=== PATIENT | male | born 1955 | race Caucasian/White ===

== ENCOUNTER 2017-02-28 11:31 | Inpatient (IN) | payer OTHER ==
[2017-02-28 12:09] LABS: Hematocrit 42.1 % (42.0-52.0); Mean Platelet Volume 7.9 fL (7.4-10.4); Red Blood Cell (RBC) Count 5.11 mill/uL (4.70-6.10); White Blood Cell (WBC) Count 14.9 thou/uL (4.8-10.8)
[2017-02-28 12:29] LABS: Band 14 % (5-11); Neutrophil 74 % (42-75)
[2017-02-28 12:31] LABS: Lactic Acid - Sepsis 2.7 mmol/L (0.5-2.2)
[2017-02-28 12:37] LABS: ALT (SGPT) 10 U/L (8-55); AST (SGOT) 11 U/L (5-34); Alkaline Phosphatase 83 U/L (40-150); Anion Gap 13 mmol/L (10-20); BUN (Urea Nitrogen) 16 mg/dL (8.4-25.7); Bilirubin, Total 1.7 mg/dL (0.2-1.2); Calc. Creatinine Clearance 0 mL/min (70-130); Calcium 8.8 mg/dL (7.8-10.44); Carbon Dioxide 21 mmol/L (23-31); Chloride 104 mmol/L (98-107); Estimated GFR-MDRD Greater than 90; Protein, Total 7.4 g/dL (5.8-8.1)
[2017-02-28] MEDS ORDERED: Fentanyl 100 MCG/2 ML VIAL ONE (12:38)
[2017-02-28] MEDS ORDERED: Sodium Chloride 0.9% 100 ML ONE (12:39)
[2017-02-28] MEDS ORDERED: Piperacillin/Tazobactam 3.375 GM VIAL ONE (12:39)
[2017-02-28 13:29] LABS: Bilirubin Negative (Negative); Blood, Urine Large (Negative); Glucose, Urine (Dipstick) Negative (Negative); Ketone, Urine Negative (Negative); Nitrite Negative (Negative); Protein, Urine (Dipstick) 30 mg/dL (Neg-Trace)
[2017-02-28 13:31] LABS: Bacteria/HPF 4+ HPF (None Seen); Hyaline Casts/LPF 0-3 HYALINE CAST LPF (0-3 Hyaline); Squamous Epithelial 0-3 HPF (0-3)
[2017-02-28 14:33] LABS: Anion Gap 12 mmol/L (-14-95); T. Carbon Dioxide 21.4 mmol/L (1.0-85.0); pH (Venous) 7.369 (7.35-7.45); vO2 Saturation-calc 95.9 % (0.0-100.0)
--- NOTE | 2017-02-28 15:23 | RAD ---
PORTABLE CHEST ONE VIEW 02/28/2017 at 2:21 p.m.: HISTORY: Sepsis, osteomyelitis. FINDINGS/IMPRESSION: Comparison is made with the exam of 12/21/2016. The heart size is borderline. Left-sided AICD remains in place. The lungs are expanded with mild p ulmonary vascular congestion. No lobar consolidation, pneumothoraces, or pleural effusions are seen . POS: [facility]
--- NOTE | 2017-02-28 16:48 | HP ---
PRIMARY CARE PHYSICIAN: Zuleyma Garzon M.D. REASON FOR ADMISSION: Sepsis, urinary tract infection. HISTORY OF PRESENT ILLNESS: A 61-year-old male who has cardiomyopathy with AICD in place, who came to the emergency room for evaluation of fever, nausea, and abdominal discomfort. The patient also n oticed increasing frequency of urination, dysuria and lower abdominal pain for the last 3 to 4 days. The patient was having increasing fever and he was not able to tolerate his oral intake and that i s why the patient was sent from retirement to the emergency room for evaluation. The patient also reported that today he was experiencing both sides lower back pain, predominantly o n the right side. Paramedics were called at retirement and the patient was having relatively low blood pressure and that is why the patient was given 1 liter of IV fluid and fentanyl was given for pain. Subsequently, he came to our emergency room for evaluation. When he arrived to our emergency room, he was having fever with 103.1. He was tachycardic and was h aving relatively low blood pressure. Routine blood tests showed leukocytosis with left shift and la ctic acidosis. His chest x-ray was unremarkable and his urinalysis was consistent with urinary trac t infection. In the emergency room, the patient was given vancomycin, Zosyn, IV fluid and fentanyl 50 mcg. Subse quently, the patient is being admitted for further evaluation and treatment. When I saw this patient, at that time, the patient's blood pressure was improved to 110 and he was n o longer tachycardic. His fever was also reduced to 100.0. The patient was on room air and lying f lat comfortably without any distress. REVIEW OF SYSTEMS: The following complete review of systems was negative, unless otherwise mentione d in the HPI or below: Constitutional: Weight loss or gain, ability to conduct usual activities. Skin: Rash, itching. Eyes: Double vision, pain. ENT/Mouth: Nose bleeding, neck stiffness, pain, tenderness. Cardiovascular: Palpitations, dyspnea on exertion, orthopnea. Respiratory: Shortness of breath, wheezing, cough, hemoptysis, fever or night sweats. Gastrointestinal: Poor appetite, abdominal pain, heartburn, nausea, vomiting, constipation, or diar kirt. Genitourinary: Urgency, frequency, dysuria, nocturia. Musculoskeletal: Pain, swelling. Neurologic/Psychiatric: Anxiety, depression. Allergy/Immunologic: Skin rash, bleeding tendency. Please see my HPI for pertinent positive and negative. All other review of systems reviewed and neg ative except as mentioned in the HPI. PAST MEDICAL HISTORY: Chronic systolic heart failure with EF 10%-15% with AICD in place, asthma, hi story of osteomyelitis in the back and nephrolithiasis. PAST SURGICAL HISTORY: AICD placement, cholecystectomy, appendicectomy, cardiac catheterization, an d circumcision. PAST PSYCHIATRIC HISTORY: Anxiety and depression. SOCIAL HISTORY: The patient is . He lives in assisted living facility at retirement. No history of tobacco, alcohol or illicit drug abuse. 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 FAMILY HISTORY: Both parents from lung cancer and they were heavy smoker. Both parents also h ad congestive heart failure. CURRENT HOME MEDICATIONS: The patient does not have any medication with him at this point, but base d on previous discharge summary, the patient is on following medications: Tylenol #3 one tablet t.i .d. p.r.n., Xanax 0.5 mg p.o. daily p.r.n., vitamin C 500 mg p.o. daily, cetirizine 10 mg p.o. daily , vitamin D3 2000 units p.o. daily, Pradaxa 150 mg p.o. b.i.d., digoxin 250 mcg p.o. daily, Lasix 40 mg p.o. daily, lisinopril 2.5 mg p.o. daily, Robaxin 500 mg p.o. b.i.d. p.r.n., metoprolol tartrate 12.5 mg p.o. b.i.d., Zoloft 25 mg p.o. daily, and Aldactone 25 mg p.o. daily. ALLERGIES: MULTAQ, MORPHINE, PROCARDIA, DILAUDID, CELEBREX, FLEXERIL, and LATEX. EMERGENCY ROOM COURSE: The patient is given vancomycin, Zosyn, 2 liters of IV fluid, and fentanyl 5 0 mcg. PHYSICAL EXAMINATION: VITAL SIGNS: On arrival, blood pressure 103/67, pulse 102, respiratory rate 16, temperature 103.1, saturation 94% on room air, weight 104.3 kilograms. GENERAL: The patient is currently alert, awake, no obvious acute distress. HEAD: Normocephalic, atraumatic. EYES: Pupils round, reactive to light. Extraocular muscles intact. ENT: Oropharynx within normal limits. Moist mucous membranes. No oral lesions. No pharyngeal lindsey thema, no exudate. NECK: Supple. Range of motion is normal. No meningeal signs of irritation. LUNGS: Clear to auscultation without any rhonchi or rales. CARDIAC: S1, S2 regular, tachycardia, no murmur, no gallop, no rub. ABDOMEN: Soft, bowel sounds present, obesity present. No suprapubic tenderness. BACK: On examination, CVA tenderness noted. No point tenderness. EXTREMITIES: Upper extremity, passive movements of all joints are normal. Lower extremity, no hien a. Good peripheral pulsation. SKIN: No skin rash. HEMATOLOGICAL SYSTEM: No lymphadenopathy. PSYCHIATRIC: Normal affect. IMAGING AND SIGNIFICANT LABORATORY DATA: 1. EKG showing sinus tachycardia, nonspecific intraventricular conduction delay, left axis deviatio n. 2. CBC: WBC 14.9, hemoglobin 13.5, and platelet of 228. 3. VBG: A pH of 7.36, bicarbonate 28.3, CO2 of 35.3, O2 83.1. 4. BMP: Sodium 139, potassium 4.2, chloride 107, carbon dioxide 21, anion gap 13, BUN 16, creatini ne 0.76, glucose 106, calcium 8.8, lactic acid 2.7. 5. LFTs: AST 11, ALT 10, alkaline phosphatase 83, albumin 3.4. Urinalysis suggestive of urinary t ract infection. 6. Chest x-ray based on my review, mild pulmonary vascular congestion, cardiomegaly, AICD in place. ASSESSMENT AND PLAN/IMPRESSION: 1. Sepsis. This patient meets sepsis criteria. Source of infection is urinary tract infection. T he patient is febrile, tachycardic, and relatively low blood pressure with lactic acidosis. At this point, patient will be admitted to medical floor. We will continue broad-spectrum antibiotic thera py with Rocephin, Levaquin, and vancomycin. We will follow up on culture result. Based on culture result, we will change antibiotic therapy orally. 2. Urinary tract infection. This patient has a remote history of nephrolithiasis. We will do CT s tone protocol to rule out underlying nephrolithiasis. We will continue Rocephin, Levaquin, and vanc omycin, and based on culture result we will change antibiotic therapy accordingly. 3. Nonischemic cardiomyopathy with automatic implantable cardioverter defibrillator in place. At t his point, we will hold on DE inhibitor, beta-prasanth therapy and Lasix therapy because of relative ly low blood pressure. We will resume all of those medications when the patient is more stabilized. 4. Anxiety and depression. We will continue Xanax 0.25 mg p.o. daily p.r.n. and Zoloft 25 mg p.o. daily. 5. Paroxysmal atrial fibrillation. We will continue digoxin 0.25 mg p.o. daily along with anticoag ulation Pradaxa 150 mg p.o. b.i.d. 6. Deep venous thrombosis prophylaxis. The patient is already on Pradaxa therapy and that is why w e will continue while in hospital. 7. Gastrointestinal prophylaxis, Pepcid 20 mg p.o. b.i.d. 8. Code status: The patient is FULL CODE. The patient does not have any surrogate decision maker. Disposition plan based on clinical course. We are expecting the patient's stay in hospital more nishant n two midnights. Plan of care discussed with the patient in detail.
[2017-02-28] MEDS ORDERED: Senokot 8.6 MG TAB PO PRN (17:37)
[2017-02-28] MEDS ORDERED: Loperamide HCl 2 MG CAP PO PRN (17:37)
[2017-02-28] MEDS ORDERED: Eucerin (Mineral Oil/Petrolatum,White) 30 gm Jar TOP PRN (17:37)
[2017-02-28] MEDS ORDERED: Ondansetron ODT 4 MG TAB PO PRN (17:37)
[2017-02-28] MEDS ORDERED: hydrALAZINE 20 MG/ML VIAL SLOW IVP PRN (17:37)
[2017-02-28] MEDS ORDERED: Zolpidem Tartrate 5 MG TAB PO PRN (17:37)
[2017-02-28] MEDS ORDERED: Milk Of Magnesia 30 ML UDCUP PO PRN (17:37)
[2017-02-28] MEDS ORDERED: Ondansetron HCl/PF 4 MG/2 ML Vial IVP PRN (17:37)
[2017-02-28] MEDS ORDERED: Diabetic Tussin 200 MG/10 ML UDCUP PO PRN (17:37)
[2017-02-28] MEDS ORDERED: Mag-Al 1200 mg/1200 mg/30 ML UDCUP PO PRN (17:37)
[2017-02-28] MEDS ORDERED: Sodium Chloride 0.65% Nasal 44 ML BOT EA NARE PRN (17:37)
[2017-02-28] MEDS ORDERED: Sodium Chloride 0.9% 1,000 ML IV SCH (17:37)
[2017-02-28] MEDS ORDERED: Artificial Tears 18 DROP/0.9 ML EA EYE PRN (17:37)
[2017-02-28 17:52] VITALS: BMI 34.1
[2017-02-28] MEDS ORDERED: cefTRIAXone\\ROCEPHIN 1 GM in Sodium Chloride 0.9% 100 ML IVPB SCH ×2 (18:00→21:45)
[2017-02-28] MEDS: Famotidine 20 MG TAB PO SCH (20:36)
[2017-02-28] MEDS: Acetaminophen 325 MG TAB PO PRN (20:36)
[2017-02-28] MEDS ORDERED: Dabigatran 150 mg Capsule PO SCH (21:00)
[2017-02-28] MEDS: Vancomycin HCl 1.25 GM in Sodium Chloride 0.9% 250 ML 250 ML IVPB SCH (22:15)
--- NOTE | 2017-02-28 22:55 | CT ---
NONCONTRAST ENHANCE CT IMAGES ABDOMEN AND PELVIS 02/28/17 HISTORY: Urinary tract infection, sepsis, back pain. Noncontrast enhanced CT images of the abdomen and pelvis is obtained from the dome of the diaphragm to the pubic symphysis. IV and oral contrast was not given. Bilateral pleural effusions seen. Areas of bibasilar atelectasis is also present. The liver and sple en are unremarkable. The gallbladder has been surgically removed. The pancreas is unremarkable. Adre nal glands are unremarkable. The left kidney contains a cortical cyst as well as several nonobstruct ing left renal calculi. The right kidney contains several small parenchymal calculi. There is marked right hydroureteronephrosis. There is dilatation of the proximal right ureter. There is a large right mid ureteral calculus. Three dimensional measurements measuring 5.5 x 11.2 x 21 mm . This large right ureteral stone is resulting in severe proximal hydronephrosis. The distal aspect of the right ureter is decompressed. No evidence of obvious bladder calculi seen. Small bowel loops are unremarkable. The colon is unremarkable except for some descending colonic div erticula. IMPRESSION: Large obstructing right mid ureteral calculus. POS: [facility]
[2017-03-01] MEDS: Vancomycin HCl 1.25 GM in Sodium Chloride 0.9% 250 ML 250 ML IVPB SCH ×3 (05:15→22:40)
[2017-03-01 06:22] LABS: #Basophils 0.1 thou/uL (0.0-0.2); #Eosinphils 0.3 thou/uL (0.0-0.7); #Lymphocytes 1.7 thou/uL (1.20-3.40); #Monocytes 1.5 thou/uL (0.11-0.59); #Neutrophils 7.9 thou/uL (1.40-6.50); %Basophils 0.6 % (0.0-1.0); %Eosinophils 2.9 % (0.0-10.0); %Lymphocytes 14.7 % (21.0-51.0); %Monocytes 13.2 % (0.0-10.0); Hematocrit 40.8 % (42.0-52.0); Mean Platelet Volume 8.5 fL (7.4-10.4); Red Blood Cell (RBC) Count 4.83 mill/uL (4.70-6.10); White Blood Cell (WBC) Count 11.5 thou/uL (4.8-10.8)
[2017-03-01 06:45] LABS: ALT (SGPT) 9 U/L (8-55); AST (SGOT) 14 U/L (5-34); Alkaline Phosphatase 74 U/L (40-150); Anion Gap 13 mmol/L (10-20); BUN (Urea Nitrogen) 19 mg/dL (8.4-25.7); Bilirubin, Total 1.4 mg/dL (0.2-1.2); Calc. Creatinine Clearance 160 mL/min (70-130); Calcium 8.5 mg/dL (7.8-10.44); Carbon Dioxide 20 mmol/L (23-31); Chloride 107 mmol/L (98-107); Estimated GFR-MDRD Greater than 90; Globulin 3.7 g/dL (2.4-3.5); Protein, Total 6.9 g/dL (5.8-8.1)
[2017-03-01] MEDS: Ascorbic Acid 500 mg Chewable Tablet PO SCH (09:44)
[2017-03-01] MEDS: Rivaroxaban 10 MG TAB PO SCH (09:45)
[2017-03-01] MEDS: Famotidine 20 MG TAB PO SCH ×2 (09:45→20:35)
[2017-03-01] MEDS: Saccharomyces boulardii 250 MG CAP PO SCH (09:45)
[2017-03-01] MEDS: Digoxin 0.25 MG TAB PO SCH (09:46)
--- NOTE | 2017-03-01 12:22 | PDOC.PN ---
- Subjective Encounter Start Date: 03/01/17 Encounter Start Time: 12:22 -: old records requested/rev Patient seen and examined. No overnight events, pt has right side flank pain, no fever, no vomiting - Objective Resuscitation Status: Resuscitation Status FULL:Full Resuscitation MAR Reviewed: Yes Vital Signs & Weight: Vital Signs (12 hours) Temp Pulse Resp BP Pulse Ox 03/01/17 09:46 70 03/01/17 08:10 99.5 F 78 18 103/68 93 L 03/01/17 05:00 99.4 F 90 16 104/70 99 03/01/17 02:29 93 L Weight Weight 237 lb 12.8 oz I&O: 02/28/17 03/01/17 03/02/17 06:59 06:59 06:59 Intake Total 360 Balance 360 Result Diagrams: 03/01/17 04:11 03/01/17 04:11 Radiology Reviewed by me: Yes (CT abdomen) Phys Exam - Physical Examination Constitutional: NAD HEENT: PERRLA, moist MMs, sclera anicteric Neck: no JVD, supple Respiratory: no wheezing, no rales, no rhonchi Cardiovascular: RRR, no significant murmur, no rub Gastrointestinal: soft, non-tender, no distention, positive bowel sounds right CVA tenderness Musculoskeletal: no edema, pulses present Neurological: non-focal, normal sensation, moves all 4 limbs Psychiatric: normal affect, A&O x 3 Skin: no rash, normal turgor, cap refill <2 seconds Dx/Plan (1) Right ureteral calculus Code(s): N20.1 - CALCULUS OF URETER Status: Acute (2) UTI (urinary tract infection) Status: Acute Qualifiers: Urinary tract infection type: acute pyelonephritis Qualified Code(s): N10 - Acute pyelonephritis (3) Sepsis Code(s): A41.9 - SEPSIS, UNSPECIFIED ORGANISM Status: Acute (4) Obesity (BMI 30.0-34.9) Code(s): E66.9 - OBESITY, UNSPECIFIED Status: Chronic (5) Anxiety and depression Code(s): F41.8 - OTHER SPECIFIED ANXIETY DISORDERS Status: Chronic (6) Paroxysmal atrial fibrillation Code(s): I48.0 - PAROXYSMAL ATRIAL FIBRILLATION Status: Chronic (7) Cardiomyopathy Code(s): I42.9 - CARDIOMYOPATHY, UNSPECIFIED Status: Chronic (8) HTN (hypertension) Code(s): I10 - ESSENTIAL (PRIMARY) HYPERTENSION Status: Chronic (9) Systolic heart failure Code(s): I50.20 - UNSPECIFIED SYSTOLIC (CONGESTIVE) HEART FAILURE Status: Chronic Qualifiers: Heart failure chronicity: chronic Qualified Code(s): I50.22 - Chronic systolic (congestive) heart failure (10) Lactic acidosis Code(s): E87.2 - ACIDOSIS Status: Acute - Plan cont current plan of care, continue antibiotics * will consult urology and notified * will keep NPO for now, as he may need cysto and stent placement * continue IVF * pt is euvolemic * medication reviewed as below * symptomatic treatment * follow culture * repeat labs tomorrow. Review of Systems - Review of Systems Constitutional: negative: Fever, Chills, Sweats, Weakness, Malaise, Other Eyes: negative: Pain, Vision Change, Conjunctivae Inflammation, Eyelid Inflammation, Redness, Other ENT: negative: Ear Pain, Ear Discharge, Nose Pain, Nose Discharge, Nose Congestion, Mouth Pain, Mouth Swelling, Throat Pain, Throat Swelling, Other Respiratory: negative: Cough, Dry, Shortness of Breath, Hemoptysis, SOB with Excertion, Pleuritic Pain, Sputum, Wheezing Cardiovascular: negative: Chest Pain, Palpitations, Orthopnea, Paroxysmal Noc. Dyspnea, Edema, Light Headedness, Other Gastrointestinal: Abdominal Pain. negative: Nausea, Vomiting, Diarrhea, Constipation, Melena, Hematochezia, Other Genitourinary: negative: Dysuria, Frequency, Incontinence, Hematuria, Retention , Other Musculoskeletal: negative: Neck Pain, Shoulder Pain, Arm Pain, Back Pain, Hand Pain, Leg Pain, Foot Pain, Other - Medications/Allergies Allergies/Adverse Reactions: Allergies Allergy/AdvReac Type Severity Reaction Status Date / Time latex Allergy Severe Short of Verified 12/21/16 21:22 Breath celecoxib [From Celebrex] Allergy Short of Verified 12/21/16 21:22 Breath cyclobenzaprine Allergy Verified 12/21/16 21:22 [From Flexeril] dronedarone [From Multaq] Allergy Verified 12/21/16 21:22 hydromorphone [From Dilaudid] Allergy Verified 12/21/16 21:22 morphine Allergy Verified 12/21/16 21:22 nifedipine [From Procardia] Allergy Verified 12/21/16 21:22 Medications: Current Medications Acetaminophen (Tylenol) 650 mg PO Q4H PRN PRN Reason: Headache/Fever or Pain Last Admin: 02/28/17 20:36 Dose: 650 mg Al Hydroxide/Mg Hydroxide (Maalox) 30 ml PO Q6H PRN PRN Reason: Heartburn or Indigestion Albuterol/Ipratropium (Duoneb) 3 ml NEB Q6H PRN PRN Reason: SOB/WHEEZE Alprazolam (Xanax) 0.5 mg PO DAILY PRN PRN Reason: Anxiety/Agitation Artificial Tears (Tears Naturale) 0 drop EA EYE PRN PRN PRN Reason: Dry Eyes Ascorbic Acid (Vitamin C) 500 mg PO DAILY COUNTS INCLUDE 234 BEDS AT THE [facility] Last Admin: 03/01/17 09:44 Dose: 500 mg Cholecalciferol (Vitamin D3) 2,000 units PO DAILY COUNTS INCLUDE 234 BEDS AT THE [facility] Last Admin: 03/01/17 09:44 Dose: 2,000 units Digoxin (Lanoxin) 0.25 mg PO DAILY COUNTS INCLUDE 234 BEDS AT THE [facility] Last Admin: 03/01/17 09:46 Dose: 0.25 mg Famotidine (Pepcid) 20 mg PO BID COUNTS INCLUDE 234 BEDS AT THE [facility] Last Admin: 03/01/17 09:45 Dose: 20 mg Guaifenesin (Robitussin Sf) 200 mg PO Q4H PRN PRN Reason: Cough Hydralazine HCl (Apresoline) 10 mg SLOW IVP Q4H PRN PRN Reason: Systolic BP > 180 Levofloxacin 500 mg/ Device 100 mls @ 100 mls/hr IVPB 1800 COUNTS INCLUDE 234 BEDS AT THE [facility] Last Admin: 02/28/17 19:37 Dose: 100 mls Vancomycin HCl 1.25 gm/ Sodium (Chloride) 250 mls @ 166.667 mls/hr IVPB Q8HR COUNTS INCLUDE 234 BEDS AT THE [facility] Last Admin: 03/01/17 05:15 Dose: 250 mls Ceftriaxone Sodium 1 gm/Miscellaneous Medication 1 each/ Sodium Chloride 100 mls @ 200 mls/hr IVPB 2100 DUSTY Loperamide HCl (Imodium) 2 mg PO PRN PRN PRN Reason: Diarrhea/Loose Stools Loratadine (Claritin) 10 mg PO DAILYPRN PRN PRN Reason: Sinus Symptoms Magnesium Hydroxide (Milk Of Magnesium) 30 ml PO DAILYPRN PRN PRN Reason: Constipation Mineral Oil/White Petrolatum (Eucerin Cream) 0 gm TOP BIDPRN PRN PRN Reason: Dry Skin Miscellaneous Medication (Pharmacy To Dose) 1 each IVPB ONE PRN PRN Reason: Pharmacy to dose Stop: 03/30/17 17:38 Ondansetron HCl (Zofran Odt) 4 mg PO Q6H PRN PRN Reason: Nausea/Vomiting Ondansetron HCl (Zofran) 4 mg IVP Q6H PRN PRN Reason: Nausea/Vomiting Rivaroxaban (Xarelto) 20 mg PO DAILY COUNTS INCLUDE 234 BEDS AT THE [facility] Last Admin: 03/01/17 09:45 Dose: 20 mg Saccharomyces Boulardii (Florastor) 250 mg PO DAILY COUNTS INCLUDE 234 BEDS AT THE [facility] Last Admin: 03/01/17 09:45 Dose: 250 mg Senna (Senokot) 2 tab PO HSPRN PRN PRN Reason: Constipation Sertraline HCl (Zoloft) 25 mg PO DAILY COUNTS INCLUDE 234 BEDS AT THE [facility] Last Admin: 03/01/17 09:45 Dose: 25 mg Sodium Chloride ([place] Nasal [place] 0.65%) 0 ml EA NARE QIDPRN PRN PRN Reason: Nasal Congestion Zolpidem Tartrate (Ambien) 5 mg PO HSPRN PRN PRN Reason: Insomnia
[2017-03-01] MEDS: Sodium Chloride 0.9% 1,000 ML IV SCH (13:55)
[2017-03-01 14:25] LABS: Vancomycin, Trough 14.7 ug/mL
[2017-03-01] MEDS ORDERED: cefTRIAXone\\ROCEPHIN 1 GM, Admixture Fee 1 EACH in Sodium Chloride 0.9% 100 ML IVPB SCH (21:00)
[2017-03-01] MEDS ORDERED: cefTRIAXone\\ROCEPHIN 1 GM in Sodium Chloride 0.9% 100 ML IVPB SCH (21:00)
[2017-03-02] MEDS: Loratadine 10 MG TAB PO PRN ×2 (01:34→08:34)
[2017-03-02 04:17] LABS: #Eosinphils 0.2 thou/uL (0.0-0.7); #Lymphocytes 1.3 thou/uL (1.20-3.40); #Monocytes 1.2 thou/uL (0.11-0.59); %Basophils 0.2 % (0.0-1.0); %Eosinophils 2.7 % (0.0-10.0); %Lymphocytes 15.1 % (21.0-51.0); %Monocytes 13.1 % (0.0-10.0); Hematocrit 38.9 % (42.0-52.0); Mean Platelet Volume 8.7 fL (7.4-10.4); White Blood Cell (WBC) Count 8.8 thou/uL (4.8-10.8)
[2017-03-02 04:24] LABS: Anion Gap 11 mmol/L (10-20); BUN (Urea Nitrogen) 16 mg/dL (8.4-25.7); Calc. Creatinine Clearance 175 mL/min (70-130); Calcium 8.7 mg/dL (7.8-10.44); Carbon Dioxide 19 mmol/L (23-31); Chloride 107 mmol/L (98-107); Estimated GFR-MDRD Greater than 90
[2017-03-02] MEDS: Vancomycin HCl 1.25 GM in Sodium Chloride 0.9% 250 ML 250 ML IVPB SCH (05:27)
--- NOTE | 2017-03-02 07:01 | CON ---
DATE OF HOSPITALIZATION: 02/28/2017 DATE OF CONSULTATION REQUEST AND RERPORT: 03/01/2017 REASON FOR CONSULTATION: 1. Urinary tract infection. 2. Apparent sepsis. 3. Right-sided partially obstructing greater than 2 cm ureteral calculus. HISTORY OF PRESENT ILLNESS: Mr. 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 The patient does have a history of osteomyelitis. He did undergo CT scanning of the abdomen and pelvis, which demonstrated greater than 2 cm uretera l calculus on the right side. Mr. Cornelius reports that he has had many months of chronic back pain. H e reports his pain is all in the midline. He reports that he has had some pain off on the left side , which he relates to his kidney stone. Patient does not report any nausea or vomiting. He is not having any pinching type sensation or atypical renal colic. Instead, the patient reports that middl e of the back pain, which has slight bilateral characteristics to it. It hurts worse on the left th an the right, reports some of his pain is lower than it was before when he has osteomyelitis attack. Patient does not report any significant obstructive voiding symptoms at home, but notices that he tilley s a little more frequency that he did many years ago. He is not on any prostate specific medication s. Patient does report that he has had previous kidney stones that were comprised of calcium oxalat e. Patient has a history of cardiomyopathy and has a pacemaker defibrillator in place. He came to the emergency department yesterday for fever, nausea, and some abdominal discomfort. REVIEW OF SYSTEMS: CONSTITUTIONAL: The patient is not reporting any weight loss or weight gain. SKIN: He is not reporting any significant lesions. HEENT: No current complaints. CARDIOVASCULAR: Patient does have a pacemaker defibrillator, does not report any recent activations . They were palpable or noticeable to him. RESPIRATORY: Patient does have shortness of breath with exercise, reports some wheezing and cough. GASTROINTESTINAL: Patient reports that he is currently hungry, has been n.p.o. for most of the day. He does desire eating. He specifically denies nausea and vomiting. GENITOURINARY: Patient has had some urgency, frequency, dysuria, and nocturia, which were slightly worse over the last few weeks. MUSCULOSKELETAL: Some pain with exertion. NEUROLOGIC: Negative. ALLERGIES: The patient is not reporting allergies to anything other than prescription medications. The patient reports allergies to MULTAQ, MORPHINE, PROCARDIA, DILAUDID, CELEBREX, FLEXERIL, and LAT EX. PAST MEDICAL HISTORY: 1. Chronic systolic heart failure with reduced ejection fraction of 10 to 15% with AICD in place. 2. Asthma. 3. History of osteomyelitis in the back. 4. History of recurrent bouts of nephrolithiasis. PAST SURGICAL HISTORY: 1. AICD placement. 2. Cholecystectomy. 3. Appendectomy. 4. Cardiac catheterization. 5. Circumcision. 6. Previous kidney stone treatment. PAST PSYCHIATRIC HISTORY: Positive for anxiety and depression. SOCIAL HISTORY: The patient is . He lives in assisted living facility, retirement. He s pecifically denies a history of tobacco smoking except for in his early years, does not use alcohol or any illicit drugs. 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 FAMILY MEDICAL HISTORY: Both patient's parents from lung cancer, they were heavy smokers. Both parents had congestive heart failure. CURRENT HOME MEDICATIONS: Include the followin. Tylenol #3 one tablet p.o. t.i.d. p.r.n. pain. 2. Xanax 0.5 mg p.o. q. day. 3. Cetirizine 10 mg p.o. q. day. 4. Vitamin D3 of 2000 units p.o. q. day. 5. Pradaxa 150 mg p.o. b.i.d. 6. Digoxin 250 mg p.o. q. day. 7. Lasix 40 mg p.o. q. day. 8. Lisinopril 2.5 mg p.o. q. day. 9. Robaxin 500 mg p.o. b.i.d. p.r.n. 10. Metoprolol tartrate 12.5 mg p.o. b.i.d. 11. Zoloft 25 mg daily. 12. Aldactone 25 mg p.o. q. day. PHYSICAL EXAMINATION: VITAL SIGNS: The patient's current temperature is 100.5 F, pulse is 91, respirations 18, O2 saturat ion 96%, blood pressure is 116/77. GENERAL: This is a pleasant, heavyset white male in no apparent distress. HEENT: Extraocular movements are intact. Sclerae are anicteric. Oropharynx is clear. NECK: Supple. LUNGS: Clear to auscultation bilaterally. CHEST: There is a left-sided implanted pacemaker defibrillator. CARDIAC: Regular rate and rhythm. ABDOMEN: Soft, obese, and nontender. Bowel sounds are heard. BACK: Patient reports some greater left-sided and right-sided back discomfort on percussion. He re ports all of his pain is more or less in the midline. There are no lateralizing features to it. ABDOMEN: Soft and nontender, does not report radiation of his pain symptoms to his abdomen. GENITOURINARY: Phallus is without lesion. Palpation of inguinal canals finds no evidence of hernia . There is an overriding mons pubis. RECTAL: Digital rectal examination finds an empty vault with relatively poor rectal tone. The pros little gland itself feels to be about 35 to 40 grams in size. It is not specifically sinister. EXTREMITIES: No clubbing, cyanosis, or undue edema. Patient is on diuretic therapy by his report. LABORATORY STUDIES: Patient's white count today was 11, 500 down from 14,900 yesterday. There is n o real left shift with a current neutrophil percentage of 68.7%. Patient did have a 14% bands yeste rday. Serum chemistry show current creatinine of 0.72 with a blood urea nitrogen of 19 indicating slight p rerenal status. Estimated GFR is greater than 90%. Serum lactic acid is currently at 3.1. RADIOLOGIC STUDIES: A CT scan of the abdomen and pelvis was performed on 02/28/2017. This study de monstrates a calculus in the patient's right upper mid ureter with overall dimensions of 21 mm x 11. 2 x 5.5 mm. There is not a large amount of hydronephrosis or hydroureter behind this. This appears to be more or less a chronic calculus at the present time. I would imagine from the location and t he appearance of the ureter that appears probably urine passing this. This correlated well with the patient's clinical exam findings. The patient's bladder is noted to be over distended relative to his body size with the portions of the bladder, overriding the pubic symphysis. Prostate gland does not appear to be unduly enlarged. ASSESSMENT AND PLAN: Apparent sepsis with positive urine culture for E. coli. Patient should be co lele with appropriate antibiotics. Probably would consider proceeding to the operating room for cy stoscopy and stent placement in this patient when he defervesces. I do not think this is an obstruc ting stone based on the clinical examination of the patient nor review of the radiologic studies and said this is probably a chronic stone, which is not completely obstructing. There may be intermitt ent periods of obstruction. Present time with his history of calcium oxalate stones, I believe cyst oscopy and stenting as appropriate. We will make the patient n.p.o. after breakfast on Sunday for p lanned stent placement on Sunday evening. alf treatment of the patient's stone will be electi vely planned. Patient will need to come back to the hospital for that. Patient is currently on ant icoagulation, which can be continued for stent placement.
[2017-03-02] MEDS: Rivaroxaban 10 MG TAB PO SCH (08:34)
[2017-03-02] MEDS: Sodium Chloride 0.9% 1,000 ML IV SCH (08:34)
[2017-03-02] MEDS: Ascorbic Acid 500 mg Chewable Tablet PO SCH (08:34)
[2017-03-02] MEDS: Famotidine 20 MG TAB PO SCH ×2 (08:34→20:27)
[2017-03-02] MEDS: Saccharomyces boulardii 250 MG CAP PO SCH (08:35)
[2017-03-02] MEDS: Acetaminophen 325 MG TAB PO PRN (08:37)
[2017-03-02] MEDS: Digoxin 0.25 MG TAB PO SCH (08:38)
--- NOTE | 2017-03-02 10:36 | PDOC.PN ---
- Subjective Encounter Start Date: 03/02/17 Encounter Start Time: 07:30 Patient seen and examined. No new complaints. No overnight events - Objective Resuscitation Status: Resuscitation Status FULL:Full Resuscitation MAR Reviewed: Yes Vital Signs & Weight: Vital Signs (12 hours) Temp Pulse Resp BP Pulse Ox 03/02/17 08:38 73 03/02/17 08:25 98.7 F 86 16 115/79 95 03/02/17 05:00 99.3 F 03/02/17 00:00 97.4 F L Weight Weight 237 lb 12.8 oz I&O: 03/01/17 03/02/17 03/03/17 06:59 06:59 06:59 Intake Total 1320 Balance 1320 Result Diagrams: 03/02/17 03:10 03/02/17 03:10 Phys Exam - Physical Examination Constitutional: NAD HEENT: PERRLA, moist MMs, sclera anicteric Neck: no JVD, supple Respiratory: no wheezing, no rales, no rhonchi Cardiovascular: RRR, no significant murmur, no rub Gastrointestinal: soft, non-tender, no distention, positive bowel sounds Musculoskeletal: no edema, pulses present Neurological: non-focal, normal sensation, moves all 4 limbs Psychiatric: normal affect, A&O x 3 Skin: no rash, normal turgor Dx/Plan (1) Right ureteral calculus Code(s): N20.1 - CALCULUS OF URETER Status: Acute (2) UTI (urinary tract infection) Status: Acute Qualifiers: Urinary tract infection type: acute pyelonephritis Qualified Code(s): N10 - Acute pyelonephritis (3) Sepsis Code(s): A41.9 - SEPSIS, UNSPECIFIED ORGANISM Status: Acute Qualifiers: Sepsis type: Escherichia coli Qualified Code(s): A41.51 - Sepsis due to Escherichia coli [E. coli] (4) Obesity (BMI 30.0-34.9) Code(s): E66.9 - OBESITY, UNSPECIFIED Status: Chronic (5) Anxiety and depression Code(s): F41.8 - OTHER SPECIFIED ANXIETY DISORDERS Status: Chronic (6) Paroxysmal atrial fibrillation Code(s): I48.0 - PAROXYSMAL ATRIAL FIBRILLATION Status: Chronic (7) Cardiomyopathy Code(s): I42.9 - CARDIOMYOPATHY, UNSPECIFIED Status: Chronic (8) HTN (hypertension) Code(s): I10 - ESSENTIAL (PRIMARY) HYPERTENSION Status: Chronic (9) Systolic heart failure Code(s): I50.20 - UNSPECIFIED SYSTOLIC (CONGESTIVE) HEART FAILURE Status: Chronic Qualifiers: Heart failure chronicity: chronic Qualified Code(s): I50.22 - Chronic systolic (congestive) heart failure (10) Lactic acidosis Code(s): E87.2 - ACIDOSIS Status: Acute - Plan cont current plan of care, continue antibiotics * based on culture result, will change antibiotics to meropenam 1gm iv q 8 hourly * medication reviewed as below * symptomatic treatment * later today plan for cystoscopy and stent placement * DC IVF. Review of Systems - Review of Systems ENT: negative: Ear Pain, Ear Discharge, Nose Pain, Nose Discharge, Nose Congestion, Mouth Pain, Mouth Swelling, Throat Pain, Throat Swelling, Other Respiratory: negative: Cough, Dry, Shortness of Breath, Hemoptysis, SOB with Excertion, Pleuritic Pain, Sputum, Wheezing Cardiovascular: negative: Chest Pain, Palpitations, Orthopnea, Paroxysmal Noc. Dyspnea, Edema, Light Headedness, Other Gastrointestinal: negative: Nausea, Vomiting, Abdominal Pain, Diarrhea, Constipation, Melena, Hematochezia, Other Genitourinary: negative: Dysuria, Frequency, Incontinence, Hematuria, Retention , Other Musculoskeletal: negative: Neck Pain, Shoulder Pain, Arm Pain, Back Pain, Hand Pain, Leg Pain, Foot Pain, Other - Medications/Allergies Allergies/Adverse Reactions: Allergies Allergy/AdvReac Type Severity Reaction Status Date / Time latex Allergy Severe Short of Verified 12/21/16 21:22 Breath celecoxib [From Celebrex] Allergy Short of Verified 12/21/16 21:22 Breath cyclobenzaprine Allergy Verified 12/21/16 21:22 [From Flexeril] dronedarone [From Multaq] Allergy Verified 12/21/16 21:22 hydromorphone [From Dilaudid] Allergy Verified 12/21/16 21:22 morphine Allergy Verified 12/21/16 21:22 nifedipine [From Procardia] Allergy Verified 12/21/16 21:22 Medications: Current Medications Acetaminophen (Tylenol) 650 mg PO Q4H PRN PRN Reason: Headache/Fever or Pain Last Admin: 03/02/17 08:37 Dose: 650 mg Al Hydroxide/Mg Hydroxide (Maalox) 30 ml PO Q6H PRN PRN Reason: Heartburn or Indigestion Albuterol/Ipratropium (Duoneb) 3 ml NEB Q6H PRN PRN Reason: SOB/WHEEZE Alprazolam (Xanax) 0.5 mg PO DAILY PRN PRN Reason: Anxiety/Agitation Artificial Tears (Tears Naturale) 0 drop EA EYE PRN PRN PRN Reason: Dry Eyes Ascorbic Acid (Vitamin C) 500 mg PO DAILY [facility] Last Admin: 03/02/17 08:34 Dose: 500 mg Cholecalciferol (Vitamin D3) 2,000 units PO DAILY [facility] Last Admin: 03/02/17 08:34 Dose: 2,000 units Digoxin (Lanoxin) 0.25 mg PO DAILY [facility] Last Admin: 03/02/17 08:38 Dose: 0.25 mg Famotidine (Pepcid) 20 mg PO BID [facility] Last Admin: 03/02/17 08:34 Dose: 20 mg Guaifenesin (Robitussin Sf) 200 mg PO Q4H PRN PRN Reason: Cough Hydralazine HCl (Apresoline) 10 mg SLOW IVP Q4H PRN PRN Reason: Systolic BP > 180 Sodium Chloride (Normal Saline 0.9%) 1,000 mls @ 50 mls/hr IV .Q20H [facility] Last Admin: 03/01/17 13:55 Dose: 1,000 mls Meropenem 1 gm/ Miscellaneous Medication 1 each/ Sodium Chloride 100 mls @ 200 mls/hr IVPB 0600,1400,2200 [facility] Loperamide HCl (Imodium) 2 mg PO PRN PRN PRN Reason: Diarrhea/Loose Stools Loratadine (Claritin) 10 mg PO DAILYPRN PRN PRN Reason: Sinus Symptoms Last Admin: 03/02/17 08:34 Dose: 10 mg Magnesium Hydroxide (Milk Of Magnesium) 30 ml PO DAILYPRN PRN PRN Reason: Constipation Mineral Oil/White Petrolatum (Eucerin Cream) 0 gm TOP BIDPRN PRN PRN Reason: Dry Skin Ondansetron HCl (Zofran Odt) 4 mg PO Q6H PRN PRN Reason: Nausea/Vomiting Ondansetron HCl (Zofran) 4 mg IVP Q6H PRN PRN Reason: Nausea/Vomiting Rivaroxaban (Xarelto) 20 mg PO DAILY [facility] Last Admin: 03/01/17 09:45 Dose: 20 mg Saccharomyces Boulardii (Florastor) 250 mg PO DAILY [facility] Last Admin: 03/02/17 08:35 Dose: 250 mg Senna (Senokot) 2 tab PO HSPRN PRN PRN Reason: Constipation Sertraline HCl (Zoloft) 25 mg PO DAILY [facility] Last Admin: 03/02/17 08:34 Dose: 25 mg Sodium Chloride ([place] Nasal [place] 0.65%) 0 ml EA NARE QIDPRN PRN PRN Reason: Nasal Congestion Sodium Chloride (Flush - Normal Saline) 10 ml IVF Q12HR [facility] Sodium Chloride (Flush - Normal Saline) 10 ml IVF PRN PRN PRN Reason: Saline Flush Zolpidem Tartrate (Ambien) 5 mg PO HSPRN PRN PRN Reason: Insomnia
[2017-03-02] MEDS: Meropenem 1 GM, Admixture Fee 1 EACH in Sodium Chloride 0.9% 100 ML IVPB SCH ×2 (14:29→22:56)
[2017-03-02] MEDS ORDERED: Iothalamate Meglumine 60% 50 ML VIAL FS ONE (19:18)
[2017-03-02] MEDS ORDERED: Fentanyl 100 MCG/2 ML VIAL ONE (20:18)
[2017-03-02] MEDS ORDERED: B & O ONE (20:38)
[2017-03-02] MEDS ORDERED: Ondansetron HCl/PF 4 MG/2 ML Vial ONE (20:44)
[2017-03-02] MEDS ORDERED: Succinylcholine Chloride 20 MG/ML 10 ml SYRINGE FS ONE (20:44)
[2017-03-02] MEDS ORDERED: Propofol 200 MG/20 ML VIAL ONE (20:44)
[2017-03-02] MEDS ORDERED: metroNIDAZOLE 500 MG/100 ML BAG ONE (20:59)
[2017-03-02] MEDS ORDERED: Fluconazole In NaCl,Iso-Osm 200 MG in Premix Bag 1 BAG IVPB SCH ×2 (21:15)
[2017-03-02] MEDS ORDERED: Promethazine HCl 25 MG/ML VIAL IM PRN (21:37)
[2017-03-02] MEDS ORDERED: Ondansetron HCl/PF 4 MG/2 ML Vial IVP PRN (21:37)
[2017-03-02] MEDS ORDERED: Promethazine HCl 25 MG/ML VIAL SLOW IVP PRN (21:37)
--- NOTE | 2017-03-02 21:58 | RAD ---
RETROGRADE IVP: 03/02/17 HISTORY: 61-year-old male with right ureteral calculus. Three portable fluoroscopic spot films are presented for interpretation. The initial study demonstra liat a ureteral stent with injection of the right ureter with an area of incomplete filling overlying the right iliac crest region. Followup images demonstrate placement of the ureteral stent which on this last image does not appear to extend all the way into the bladder. There is a suggestion of a f illing defect within the right renal pelvis which is minimally dilated. IMPRESSION: Evidence for a right ureteral calculus. Right ureteral stent which on the third image does not appea r to completely extend into the bladder. POS: [facility]
[2017-03-03] MEDS: Meropenem 1 GM, Admixture Fee 1 EACH in Sodium Chloride 0.9% 100 ML IVPB SCH ×3 (05:32→22:18)
[2017-03-03] MEDS: Sodium Chloride 0.9% 1,000 ML IV SCH (05:36)
--- NOTE | 2017-03-03 07:40 | OP ---
DATE OF HOSPITAL ADMISSION: 02/28/2017 DATE OF HOSPITAL CONSULTATION: 03/01/2017 DATE OF OPERATIVE PROCEDURE: 03/02/2017 PREOPERATIVE DIAGNOSES: 1. Right ureteral calculus 20 mm, N20.1. 2. Right renal calculi, N20.0. 3. Buried penis. 4. Balanitis xerotica obliterans of penis. POSTOPERATIVE DIAGNOSES: 1. Right ureteral calculus 20 mm, N20.1. 2. Right renal calculi, N20.0. 3. Buried penis. 4. Balanitis xerotica obliterans of penis. 5. Multilevel urethral stricture disease involving the anterior urethra and pendulous urethra. OPERATIVE PROCEDURES: 1. Cystourethroscopy with right-sided stent placement, 49269. 2. Right retrograde pyelogram, 20642. SURGEON: Shantanu King M.D. SLUDGE FILTRATION ATTENDANT SURGEON: None. ANESTHESIA: General by endotracheal means. SPECIMENS: Urine for culture from the right renal pelvis. ESTIMATED BLOOD LOSS: 0 mL. DRAINS AND TUBES: A 4.5-Kyrgyz x 28-cm double-J ureteral stent without string in the right ureter. BRIEF HISTORY AND INDICATION FOR PROCEDURE: Mr. 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 The pat ient had some chronic back pain issues associated with this and recently presented to the [facility] on 02/28/2017. He underwent CT scanning which demonstrated the obstructing right ureteral calculus. The patient presented essentially with sepsis-type presentation and had E. coli isolated from his urine. The patient was relatively asymptomatic except for his generalized s epsis-type symptoms and has done well on intravenous antibiotics. He opted to proceed to the operat ing room for stenting of his right ureter due to the large size of the obstructing calculus in the r ight ureter. The patient was brought to the operating room today for that procedure. TECHNICAL PROCEDURE: The patient was appropriately identified in the preoperative holding area and informed written consent was obtained. The patient was transported to the operative suite. SYDNIE hos e and sequential compression devices applied to bilateral lower extremities. The patient was transf erred to the cysto fluorographic table. The patient is already on intravenous antibiotics for treat ment associated with his E. coli infection, is continuing on those. The patient received general en dotracheal intubation. He was repositioned in the supine lithotomy position and then prepped and dr aped in the usual sterile fashion. During the course of the prep, we noticed the patient has a buri ed penis massive overriding mons pubis and balanitis xerotica obliterans involving the foreskin of t he penis and portions of the glans penis itself. The patient underwent cystoscopic evaluation. The patient has multilevel urethral stricture disease evident on cystoscopic examination. None of thes e were large enough to prevent progression of the 17-Kyrgyz cystoscope. We entered the patient's bl adder, left ureteric orifice was effluxing. Right ureteric orifice only effluxing a small amount of urine. There were particulates observed in the patient's bladder as well as wbc-type blebs in mult iple areas suggestive of recent urinary tract infection. The patient's right ureter was accessed us ing a 0.035 angled Glidewire and a 5-Kyrgyz Pollack catheter. We were able to advance this above ob struction in the mid ureter, which was unremarkable largely either radiolucent or unclear secondary to the patient's body morphology. We were able to advance this into the patient's right renal pelvi s and obtained an aspirate of the urine from right renal pelvis. We left the Glidewire in place and then performed a retrograde pyelography of the patient's collecting system which appeared to be rela tively minimally dilated extending down to the level of the obstructing ureteral calculus which was seen in outline form. We placed a 4.5-Kyrgyz x 28-cm double-J ureteral stent in the right ureter. We removed the string for this. The patient's bladder was then drained and he then received a 60 mg belladonna and opium suppository per rectum for initial bladder spasm control. The patient intraop eratively did receive supplemental Diflucan due to some yeast-type cellulitis noted during the cours e of the patient's prep. The conclusion of the procedure, the patient had a right-sided indwelling stent without string. He was awakened, extubated in the operating room, and subsequently transporte d to the postoperative recovery area in good condition. LONG-TERM PLAN: This patient will need to undergo appropriate antibiotic therapy in the Hospitalist Service, will then be discharged to home and will follow up in my office at the [facility] for surgical planning for treatment of his right-sided ureteral and kidney stones. The patient' s presentation is notable for pyelonephritis and we should consider his stones to be infected at thi s point including the mid ureteral 20 mm calculus which is quite large. The patient will need to un dergo ureteroscopic treatment with holmium laser due to the fact that he is on current anticoagulati on with Xarelto.
[2017-03-03] MEDS: Digoxin 0.25 MG TAB PO SCH (09:14)
[2017-03-03] MEDS: Saccharomyces boulardii 250 MG CAP PO SCH (09:14)
[2017-03-03] MEDS: Famotidine 20 MG TAB PO SCH ×2 (09:14→20:50)
[2017-03-03] MEDS: TROSPIUM 20 MG TABLET PO SCH ×2 (09:14→20:49)
[2017-03-03] MEDS: Ascorbic Acid 500 mg Chewable Tablet PO SCH (09:14)
[2017-03-03] MEDS: Rivaroxaban 10 MG TAB PO SCH (09:15)
--- NOTE | 2017-03-03 09:50 | PDOC.PN ---
- Subjective Encounter Start Date: 03/03/17 Encounter Start Time: 07:50 Patient seen and examined. No new complaints. No overnight events - Objective Resuscitation Status: Resuscitation Status FULL:Full Resuscitation MAR Reviewed: Yes Vital Signs & Weight: Vital Signs (12 hours) Temp Pulse Resp BP Pulse Ox 03/03/17 09:14 86 03/03/17 08:03 99.1 F 86 16 98 03/03/17 04:15 86 105/72 96 03/03/17 04:00 99.1 F 150/79 H 03/03/17 03:15 86 107/74 96 03/03/17 02:15 85 110/75 97 03/03/17 01:15 86 111/76 96 03/03/17 00:15 99.8 F H 87 20 110/75 94 L 03/03/17 00:00 99.8 F H 85 20 109/73 95 03/02/17 23:46 86 104/67 95 03/02/17 23:13 98.6 F 88 20 121/79 93 L 03/02/17 23:03 89 87 L 03/02/17 22:45 90 116/76 93 L 03/02/17 22:31 91 89 L 03/02/17 22:15 97 118/77 94 L 03/02/17 22:10 100.1 F H 84 20 116/76 93 L Weight Weight 237 lb 12.8 oz I&O: 03/02/17 03/03/17 03/04/17 06:59 06:59 06:59 Intake Total 1320 1163 Output Total 400 Balance 1320 763 Result Diagrams: 03/02/17 03:10 03/02/17 03:10 Phys Exam - Physical Examination Constitutional: NAD HEENT: PERRLA, moist MMs, sclera anicteric Neck: no JVD, supple Respiratory: no wheezing, no rales, no rhonchi Cardiovascular: RRR, no significant murmur, no rub Gastrointestinal: soft, non-tender, no distention, positive bowel sounds Musculoskeletal: no edema, pulses present Neurological: non-focal, normal sensation Psychiatric: normal affect, A&O x 3 Skin: no rash, normal turgor Dx/Plan (1) Right ureteral calculus Code(s): N20.1 - CALCULUS OF URETER Status: Acute Comment: s/p cysto and right ureteral stent placement (2) UTI (urinary tract infection) Status: Acute Qualifiers: Urinary tract infection type: acute pyelonephritis Qualified Code(s): N10 - Acute pyelonephritis (3) Sepsis Code(s): A41.9 - SEPSIS, UNSPECIFIED ORGANISM Status: Acute Qualifiers: Sepsis type: Escherichia coli Qualified Code(s): A41.51 - Sepsis due to Escherichia coli [E. coli] (4) Obesity (BMI 30.0-34.9) Code(s): E66.9 - OBESITY, UNSPECIFIED Status: Chronic (5) Anxiety and depression Code(s): F41.8 - OTHER SPECIFIED ANXIETY DISORDERS Status: Chronic (6) Paroxysmal atrial fibrillation Code(s): I48.0 - PAROXYSMAL ATRIAL FIBRILLATION Status: Chronic (7) Cardiomyopathy Code(s): I42.9 - CARDIOMYOPATHY, UNSPECIFIED Status: Chronic (8) HTN (hypertension) Code(s): I10 - ESSENTIAL (PRIMARY) HYPERTENSION Status: Chronic (9) Systolic heart failure Code(s): I50.20 - UNSPECIFIED SYSTOLIC (CONGESTIVE) HEART FAILURE Status: Chronic Qualifiers: Heart failure chronicity: chronic Qualified Code(s): I50.22 - Chronic systolic (congestive) heart failure (10) Lactic acidosis Code(s): E87.2 - ACIDOSIS Status: Acute - Plan cont current plan of care, continue antibiotics * DC IVF * today if hemodynemics permits, then will start selected cardiac meds * will consult ID for MDR UTI * medication reviewed as below * symptomatic treatment. Review of Systems - Review of Systems ENT: negative: Ear Pain, Ear Discharge, Nose Pain, Nose Discharge, Nose Congestion, Mouth Pain, Mouth Swelling, Throat Pain, Throat Swelling, Other Respiratory: negative: Cough, Dry, Shortness of Breath, Hemoptysis, SOB with Excertion, Pleuritic Pain, Sputum, Wheezing Cardiovascular: negative: Chest Pain, Palpitations, Orthopnea, Paroxysmal Noc. Dyspnea, Edema, Light Headedness, Other Gastrointestinal: negative: Nausea, Vomiting, Abdominal Pain, Diarrhea, Constipation, Melena, Hematochezia, Other Genitourinary: negative: Dysuria, Frequency, Incontinence, Hematuria, Retention , Other Musculoskeletal: negative: Neck Pain, Shoulder Pain, Arm Pain, Back Pain, Hand Pain, Leg Pain, Foot Pain, Other - Medications/Allergies Allergies/Adverse Reactions: Allergies Allergy/AdvReac Type Severity Reaction Status Date / Time latex Allergy Severe Short of Verified 12/21/16 21:22 Breath celecoxib [From Celebrex] Allergy Short of Verified 12/21/16 21:22 Breath cyclobenzaprine Allergy Verified 12/21/16 21:22 [From Flexeril] dronedarone [From Multaq] Allergy Verified 12/21/16 21:22 hydromorphone [From Dilaudid] Allergy Verified 12/21/16 21:22 morphine Allergy Verified 12/21/16 21:22 nifedipine [From Procardia] Allergy Verified 12/21/16 21:22 Medications: Current Medications Acetaminophen (Tylenol) 650 mg PO Q4H PRN PRN Reason: Headache/Fever or Pain Last Admin: 03/02/17 08:37 Dose: 650 mg Al Hydroxide/Mg Hydroxide (Maalox) 30 ml PO Q6H PRN PRN Reason: Heartburn or Indigestion Albuterol/Ipratropium (Duoneb) 3 ml NEB Q6H PRN PRN Reason: SOB/WHEEZE Alprazolam (Xanax) 0.5 mg PO DAILY PRN PRN Reason: Anxiety/Agitation Aripiprazole (Abilify) 2 mg PO DAILY [facility] Artificial Tears (Tears Naturale) 0 drop EA EYE PRN PRN PRN Reason: Dry Eyes Ascorbic Acid (Vitamin C) 500 mg PO DAILY [facility] Last Admin: 03/03/17 09:14 Dose: 500 mg Carvedilol (Coreg) 1.5625 mg PO BID [facility] Cholecalciferol (Vitamin D3) 2,000 units PO DAILY [facility] Last Admin: 03/03/17 09:14 Dose: 2,000 units Digoxin (Lanoxin) 0.25 mg PO DAILY [facility] Last Admin: 03/03/17 09:14 Dose: 0.25 mg Famotidine (Pepcid) 20 mg PO BID [facility] Last Admin: 03/03/17 09:14 Dose: 20 mg Guaifenesin (Robitussin Sf) 200 mg PO Q4H PRN PRN Reason: Cough Hydralazine HCl (Apresoline) 10 mg SLOW IVP Q4H PRN PRN Reason: Systolic BP > 180 Meropenem 1 gm/ Miscellaneous Medication 1 each/ Sodium Chloride 100 mls @ 200 mls/hr IVPB 0600,1400,2200 [facility] Last Admin: 03/03/17 05:32 Dose: 100 mls Lisinopril (Zestril) 2.5 mg PO DAILY [facility] Loperamide HCl (Imodium) 2 mg PO PRN PRN PRN Reason: Diarrhea/Loose Stools Loratadine (Claritin) 10 mg PO DAILYPRN PRN PRN Reason: Sinus Symptoms Last Admin: 03/02/17 08:34 Dose: 10 mg Magnesium Hydroxide (Milk Of Magnesium) 30 ml PO DAILYPRN PRN PRN Reason: Constipation Mineral Oil/White Petrolatum (Eucerin Cream) 0 gm TOP BIDPRN PRN PRN Reason: Dry Skin Ondansetron HCl (Zofran Odt) 4 mg PO Q6H PRN PRN Reason: Nausea/Vomiting Ondansetron HCl (Zofran) 4 mg IVP Q6H PRN PRN Reason: Nausea/Vomiting Rivaroxaban (Xarelto) 20 mg PO DAILY [facility] Last Admin: 03/03/17 09:15 Dose: 20 mg Saccharomyces Boulardii (Florastor) 250 mg PO DAILY [facility] Last Admin: 03/03/17 09:14 Dose: 250 mg Senna (Senokot) 2 tab PO HSPRN PRN PRN Reason: Constipation Sertraline HCl (Zoloft) 25 mg PO DAILY [facility] Last Admin: 03/03/17 09:14 Dose: 25 mg Sodium Chloride ([place] Nasal [place] 0.65%) 0 ml EA NARE QIDPRN PRN PRN Reason: Nasal Congestion Sodium Chloride (Flush - Normal Saline) 10 ml IVF Q12HR [facility] Last Admin: 03/03/17 09:15 Dose: 10 ml Sodium Chloride (Flush - Normal Saline) 10 ml IVF PRN PRN PRN Reason: Saline Flush Spironolactone (Aldactone) 25 mg PO DAILY [facility] Tamsulosin HCl (Flomax) 0.4 mg PO HS [facility] Trospium (Trospium Chloride) 20 mg PO BID [facility] Last Admin: 03/03/17 09:14 Dose: 20 mg Zolpidem Tartrate (Ambien) 5 mg PO HSPRN PRN PRN Reason: Insomnia
--- NOTE | 2017-03-03 16:34 | CON ---
DATE OF CONSULTATION: 03/03/2017 REASON: Urosepsis, nephrolithiasis, urethral stricture. HISTORY OF PRESENT ILLNESS: A 61-year-old with history of cardiomyopathy, asthma, and prior LS spine osteomyelitis treated in [place] who developed some issues with ambulatory function and then regained most of it. Eventually, he quit working and was transferred to assisted living facility in [place] where his family lives. Patient was admitted at the end of December this year with bacteremia secondary to an ESBL producing E. coli. The patient at that time was evaluated by Dr. Roque and conservative management was recommended, although it was felt that he would eventually require surgical intervention to remove the acute kidney stone. He was treated with IV ertapenem in the outpatient setting through a PICC line. According to the patient, he remained with dysuria, pretty much from the day of discharge in December until this admission. He presented at this time, brought from the assisted living facility with fever, tachycardia, tachypnea, and worsening back pain. The patient was given IV fluids in the emergency room. PHYSICAL EXAMINATION: VITAL SIGNS: Initial findings showed temperature 103, blood pressure 103/67, pulse 102, O2 sat 94%. GENERAL APPEARANCE: The patient appeared awake, alert, and oriented. LUNGS: Appeared normal. HEART: Examination was normal. ABDOMEN: Soft and nontender. LABORATORY DATA: Initial laboratory findings included a white cell count of 14, 000, hemoglobin 13, platelets 228 with 74% neutrophils. Chemistry; creatinine 0.74, sodium 134, bilirubin 1.7, lactic acid 2.7. Urinalysis with greater than 50 WBCs. The patient has had repeat urine culture submitted which showed the same organism that had been isolated in December, but this time only from urine, two sets of blood cultures thus far negative at 48 hours. IMAGING STUDIES: At this time included an abdomen and pelvis CT scan which showed a large obstructing right midureteral calculus with marked right hydroureteronephrosis and dilatation of the proximal right ureter. The patient underwent cystourethroscopy with placement of a right-sided stent. He also had some evidence of balanitis with multilevel urethral stricture disease observed. It is not hindrance to progression of the 17 [place] cystoscope though. Currently, Mr. Cornelius is feeling better. Dysuria has subsided. No headaches, visual symptoms, sore throat, odynophagia, or dysphagia. Back pain has subsided. No cough or sputum production or chest pain, no abdominal pain, no diarrhea. No genitourinary symptoms anymore. No joint symptoms or skin disorder. No neurological symptoms. PAST MEDICAL HISTORY: Cardiomyopathy with CHF, asthma, LS spine osteoarthritis treated, protracted period of time in [place], urethral stricture, nephrolithiasis with urosepsis recently admitted with ESBL pathogen. ALLERGIES: CELECOXIB, LATEX, HYDROMORPHONE, MORPHINE, NIFEDIPINE, and DRONEDARONE. SOCIAL HISTORY: Former smoker during adolescent years. 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 Lives in [place] in an assisted living. FAMILY HISTORY: Noncontributory. CURRENT MEDICATIONS: Include inhalers, Xanax, Abilify, vitamin C, Coreg, digoxin, meropenem, ondansetron, Ambien, and Aldactone. PHYSICAL EXAMINATION: VITAL SIGNS: T-max 100.5. He is currently afebrile. Other vital signs are not remarkable. Blood pressure 97/63, pulse 75, O2 sat 93%. SKIN: On examination, no areas of skin breakdown. GENITOURINARY: The patient does not have Vann catheter at this point in time. Peripheral IV access. No lymphadenopathy. HEENT: Ocular movements are conjugate. Sclerae white. Pupils are equal. Oral cavity unremarkable. NECK: Supple, no jugular venous distention. LUNGS: With symmetric clear breath sounds. S1, S2, no S3 or S4, no murmurs. ABDOMEN: Soft, nontender. BACK: No back tenderness. EXTREMITIES: No joint inflammatory activity. No edema. Pulses are 1+ in dorsalis pedis. Plantar responses are flexor. Moves all extremities equally. NEUROLOGIC: Cognitive function appears to be intact. LABORATORY DATA: Urinalysis and other findings have been reviewed above. The white cell count is down to 8.8, hemoglobin stable at 12, platelets 188, 68% neutrophils. ASSESSMENT AND PLAN: 1. Some form of cardiomyopathy with asthma. 2. Urethral strictures and then nephrolithiasis, obstructive, now with 2 episodes of invasive urinary tract infections. Had bacteremia in December and now he is admitted with an invasive urinary tract infection with obstructive symptoms; hydronephrosis, right side due to the same large kidney stone identified in December, which has descended towards the right ureter. The patient has had stent placement and we will continue with meropenem and eventually transitioned to Invanz for discharge planning. PICC line placement and treated for 4 weeks. The patient will need lithotripsy and will have to have covered by Invanz or meropenem since the organism is unlikely to be eradicated until the stone is removed. Check human immunodeficiency virus infection and hepatitis C serologies for completeness sake. MTDD
[2017-03-03] MEDS: Carvedilol 3.125 MG TAB PO SCH (20:50)
[2017-03-03] MEDS: Tamsulosin HCl 0.4 MG CAP PO SCH (20:50)
[2017-03-04 04:37] LABS: Hematocrit 38.6 % (42.0-52.0)
[2017-03-04 04:54] LABS: Calc. Creatinine Clearance 170 mL/min (70-130); Estimated GFR-MDRD Greater than 90
[2017-03-04] MEDS: Meropenem 1 GM, Admixture Fee 1 EACH in Sodium Chloride 0.9% 100 ML IVPB SCH ×3 (05:48→21:02)
[2017-03-04] MEDS: Digoxin 0.25 MG TAB PO SCH (08:12)
[2017-03-04] MEDS: Rivaroxaban 10 MG TAB PO SCH (08:12)
[2017-03-04] MEDS: Saccharomyces boulardii 250 MG CAP PO SCH (08:12)
[2017-03-04] MEDS: Ascorbic Acid 500 mg Chewable Tablet PO SCH (08:13)
[2017-03-04] MEDS: Aripiprazole 2 MG TAB PO SCH (08:13)
[2017-03-04] MEDS: Carvedilol 3.125 MG TAB PO SCH ×2 (08:13→20:59)
[2017-03-04] MEDS: Famotidine 20 MG TAB PO SCH ×2 (08:13→21:00)
[2017-03-04] MEDS: Spironolactone 25 MG TAB PO SCH (08:13)
[2017-03-04] MEDS: TROSPIUM 20 MG TABLET PO SCH ×2 (08:13→21:00)
[2017-03-04] MEDS: Loratadine 10 MG TAB PO PRN (08:16)
[2017-03-04] MEDS: ALPRAZolam 0.5 MG TAB PO PRN (08:22)
[2017-03-04] MEDS: Lisinopril 2.5 MG TAB PO SCH (08:23)
--- NOTE | 2017-03-04 11:13 | PDOC.PN ---
- Subjective Encounter Start Date: 03/04/17 Encounter Start Time: 09:00 Patient seen and examined. No new complaints. No overnight events - Objective Resuscitation Status: Resuscitation Status FULL:Full Resuscitation MAR Reviewed: Yes Vital Signs & Weight: Vital Signs (12 hours) Temp Pulse Resp BP Pulse Ox 03/04/17 08:23 77 03/04/17 08:12 77 03/04/17 08:00 97.9 F 80 20 111/74 95 03/04/17 05:52 77 92 L 03/04/17 02:19 98.1 F 81 22 H 111/71 94 L Weight Weight 237 lb 12.8 oz I&O: 03/03/17 03/04/17 03/05/17 06:59 06:59 06:59 Intake Total 1163 700 Output Total 400 350 Balance 763 350 Result Diagrams: 03/04/17 04:02 03/04/17 04:02 Phys Exam - Physical Examination Constitutional: NAD HEENT: PERRLA, moist MMs, sclera anicteric Neck: no JVD, supple Respiratory: no wheezing, no rales, no rhonchi Cardiovascular: RRR, no significant murmur, no rub Gastrointestinal: soft, non-tender, no distention, positive bowel sounds Musculoskeletal: no edema, pulses present Neurological: non-focal, normal sensation, moves all 4 limbs Psychiatric: normal affect, A&O x 3 Skin: no rash, normal turgor Dx/Plan (1) Right ureteral calculus Code(s): N20.1 - CALCULUS OF URETER Status: Acute Comment: s/p cysto and right ureteral stent placement (2) UTI (urinary tract infection) Status: Acute Qualifiers: Urinary tract infection type: acute pyelonephritis Qualified Code(s): N10 - Acute pyelonephritis (3) Sepsis Code(s): A41.9 - SEPSIS, UNSPECIFIED ORGANISM Status: Acute Qualifiers: Sepsis type: Escherichia coli Qualified Code(s): A41.51 - Sepsis due to Escherichia coli [E. coli] (4) Obesity (BMI 30.0-34.9) Code(s): E66.9 - OBESITY, UNSPECIFIED Status: Chronic (5) Anxiety and depression Code(s): F41.8 - OTHER SPECIFIED ANXIETY DISORDERS Status: Chronic (6) Paroxysmal atrial fibrillation Code(s): I48.0 - PAROXYSMAL ATRIAL FIBRILLATION Status: Chronic (7) Cardiomyopathy Code(s): I42.9 - CARDIOMYOPATHY, UNSPECIFIED Status: Chronic (8) HTN (hypertension) Code(s): I10 - ESSENTIAL (PRIMARY) HYPERTENSION Status: Chronic (9) Systolic heart failure Code(s): I50.20 - UNSPECIFIED SYSTOLIC (CONGESTIVE) HEART FAILURE Status: Chronic Qualifiers: Heart failure chronicity: chronic Qualified Code(s): I50.22 - Chronic systolic (congestive) heart failure (10) Lactic acidosis Code(s): E87.2 - ACIDOSIS Status: Acute - Plan cont current plan of care, continue antibiotics, 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 Review of Systems - Review of Systems ENT: negative: Ear Pain, Ear Discharge, Nose Pain, Nose Discharge, Nose Congestion, Mouth Pain, Mouth Swelling, Throat Pain, Throat Swelling, Other Respiratory: negative: Cough, Dry, Shortness of Breath, Hemoptysis, SOB with Excertion, Pleuritic Pain, Sputum, Wheezing Cardiovascular: negative: Chest Pain, Palpitations, Orthopnea, Paroxysmal Noc. Dyspnea, Edema, Light Headedness, Other Gastrointestinal: negative: Nausea, Vomiting, Abdominal Pain, Diarrhea, Constipation, Melena, Hematochezia, Other Genitourinary: negative: Dysuria, Frequency, Incontinence, Hematuria, Retention , Other Musculoskeletal: negative: Neck Pain, Shoulder Pain, Arm Pain, Back Pain, Hand Pain, Leg Pain, Foot Pain, Other - Medications/Allergies Allergies/Adverse Reactions: Allergies Allergy/AdvReac Type Severity Reaction Status Date / Time latex Allergy Severe Short of Verified 12/21/16 21:22 Breath celecoxib [From Celebrex] Allergy Short of Verified 12/21/16 21:22 Breath cyclobenzaprine Allergy Verified 12/21/16 21:22 [From Flexeril] dronedarone [From Multaq] Allergy Verified 12/21/16 21:22 hydromorphone [From Dilaudid] Allergy Verified 12/21/16 21:22 morphine Allergy Verified 12/21/16 21:22 nifedipine [From Procardia] Allergy Verified 12/21/16 21:22 Medications: Current Medications Acetaminophen (Tylenol) 650 mg PO Q4H PRN PRN Reason: Headache/Fever or Pain Last Admin: 03/02/17 08:37 Dose: 650 mg Al Hydroxide/Mg Hydroxide (Maalox) 30 ml PO Q6H PRN PRN Reason: Heartburn or Indigestion Albuterol/Ipratropium (Duoneb) 3 ml NEB Q6H PRN PRN Reason: SOB/WHEEZE Alprazolam (Xanax) 0.5 mg PO DAILY PRN PRN Reason: Anxiety/Agitation Last Admin: 03/04/17 08:22 Dose: 0.5 mg Aripiprazole (Abilify) 2 mg PO DAILY [facility] Last Admin: 03/04/17 08:13 Dose: 2 mg Artificial Tears (Tears Naturale) 0 drop EA EYE PRN PRN PRN Reason: Dry Eyes Ascorbic Acid (Vitamin C) 500 mg PO DAILY [facility] Last Admin: 03/04/17 08:13 Dose: 500 mg Carvedilol (Coreg) 1.5625 mg PO BID [facility] Last Admin: 03/04/17 08:13 Dose: 1.5625 mg Cholecalciferol (Vitamin D3) 2,000 units PO DAILY [facility] Last Admin: 03/04/17 08:13 Dose: 2,000 units Digoxin (Lanoxin) 0.25 mg PO DAILY [facility] Last Admin: 03/04/17 08:12 Dose: 0.25 mg Famotidine (Pepcid) 20 mg PO BID [facility] Last Admin: 03/04/17 08:13 Dose: 20 mg Guaifenesin (Robitussin Sf) 200 mg PO Q4H PRN PRN Reason: Cough Hydralazine HCl (Apresoline) 10 mg SLOW IVP Q4H PRN PRN Reason: Systolic BP > 180 Meropenem 1 gm/ Miscellaneous Medication 1 each/ Sodium Chloride 100 mls @ 200 mls/hr IVPB 0600,1400,2200 [facility] Last Admin: 03/04/17 05:48 Dose: 100 mls Lisinopril (Zestril) 2.5 mg PO DAILY [facility] Last Admin: 03/04/17 08:23 Dose: Not Given Loperamide HCl (Imodium) 2 mg PO PRN PRN PRN Reason: Diarrhea/Loose Stools Loratadine (Claritin) 10 mg PO DAILYPRN PRN PRN Reason: Sinus Symptoms Last Admin: 03/04/17 08:16 Dose: 10 mg Magnesium Hydroxide (Milk Of Magnesium) 30 ml PO DAILYPRN PRN PRN Reason: Constipation Mineral Oil/White Petrolatum (Eucerin Cream) 0 gm TOP BIDPRN PRN PRN Reason: Dry Skin Ondansetron HCl (Zofran Odt) 4 mg PO Q6H PRN PRN Reason: Nausea/Vomiting Ondansetron HCl (Zofran) 4 mg IVP Q6H PRN PRN Reason: Nausea/Vomiting Last Admin: 03/03/17 22:18 Dose: 4 mg Rivaroxaban (Xarelto) 20 mg PO DAILY [facility] Last Admin: 03/04/17 08:12 Dose: 20 mg Saccharomyces Boulardii (Florastor) 250 mg PO DAILY [facility] Last Admin: 03/04/17 08:12 Dose: 250 mg Senna (Senokot) 2 tab PO HSPRN PRN PRN Reason: Constipation Sertraline HCl (Zoloft) 25 mg PO DAILY [facility] Last Admin: 03/04/17 08:13 Dose: 25 mg Sodium Chloride ([place] Nasal [place] 0.65%) 0 ml EA NARE QIDPRN PRN PRN Reason: Nasal Congestion Sodium Chloride (Flush - Normal Saline) 10 ml IVF Q12HR [facility] Last Admin: 03/04/17 08:23 Dose: 10 ml Sodium Chloride (Flush - Normal Saline) 10 ml IVF PRN PRN PRN Reason: Saline Flush Spironolactone (Aldactone) 25 mg PO DAILY [facility] Last Admin: 03/04/17 08:13 Dose: 25 mg Tamsulosin HCl (Flomax) 0.4 mg PO HS [facility] Last Admin: 03/03/17 20:50 Dose: 0.4 mg Trospium (Trospium Chloride) 20 mg PO BID [facility] Last Admin: 03/04/17 08:13 Dose: 20 mg Zolpidem Tartrate (Ambien) 5 mg PO HSPRN PRN PRN Reason: Insomnia
[2017-03-04] MEDS: Tamsulosin HCl 0.4 MG CAP PO SCH (21:00)
[2017-03-05] MEDS: ALPRAZolam 0.5 MG TAB PO PRN ×2 (00:01→22:55)
[2017-03-05] MEDS: Meropenem 1 GM, Admixture Fee 1 EACH in Sodium Chloride 0.9% 100 ML IVPB SCH (05:54)
[2017-03-05] MEDS: Ascorbic Acid 500 mg Chewable Tablet PO SCH (08:19)
[2017-03-05] MEDS: Saccharomyces boulardii 250 MG CAP PO SCH (08:19)
[2017-03-05] MEDS: Aripiprazole 2 MG TAB PO SCH (08:19)
[2017-03-05] MEDS: Loratadine 10 MG TAB PO PRN (08:19)
[2017-03-05] MEDS: Rivaroxaban 10 MG TAB PO SCH (08:19)
[2017-03-05] MEDS: TROSPIUM 20 MG TABLET PO SCH ×2 (08:19→21:44)
[2017-03-05] MEDS: Digoxin 0.25 MG TAB PO SCH (08:19)
[2017-03-05] MEDS: Famotidine 20 MG TAB PO SCH ×2 (08:20→21:47)
[2017-03-05] MEDS: Spironolactone 25 MG TAB PO SCH (08:20)
[2017-03-05] MEDS: Carvedilol 3.125 MG TAB PO SCH ×2 (08:20→21:48)
[2017-03-05] MEDS: Lisinopril 2.5 MG TAB PO SCH (08:21)
[2017-03-05] MEDS ORDERED: Morphine 10 MG/ML VIAL SLOW IVP SCH (11:00)
[2017-03-05] MEDS ORDERED: Ketorolac Tromethamine 30 MG/ML VIAL IVP SCH (11:00)
[2017-03-05] MEDS ORDERED: Fentanyl 100 MCG/2 ML VIAL SLOW IVP SCH (11:00)
[2017-03-05] MEDS: Meropenem 1 GM, IV Admixture Fee-Chemo 1 UNITS in Sterile Water 20 ML SLOW IVP SCH ×2 (13:50→21:51)
--- NOTE | 2017-03-05 14:00 | SPC ---
PICC LINE PLACEMENT: Date: 03/05/17 HISTORY: Need for long-term IV access. COMPARISON: None. TECHNIQUE: Patient was brought to the fluoroscopy suite. All questions were answered. Informed consent was alre raghav obtained. Timeout was performed. The right arm was prepped and draped in the normal sterile fashion. The only patent vein of [facility] t arm was the brachial vein. Using a Micropuncture kite, the brachial vein was accessed. The wire wa s placed with tip in the inferior vena cava, which was confirmed with venous access. A single lumen 43 cm PICC was placed. Fluoro Time: 1.2 minutes. IMPRESSION: Technically successful right single lumen PICC is flushed and ready for use. POS: [facility]
--- NOTE | 2017-03-05 14:38 | PDOC.PN ---
- Subjective Encounter Start Date: 03/05/17 Encounter Start Time: 09:00 Patient seen and examined. No new complaints. No overnight events - Objective Resuscitation Status: Resuscitation Status FULL:Full Resuscitation MAR Reviewed: Yes Vital Signs & Weight: Vital Signs (12 hours) Temp Pulse Resp BP Pulse Ox 03/05/17 11:57 97.9 F 63 18 99/62 93 L 03/05/17 08:21 72 03/05/17 08:19 72 03/05/17 08:13 98.6 F 72 18 128/77 95 03/05/17 08:00 98.6 F 72 18 03/05/17 04:00 99.1 F 76 16 112/76 93 L Weight Weight 237 lb 12.8 oz I&O: 03/04/17 03/05/17 03/06/17 06:59 06:59 06:59 Intake Total 700 Output Total 1350 Balance -650 Result Diagrams: 03/04/17 04:02 03/04/17 04:02 Phys Exam - Physical Examination Constitutional: NAD HEENT: PERRLA, moist MMs, sclera anicteric Neck: no JVD, supple Respiratory: no wheezing, no rales, no rhonchi Cardiovascular: RRR, no significant murmur, no rub Gastrointestinal: soft, non-tender, no distention, positive bowel sounds Musculoskeletal: no edema, pulses present Neurological: non-focal, normal sensation Lymphatic: no nodes Psychiatric: normal affect, A&O x 3 Skin: no rash, normal turgor Dx/Plan (1) Right ureteral calculus Code(s): N20.1 - CALCULUS OF URETER Status: Acute Comment: s/p cysto and right ureteral stent placement (2) UTI (urinary tract infection) Status: Acute Qualifiers: Urinary tract infection type: acute pyelonephritis Qualified Code(s): N10 - Acute pyelonephritis (3) Sepsis Code(s): A41.9 - SEPSIS, UNSPECIFIED ORGANISM Status: Acute Qualifiers: Sepsis type: Escherichia coli Qualified Code(s): A41.51 - Sepsis due to Escherichia coli [E. coli] (4) Obesity (BMI 30.0-34.9) Code(s): E66.9 - OBESITY, UNSPECIFIED Status: Chronic (5) Anxiety and depression Code(s): F41.8 - OTHER SPECIFIED ANXIETY DISORDERS Status: Chronic (6) Paroxysmal atrial fibrillation Code(s): I48.0 - PAROXYSMAL ATRIAL FIBRILLATION Status: Chronic (7) Cardiomyopathy Code(s): I42.9 - CARDIOMYOPATHY, UNSPECIFIED Status: Chronic (8) HTN (hypertension) Code(s): I10 - ESSENTIAL (PRIMARY) HYPERTENSION Status: Chronic (9) Systolic heart failure Code(s): I50.20 - UNSPECIFIED SYSTOLIC (CONGESTIVE) HEART FAILURE Status: Chronic Qualifiers: Heart failure chronicity: chronic Qualified Code(s): I50.22 - Chronic systolic (congestive) heart failure (10) Lactic acidosis Code(s): E87.2 - ACIDOSIS Status: Acute - Plan cont current plan of care, 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 Review of Systems - Review of Systems ENT: negative: Ear Pain, Ear Discharge, Nose Pain, Nose Discharge, Nose Congestion, Mouth Pain, Mouth Swelling, Throat Pain, Throat Swelling, Other Respiratory: negative: Cough, Dry, Shortness of Breath, Hemoptysis, SOB with Excertion, Pleuritic Pain, Sputum, Wheezing Cardiovascular: negative: Chest Pain, Palpitations, Orthopnea, Paroxysmal Noc. Dyspnea, Edema, Light Headedness, Other Gastrointestinal: negative: Nausea, Vomiting, Abdominal Pain, Diarrhea, Constipation, Melena, Hematochezia, Other Genitourinary: negative: Dysuria, Frequency, Incontinence, Hematuria, Retention , Other Musculoskeletal: negative: Neck Pain, Shoulder Pain, Arm Pain, Back Pain, Hand Pain, Leg Pain, Foot Pain, Other - Medications/Allergies Allergies/Adverse Reactions: Allergies Allergy/AdvReac Type Severity Reaction Status Date / Time latex Allergy Severe Short of Verified 12/21/16 21:22 Breath celecoxib [From Celebrex] Allergy Short of Verified 12/21/16 21:22 Breath cyclobenzaprine Allergy Verified 12/21/16 21:22 [From Flexeril] dronedarone [From Multaq] Allergy Verified 12/21/16 21:22 hydromorphone [From Dilaudid] Allergy Verified 12/21/16 21:22 morphine Allergy Verified 12/21/16 21:22 nifedipine [From Procardia] Allergy Verified 12/21/16 21:22 Medications: Current Medications Acetaminophen (Tylenol) 650 mg PO Q4H PRN PRN Reason: Headache/Fever or Pain Last Admin: 03/02/17 08:37 Dose: 650 mg Al Hydroxide/Mg Hydroxide (Maalox) 30 ml PO Q6H PRN PRN Reason: Heartburn or Indigestion Albuterol/Ipratropium (Duoneb) 3 ml NEB Q6H PRN PRN Reason: SOB/WHEEZE Alprazolam (Xanax) 0.5 mg PO DAILY PRN PRN Reason: Anxiety/Agitation Last Admin: 03/05/17 00:01 Dose: 0.5 mg Aripiprazole (Abilify) 2 mg PO DAILY [facility] Last Admin: 03/05/17 08:19 Dose: 2 mg Artificial Tears (Tears Naturale) 0 drop EA EYE PRN PRN PRN Reason: Dry Eyes Ascorbic Acid (Vitamin C) 500 mg PO DAILY [facility] Last Admin: 03/05/17 08:19 Dose: 500 mg Carvedilol (Coreg) 1.5625 mg PO BID [facility] Last Admin: 03/05/17 08:20 Dose: 1.5625 mg Cholecalciferol (Vitamin D3) 2,000 units PO DAILY [facility] Last Admin: 03/05/17 08:19 Dose: 2,000 units Digoxin (Lanoxin) 0.25 mg PO DAILY [facility] Last Admin: 03/05/17 08:19 Dose: 0.25 mg Famotidine (Pepcid) 20 mg PO BID [facility] Last Admin: 03/05/17 08:20 Dose: 20 mg Fentanyl (Sublimaze) 50 mcg SLOW IVP [facility] Last Admin: 03/05/17 10:54 Dose: 50 mcg Guaifenesin (Robitussin Sf) 200 mg PO Q4H PRN PRN Reason: Cough Hydralazine HCl (Apresoline) 10 mg SLOW IVP Q4H PRN PRN Reason: Systolic BP > 180 Meropenem 1 gm/ Miscellaneous Medication 1 units/ Sterile Water 20 mls @ 240 mls/hr SLOW IVP 0600,1400,2200 [facility] Last Admin: 03/05/17 13:50 Dose: 20 mls Ketorolac Tromethamine (Toradol) 15 mg IVP [facility] Stop: 03/10/17 11:01 Last Admin: 03/05/17 10:53 Dose: 15 mg Lisinopril (Zestril) 2.5 mg PO DAILY [facility] Last Admin: 03/05/17 08:21 Dose: Not Given Loperamide HCl (Imodium) 2 mg PO PRN PRN PRN Reason: Diarrhea/Loose Stools Loratadine (Claritin) 10 mg PO DAILYPRN PRN PRN Reason: Sinus Symptoms Last Admin: 03/05/17 08:19 Dose: 10 mg Magnesium Hydroxide (Milk Of Magnesium) 30 ml PO DAILYPRN PRN PRN Reason: Constipation Mineral Oil/White Petrolatum (Eucerin Cream) 0 gm TOP BIDPRN PRN PRN Reason: Dry Skin Morphine Sulfate (Morphine) 2 mg SLOW IVP [facility] Ondansetron HCl (Zofran Odt) 4 mg PO Q6H PRN PRN Reason: Nausea/Vomiting Ondansetron HCl (Zofran) 4 mg IVP Q6H PRN PRN Reason: Nausea/Vomiting Last Admin: 03/03/17 22:18 Dose: 4 mg Rivaroxaban (Xarelto) 20 mg PO DAILY [facility] Last Admin: 03/05/17 08:19 Dose: 20 mg Saccharomyces Boulardii (Florastor) 250 mg PO DAILY [facility] Last Admin: 03/05/17 08:19 Dose: 250 mg Senna (Senokot) 2 tab PO HSPRN PRN PRN Reason: Constipation Sertraline HCl (Zoloft) 25 mg PO DAILY [facility] Last Admin: 03/05/17 08:20 Dose: 25 mg Sodium Chloride ([place] Nasal [place] 0.65%) 0 ml EA NARE QIDPRN PRN PRN Reason: Nasal Congestion Sodium Chloride (Flush - Normal Saline) 10 ml IVF Q12HR [facility] Last Admin: 03/05/17 08:21 Dose: 10 ml Sodium Chloride (Flush - Normal Saline) 10 ml IVF PRN PRN PRN Reason: Saline Flush Spironolactone (Aldactone) 25 mg PO DAILY [facility] Last Admin: 03/05/17 08:20 Dose: 25 mg Tamsulosin HCl (Flomax) 0.4 mg PO HS [facility] Last Admin: 03/04/17 21:00 Dose: 0.4 mg Trospium (Trospium Chloride) 20 mg PO BID [facility] Last Admin: 03/05/17 08:19 Dose: 20 mg Zolpidem Tartrate (Ambien) 5 mg PO HSPRN PRN PRN Reason: Insomnia
[2017-03-05] MEDS ORDERED: Heparin 1,000 UNITS/ML VIAL ONE (17:28)
[2017-03-05] MEDS: Acetaminophen 325 MG TAB PO PRN (18:37)
[2017-03-05] MEDS: Tamsulosin HCl 0.4 MG CAP PO SCH (21:47)
[2017-03-06 05:31] LABS: Hematocrit 40.3 % (42.0-52.0)
[2017-03-06 06:00] LABS: Calc. Creatinine Clearance 183 mL/min (70-130); Estimated GFR-MDRD Greater than 90
[2017-03-06] MEDS: Meropenem 1 GM, IV Admixture Fee-Chemo 1 UNITS in Sterile Water 20 ML SLOW IVP SCH ×3 (06:11→22:15)
[2017-03-06] MEDS: Lisinopril 2.5 MG TAB PO SCH (07:57)
[2017-03-06] MEDS: Rivaroxaban 10 MG TAB PO SCH (07:57)
[2017-03-06] MEDS: Digoxin 0.25 MG TAB PO SCH (07:58)
[2017-03-06] MEDS: Ascorbic Acid 500 mg Chewable Tablet PO SCH (07:58)
[2017-03-06] MEDS: TROSPIUM 20 MG TABLET PO SCH ×2 (07:58→21:05)
[2017-03-06] MEDS: Saccharomyces boulardii 250 MG CAP PO SCH (07:58)
[2017-03-06] MEDS: Aripiprazole 2 MG TAB PO SCH (07:59)
[2017-03-06] MEDS: Spironolactone 25 MG TAB PO SCH (07:59)
[2017-03-06] MEDS: Famotidine 20 MG TAB PO SCH ×2 (07:59→21:05)
[2017-03-06] MEDS: Carvedilol 3.125 MG TAB PO SCH ×2 (07:59→21:05)
--- NOTE | 2017-03-06 12:55 | DIS ---
DATE OF ADMISSION: 02/28/2017 DATE OF DISCHARGE: 03/06/2017 PRIMARY CARE PHYSICIAN: Dr. Zuleyma Garzon. DISCHARGE DISPOSITION: Home. PRIMARY DISCHARGE DIAGNOSES: 1. Sepsis. 2. Lactic acidosis. 3. Right ureteral calculus, status post cystoscopy and stent placement, urinary tract infection wit h pyelonephritis. SECONDARY DISCHARGE DIAGNOSES: Chronic systolic heart failure, paroxysmal atrial fibrillation, obes ity with BMI 34, hypertension, cardiomyopathy, anxiety and depression. PRIMARY PROCEDURES/OPERATIONS: Cystoscopy and stent placement by Dr. King. PICC line was placed o n 03/05/2017. RADIOLOGICAL INVESTIGATION: A chest x-ray showed no acute process. Abdomen and pelvis CT scan show ed right-sided ureteral stone, retrograde pyelogram. SIGNIFICANT LABS: WBC 8.8, hemoglobin 12.2, platelet 268. Sodium 133, potassium 3.9, BUN 16, creat inine 0.66, calcium 8.7. Lactic acid 1.2. LFTs normal. Urinalysis suggestive of UTI, hepatitis C, and HIV negative. Blood culture negative. Urine culture grew E. coli. DISCHARGE MEDICATIONS: Invanz 1 gram IV daily until 04/01/2017. Continue following medications, Ab ilify 2 mg p.o. daily, Tylenol #4 one tablet t.i.d. p.r.n., Xanax 0.5 mg p.o. daily, vitamin C 500 m g p.o. daily, Coreg 3.125 mg p.o. b.i.d., cetirizine 10 mg p.o. daily, vitamin D3 2000 units p.o. da shirley, digoxin 250 mcg p.o. daily, Lasix 40 mg p.o. daily, lisinopril 2.5 mg p.o. daily, Robaxin 500 m g p.o. b.i.d. p.r.n., Xarelto 20 mg p.o. daily, selenium 200 mcg p.o. daily, Zoloft 25 mg p.o. daily , Aldactone 25 mg p.o. daily. CONTRAINDICATIONS: None. CODE STATUS: FULL CODE. INPATIENT CONSULTANTS: Dr. Shantanu King was consulted while in hospital, who did cystoscopy and sten t placement. Dr. Katz was consulted for MDR UTI. ALLERGIES: LATEX, CELECOXIB, FLEXERIL, MULTAQ. TEST RESULTS PENDING ON DISCHARGE: None. DISCHARGE PLAN: Post hospital, the patient will follow up with Dr. King, urologist, as instructed, and Dr. Katz. HOSPITAL COURSE: This is a 61-year-old male who was admitted by me on 02/28/2017. Please see my HP I for further details. Patient mainly came to the hospital with complaint of abdominal pain on the right side as well as findings suggestive of UTI. He was having fever and nausea. The patient's sy mptomatology was gradually getting worse for 3-4 days and he was brought to emergency room. In the emergency room, patient was found with urinary tract infection. He was meeting sepsis criter ia. He was admitted to medical floor. We did a CT stone protocol and found with right ureteral alex culus. Patient was admitted to medical floor and we consulted Urology. Urology did a cystoscopy and stent placement. His lactic acidosis improved. While in hospital, he was given gentle IV fluid. On the day of discharge, we resumed all his home medications. We changed metoprolol to Coreg for his systo lic heart failure. This patient's urine culture grew E. coli, which was resistant to most of the p.o. medications and t hat is why he was requiring IV antibiotic therapy. Initially, he was given Rocephin and Levaquin, b ut the next day we changed to meropenem based on culture and sensitivity result while in the [facility]. On discharge, Dr. Katz recommended to continue Invanz until 04/01/2017. The patient will have weekly CBC, CMP, and he will follow up with Urology and Dr. Katz as instructed. With help of case making machine operator, we arranged outpatient IV antibiotic therapy. Patient also had a PICC [facility] placed while in hospital. PHYSICAL EXAMINATION: The patient is seen and examined at bedside today. VITAL SIGNS: Currently, temperature 97.7, pulse 67, respiratory rate 20, saturation 97%, blood pres sure 110/73, weight 237 pounds. GENERAL: The patient is currently alert, awake, in no acute distress. HEAD: Normocephalic, atraumatic. LUNGS: Clear. CARDIAC: S1, S2 regular without any murmur. ABDOMEN: Soft and benign. EXTREMITIES: No edema. NEUROLOGIC: Nonfocal examination. No CVA tenderness. The patient is medically stable for discharge today.
--- NOTE | 2017-03-06 13:21 | PDOC.PN ---
- Subjective Encounter Start Date: 03/06/17 Encounter Start Time: 08:50 Patient seen and examined. No new complaints. No overnight events - Objective Resuscitation Status: Resuscitation Status FULL:Full Resuscitation MAR Reviewed: Yes Vital Signs & Weight: Vital Signs (12 hours) Temp Pulse Resp BP Pulse Ox 03/06/17 12:00 97.7 F 67 20 110/73 97 03/06/17 08:13 98.3 F 71 20 124/81 96 03/06/17 08:00 98.3 F 70 22 H 96 03/06/17 07:58 70 Weight Weight 237 lb 12.8 oz I&O: 03/05/17 03/06/17 03/07/17 06:59 06:59 06:59 Intake Total 700 400 Output Total 1350 1375 600 Balance -650 -975 -600 Result Diagrams: 03/06/17 03:59 03/06/17 03:59 Phys Exam - Physical Examination Constitutional: NAD HEENT: PERRLA, moist MMs, sclera anicteric Neck: no JVD, supple Respiratory: no wheezing, no rales, no rhonchi Cardiovascular: RRR, no significant murmur, no rub Gastrointestinal: soft, non-tender, no distention, positive bowel sounds Musculoskeletal: no edema, pulses present Neurological: non-focal, normal sensation, moves all 4 limbs Psychiatric: normal affect, A&O x 3 Skin: no rash, normal turgor Dx/Plan (1) Right ureteral calculus Code(s): N20.1 - CALCULUS OF URETER Status: Acute Comment: s/p cysto and right ureteral stent placement (2) UTI (urinary tract infection) Status: Acute Qualifiers: Urinary tract infection type: acute pyelonephritis Qualified Code(s): N10 - Acute pyelonephritis (3) Sepsis Code(s): A41.9 - SEPSIS, UNSPECIFIED ORGANISM Status: Acute Qualifiers: Sepsis type: Escherichia coli Qualified Code(s): A41.51 - Sepsis due to Escherichia coli [E. coli] (4) Obesity (BMI 30.0-34.9) Code(s): E66.9 - OBESITY, UNSPECIFIED Status: Chronic (5) Anxiety and depression Code(s): F41.8 - OTHER SPECIFIED ANXIETY DISORDERS Status: Chronic (6) Paroxysmal atrial fibrillation Code(s): I48.0 - PAROXYSMAL ATRIAL FIBRILLATION Status: Chronic (7) Cardiomyopathy Code(s): I42.9 - CARDIOMYOPATHY, UNSPECIFIED Status: Chronic (8) HTN (hypertension) Code(s): I10 - ESSENTIAL (PRIMARY) HYPERTENSION Status: Chronic (9) Systolic heart failure Code(s): I50.20 - UNSPECIFIED SYSTOLIC (CONGESTIVE) HEART FAILURE Status: Chronic Qualifiers: Heart failure chronicity: chronic Qualified Code(s): I50.22 - Chronic systolic (congestive) heart failure (10) Lactic acidosis Code(s): E87.2 - ACIDOSIS Status: Acute - Plan cont current plan of care, continue antibiotics, social work program coordinator * continue meropenam * on discharge IV invanz daily till 04/01/17 * medication reviewed as below * symptomatic treatment * social work for IV antibiotics arrangement. Review of Systems - Review of Systems ENT: negative: Ear Pain, Ear Discharge, Nose Pain, Nose Discharge, Nose Congestion, Mouth Pain, Mouth Swelling, Throat Pain, Throat Swelling, Other Respiratory: negative: Cough, Dry, Shortness of Breath, Hemoptysis, SOB with Excertion, Pleuritic Pain, Sputum, Wheezing Cardiovascular: negative: Chest Pain, Palpitations, Orthopnea, Paroxysmal Noc. Dyspnea, Edema, Light Headedness, Other Gastrointestinal: negative: Nausea, Vomiting, Abdominal Pain, Diarrhea, Constipation, Melena, Hematochezia, Other Genitourinary: negative: Dysuria, Frequency, Incontinence, Hematuria, Retention , Other Musculoskeletal: negative: Neck Pain, Shoulder Pain, Arm Pain, Back Pain, Hand Pain, Leg Pain, Foot Pain, Other - Medications/Allergies Allergies/Adverse Reactions: Allergies Allergy/AdvReac Type Severity Reaction Status Date / Time latex Allergy Severe Short of Verified 12/21/16 21:22 Breath celecoxib [From Celebrex] Allergy Short of Verified 12/21/16 21:22 Breath cyclobenzaprine Allergy Verified 12/21/16 21:22 [From Flexeril] dronedarone [From Multaq] Allergy Verified 12/21/16 21:22 hydromorphone [From Dilaudid] Allergy Verified 12/21/16 21:22 morphine Allergy Verified 12/21/16 21:22 nifedipine [From Procardia] Allergy Verified 12/21/16 21:22 Medications: Current Medications Acetaminophen (Tylenol) 650 mg PO Q4H PRN PRN Reason: Headache/Fever or Pain Last Admin: 03/05/17 18:37 Dose: 650 mg Al Hydroxide/Mg Hydroxide (Maalox) 30 ml PO Q6H PRN PRN Reason: Heartburn or Indigestion Albuterol/Ipratropium (Duoneb) 3 ml NEB Q6H PRN PRN Reason: SOB/WHEEZE Alprazolam (Xanax) 0.5 mg PO DAILY PRN PRN Reason: Anxiety/Agitation Last Admin: 03/05/17 22:55 Dose: 0.5 mg Aripiprazole (Abilify) 2 mg PO DAILY [facility] Last Admin: 03/06/17 07:59 Dose: 2 mg Artificial Tears (Tears Naturale) 0 drop EA EYE PRN PRN PRN Reason: Dry Eyes Ascorbic Acid (Vitamin C) 500 mg PO DAILY [facility] Last Admin: 03/06/17 07:58 Dose: 500 mg Carvedilol (Coreg) 1.5625 mg PO BID [facility] Last Admin: 03/06/17 07:59 Dose: 1.5625 mg Cholecalciferol (Vitamin D3) 2,000 units PO DAILY [facility] Last Admin: 03/06/17 07:58 Dose: 2,000 units Digoxin (Lanoxin) 0.25 mg PO DAILY [facility] Last Admin: 03/06/17 07:58 Dose: 0.25 mg Famotidine (Pepcid) 20 mg PO BID [facility] Last Admin: 03/06/17 07:59 Dose: 20 mg Fentanyl (Sublimaze) 50 mcg SLOW IVP [facility] Last Admin: 03/05/17 10:54 Dose: 50 mcg Guaifenesin (Robitussin Sf) 200 mg PO Q4H PRN PRN Reason: Cough Hydralazine HCl (Apresoline) 10 mg SLOW IVP Q4H PRN PRN Reason: Systolic BP > 180 Meropenem 1 gm/ Miscellaneous Medication 1 units/ Sterile Water 20 mls @ 240 mls/hr SLOW IVP 0600,1400,2200 [facility] Last Admin: 03/06/17 06:11 Dose: 20 mls Ketorolac Tromethamine (Toradol) 15 mg IVP [facility] Stop: 03/10/17 11:01 Last Admin: 03/05/17 10:53 Dose: 15 mg Lisinopril (Zestril) 2.5 mg PO DAILY [facility] Last Admin: 03/06/17 07:57 Dose: 2.5 mg Loperamide HCl (Imodium) 2 mg PO PRN PRN PRN Reason: Diarrhea/Loose Stools Loratadine (Claritin) 10 mg PO DAILYPRN PRN PRN Reason: Sinus Symptoms Last Admin: 03/05/17 08:19 Dose: 10 mg Magnesium Hydroxide (Milk Of Magnesium) 30 ml PO DAILYPRN PRN PRN Reason: Constipation Mineral Oil/White Petrolatum (Eucerin Cream) 0 gm TOP BIDPRN PRN PRN Reason: Dry Skin Morphine Sulfate (Morphine) 2 mg SLOW IVP [facility] Ondansetron HCl (Zofran Odt) 4 mg PO Q6H PRN PRN Reason: Nausea/Vomiting Ondansetron HCl (Zofran) 4 mg IVP Q6H PRN PRN Reason: Nausea/Vomiting Last Admin: 03/03/17 22:18 Dose: 4 mg Rivaroxaban (Xarelto) 20 mg PO DAILY [facility] Last Admin: 03/06/17 07:57 Dose: 20 mg Saccharomyces Boulardii (Florastor) 250 mg PO DAILY [facility] Last Admin: 03/06/17 07:58 Dose: 250 mg Senna (Senokot) 2 tab PO HSPRN PRN PRN Reason: Constipation Sertraline HCl (Zoloft) 25 mg PO DAILY [facility] Last Admin: 03/06/17 07:58 Dose: 25 mg Sodium Chloride ([place] Nasal [place] 0.65%) 0 ml EA NARE QIDPRN PRN PRN Reason: Nasal Congestion Sodium Chloride (Flush - Normal Saline) 10 ml IVF Q12HR [facility] Last Admin: 03/06/17 07:57 Dose: 10 ml Sodium Chloride (Flush - Normal Saline) 10 ml IVF PRN PRN PRN Reason: Saline Flush Spironolactone (Aldactone) 25 mg PO DAILY [facility] Last Admin: 03/06/17 07:59 Dose: 25 mg Tamsulosin HCl (Flomax) 0.4 mg PO HS [facility] Last Admin: 03/05/17 21:47 Dose: 0.4 mg Trospium (Trospium Chloride) 20 mg PO BID [facility] Last Admin: 03/06/17 07:58 Dose: 20 mg Zolpidem Tartrate (Ambien) 5 mg PO HSPRN PRN PRN Reason: Insomnia
[2017-03-06] MEDS: Tamsulosin HCl 0.4 MG CAP PO SCH (21:06)
[2017-03-06] MEDS: ALPRAZolam 0.5 MG TAB PO PRN (21:26)
[2017-03-07] MEDS: Meropenem 1 GM, IV Admixture Fee-Chemo 1 UNITS in Sterile Water 20 ML SLOW IVP SCH ×2 (06:05→14:19)
[2017-03-07] MEDS: TROSPIUM 20 MG TABLET PO SCH (09:09)
[2017-03-07] MEDS: Aripiprazole 2 MG TAB PO SCH (09:09)
[2017-03-07] MEDS: Saccharomyces boulardii 250 MG CAP PO SCH (09:10)
[2017-03-07] MEDS: Lisinopril 2.5 MG TAB PO SCH (09:10)
[2017-03-07] MEDS: Rivaroxaban 10 MG TAB PO SCH (09:10)
[2017-03-07] MEDS: Digoxin 0.25 MG TAB PO SCH (09:11)
[2017-03-07] MEDS: Famotidine 20 MG TAB PO SCH (09:11)
[2017-03-07] MEDS: Spironolactone 25 MG TAB PO SCH (09:12)
[2017-03-07] MEDS: Ascorbic Acid 500 mg Chewable Tablet PO SCH (09:12)
[2017-03-07] MEDS: Carvedilol 3.125 MG TAB PO SCH (09:13)
--- NOTE | 2017-03-07 12:58 | ADD-DIS ---
Please see my discharge summary dictated yesterday on 03/06/2017 for further details. This patient was planned for discharge yesterday, but discharge placement was changed to swing bed and he was shirin kierra for his insurance to approve to go there, but it did not happen that is [facility]. This morning, I saw this patient personally at bedside and he did not have any new complaints. He r emained stable overnight. REVIEW OF SYSTEMS: Negative. LABORATORY DATA: No new labs today. PHYSICAL EXAMINATION: VITAL SIGNS: Currently, temperature 98.8, pulse 77, blood pressure 119/77, saturation 94%, weight 2 37 pounds. GENERAL: The patient is alert, oriented, no acute distress. HEAD: Normocephalic, atraumatic. LUNGS: Clear. CARDIAC: S1, S2 regular without any murmur. ABDOMEN: Soft and benign. EXTREMITIES: No edema. NEUROLOGIC: Nonfocal examination. The patient has approval for us to go to swing bed today for IV antibiotic therapy. There is no michelle nge in my discharge summary compared to yesterday.
--- NOTE | 2017-03-07 13:23 | PDOC.PN ---
- Subjective Encounter Start Date: 03/07/17 Encounter Start Time: 10:45 Patient seen and examined. No new complaints. No overnight events - Objective Resuscitation Status: Resuscitation Status FULL:Full Resuscitation MAR Reviewed: Yes Vital Signs & Weight: Vital Signs (12 hours) Temp Pulse Resp BP BP Pulse Ox 03/07/17 09:11 77 03/07/17 09:10 77 119/77 03/07/17 08:00 98.8 F 77 20 119/77 94 L Weight Weight 237 lb 12.8 oz I&O: 03/06/17 03/07/17 03/08/17 06:59 06:59 06:59 Intake Total 400 450 Output Total 1375 1200 Balance -975 -750 Result Diagrams: 03/06/17 03:59 03/06/17 03:59 Phys Exam - Physical Examination Constitutional: NAD HEENT: PERRLA, moist MMs, sclera anicteric Neck: no JVD, supple Respiratory: no wheezing, no rales, no rhonchi Cardiovascular: RRR, no significant murmur, no rub Gastrointestinal: soft, non-tender, no distention, positive bowel sounds Musculoskeletal: no edema, pulses present Neurological: non-focal, normal sensation Psychiatric: normal affect, A&O x 3 Skin: no rash, normal turgor Dx/Plan (1) Right ureteral calculus Code(s): N20.1 - CALCULUS OF URETER Status: Acute Comment: s/p cysto and right ureteral stent placement (2) UTI (urinary tract infection) Status: Acute Qualifiers: Urinary tract infection type: acute pyelonephritis Qualified Code(s): N10 - Acute pyelonephritis (3) Sepsis Code(s): A41.9 - SEPSIS, UNSPECIFIED ORGANISM Status: Acute Qualifiers: Sepsis type: Escherichia coli Qualified Code(s): A41.51 - Sepsis due to Escherichia coli [E. coli] (4) Obesity (BMI 30.0-34.9) Code(s): E66.9 - OBESITY, UNSPECIFIED Status: Chronic (5) Anxiety and depression Code(s): F41.8 - OTHER SPECIFIED ANXIETY DISORDERS Status: Chronic (6) Paroxysmal atrial fibrillation Code(s): I48.0 - PAROXYSMAL ATRIAL FIBRILLATION Status: Chronic (7) Cardiomyopathy Code(s): I42.9 - CARDIOMYOPATHY, UNSPECIFIED Status: Chronic (8) HTN (hypertension) Code(s): I10 - ESSENTIAL (PRIMARY) HYPERTENSION Status: Chronic (9) Systolic heart failure Code(s): I50.20 - UNSPECIFIED SYSTOLIC (CONGESTIVE) HEART FAILURE Status: Chronic Qualifiers: Heart failure chronicity: chronic Qualified Code(s): I50.22 - Chronic systolic (congestive) heart failure (10) Lactic acidosis Code(s): E87.2 - ACIDOSIS Status: Acute - Plan cont current plan of care, 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 Review of Systems - Review of Systems ENT: negative: Ear Pain, Ear Discharge, Nose Pain, Nose Discharge, Nose Congestion, Mouth Pain, Mouth Swelling, Throat Pain, Throat Swelling, Other Respiratory: negative: Cough, Dry, Shortness of Breath, Hemoptysis, SOB with Excertion, Pleuritic Pain, Sputum, Wheezing Cardiovascular: negative: Chest Pain, Palpitations, Orthopnea, Paroxysmal Noc. Dyspnea, Edema, Light Headedness, Other Gastrointestinal: negative: Nausea, Vomiting, Abdominal Pain, Diarrhea, Constipation, Melena, Hematochezia, Other Genitourinary: negative: Dysuria, Frequency, Incontinence, Hematuria, Retention , Other Musculoskeletal: negative: Neck Pain, Shoulder Pain, Arm Pain, Back Pain, Hand Pain, Leg Pain, Foot Pain, Other - Medications/Allergies Allergies/Adverse Reactions: Allergies Allergy/AdvReac Type Severity Reaction Status Date / Time latex Allergy Severe Short of Verified 12/21/16 21:22 Breath celecoxib [From Celebrex] Allergy Short of Verified 12/21/16 21:22 Breath cyclobenzaprine Allergy Verified 12/21/16 21:22 [From Flexeril] dronedarone [From Multaq] Allergy Verified 12/21/16 21:22 hydromorphone [From Dilaudid] Allergy Verified 12/21/16 21:22 morphine Allergy Verified 12/21/16 21:22 nifedipine [From Procardia] Allergy Verified 12/21/16 21:22 Medications: Current Medications Acetaminophen (Tylenol) 650 mg PO Q4H PRN PRN Reason: Headache/Fever or Pain Last Admin: 03/05/17 18:37 Dose: 650 mg Al Hydroxide/Mg Hydroxide (Maalox) 30 ml PO Q6H PRN PRN Reason: Heartburn or Indigestion Albuterol/Ipratropium (Duoneb) 3 ml NEB Q6H PRN PRN Reason: SOB/WHEEZE Alprazolam (Xanax) 0.5 mg PO DAILY PRN PRN Reason: Anxiety/Agitation Last Admin: 03/06/17 21:26 Dose: 0.5 mg Aripiprazole (Abilify) 2 mg PO DAILY [facility] Last Admin: 03/07/17 09:09 Dose: 2 mg Artificial Tears (Tears Naturale) 0 drop EA EYE PRN PRN PRN Reason: Dry Eyes Ascorbic Acid (Vitamin C) 500 mg PO DAILY [facility] Last Admin: 03/07/17 09:12 Dose: 500 mg Carvedilol (Coreg) 1.5625 mg PO BID [facility] Last Admin: 03/07/17 09:13 Dose: 1.5625 mg Cholecalciferol (Vitamin D3) 2,000 units PO DAILY [facility] Last Admin: 03/07/17 09:11 Dose: 2,000 units Digoxin (Lanoxin) 0.25 mg PO DAILY [facility] Last Admin: 03/07/17 09:11 Dose: 0.25 mg Famotidine (Pepcid) 20 mg PO BID [facility] Last Admin: 03/07/17 09:11 Dose: 20 mg Fentanyl (Sublimaze) 50 mcg SLOW IVP [facility] Last Admin: 03/05/17 10:54 Dose: 50 mcg Guaifenesin (Robitussin Sf) 200 mg PO Q4H PRN PRN Reason: Cough Hydralazine HCl (Apresoline) 10 mg SLOW IVP Q4H PRN PRN Reason: Systolic BP > 180 Meropenem 1 gm/ Miscellaneous Medication 1 units/ Sterile Water 20 mls @ 240 mls/hr SLOW IVP 0600,1400,2200 [facility] Last Admin: 03/07/17 06:05 Dose: 20 mls Ketorolac Tromethamine (Toradol) 15 mg IVP [facility] Stop: 03/10/17 11:01 Last Admin: 03/05/17 10:53 Dose: 15 mg Lisinopril (Zestril) 2.5 mg PO DAILY [facility] Last Admin: 03/07/17 09:10 Dose: 2.5 mg Loperamide HCl (Imodium) 2 mg PO PRN PRN PRN Reason: Diarrhea/Loose Stools Loratadine (Claritin) 10 mg PO DAILYPRN PRN PRN Reason: Sinus Symptoms Last Admin: 03/05/17 08:19 Dose: 10 mg Magnesium Hydroxide (Milk Of Magnesium) 30 ml PO DAILYPRN PRN PRN Reason: Constipation Mineral Oil/White Petrolatum (Eucerin Cream) 0 gm TOP BIDPRN PRN PRN Reason: Dry Skin Morphine Sulfate (Morphine) 2 mg SLOW IVP [facility] Ondansetron HCl (Zofran Odt) 4 mg PO Q6H PRN PRN Reason: Nausea/Vomiting Ondansetron HCl (Zofran) 4 mg IVP Q6H PRN PRN Reason: Nausea/Vomiting Last Admin: 03/03/17 22:18 Dose: 4 mg Rivaroxaban (Xarelto) 20 mg PO DAILY [facility] Last Admin: 03/07/17 09:10 Dose: 20 mg Saccharomyces Boulardii (Florastor) 250 mg PO DAILY [facility] Last Admin: 03/07/17 09:10 Dose: 250 mg Senna (Senokot) 2 tab PO HSPRN PRN PRN Reason: Constipation Sertraline HCl (Zoloft) 25 mg PO DAILY [facility] Last Admin: 03/07/17 09:09 Dose: 25 mg Sodium Chloride ([place] Nasal [place] 0.65%) 0 ml EA NARE QIDPRN PRN PRN Reason: Nasal Congestion Sodium Chloride (Flush - Normal Saline) 10 ml IVF Q12HR [facility] Last Admin: 03/07/17 09:18 Dose: 10 ml Sodium Chloride (Flush - Normal Saline) 10 ml IVF PRN PRN PRN Reason: Saline Flush Spironolactone (Aldactone) 25 mg PO DAILY [facility] Last Admin: 03/07/17 09:12 Dose: 25 mg Tamsulosin HCl (Flomax) 0.4 mg PO HS [facility] Last Admin: 03/06/17 21:06 Dose: 0.4 mg Trospium (Trospium Chloride) 20 mg PO BID [facility] Last Admin: 03/07/17 09:09 Dose: 20 mg Zolpidem Tartrate (Ambien) 5 mg PO HSPRN PRN PRN Reason: Insomnia
[2017-03-07 14:54] VITALS: BP 98/63; TEMP 98
--- NOTE | 2017-03-10 15:15 | EKG ---
Test Reason : Blood Pressure : / mmHG Vent. Rate : 102 BPM Atrial Rate : 102 BPM P-R Int : 160 ms QRS Dur : 140 ms QT Int : 354 ms P-R-T Axes : 058 -70 075 degrees QTc Int : 461 ms Sinus tachycardia Left axis deviation Non-specific intra-ventricular conduction block Nonspecific T wave abnormality No STEMI Abnormal ECG Confirmed by CRISTINA SKINNER M.D. ([id number]), editorial project manager KAUR DANIELSON ([id number]) on 03/10/2017 3:15:06 PM Referred By: Confirmed By:CRISTINA SKINNER M.D.
== END 2017-03-07 16:23 | disposition home health service (06) | DRG 872 ==
LOC: ERS 11:31 → T4-A 14:38
PROVIDERS: ADMIT Hospitalist; ATTEND Hospitalist
PROC: 0T768DZ Dilation of Right Ureter with Intraluminal Device, Via Natural or Artificial Opening Endoscopic (ICD-10-PCS; principal; 2017-02-28)
PROC: BT1D0ZZ Fluoroscopy of Right Kidney, Ureter and Bladder using High Osmolar Contrast (ICD-10-PCS; 2017-02-28)
PROC: 06H033Z Insertion of Infusion Device into Inferior Vena Cava, Percutaneous Approach (ICD-10-PCS; 2017-03-05)
DX: A41.51 Sepsis due to Escherichia coli [E. coli] (principal); E87.2 Acidosis; I42.9 Cardiomyopathy, unspecified; I11.0 Hypertensive heart disease with heart failure; I50.22 Chronic systolic (congestive) heart failure; N20.1 Calculus of ureter; N10 Acute pyelonephritis; N39.0 Urinary tract infection, site not specified; Z95.810 Presence of automatic (implantable) cardiac defibrillator; I48.0 Paroxysmal atrial fibrillation; N20.0 Calculus of kidney; Q55.64 Hidden penis; N48.0 Leukoplakia of penis; E66.9 Obesity, unspecified; Z68.34 Body mass index [BMI] 34.0-34.9, adult; F41.8 Other specified anxiety disorders
CPT/HCPCS: 36415; 36569; 51701; 71010; 74176; 74420; 80048; 80053; 80202; 81003; 81015; 82330; 82533; 82565; 82803; 83605; 85014; 85018; 85025; 85049; 86803; 87040; 87070; 87077; 87086; 87102; 87186; 87205; 87206; 87389; 93005; 94640; 96365; 96367; 96375; A4216; C1751; C1758; C1769; G8978-GP-CI; G8979-GP-CI; G8980-GP-CI; J0696; J1450; J1644; J1885; J1956; J2185; J2405; J2543; J2704; J3010; J3370; J7050; J7620; Q9961

== ENCOUNTER 2017-04-06 05:56 | Day surgery (SDC) | payer OTHER ==
[2017-04-05 11:13] VITALS: BMI 33.7
[2017-04-06] MEDS ORDERED: Fentanyl 250 MCG/5 ML VIAL ONE (06:30)
[2017-04-06] MEDS ORDERED: Iothalamate Meglumine 60% 50 ML VIAL FS ONE (07:12)
[2017-04-06] MEDS ORDERED: cefTRIAXone\\ROCEPHIN 2 GM in Sodium Chloride 0.9% 100 ML IVPB SCH (07:15)
[2017-04-06] MEDS ORDERED: ADMIXTURE FEE IVPB SCH (07:45)
[2017-04-06] MEDS ORDERED: SODIUM CHLORIDE IVPB SCH (07:45)
[2017-04-06] MEDS ORDERED: ERTAPENEM IVPB SCH (07:45)
--- NOTE | 2017-04-06 08:38 | RAD ---
PORTABLE UPRIGHT FRONTAL CHEST: Date: 04/06/17 COMPARISON: 02/28/17. HISTORY: Preoperative patient. FINDINGS: There is a right upper extremity PICC, distal tip overlying cavoatrial junction region. Stable dual l ead transvenous pacing device present. Stable prominence of the cardiac silhouette and interstitial p rominence noted within both lungs. No pneumothorax or pleural fluid. No focal consolidation or alveol ar edema. IMPRESSION: Chronic changes as above. No acute findings. POS: OFF
[2017-04-06] MEDS ORDERED: Furosemide 20 MG/2 ML VIAL ONE (09:10)
[2017-04-06] MEDS ORDERED: B & O ONE (09:27)
--- NOTE | 2017-04-06 11:02 | RAD ---
RIGHT RETROGRADE UROGRAM: DATE: 04/06/17. HISTORY: Hydronephrosis, history of right ureteral calculus. COMPARISON: 03/02/17. FINDINGS: Seven intraoperative fluoroscopic images are submitted for interpretation from right retrograde urogr am. Images demonstrate a catheter within the proximal left ureter with injection of contrast demonst rating mild to moderate right hydronephrosis. There is irregularity and suggested filling defect wit hin the proximal right ureter which may represent patient's known right ureteral calculus, and this w as also the site of renal calculus on CT exam on 02/28/17. Additional smaller filling defects are se en, but these do not persist and are probably related to gas bubbles. Correlation with intraoperativ e findings is recommended. POS: [place]
[2017-04-06] MEDS ORDERED: Sodium Chloride 0.9% 10 ML ONE (11:09)
--- NOTE | 2017-04-06 21:14 | OP ---
DATE OF HOSPITAL ADMISSION: 04/06/2017 DATE OF PROCEDURE: 04/06/2017 PREPROCEDURAL DIAGNOSES: 1. Right renal calculus, N20.0 2. Right obstructing 1 cm ureteral calculus, N20.1. 3. Recent urosepsis. POSTOPERATIVE DIAGNOSES: 1. Right renal calculus, N20.0 2. Right obstructing 1 cm ureteral calculus, N20.1. 3. Recent urosepsis. 4. Multilevel urethral stricture disease. 5. 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 PROCEDURES PERFORMED: 1. Right ureteroscopy with laser lithotripsy, 05640. 2. Right-sided stent placement, 83157. 3. Right-sided retrograde pyelogram, 42878. SPECIMENS REMOVED: Right ureteral and renal calculi which were pooled. ESTIMATED BLOOD LOSS: None. OPERATIVE FINDINGS: The patient had a right-sided obstructing radiopaque ureteral calculus as well a s renal calculi. The core of the patient's ureteral calculus was compatible with calcium oxalate mon ohydrate with a black coloration and density which was difficult to laser lithotripsy. The patient's stone had outside coating which was suggestive of struvite. BRIEF HISTORY AND INDICATION FOR HOSPITALIZATION AND PROCEDURE: Mr. Ashli Gamez is a pleasant 61-yea r-old white male who lives in assisted living secondary to poor medical condition primarily congestiv e heart failure with a reduced ejection fraction of about 15%. The patient also has osteomyelitis of the spine. He recently presented to [facility] with an obstructing ureteral calculus with urosepsis and did undergo cystoscopic placement of a right-sided stent. The patient op sydnie to proceed with ureteroscopic treatment of that and presented for today. TECHNICAL PROCEDURE: The patient was appropriately identified in the preoperative holding area. He received intravenous Rocephin as well as Invanz for antibiotic coverage of infectious organisms. The patient was transported to the operative suite, placed in the supine position. SYDNIE hose and sequent ial compression devices were in place and activated induction of general anesthesia. The patient's p rocedure was performed with standard operating room with C-arm assistance. After induction of genera l anesthesia, the patient was repositioned in the supine lithotomy position and prepped and draped in usual sterile fashion for cystoscopic procedure. We visualized the patient's right-sided stent, as well as ureteral calculus and right renal calculi using fluoroscopy. We performed cystoscopic evalua tion noting the patient's buried penis as well as multilevel urethral stricture disease. The patient had white coloration changes to the glans penis and the mons pubis tissue suggestive of balanitis xe rotica obliterans. Cystoscopic evaluation found multilevel urethral stricture disease which was not obstructive to the scope. The patient's prostate gland appeared relatively small cystoscopically wit h a high median bar. The patient's bladder was notable for a degree of trabeculation, but other than this, there were no significant abnormal findings other than a few white blood cell blebs and the in dwelling stent. We grasped the indwelling stent and removed it. We subsequently placed a 0.035 angl ed Glidewire into the patient's right ureter bypassing the obstructing calculus. We then placed a se cond wire using a [place] 8/10 Barbadian coaxial dilator system. Following placement of the second wire, w luciano performed a semirigid ureteroscopy using a Oscar mini rigid scope. This scope approximately 6-Frenc h diameter was advanced to the patient's calculus and we performed holmium laser lithotripsy initiall y removing an outer crest layer consisting of what appeared to be struvite followed by a core. All t hese were fragmented into small fragments. We did use a 0 tip nitinol basket to remove the larger fr agments for chemical analysis as well as to set up placement of a ureteral access sheath. We then pl aced ureteral access sheath and performed flexible ureteroscopy of the patient's renal pelvis. There we encountered multiple stones which we completely fragmented using holmium laser lithotripsy. All of the stones were fragmented into particles which were too small to recover except for 1 particle wh ich we recovered from the renal pelvis. We pulled this with the specimen from the ureter. The patie nt's collecting system was extensively irrigated. A new 4.5 Barbadian x 28 cm double-J ureteral stent w kameron regalado was placed in the patient's right ureter. Good coil was obtained in the renal pelvis a s well as in the patient's bladder. The patient's bladder was drained. A belladonna and opioid 60 m g suppository was applied per rectum at the close of the case. The patient is currently on anticoagu lation and we noted no significant bleeding during the procedure. The patient was able to successful ly void following the procedure in the recovery room. After completion of the procedure, the patient was extubated in the operative suite, transported to the postoperative recovery room in good conditi on. He was subsequently able to void and was discharged home from there.
== END 2017-04-06 11:35 | disposition home or self-care (01) ==
LOC: SDC 05:56
PROVIDERS: ATTEND Urology
PROC: 0TF68ZZ Fragmentation in Right Ureter, Via Natural or Artificial Opening Endoscopic (ICD-10-PCS; principal; 2017-04-06)
PROC: 0T768DZ Dilation of Right Ureter with Intraluminal Device, Via Natural or Artificial Opening Endoscopic (ICD-10-PCS; principal; 2017-04-06)
DX: N20.2 Calculus of kidney with calculus of ureter (principal); N35.9 Urethral stricture, unspecified; N48.0 Leukoplakia of penis; Q55.64 Hidden penis; A41.9 Sepsis, unspecified organism; M46.20 Osteomyelitis of vertebra, site unspecified; I11.0 Hypertensive heart disease with heart failure; I50.22 Chronic systolic (congestive) heart failure; J45.909 Unspecified asthma, uncomplicated; J44.9 Chronic obstructive pulmonary disease, unspecified; Z79.01 Long term (current) use of anticoagulants; Z79.2 Long term (current) use of antibiotics; Z79.899 Other long term (current) drug therapy; Z88.5 Allergy status to narcotic agent; Z88.8 Allergy status to other drugs, medicaments and biological substances; Z91.040 Latex allergy status; Z95.810 Presence of automatic (implantable) cardiac defibrillator; Z96.0 Presence of urogenital implants; Z90.49 Acquired absence of other specified parts of digestive tract; Z98.890 Other specified postprocedural states; Z87.440 Personal history of urinary (tract) infections; Z87.891 Personal history of nicotine dependence
CPT/HCPCS: 71010; 74420; 82365; 88300; 93005; 93010; A4216; C1758; C1769; J0696; J1335; J1642; J1644; J1940; J3010; J7050; Q9961

== ENCOUNTER 2017-05-03 11:42 | Inpatient (IN) | payer OTHER ==
--- NOTE | 2017-05-03 12:26 | RAD ---
AP CHEST: Indication: History of seizure like activity and sepsis with cough. FINDINGS: Stable cardiomegaly and AICD. Lungs are clear. Left costophrenic angle is excluded. Chronic osseous c hanges are similar. IMPRESSION: 1. Stable cardiomegaly. No definite acute abnormality. 2. Some limitations to the exam as above. POS: [facility]
[2017-05-03 12:36] LABS: ALT (SGPT) 12 U/L (8-55); AST (SGOT) 11 U/L (5-34); Albumin 3.3 g/dL (3.4-4.8); Alkaline Phosphatase 67 U/L (40-150); Anion Gap 14 mmol/L (10-20); BUN (Urea Nitrogen) 27 mg/dL (8.4-25.7); Bilirubin, Total 1.7 mg/dL (0.2-1.2); Calc. Creatinine Clearance 0 mL/min (70-130); Carbon Dioxide 20 mmol/L (23-31); Chloride 103 mmol/L (98-107); Estimated GFR-MDRD Greater than 90; Globulin 4.1 g/dL (2.4-3.5); Glucose 119 mg/dL (80-115); Potassium 4.1 mmol/L (3.5-5.1); Protein, Total 7.4 g/dL (5.8-8.1); Sodium 133 mmol/L (136-145)
[2017-05-03 12:49] LABS: Hemoglobin 13.2 g/dL (14.0-18.0); Mean Corpuscular HGB CONC 33.5 g/dL (32.0-36.0); Mean Corpuscular Hemoglobin 28.8 pg (27.0-31.0); Mean Corpuscular Volume 86.1 fl (80.0-94.0); Mean Platelet Volume 7.7 fL (7.4-10.4); Platelet Count 253 thou/uL (130-400); RBC Distribution Width 17.5 % (11.5-14.5); Red Blood Cell (RBC) Count 4.58 mill/uL (4.70-6.10); White Blood Cell (WBC) Count 17.4 thou/uL (4.8-10.8)
[2017-05-03 12:52] LABS: Band 17 % (5-11); Lymphocytes 3 % (21-51); MDiff Complete? YES; Monocytes 14 % (0-10); Neutrophil 65 % (42-75); RBC Morphology Normal; Reactive Lymphocytes 1 % (0-10)
[2017-05-03] MEDS ORDERED: Piperacillin/Tazobactam 4.5 GM in Sodium Chloride 0.9% 100 ML IVPB ONE (13:00)
[2017-05-03 13:57] LABS: Bilirubin Small (Negative); Blood, Urine Moderate (Negative); Clarity CLOUDY (Clear); Glucose, Urine (Dipstick) Negative (Negative); Leukocyte Large (Negative); Nitrite Positive (Negative); Protein, Urine (Dipstick) 100 mg/dL (Neg-Trace); Specific Gravity, Urine 1.022 (1.002-1.036); pH, Urine 6.5 (5.0-9.0)
[2017-05-03 14:02] LABS: Bacteria/HPF 4+ HPF (None Seen); Hyaline Casts/LPF 4-6 HYALINE CAST LPF (0-3 Hyaline); Pathc Cast-AUWi Flag 1.04 (0-2.49); RBC/HPF 21-50 HPF (0-3)
--- NOTE | 2017-05-03 14:41 | HP ---
PRIMARY CARE PHYSICIAN: Zuleyma Garzon M.D. REASON FOR ADMISSION: Sepsis, hypotension, and urinary tract infection. HISTORY OF PRESENT ILLNESS: A 61-year-old male who lives at [facility] was recently admitted in our hospital on 02/28/2017. At that time, the patient was treated for sep sis secondary to urinary tract infection. During that admission, CT of the abdomen and pelvis was do ne which showed large obstructing right mid ureteral calculus. At that time, urine culture was posit ehsan for multidrug resistant E. coli. Dr. Katz was consulted and he recommended IV antibiotic therap y. The patient had PICC line placed and patient was discharged to [facility] on 2016. After discharge, patient has completed antibiotic course with Invanz. After finishing antibio tic course, patient had surgical procedure on 04/06/[address] King and the patient underwent right ureteroscopy with laser lithotripsy, right-sided stent placement and right-sided retrograde pyelogra m. After that procedure, patient was doing well. The patient is sick again for the last 6 days. He was having on and off low grade fever and chills which was gradually getting worse. He was also having dysuria, increased frequency and low back pain. He started feeling chills and high grade fever yeste rday. He was also having nausea, but no vomiting. He also had several times diarrhea. The patient was becoming hypotensive and that is why patient was sent to the emergency room for evaluation. When patient came to ER, at that time he was tachypneic. Initially, temperature 102.0. His lowest b lood pressure was 74/36. He received IV antibiotic therapy. At this point, we are admitting this pa tient in [facility] for sepsis and hypertension. Patient denies any flu-like illness. He denies any cough, sore throat, chest pain. He denies any he adache and constipation. He denies any melena, hematochezia. He denies any abdominal pain. He azael es any orthopnea, PND or leg swelling. He denies any syncopal episode. REVIEW OF SYSTEMS: The following complete review of systems was negative, unless otherwise mentioned in the HPI or below: Constitutional: Weight loss or gain, ability to conduct usual activities. Skin: Rash, itching. Eyes: Double vision, pain. ENT/Mouth: Nose bleeding, neck stiffness, pain, tenderness. Cardiovascular: Palpitations, dyspnea on exertion, orthopnea. Respiratory: Shortness of breath, wheezing, cough, hemoptysis, fever or night sweats. Gastrointestinal: Poor appetite, abdominal pain, heartburn, nausea, vomiting, constipation, or diarr hea. Genitourinary: Urgency, frequency, dysuria, nocturia. Musculoskeletal: Pain, swelling. Neurologic/Psychiatric: Anxiety, depression. Allergy/Immunologic: Skin rash, bleeding tendency. Please see my HPI for pertinent positive and negative. All other review of system reviewed and negat ehsan except as mentioned in HPI. PAST MEDICAL HISTORY: History of chronic systolic heart failure with EF 10%-15% based on echocardiog shoaib in 12/2016. Mild intermittent asthma. Patient has history of osteomyelitis in the back, nephr olithiasis, history of sepsis with UTI in 02/2017. PAST SURGICAL HISTORY: AICD placement, cholecystectomy, appendicectomy, cardiac catheterization, cir cumcision, PICC line placement, cystoscopy, ureteroscopy and stent placement. PAST PSYCHIATRIC HISTORY: Anxiety and depression. SOCIAL HISTORY: Patient is . He lives at [facility]. No history of tobacco, alcohol or illicit drug abuse. 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 FAMILY HISTORY: Both parents from lung cancer. There have a heavy smoker. Both parents also h ad congestive heart failure. CURRENT HOME MEDICATIONS: Tylenol #3 one tablet q.6 hourly p.r.n., vitamin D3 2000 units p.o. daily, Xarelto 20 mg p.o. daily, digoxin 250 mcg p.o. daily, lisinopril 2.5 mg p.o. daily, Robaxin 500 mg p .o. b.i.d. p.r.n., metoprolol tartrate 12.5 mg p.o. b.i.d., Zoloft 25 mg p.o. daily, Aldactone 25 mg p.o. daily. The patient is not taking Lasix at [facility]. ALLERGIES: The patient is allergic to MULTAQ, MORPHINE, PROCARDIA, DILAUDID, CELEBREX, FLEXERIL, and LATEX. EMERGENCY ROOM COURSE: So far, patient has received IV fluids, Tylenol 1 g, Zosyn 4.5 g, vancomycin 1 gram and 2 liters of another fluid. PHYSICAL EXAMINATION: VITAL SIGNS: In the emergency room, lowest blood pressure is 74/30, temperature 102.0, pulse 98, res piratory rate 35, saturation 93% on room air, weight 97.5 kilograms. GENERAL: Patient is currently alert, awake, follows command, appears sick, but no acute distress, hy potensive, febrile. HEAD: Normocephalic, atraumatic. EYES: Pupils round, reactive to light. Extraocular muscles intact. ENT: Oropharynx within normal limits. Moist mucous membranes. No oral lesions. No pharyngeal eryt margie, no exudate. NECK: Supple, no JVD, no thyromegaly, no carotid bruit, no jugular venous distention. LUNGS: Clear to auscultation without any rhonchi or rales. CARDIAC: S1, S2 regular. No murmur, no gallop, no rub. ABDOMEN: Soft, bowel sounds present, nontender, nondistended. No organomegaly, no mass. Mild supra pubic discomfort noted. BACK: On examination, bilateral CVA tenderness noted. Upper extremity; passive movements of all maya nts are normal. Lower extremities: No edema, no calf tenderness. Good distal pulsation. SKIN: No skin rash. HEMATOLOGICAL SYSTEM: No lymphadenopathy. NEUROLOGIC: Nonfocal examination. The patient moves all 4 limbs. Plantar bilateral flexor. IMAGING DATA AND SIGNIFICANT LABORATORY DATA: 1. EKG based on my review pacemaker rhythm, left axis deviation. 2. Chest x-ray based on my review, cardiomegaly, no acute cardiopulmonary process. 3. Influenza screen is negative. 4. CBC: WBC 17.4, hemoglobin 13.2, platelet 253 with bandemia. 5. BMP: Sodium 133, potassium 4.1, chloride 103, carbon dioxide 20, anion gap 14, BUN 27, creatinin e 0.82, glucose 119, calcium 9.0. Lactic acid 1.8. 6. LFT: AST 11, ALT 12, alkaline phosphatase 67, albumin 3.3. ASSESSMENT AND PLAN/IMPRESSION: 1. Sepsis with hypotension, likely due to underlying urinary tract infection, rule out obstruction. This patient is hypotensive. His blood pressure is labile in the emergency room. At this point, we will check random cortisol. We will continue with gentle IV fluid. We will watch for any fluid ove rload given his history of cardiomyopathy. We will start broad spectrum antibiotic therapy with vanc omycin and Zosyn based on previous culture result. Urology will be consulted. Dr. Katz will be con sulted given his previous history of multidrug resistant urinary tract infection as well as you obstr uctive uropathy, we will closely monitor this patient in IMCU. If blood pressure drops and if he nee ds vasopressor support, then he will need central line and vasopressor support. In that case, we pk l move him to ICU. Normally, his blood pressure also runs low because of cardiomyopathy. At this po int, patient is mentating well and he is making urine and his renal function is normal. 2. Chronic systolic heart failure with ejection fraction 10%-15%. Currently, patient is euvolemic. He is on room air and he does not have any orthopnea, PND or any leg swelling. We will monitor on c ardiac monitored bed. 3. Urinary tract infection, rule out obstructive uropathy. We will do CT stone protocol. If there is obstruction, then we will consult Urology. Otherwise, we will continue vancomycin and Zosyn. Bas ed on previous culture and sensitivity result, we will send urine culture, blood culture and we will check urinalysis. 4. Bandemia, likely due to sepsis and secondary to urinary tract infection. We will repeat CBC la rrow. 5. Nephrolithiasis. This patient has obstructive uropathy secondary to ureterolithiasis. He requir ed stone removal in April. We will repeat CT stone protocol and rule out any complication at this point or any recurrence. 6. Hypotension. As mentioned above, we will hold on antihypertensive medication and we will monitor his hemodynamics very closely in IMCU. If this patient needs any vasopressor, then he may need a ce ntral line and vasopressor. In that case, we will transfer to ICU, but at this point, patient may no t need vasopressor support. 7. Deep venous thrombosis prophylaxis. Patient is already on Xarelto therapy. 8. Gastrointestinal prophylaxis. Pepcid 20 mg p.o. b.i.d. 9. Asthma, mild intermittent. We will continue DuoNeb therapy q.6 hourly p.r.n. 10. Chronic low back pain. We will continue Robaxin 500 mg p.o. b.i.d. p.r.n. and Tylenol #3 p.r.n. basis. 11. Vitamin D deficiency. We will continue vitamin D3 2000 units p.o. daily. 12. Anxiety and depression. We will continue Zoloft 25 mg p.o. daily. CODE STATUS: The patient is FULL CODE. Patient does not have any surrogate decision maker. Disposition plan based on clinical course. We are expecting patient's stay in the hospital more than 2 midnights. Plan of care discussed with the patient in detail. Once patient improves, then we pk l resume patient's home medication.
[2017-05-03] MEDS ORDERED: Sodium Chloride 0.65% Nasal 44 ML BOT EA NARE PRN (15:15)
[2017-05-03] MEDS ORDERED: Acetaminophen 325 MG TAB PO PRN (15:15)
[2017-05-03] MEDS ORDERED: Artificial Tears 18 DROP/0.9 ML EA EYE PRN (15:15)
[2017-05-03] MEDS ORDERED: VANCOMYCIN IVPB PRN (15:15)
[2017-05-03] MEDS ORDERED: Ondansetron ODT 4 MG TAB PO PRN (15:15)
[2017-05-03] MEDS ORDERED: Loratadine 10 MG TAB PO PRN (15:15)
[2017-05-03] MEDS ORDERED: Eucerin (Mineral Oil/Petrolatum,White) 30 gm Jar TOP PRN (15:15)
[2017-05-03] MEDS ORDERED: Mag-Al 1200 mg/1200 mg/30 ML UDCUP PO PRN (15:15)
[2017-05-03] MEDS ORDERED: hydrALAZINE 20 MG/ML VIAL SLOW IVP PRN (15:15)
[2017-05-03] MEDS ORDERED: Diabetic Tussin 200 MG/10 ML UDCUP PO PRN (15:15)
[2017-05-03] MEDS ORDERED: Senokot 8.6 MG TAB PO PRN (15:15)
[2017-05-03] MEDS ORDERED: Milk Of Magnesia 30 ML UDCUP PO PRN (15:15)
[2017-05-03] MEDS ORDERED: Methocarbamol 500 MG TAB PO PRN (15:15)
[2017-05-03] MEDS ORDERED: Chloraseptic Spray 180 ml Bottle PO PRN (15:15)
--- NOTE | 2017-05-03 15:57 | CT ---
CT ABDOMEN AND PELVIS WITHOUT CONTRAST 05/03/17 HISTORY: 61-year-old male with UTI, sepsis, weakness, dysuria, kidney stones. FINDINGS: Comparison is made with the exam of 02/28/17. Absence of oral and IV contrast reduces the sensitivity of the exam particularly for the evaluation o f solid organs and bowel. There are mild dependent changes in the lung bases. No free air or free fluid is seen in the abdomen or pelvis. The patient is post cholecystectomy. Colonic diverticulosis again seen. There has been interval placement of a right ureteral stent with removal of the large right mid urete ral calculus noted on the previous study. Bilateral renal calculi are again seen. No calculi seen in the ureters or the urinary bladder. No hydroureteronephrosis is noted on either side. There are vascular calcifications without evidence of aneurysmal dilatation of the abdominal aorta. C ortical cyst in the left kidney is again noted. There are degenerative changes in the spine. IMPRESSION: 1. Nonobstructing bilateral renal calculi. 2. Interval placement of right ureteral stent and removal of a right mid ureteral calculus since 02/28/17. 3. Colonic diverticulosis. POS: [facility]
[2017-05-03] MEDS: Sodium Chloride 0.9% 1,000 ML IV SCH (16:24)
[2017-05-03] MEDS: Acetaminophen/Codeine 30-300mg Tablet PO PRN (17:08)
[2017-05-03] MEDS: Piperacillin/Tazobactam 4.5 GM in Sodium Chloride 0.9% 100 ML IVPB SCH (20:05)
[2017-05-03] MEDS: Famotidine 20 MG TAB PO SCH (20:06)
[2017-05-04] MEDS: Vancomycin HCl 1.5 GM in Sodium Chloride 0.9% 250 ML 300 ML IVPB SCH ×2 (00:34→13:00)
[2017-05-04] MEDS: Piperacillin/Tazobactam 4.5 GM in Sodium Chloride 0.9% 100 ML IVPB SCH ×4 (01:55→20:08)
[2017-05-04] MEDS: Acetaminophen/Codeine 30-300mg Tablet PO PRN ×3 (02:00→17:45)
[2017-05-04 04:39] LABS: INR-International Normal Ratio 2.8
[2017-05-04 04:50] LABS: ALT (SGPT) 10 U/L (8-55); AST (SGOT) 12 U/L (5-34); Alkaline Phosphatase 60 U/L (40-150); Anion Gap 14 mmol/L (10-20); BUN (Urea Nitrogen) 26 mg/dL (8.4-25.7); Bilirubin, Total 1.8 mg/dL (0.2-1.2); Calc. Creatinine Clearance 140 mL/min (70-130); Calcium 8.4 mg/dL (7.8-10.44); Carbon Dioxide 18 mmol/L (23-31); Chloride 106 mmol/L (98-107); Estimated GFR-MDRD Greater than 90; Globulin 3.8 g/dL (2.4-3.5); Glucose 106 mg/dL (80-115); Potassium 4.1 mmol/L (3.5-5.1); Protein, Total 6.8 g/dL (5.8-8.1); Sodium 134 mmol/L (136-145)
[2017-05-04 05:02] LABS: Band 16 % (5-11); Hemoglobin 11.8 g/dL (14.0-18.0); Lymphocytes 2 % (21-51); MDiff Complete? YES; Mean Corpuscular HGB CONC 30.6 g/dL (32.0-36.0); Mean Corpuscular Hemoglobin 26.8 pg (27.0-31.0); Mean Corpuscular Volume 87.8 fl (80.0-94.0); Mean Platelet Volume 8.2 fL (7.4-10.4); Monocytes 2 % (0-10); Neutrophil 80 % (42-75); PLT Morphology Comment Appears Adequate; Platelet Count 205 thou/uL (130-400); RBC Distribution Width 17.3 % (11.5-14.5); Red Blood Cell (RBC) Count 4.38 mill/uL (4.70-6.10); White Blood Cell (WBC) Count 15.2 thou/uL (4.8-10.8)
[2017-05-04] MEDS: Sodium Chloride 0.9% 1,000 ML IV SCH ×2 (05:48→17:32)
[2017-05-04] MEDS: Rivaroxaban 10 MG TAB PO SCH (05:50)
[2017-05-04] MEDS: Calcium Carbonate 500 MG ChewTAB PO SCH ×2 (10:58→17:31)
[2017-05-04] MEDS: Famotidine 20 MG TAB PO SCH ×2 (10:59→20:08)
[2017-05-04] MEDS: Saccharomyces boulardii 250 MG CAP PO SCH (10:59)
[2017-05-04] MEDS: Digoxin 0.25 MG TAB PO SCH (11:00)
--- NOTE | 2017-05-04 12:13 | PDOC.PN ---
- Subjective Encounter Start Date: 05/04/17 Encounter Start Time: 09:45 -: old records requested/rev pt did not require any vasopressure, his BP remained stable, had fever, Patient seen and examined. No new complaints. No overnight events - Objective Resuscitation Status: Resuscitation Status FULL:Full Resuscitation MAR Reviewed: Yes Vital Signs & Weight: Vital Signs (12 hours) Temp Pulse Resp BP Pulse Ox 05/04/17 11:45 98.5 F 97 20 88/46 L 100 05/04/17 11:00 100 05/04/17 08:00 97.2 F L 100 16 100 05/04/17 07:54 97.2 F L 88 18 100/52 L 100 05/04/17 03:50 99.3 F 99 24 H 96/48 L 96 Weight Weight 233 lb 12.8 oz I&O: 05/03/17 05/04/17 05/05/17 06:59 06:59 06:59 Intake Total 2285 Output Total 400 Balance 1885 Result Diagrams: 05/04/17 04:12 05/04/17 04:12 EKG Reviewed by me: Yes (nsr) Phys Exam - Physical Examination Constitutional: NAD HEENT: PERRLA, moist MMs, sclera anicteric Neck: no JVD, supple Respiratory: no wheezing, no rales, no rhonchi Cardiovascular: RRR, no significant murmur, no rub Gastrointestinal: soft, non-tender, no distention, positive bowel sounds Musculoskeletal: no edema, pulses present Neurological: non-focal, normal sensation, moves all 4 limbs Lymphatic: no nodes Psychiatric: normal affect, A&O x 3 Skin: no rash, normal turgor Dx/Plan (1) Hypotension Status: Acute (2) Sepsis Code(s): A41.9 - SEPSIS, UNSPECIFIED ORGANISM Status: Acute Qualifiers: (3) UTI (urinary tract infection) Status: Acute Qualifiers: Urinary tract infection type: acute pyelonephritis (4) Anxiety and depression Code(s): F41.8 - OTHER SPECIFIED ANXIETY DISORDERS Status: Chronic (5) Cardiomyopathy Code(s): I42.9 - CARDIOMYOPATHY, UNSPECIFIED Status: Chronic (6) Chronic anticoagulation Code(s): Z79.01 - SHELTER (CURRENT) USE OF 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 Status: Chronic (7) Diverticulosis of colon Code(s): K57.30 - DVRTCLOS OF LG INT W/O PERFORATION OR ABSCESS W/O BLEEDING Status: Chronic (8) HTN (hypertension) Code(s): I10 - ESSENTIAL (PRIMARY) HYPERTENSION Status: Chronic (9) Nephrolithiasis Status: Chronic (10) Obesity (BMI 30.0-34.9) Code(s): E66.9 - OBESITY, UNSPECIFIED Status: Chronic (11) Paroxysmal atrial fibrillation Code(s): I48.0 - PAROXYSMAL ATRIAL FIBRILLATION Status: Chronic (12) Systolic heart failure Code(s): I50.20 - UNSPECIFIED SYSTOLIC (CONGESTIVE) HEART FAILURE Status: Chronic Qualifiers: - Plan cont current plan of care, continue antibiotics * continue vancomycin and zosyn * follow culture * will continue to hold heart meds for relative low BP * today ok to transfer to tele * will monitor * ID to see * medication reviewed as below * symptomatic treatment. Review of Systems - Review of Systems Constitutional: weakness. negative: fever, chills, sweats, malaise, other ENT: negative: Ear Pain, Ear Discharge, Nose Pain, Nose Discharge, Nose Congestion, Mouth Pain, Mouth Swelling, Throat Pain, Throat Swelling, Other Respiratory: negative: Cough, Dry, Shortness of Breath, Hemoptysis, SOB with Excertion, Pleuritic Pain, Sputum, Wheezing Cardiovascular: negative: chest pain, palpitations, orthopnea, paroxysmal nocturnal dyspnea, edema, light headedness, other Gastrointestinal: negative: Nausea, Vomiting, Abdominal Pain, Diarrhea, Constipation, Melena, Hematochezia, Other Genitourinary: negative: Dysuria, Frequency, Incontinence, Hematuria, Retention , Other Musculoskeletal: negative: Neck Pain, Shoulder Pain, Arm Pain, Back Pain, Hand Pain, Leg Pain, Foot Pain, Other Skin: negative: Rash, Lesions, Aniceto, Bruising, Other - Medications/Allergies Allergies/Adverse Reactions: Allergies Allergy/AdvReac Type Severity Reaction Status Date / Time latex Allergy Severe Short of Verified 05/03/17 15:16 Breath celecoxib [From Celebrex] Allergy Short of Verified 05/03/17 15:16 Breath cyclobenzaprine Allergy Verified 05/03/17 15:16 [From Flexeril] dronedarone [From Multaq] Allergy Verified 05/03/17 15:16 hydromorphone [From Dilaudid] Allergy Verified 05/03/17 15:16 morphine Allergy Verified 05/03/17 15:16 nifedipine [From Procardia] Allergy Verified 05/03/17 15:16 Medications: Current Medications Acetaminophen (Tylenol) 650 mg PO Q4H PRN PRN Reason: Headache/Fever or Pain Last Admin: 05/03/17 20:06 Dose: 650 mg Acetaminophen/Codeine Phosphate (Tylenol #3) 1 tab PO Q6H PRN PRN Reason: Moderate to Severe Pain (6-10) Last Admin: 05/04/17 10:57 Dose: 1 tab Al Hydroxide/Mg Hydroxide (Maalox) 30 ml PO Q6H PRN PRN Reason: Heartburn or Indigestion Albuterol/Ipratropium (Duoneb) 3 ml NEB [id number] PRN PRN Reason: SOB &/or Wheezing Alprazolam (Xanax) 0.25 mg PO BIDPRN PRN PRN Reason: Anxiety Artificial Tears (Tears Naturale) 0 drop EA EYE PRN PRN PRN Reason: Dry Eyes Calcium Carbonate (Tums) 1,000 mg PO BID-[facility] Last Admin: 05/04/17 10:58 Dose: 1,000 mg Cholecalciferol (Vitamin D3) 2,000 units PO DAILY [facility] Last Admin: 05/04/17 11:00 Dose: 2,000 units Digoxin (Lanoxin) 0.25 mg PO DAILY [facility] Last Admin: 05/04/17 11:00 Dose: 0.25 mg Famotidine (Pepcid) 20 mg PO BID [facility] Last Admin: 05/04/17 10:59 Dose: 20 mg Guaifenesin (Robitussin Sf) 200 mg PO Q4H PRN PRN Reason: Cough Hydralazine HCl (Apresoline) 5 mg SLOW IVP Q4H PRN PRN Reason: Systolic BP > 180 Sodium Chloride (Normal Saline 0.9%) 1,000 mls @ 75 mls/hr IV .[id number] [facility] Last Admin: 05/04/17 05:48 Dose: 1,000 mls Piperacillin Sod/Tazobactam (Sod 4.5 gm/ Sodium Chloride) 100 mls @ 200 mls/hr IVPB 0200,0800,1400,2000 [facility] Last Admin: 05/04/17 10:58 Dose: 100 mls Vancomycin HCl 1.5 gm/ Sodium (Chloride) 300 mls @ 200 mls/hr IVPB 0100,1300 [facility] Last Admin: 05/04/17 00:34 Dose: 300 mls Loperamide HCl (Imodium) 2 mg PO PRN PRN PRN Reason: Diarrhea/Loose Stools Loratadine (Claritin) 10 mg PO DAILYPRN PRN PRN Reason: Sinus Symptoms Magnesium Hydroxide (Milk Of Magnesium) 30 ml PO DAILYPRN PRN PRN Reason: Constipation Methocarbamol (Robaxin) 500 mg PO BID PRN PRN Reason: Muscle Spasm Mineral Oil/White Petrolatum (Eucerin Cream) 0 gm TOP BIDPRN PRN PRN Reason: Dry Skin Miscellaneous Medication (Pharmacy To Dose) 1 each IVPB PRN PRN PRN Reason: Pharmacy to dose Ondansetron HCl (Zofran Odt) 4 mg PO Q6H PRN PRN Reason: Nausea/Vomiting Ondansetron HCl (Zofran) 4 mg IVP Q6H PRN PRN Reason: Nausea/Vomiting Phenol (Chloraseptic [place] 180 Ml Bot) 0 ml PO PRN PRN PRN Reason: Sore Throat Rivaroxaban (Xarelto) 20 mg PO 0600 [facility] Last Admin: 05/04/17 05:50 Dose: 20 mg Saccharomyces Boulardii (Florastor) 250 mg PO DAILY [facility] Last Admin: 05/04/17 10:59 Dose: 250 mg Senna (Senokot) 2 tab PO HSPRN PRN PRN Reason: Constipation Sertraline HCl (Zoloft) 25 mg PO DAILY [facility] Last Admin: 05/04/17 10:59 Dose: 25 mg Sodium Chloride ([place] Nasal [place] 0.65%) 0 ml EA NARE QIDPRN PRN PRN Reason: Nasal Congestion
--- NOTE | 2017-05-04 12:19 | EKG ---
Test Reason : SEPSIS ALERT Blood Pressure : / mmHG Vent. Rate : 093 BPM Atrial Rate : 093 BPM P-R Int : 170 ms QRS Dur : 144 ms QT Int : 372 ms P-R-T Axes : 079 -48 117 degrees QTc Int : 462 ms Electronic atrial pacemaker Left axis deviation Left bundle branch block Abnormal ECG Confirmed by BARBARA PRADHAN ([id number]), logistics operations manager KAUR DANIELSON ([id number] on 05/04/2017 12:18:51 PM Referred By: Confirmed By:BARBARA PRADHAN
--- NOTE | 2017-05-04 15:25 | CON ---
DATE OF CONSULTATION: 05/04/2017 REASON FOR CONSULTATION: Fever, sepsis. HISTORY OF PRESENT ILLNESS: A 61-year-old known to us from prior visits, history of cardiomyopathy, asthma and prior LS spine osteomyelitis treated in [place] whom I saw in February with a urethral stri cture, urosepsis associated with a right-sided large kidney stone. He had evidence of obstruction wi th hydronephrosis and required placement of a stent. Subsequently, patient had a PICC line inserted and had lithotripsy in the outpatient setting while he was on antimicrobial therapy. Patient had res olution of the inflammatory process and received a total of 4 weeks of treatment with PICC line. PIC C line was discontinued and treatment was discontinued. Unfortunately, the patient has developed rec rudescence of pain in the right flank region associated with sepsis and was readmitted. These sympto ms developed over 3-4 days prior to admission. Initially felt to represent a possible influenza, frank igordano was going around in the longterm, but then it became more obvious that this was more likely to be secondary to recrudescence of the underlying urinary process. Currently, he is feeling better. No headaches, visual symptoms, sore throat, odynophagia, dysphagia, no chest pain, no cough, no dyspn ea. There is pain, which is moderate in the right flank and posterior paravertebral area, right side and no abdominal pain, otherwise, no diarrhea. He does have dysuria, which seems to be improving. No joint symptoms. No skin disorder. No change in neurological condition. PAST MEDICAL HISTORY: Cardiomyopathy, asthma, LS spine osteomyelitis treated in [place], [facility], nephrolithiasis with obstruction of right ureter with urosepsis, status post lithotripsy and protracted IV Invanz secondary to an ESBL Escherichia coli, AICD placement, cholecystectomy, appende ctomy. ALLERGIES: CELECOXIB, LATEX, HYDROMORPHONE, MORPHINE, NIFEDIPINE, DRONEDARONE. 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 FAMILY HISTORY: Noncontributory. CURRENT MEDICATIONS: Tylenol, Maalox, DuoNeb, Xanax, Tums, Lanoxin, Pepcid, Robitussin, Claritin, Ro baxin, Zofran, Zosyn, and vancomycin. PHYSICAL EXAMINATION: VITAL SIGNS: T-max 101.4, seems to be defervescing since, blood pressure 90/46, pulse 97, respiratio ns 20, O2 sat 100. GENERAL: Awake, alert, and does not appear to be in any distress. Peripheral IV access. No Vann c atheter. No other areas of skin changes. No lymphadenopathy. HEENT: Ocular movements are conjugate. Oral cavity normal. NECK: Supple. LUNGS: With symmetric clear breath sounds. HEART: S1, S2, regular rate. No S3 or S4, no murmurs. ABDOMEN: Soft. Not distended or tender. No ascites, little bit of right flank tenderness. No blad meg distention. GENITOURINARY: No genital abnormalities noted. EXTREMITIES: No joint inflammatory activity. He is able to move extremities. Pulses are 1+ in dors sho pedis. Plantar responses are flexure. NEUROLOGIC: Cognitive function appears to be intact. LABORATORY DATA: White cell count 17, now 15, hemoglobin 11, platelets 205 with 80% neutrophils, 16% bands. INR 2.8, creatinine 0.82, AST 11, ALT 12, alkaline phosphatase 67, albumin 3.3. Urinalysis with greater than 50 WBCs, 4+ bacteria. Microbiology with younger colonies, but not yet identified, pending further incubation. Abdomen and pelvis CT, nonobstructing bilateral renal calculi, right ure teral stent with removal of the previously noted large calculus and diverticulosis. ASSESSMENT AND PLAN: 1. Cardiomyopathy with AICD, on chronic Xarelto 2. Nephrolithiasis obstructive with pyelonephritis, recurrent with ESBL organism, status post lithot ripsy and stenting, protracted IV Invanz. 2. Recrudescence of urinary symptoms with dysuria as well as flank pain without evidence of hydronep hrosis at this time and evidence of sepsis. DISCUSSION: Most likely the patient has recrudescence of pyelonephritis unfortunately. This time, h e does not have evidence of obstruction, although the patient has symptoms of urethritis. He does tilley ve a history of urethral stricture in the past and this may be something to be reevaluated. The larisa ent is on Zosyn and vancomycin, still continue those until we have the identification of the organism . Unfortunately, I expect him to have the same E. coli that he had before. Ideally, one would like to have the stent removed if possible, although probably the urologist's would like to wait until the acute inflammatory process is improved before doing that, very likely we will require replacement of PICC line and another protracted course of antimicrobial therapy. At this time, probably we will ne ed even longer course than the less time.
[2017-05-04] MEDS: Loperamide HCl 2 MG CAP PO PRN (17:41)
[2017-05-05 00:34] LABS: Vancomycin, Trough 15.3 ug/mL
[2017-05-05] MEDS: Vancomycin HCl 1.5 GM in Sodium Chloride 0.9% 250 ML 300 ML IVPB SCH ×2 (01:19→12:57)
[2017-05-05] MEDS: Piperacillin/Tazobactam 4.5 GM in Sodium Chloride 0.9% 100 ML IVPB SCH ×4 (02:05→20:32)
[2017-05-05] MEDS: Ondansetron HCl/PF 4 MG/2 ML Vial IVP PRN ×2 (03:31→09:23)
[2017-05-05 04:55] LABS: Anisocytosis SLIGHT = 6-15 cells (100X) (0-5/hpf); Band 10 % (5-11); Hemoglobin 11.3 g/dL (14.0-18.0); Lymphocytes 7 % (21-51); MDiff Complete? YES; Mean Corpuscular HGB CONC 32.3 g/dL (32.0-36.0); Mean Corpuscular Hemoglobin 28.4 pg (27.0-31.0); Mean Corpuscular Volume 87.8 fl (80.0-94.0); Mean Platelet Volume 8.4 fL (7.4-10.4); Monocytes 9 % (0-10); Neutrophil 74 % (42-75); PLT Morphology Comment Appears Adequate; Platelet Count 204 thou/uL (130-400); RBC Distribution Width 17.2 % (11.5-14.5); Red Blood Cell (RBC) Count 3.97 mill/uL (4.70-6.10)
[2017-05-05 04:56] LABS: Anion Gap 14 mmol/L (10-20); BUN (Urea Nitrogen) 24 mg/dL (8.4-25.7); Calc. Creatinine Clearance 147 mL/min (70-130); Calcium 8.6 mg/dL (7.8-10.44); Carbon Dioxide 18 mmol/L (23-31); Chloride 104 mmol/L (98-107); Estimated GFR-MDRD Greater than 90; Glucose 101 mg/dL (80-115); Potassium 3.6 mmol/L (3.5-5.1); Sodium 132 mmol/L (136-145)
[2017-05-05] MEDS: Rivaroxaban 10 MG TAB PO SCH (05:39)
[2017-05-05] MEDS: Calcium Carbonate 500 MG ChewTAB PO SCH ×2 (09:17→16:32)
[2017-05-05] MEDS: Saccharomyces boulardii 250 MG CAP PO SCH (09:18)
[2017-05-05] MEDS: Digoxin 0.25 MG TAB PO SCH (09:18)
[2017-05-05] MEDS: Famotidine 20 MG TAB PO SCH ×2 (09:18→20:32)
--- NOTE | 2017-05-05 11:32 | PDOC.PN ---
- Subjective Encounter Start Date: 05/05/17 Encounter Start Time: 09:15 Patient seen and examined. No new complaints. No overnight events - Objective Resuscitation Status: Resuscitation Status FULL:Full Resuscitation MAR Reviewed: Yes Vital Signs & Weight: Vital Signs (12 hours) Temp Pulse Resp BP Pulse Ox 05/05/17 09:18 81 05/05/17 07:46 97.4 F L 82 17 94 L 05/05/17 07:18 97.4 F L 82 17 113/65 94 L 05/05/17 03:30 98.0 F 87 18 108/56 L 92 L 05/04/17 23:30 97.7 F 83 16 110/69 93 L Weight Weight 243 lb 6 oz I&O: 05/04/17 05/05/17 05/06/17 06:59 06:59 06:59 Intake Total 2285 4200 Output Total 400 1235 Balance 1885 2965 Result Diagrams: 05/05/17 04:02 05/05/17 04:02 EKG Reviewed by me: Yes (nsr) Phys Exam - Physical Examination Constitutional: NAD HEENT: PERRLA, moist MMs, sclera anicteric Neck: no JVD, supple Respiratory: no wheezing, no rales, no rhonchi Cardiovascular: RRR, no significant murmur, no rub Gastrointestinal: soft, non-tender, no distention, positive bowel sounds Musculoskeletal: no edema, pulses present Neurological: non-focal, normal sensation Lymphatic: no nodes Psychiatric: normal affect, A&O x 3 Skin: no rash, normal turgor Dx/Plan (1) Hypotension Status: Acute (2) Sepsis Code(s): A41.9 - SEPSIS, UNSPECIFIED ORGANISM Status: Acute Qualifiers: (3) UTI (urinary tract infection) Status: Acute Qualifiers: Urinary tract infection type: acute pyelonephritis (4) Anxiety and depression Code(s): F41.8 - OTHER SPECIFIED ANXIETY DISORDERS Status: Chronic (5) Cardiomyopathy Code(s): I42.9 - CARDIOMYOPATHY, UNSPECIFIED Status: Chronic (6) Chronic anticoagulation Code(s): Z79.01 - JAIL (CURRENT) USE OF 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 Status: Chronic (7) Diverticulosis of colon Code(s): K57.30 - DVRTCLOS OF LG INT W/O PERFORATION OR ABSCESS W/O BLEEDING Status: Chronic (8) HTN (hypertension) Code(s): I10 - ESSENTIAL (PRIMARY) HYPERTENSION Status: Chronic (9) Nephrolithiasis Status: Chronic (10) Obesity (BMI 30.0-34.9) Code(s): E66.9 - OBESITY, UNSPECIFIED Status: Chronic (11) Paroxysmal atrial fibrillation Code(s): I48.0 - PAROXYSMAL ATRIAL FIBRILLATION Status: Chronic (12) Systolic heart failure Code(s): I50.20 - UNSPECIFIED SYSTOLIC (CONGESTIVE) HEART FAILURE Status: Chronic Qualifiers: - Plan cont current plan of care, continue antibiotics * will add only coreg low dose today if BP permits * follow culture, so far negative * as per ID, will need PICC line * continue vancomycin and zosyn * medication reviewed as below * symptomatic treatment. Review of Systems - Review of Systems ENT: negative: Ear Pain, Ear Discharge, Nose Pain, Nose Discharge, Nose Congestion, Mouth Pain, Mouth Swelling, Throat Pain, Throat Swelling, Other Respiratory: negative: Cough, Dry, Shortness of Breath, Hemoptysis, SOB with Excertion, Pleuritic Pain, Sputum, Wheezing Cardiovascular: negative: chest pain, palpitations, orthopnea, paroxysmal nocturnal dyspnea, edema, light headedness, other Gastrointestinal: negative: Nausea, Vomiting, Abdominal Pain, Diarrhea, Constipation, Melena, Hematochezia, Other Genitourinary: negative: Dysuria, Frequency, Incontinence, Hematuria, Retention , Other Musculoskeletal: negative: Neck Pain, Shoulder Pain, Arm Pain, Back Pain, Hand Pain, Leg Pain, Foot Pain, Other Skin: negative: Rash, Lesions, Aniceto, Bruising, Other - Medications/Allergies Allergies/Adverse Reactions: Allergies Allergy/AdvReac Type Severity Reaction Status Date / Time latex Allergy Severe Short of Verified 05/03/17 15:16 Breath celecoxib [From Celebrex] Allergy Short of Verified 05/03/17 15:16 Breath cyclobenzaprine Allergy Verified 05/03/17 15:16 [From Flexeril] dronedarone [From Multaq] Allergy Verified 05/03/17 15:16 hydromorphone [From Dilaudid] Allergy Verified 05/03/17 15:16 morphine Allergy Verified 05/03/17 15:16 nifedipine [From Procardia] Allergy Verified 05/03/17 15:16 Medications: Current Medications Acetaminophen (Tylenol) 650 mg PO Q4H PRN PRN Reason: Headache/Fever or Pain Last Admin: 05/03/17 20:06 Dose: 650 mg Acetaminophen/Codeine Phosphate (Tylenol #3) 1 tab PO Q6H PRN PRN Reason: Moderate to Severe Pain (6-10) Last Admin: 05/04/17 17:45 Dose: 1 tab Al Hydroxide/Mg Hydroxide (Maalox) 30 ml PO Q6H PRN PRN Reason: Heartburn or Indigestion Albuterol/Ipratropium (Duoneb) 3 ml NEB [id number] PRN PRN Reason: SOB &/or Wheezing Alprazolam (Xanax) 0.25 mg PO BIDPRN PRN PRN Reason: Anxiety Artificial Tears (Tears Naturale) 0 drop EA EYE PRN PRN PRN Reason: Dry Eyes Calcium Carbonate (Tums) 1,000 mg PO BID-[facility] Last Admin: 05/05/17 09:17 Dose: 1,000 mg Cholecalciferol (Vitamin D3) 2,000 units PO DAILY [facility] Last Admin: 05/05/17 09:18 Dose: 2,000 units Digoxin (Lanoxin) 0.25 mg PO DAILY [facility] Last Admin: 05/05/17 09:18 Dose: 0.25 mg Famotidine (Pepcid) 20 mg PO BID [facility] Last Admin: 05/05/17 09:18 Dose: 20 mg Guaifenesin (Robitussin Sf) 200 mg PO Q4H PRN PRN Reason: Cough Hydralazine HCl (Apresoline) 5 mg SLOW IVP Q4H PRN PRN Reason: Systolic BP > 180 Piperacillin Sod/Tazobactam (Sod 4.5 gm/ Sodium Chloride) 100 mls @ 200 mls/hr IVPB 0200,0800,1400,2000 [facility] Last Admin: 05/05/17 09:17 Dose: 100 mls Vancomycin HCl 1.5 gm/ Sodium (Chloride) 300 mls @ 200 mls/hr IVPB 0100,1300 [facility] Last Admin: 05/05/17 01:19 Dose: 300 mls Loperamide HCl (Imodium) 2 mg PO PRN PRN PRN Reason: Diarrhea/Loose Stools Last Admin: 05/04/17 17:41 Dose: 2 mg Loratadine (Claritin) 10 mg PO DAILYPRN PRN PRN Reason: Sinus Symptoms Magnesium Hydroxide (Milk Of Magnesium) 30 ml PO DAILYPRN PRN PRN Reason: Constipation Methocarbamol (Robaxin) 500 mg PO BID PRN PRN Reason: Muscle Spasm Mineral Oil/White Petrolatum (Eucerin Cream) 0 gm TOP BIDPRN PRN PRN Reason: Dry Skin Miscellaneous Medication (Pharmacy To Dose) 1 each IVPB PRN PRN PRN Reason: Pharmacy to dose Ondansetron HCl (Zofran Odt) 4 mg PO Q6H PRN PRN Reason: Nausea/Vomiting Ondansetron HCl (Zofran) 4 mg IVP Q6H PRN PRN Reason: Nausea/Vomiting Last Admin: 05/05/17 09:23 Dose: 4 mg Phenol (Chloraseptic [place] 180 Ml Bot) 0 ml PO PRN PRN PRN Reason: Sore Throat Rivaroxaban (Xarelto) 20 mg PO 0600 [facility] Last Admin: 05/05/17 05:39 Dose: 20 mg Saccharomyces Boulardii (Florastor) 250 mg PO DAILY [facility] Last Admin: 05/05/17 09:18 Dose: 250 mg Senna (Senokot) 2 tab PO HSPRN PRN PRN Reason: Constipation Sertraline HCl (Zoloft) 25 mg PO DAILY [facility] Last Admin: 05/05/17 09:18 Dose: 25 mg Sodium Chloride ([place] Nasal [place] 0.65%) 0 ml EA NARE QIDPRN PRN PRN Reason: Nasal Congestion Sodium Chloride (Flush - Normal Saline) 10 ml IVF Q12HR [facility] Last Admin: 05/05/17 09:19 Dose: 10 ml Sodium Chloride (Flush - Normal Saline) 10 ml IVF PRN PRN PRN Reason: Saline Flush
[2017-05-05] MEDS: Carvedilol 3.125 MG TAB PO SCH (20:32)
[2017-05-05] MEDS: ALPRAZolam 0.25 MG TAB PO PRN (20:33)
[2017-05-05] MEDS: Loperamide HCl 2 MG CAP PO PRN (20:33)
[2017-05-06] MEDS: Vancomycin HCl 1.5 GM in Sodium Chloride 0.9% 250 ML 300 ML IVPB SCH ×2 (00:06→12:51)
[2017-05-06] MEDS: Piperacillin/Tazobactam 4.5 GM in Sodium Chloride 0.9% 100 ML IVPB SCH ×4 (01:40→19:58)
[2017-05-06] MEDS: Rivaroxaban 10 MG TAB PO SCH (06:08)
[2017-05-06] MEDS: Carvedilol 3.125 MG TAB PO SCH ×2 (08:56→20:03)
[2017-05-06] MEDS: Digoxin 0.25 MG TAB PO SCH (08:56)
[2017-05-06] MEDS: Famotidine 20 MG TAB PO SCH ×2 (08:57→20:03)
[2017-05-06] MEDS: Saccharomyces boulardii 250 MG CAP PO SCH (08:57)
[2017-05-06] MEDS: Calcium Carbonate 500 MG ChewTAB PO SCH ×2 (08:57→16:08)
--- NOTE | 2017-05-06 09:55 | PDOC.PN ---
- Subjective Encounter Start Date: 05/06/17 Encounter Start Time: 07:25 Patient seen and examined. No new complaints. No overnight events - Objective Resuscitation Status: Resuscitation Status FULL:Full Resuscitation MAR Reviewed: Yes Vital Signs & Weight: Vital Signs (12 hours) Temp Pulse Resp BP Pulse Ox 05/06/17 08:56 75 05/06/17 08:52 99.0 F 75 20 100/56 L 94 L 05/06/17 04:00 97.7 F 71 16 107/55 L 94 L 05/06/17 03:24 93 L Weight Weight 248 lb 1.6 oz I&O: 05/05/17 05/06/17 05/07/17 06:59 06:59 06:59 Intake Total 4200 970 Output Total 1235 1050 Balance 2965 -80 Result Diagrams: 05/05/17 04:02 05/05/17 04:02 EKG Reviewed by me: Yes (pacing) Phys Exam - Physical Examination Constitutional: NAD HEENT: PERRLA, moist MMs, sclera anicteric Neck: no JVD, supple Respiratory: no wheezing, no rales, no rhonchi Cardiovascular: RRR, no significant murmur, no rub Gastrointestinal: soft, non-tender, no distention, positive bowel sounds Musculoskeletal: no edema, pulses present Neurological: non-focal, normal sensation, moves all 4 limbs Psychiatric: normal affect, A&O x 3 Skin: no rash, normal turgor Dx/Plan (1) Hypotension Status: Resolved (2) Sepsis Code(s): A41.9 - SEPSIS, UNSPECIFIED ORGANISM Status: Acute Qualifiers: (3) UTI (urinary tract infection) Status: Acute Qualifiers: Urinary tract infection type: acute pyelonephritis (4) Anxiety and depression Code(s): F41.8 - OTHER SPECIFIED ANXIETY DISORDERS Status: Chronic (5) Cardiomyopathy Code(s): I42.9 - CARDIOMYOPATHY, UNSPECIFIED Status: Chronic (6) Chronic anticoagulation Code(s): Z79.01 - BLOCKER METAL BASE (CURRENT) USE OF 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 Status: Chronic (7) Diverticulosis of colon Code(s): K57.30 - DVRTCLOS OF LG INT W/O PERFORATION OR ABSCESS W/O BLEEDING Status: Chronic (8) HTN (hypertension) Code(s): I10 - ESSENTIAL (PRIMARY) HYPERTENSION Status: Chronic (9) Nephrolithiasis Status: Chronic (10) Obesity (BMI 30.0-34.9) Code(s): E66.9 - OBESITY, UNSPECIFIED Status: Chronic (11) Paroxysmal atrial fibrillation Code(s): I48.0 - PAROXYSMAL ATRIAL FIBRILLATION Status: Chronic (12) Systolic heart failure Code(s): I50.20 - UNSPECIFIED SYSTOLIC (CONGESTIVE) HEART FAILURE Status: Chronic Qualifiers: (13) Bacteremia due to Gram-negative bacteria Code(s): R78.81 - BACTEREMIA Status: Acute - 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 Review of Systems - Review of Systems ENT: negative: Ear Pain, Ear Discharge, Nose Pain, Nose Discharge, Nose Congestion, Mouth Pain, Mouth Swelling, Throat Pain, Throat Swelling, Other Respiratory: negative: Cough, Dry, Shortness of Breath, Hemoptysis, SOB with Excertion, Pleuritic Pain, Sputum, Wheezing Cardiovascular: negative: chest pain, palpitations, orthopnea, paroxysmal nocturnal dyspnea, edema, light headedness, other Gastrointestinal: negative: Nausea, Vomiting, Abdominal Pain, Diarrhea, Constipation, Melena, Hematochezia, Other Genitourinary: negative: Dysuria, Frequency, Incontinence, Hematuria, Retention , Other Musculoskeletal: negative: Neck Pain, Shoulder Pain, Arm Pain, Back Pain, Hand Pain, Leg Pain, Foot Pain, Other Skin: negative: Rash, Lesions, Aniceto, Bruising, Other - Medications/Allergies Allergies/Adverse Reactions: Allergies Allergy/AdvReac Type Severity Reaction Status Date / Time latex Allergy Severe Short of Verified 05/03/17 15:16 Breath celecoxib [From Celebrex] Allergy Short of Verified 05/03/17 15:16 Breath cyclobenzaprine Allergy Verified 05/03/17 15:16 [From Flexeril] dronedarone [From Multaq] Allergy Verified 05/03/17 15:16 hydromorphone [From Dilaudid] Allergy Verified 05/03/17 15:16 morphine Allergy Verified 05/03/17 15:16 nifedipine [From Procardia] Allergy Verified 05/03/17 15:16 Medications: Current Medications Acetaminophen (Tylenol) 650 mg PO Q4H PRN PRN Reason: Headache/Fever or Pain Last Admin: 05/03/17 20:06 Dose: 650 mg Acetaminophen/Codeine Phosphate (Tylenol #3) 1 tab PO Q6H PRN PRN Reason: Moderate to Severe Pain (6-10) Last Admin: 05/04/17 17:45 Dose: 1 tab Al Hydroxide/Mg Hydroxide (Maalox) 30 ml PO Q6H PRN PRN Reason: Heartburn or Indigestion Albuterol/Ipratropium (Duoneb) 3 ml NEB [id number] PRN PRN Reason: SOB &/or Wheezing Alprazolam (Xanax) 0.25 mg PO BIDPRN PRN PRN Reason: Anxiety Last Admin: 05/05/17 20:33 Dose: 0.25 mg Artificial Tears (Tears Naturale) 0 drop EA EYE PRN PRN PRN Reason: Dry Eyes Calcium Carbonate (Tums) 1,000 mg PO BID-[facility] Last Admin: 05/06/17 08:57 Dose: 1,000 mg Carvedilol (Coreg) 3.125 mg PO BID [facility] Last Admin: 05/06/17 08:56 Dose: 3.125 mg Cholecalciferol (Vitamin D3) 2,000 units PO DAILY [facility] Last Admin: 05/06/17 08:57 Dose: 2,000 units Digoxin (Lanoxin) 0.25 mg PO DAILY [facility] Last Admin: 05/06/17 08:56 Dose: 0.25 mg Famotidine (Pepcid) 20 mg PO BID [facility] Last Admin: 05/06/17 08:57 Dose: 20 mg Guaifenesin (Robitussin Sf) 200 mg PO Q4H PRN PRN Reason: Cough Hydralazine HCl (Apresoline) 5 mg SLOW IVP Q4H PRN PRN Reason: Systolic BP > 180 Piperacillin Sod/Tazobactam (Sod 4.5 gm/ Sodium Chloride) 100 mls @ 200 mls/hr IVPB 0200,0800,1400,2000 [facility] Last Admin: 05/06/17 08:57 Dose: 100 mls Vancomycin HCl 1.5 gm/ Sodium (Chloride) 300 mls @ 200 mls/hr IVPB 0100,1300 [facility] Last Admin: 05/06/17 00:06 Dose: 300 mls Loperamide HCl (Imodium) 2 mg PO PRN PRN PRN Reason: Diarrhea/Loose Stools Last Admin: 05/05/17 20:33 Dose: 2 mg Loratadine (Claritin) 10 mg PO DAILYPRN PRN PRN Reason: Sinus Symptoms Magnesium Hydroxide (Milk Of Magnesium) 30 ml PO DAILYPRN PRN PRN Reason: Constipation Methocarbamol (Robaxin) 500 mg PO BID PRN PRN Reason: Muscle Spasm Mineral Oil/White Petrolatum (Eucerin Cream) 0 gm TOP BIDPRN PRN PRN Reason: Dry Skin Miscellaneous Medication (Pharmacy To Dose) 1 each IVPB PRN PRN PRN Reason: Pharmacy to dose Ondansetron HCl (Zofran Odt) 4 mg PO Q6H PRN PRN Reason: Nausea/Vomiting Ondansetron HCl (Zofran) 4 mg IVP Q6H PRN PRN Reason: Nausea/Vomiting Last Admin: 05/05/17 09:23 Dose: 4 mg Phenol (Chloraseptic [place] 180 Ml Bot) 0 ml PO PRN PRN PRN Reason: Sore Throat Rivaroxaban (Xarelto) 20 mg PO 0600 [facility] Last Admin: 05/06/17 06:08 Dose: 20 mg Saccharomyces Boulardii (Florastor) 250 mg PO DAILY [facility] Last Admin: 05/06/17 08:57 Dose: 250 mg Senna (Senokot) 2 tab PO HSPRN PRN PRN Reason: Constipation Sertraline HCl (Zoloft) 25 mg PO DAILY [facility] Last Admin: 05/06/17 08:57 Dose: 25 mg Sodium Chloride ([place] Nasal Myra 0.65%) 0 ml EA NARE QIDPRN PRN PRN Reason: Nasal Congestion Sodium Chloride (Flush - Normal Saline) 10 ml IVF Q12HR [facility] Last Admin: 05/06/17 08:58 Dose: 10 ml Sodium Chloride (Flush - Normal Saline) 10 ml IVF PRN PRN PRN Reason: Saline Flush
[2017-05-06] MEDS: ALPRAZolam 0.25 MG TAB PO PRN (20:07)
[2017-05-07] MEDS: Vancomycin HCl 1.5 GM in Sodium Chloride 0.9% 250 ML 300 ML IVPB SCH (00:49)
[2017-05-07] MEDS: Piperacillin/Tazobactam 4.5 GM in Sodium Chloride 0.9% 100 ML IVPB SCH ×4 (02:32→21:42)
[2017-05-07] MEDS: Rivaroxaban 10 MG TAB PO SCH (06:49)
[2017-05-07 08:47] LABS: Anion Gap 11 mmol/L (10-20); BUN (Urea Nitrogen) 18 mg/dL (8.4-25.7); Calc. Creatinine Clearance 177 mL/min (70-130); Calcium 8.7 mg/dL (7.8-10.44); Carbon Dioxide 24 mmol/L (23-31); Chloride 105 mmol/L (98-107); Estimated GFR-MDRD Greater than 90; Glucose 93 mg/dL (80-115); Potassium 3.7 mmol/L (3.5-5.1); Sodium 136 mmol/L (136-145)
[2017-05-07] MEDS: Famotidine 20 MG TAB PO SCH ×2 (09:26→21:41)
[2017-05-07] MEDS: Carvedilol 3.125 MG TAB PO SCH ×2 (09:26→21:41)
[2017-05-07] MEDS: Digoxin 0.25 MG TAB PO SCH (09:26)
[2017-05-07] MEDS: Saccharomyces boulardii 250 MG CAP PO SCH (09:26)
[2017-05-07] MEDS: Calcium Carbonate 500 MG ChewTAB PO SCH ×2 (09:31→16:39)
[2017-05-07 09:41] LABS: Anisocytosis SLIGHT = 6-15 cells (100X) (0-5/hpf); Band 5 % (5-11); Hemoglobin 11.1 g/dL (14.0-18.0); Lymphocytes 15 % (21-51); MDiff Complete? YES; Mean Corpuscular HGB CONC 31.8 g/dL (32.0-36.0); Mean Corpuscular Hemoglobin 27.9 pg (27.0-31.0); Mean Corpuscular Volume 87.7 fl (80.0-94.0); Mean Platelet Volume 8.6 fL (7.4-10.4); Metamyelocyte 3 % (0-0); Monocytes 7 % (0-10); Neutrophil 70 % (42-75); PLT Morphology Comment Appears Adequate; Platelet Count 239 thou/uL (130-400); Polychromasia SLIGHT = 2-3 cells (100X) (0-2/hpf); RBC Distribution Width 17.1 % (11.5-14.5); Red Blood Cell (RBC) Count 3.98 mill/uL (4.70-6.10); White Blood Cell (WBC) Count 14.5 thou/uL (4.8-10.8)
--- NOTE | 2017-05-07 10:01 | PDOC.PN ---
- Subjective Encounter Start Date: 05/07/17 Encounter Start Time: 08:10 Patient seen and examined. No new complaints. No overnight events he has nausea today - Objective Resuscitation Status: Resuscitation Status FULL:Full Resuscitation MAR Reviewed: Yes Vital Signs & Weight: Vital Signs (12 hours) Temp Pulse Resp BP Pulse Ox 05/07/17 09:26 69 05/07/17 09:24 97.9 F 69 17 101/59 L 94 L 05/07/17 05:31 96 05/07/17 04:00 98.1 F 69 18 108/59 L 94 L 05/07/17 00:00 98.9 F 71 18 94/55 L 96 Weight Weight 248 lb 1.6 oz I&O: 05/06/17 05/07/17 05/08/17 06:59 06:59 06:59 Intake Total 970 900 Output Total 1050 375 Balance -80 525 Result Diagrams: 05/07/17 07:48 05/07/17 07:48 EKG Reviewed by me: Yes (pacing) Phys Exam - Physical Examination Constitutional: NAD HEENT: PERRLA, moist MMs, sclera anicteric Neck: no JVD, supple Respiratory: no wheezing, no rales, no rhonchi Cardiovascular: RRR, no significant murmur, no rub Gastrointestinal: soft, non-tender, no distention, positive bowel sounds Musculoskeletal: no edema, pulses present Neurological: non-focal, normal sensation Lymphatic: no nodes Psychiatric: normal affect Skin: no rash, normal turgor Dx/Plan (1) Hypotension Status: Resolved (2) Sepsis Code(s): A41.9 - SEPSIS, UNSPECIFIED ORGANISM Status: Acute Qualifiers: (3) UTI (urinary tract infection) Status: Acute Qualifiers: Urinary tract infection type: acute pyelonephritis (4) Anxiety and depression Code(s): F41.8 - OTHER SPECIFIED ANXIETY DISORDERS Status: Chronic (5) Cardiomyopathy Code(s): I42.9 - CARDIOMYOPATHY, UNSPECIFIED Status: Chronic (6) Chronic anticoagulation Code(s): Z79.01 - USP (CURRENT) USE OF 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 Status: Chronic (7) Diverticulosis of colon Code(s): K57.30 - DVRTCLOS OF LG INT W/O PERFORATION OR ABSCESS W/O BLEEDING Status: Chronic (8) HTN (hypertension) Code(s): I10 - ESSENTIAL (PRIMARY) HYPERTENSION Status: Chronic (9) Nephrolithiasis Status: Chronic (10) Obesity (BMI 30.0-34.9) Code(s): E66.9 - OBESITY, UNSPECIFIED Status: Chronic (11) Paroxysmal atrial fibrillation Code(s): I48.0 - PAROXYSMAL ATRIAL FIBRILLATION Status: Chronic (12) Systolic heart failure Code(s): I50.20 - UNSPECIFIED SYSTOLIC (CONGESTIVE) HEART FAILURE Status: Chronic Qualifiers: (13) Bacteremia due to Gram-negative bacteria Code(s): R78.81 - BACTEREMIA Status: Acute Comment: proteus mirabilis - Plan cont current plan of care, continue antibiotics * this time proteus in urine and blood sensitive to levaquin * will ask ID if he can have po levaquin on discharge * bandemia improving * medication reviewed as below * symptomatic treatment. Review of Systems - Review of Systems Constitutional: negative: fever, chills, sweats, weakness, malaise, other Eyes: negative: Pain, Vision Change, Conjunctivae Inflammation, Eyelid Inflammation, Redness, Other ENT: negative: Ear Pain, Ear Discharge, Nose Pain, Nose Discharge, Nose Congestion, Mouth Pain, Mouth Swelling, Throat Pain, Throat Swelling, Other Respiratory: negative: Cough, Dry, Shortness of Breath, Hemoptysis, SOB with Excertion, Pleuritic Pain, Sputum, Wheezing Cardiovascular: negative: chest pain, palpitations, orthopnea, paroxysmal nocturnal dyspnea, edema, light headedness, other Gastrointestinal: Nausea Genitourinary: negative: Dysuria, Frequency, Incontinence, Hematuria, Retention , Other Musculoskeletal: negative: Neck Pain, Shoulder Pain, Arm Pain, Back Pain, Hand Pain, Leg Pain, Foot Pain, Other Skin: negative: Rash, Lesions, Aniceto, Bruising, Other - Medications/Allergies Allergies/Adverse Reactions: Allergies Allergy/AdvReac Type Severity Reaction Status Date / Time latex Allergy Severe Short of Verified 05/03/17 15:16 Breath celecoxib [From Celebrex] Allergy Short of Verified 05/03/17 15:16 Breath cyclobenzaprine Allergy Verified 05/03/17 15:16 [From Flexeril] dronedarone [From Multaq] Allergy Verified 05/03/17 15:16 hydromorphone [From Dilaudid] Allergy Verified 05/03/17 15:16 morphine Allergy Verified 05/03/17 15:16 nifedipine [From Procardia] Allergy Verified 05/03/17 15:16 Medications: Current Medications Acetaminophen (Tylenol) 650 mg PO Q4H PRN PRN Reason: Headache/Fever or Pain Last Admin: 05/03/17 20:06 Dose: 650 mg Acetaminophen/Codeine Phosphate (Tylenol #3) 1 tab PO Q6H PRN PRN Reason: Moderate to Severe Pain (6-10) Last Admin: 05/04/17 17:45 Dose: 1 tab Al Hydroxide/Mg Hydroxide (Maalox) 30 ml PO Q6H PRN PRN Reason: Heartburn or Indigestion Albuterol/Ipratropium (Duoneb) 3 ml NEB [id number] PRN PRN Reason: SOB &/or Wheezing Alprazolam (Xanax) 0.25 mg PO BIDPRN PRN PRN Reason: Anxiety Last Admin: 05/06/17 20:07 Dose: 0.25 mg Artificial Tears (Tears Naturale) 0 drop EA EYE PRN PRN PRN Reason: Dry Eyes Calcium Carbonate (Tums) 1,000 mg PO BID-[facility] Last Admin: 05/07/17 09:31 Dose: 1,000 mg Carvedilol (Coreg) 3.125 mg PO BID [facility] Last Admin: 05/07/17 09:26 Dose: 3.125 mg Cholecalciferol (Vitamin D3) 2,000 units PO DAILY [facility] Last Admin: 05/07/17 09:26 Dose: 2,000 units Digoxin (Lanoxin) 0.25 mg PO DAILY [facility] Last Admin: 05/07/17 09:26 Dose: 0.25 mg Famotidine (Pepcid) 20 mg PO BID [facility] Last Admin: 05/07/17 09:26 Dose: 20 mg Guaifenesin (Robitussin Sf) 200 mg PO Q4H PRN PRN Reason: Cough Hydralazine HCl (Apresoline) 5 mg SLOW IVP Q4H PRN PRN Reason: Systolic BP > 180 Piperacillin Sod/Tazobactam (Sod 4.5 gm/ Sodium Chloride) 100 mls @ 200 mls/hr IVPB 0200,0800,1400,2000 [facility] Last Admin: 05/07/17 09:27 Dose: 100 mls Levofloxacin (Levaquin) 750 mg PO 0600 [facility] Loperamide HCl (Imodium) 2 mg PO PRN PRN PRN Reason: Diarrhea/Loose Stools Last Admin: 05/05/17 20:33 Dose: 2 mg Loratadine (Claritin) 10 mg PO DAILYPRN PRN PRN Reason: Sinus Symptoms Magnesium Hydroxide (Milk Of Magnesium) 30 ml PO DAILYPRN PRN PRN Reason: Constipation Methocarbamol (Robaxin) 500 mg PO BID PRN PRN Reason: Muscle Spasm Mineral Oil/White Petrolatum (Eucerin Cream) 0 gm TOP BIDPRN PRN PRN Reason: Dry Skin Ondansetron HCl (Zofran Odt) 4 mg PO Q6H PRN PRN Reason: Nausea/Vomiting Ondansetron HCl (Zofran) 4 mg IVP Q6H PRN PRN Reason: Nausea/Vomiting Last Admin: 05/05/17 09:23 Dose: 4 mg Phenol (Chloraseptic [place] 180 Ml Bot) 0 ml PO PRN PRN PRN Reason: Sore Throat Rivaroxaban (Xarelto) 20 mg PO 0600 [facility] Last Admin: 05/07/17 06:49 Dose: 20 mg Saccharomyces Boulardii (Florastor) 250 mg PO DAILY [facility] Last Admin: 05/07/17 09:26 Dose: 250 mg Senna (Senokot) 2 tab PO HSPRN PRN PRN Reason: Constipation Sertraline HCl (Zoloft) 25 mg PO DAILY [facility] Last Admin: 05/07/17 09:26 Dose: 25 mg Sodium Chloride ([place] Nasal [place] 0.65%) 0 ml EA NARE QIDPRN PRN PRN Reason: Nasal Congestion Sodium Chloride (Flush - Normal Saline) 10 ml IVF Q12HR [facility] Last Admin: 05/07/17 09:31 Dose: 10 ml Sodium Chloride (Flush - Normal Saline) 10 ml IVF PRN PRN PRN Reason: Saline Flush
[2017-05-07] MEDS ORDERED: Meropenem 1 GM in Sodium Chloride 0.9% 100 ML IVPB SCH (14:00)
[2017-05-07] MEDS: Meropenem 1 GM in Sterile Water 20 ML SLOW IVP SCH ×2 (15:04→22:48)
[2017-05-07 17:31] VITALS: BMI 35.8
[2017-05-07] MEDS: Acetaminophen/Codeine 30-300mg Tablet PO PRN (21:41)
[2017-05-08] MEDS: Piperacillin/Tazobactam 4.5 GM in Sodium Chloride 0.9% 100 ML IVPB SCH ×4 (02:47→21:23)
[2017-05-08] MEDS: Rivaroxaban 10 MG TAB PO SCH (05:48)
[2017-05-08] MEDS: Meropenem 1 GM in Sterile Water 20 ML SLOW IVP SCH ×2 (05:49→13:48)
[2017-05-08] MEDS: ALPRAZolam 0.25 MG TAB PO PRN (10:01)
--- NOTE | 2017-05-08 10:12 | PDOC.PN ---
- Subjective Encounter Start Date: 05/08/17 Encounter Start Time: 07:40 Patient seen and examined. No new complaints. No overnight events - Objective Resuscitation Status: Resuscitation Status FULL:Full Resuscitation MAR Reviewed: Yes Vital Signs & Weight: Vital Signs (12 hours) Temp Pulse Resp BP Pulse Ox 05/08/17 07:36 97.7 F 83 18 102/61 94 L 05/08/17 03:41 97.4 F L 62 20 96/55 L 93 L 05/08/17 00:00 98.4 F 72 24 H 91/45 L 91 L Weight Weight 245 lb 9.6 oz I&O: 05/07/17 05/08/17 05/09/17 06:59 06:59 06:59 Intake Total 900 2140 Output Total 375 2325 Balance 525 -185 Result Diagrams: 05/07/17 07:48 05/07/17 07:48 EKG Reviewed by me: Yes (pacing) Phys Exam - Physical Examination Constitutional: NAD HEENT: PERRLA, moist MMs, sclera anicteric Neck: no JVD, supple Respiratory: no wheezing, no rales, no rhonchi Cardiovascular: RRR, no significant murmur, no rub Gastrointestinal: soft, non-tender, no distention, positive bowel sounds Musculoskeletal: no edema, pulses present Neurological: non-focal, normal sensation Psychiatric: normal affect Skin: no rash, normal turgor Dx/Plan (1) Hypotension Status: Resolved (2) Sepsis Code(s): A41.9 - SEPSIS, UNSPECIFIED ORGANISM Status: Acute Qualifiers: (3) UTI (urinary tract infection) Status: Acute Qualifiers: Urinary tract infection type: acute pyelonephritis (4) Anxiety and depression Code(s): F41.8 - OTHER SPECIFIED ANXIETY DISORDERS Status: Chronic (5) Cardiomyopathy Code(s): I42.9 - CARDIOMYOPATHY, UNSPECIFIED Status: Chronic (6) Chronic anticoagulation Code(s): 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.01 - 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 OF 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 Status: Chronic (7) Diverticulosis of colon Code(s): K57.30 - DVRTCLOS OF LG INT W/O PERFORATION OR ABSCESS W/O BLEEDING Status: Chronic (8) HTN (hypertension) Code(s): I10 - ESSENTIAL (PRIMARY) HYPERTENSION Status: Chronic (9) Nephrolithiasis Status: Chronic (10) Obesity (BMI 30.0-34.9) Code(s): E66.9 - OBESITY, UNSPECIFIED Status: Chronic (11) Paroxysmal atrial fibrillation Code(s): I48.0 - PAROXYSMAL ATRIAL FIBRILLATION Status: Chronic (12) Systolic heart failure Code(s): I50.20 - UNSPECIFIED SYSTOLIC (CONGESTIVE) HEART FAILURE Status: Chronic Qualifiers: (13) Bacteremia due to Gram-negative bacteria Code(s): R78.81 - BACTEREMIA Status: Acute Comment: proteus mirabilis - Plan cont current plan of care, continue antibiotics, oncology social work * bk will not work as per ID * will need IV meropenam * today PICC line * DC tele * transfer to medical * social work to arrange outpt IV antibiotics * medication reviewed as below * symptomatic treatment. Review of Systems - Review of Systems ENT: negative: Ear Pain, Ear Discharge, Nose Pain, Nose Discharge, Nose Congestion, Mouth Pain, Mouth Swelling, Throat Pain, Throat Swelling, Other Respiratory: negative: Cough, Dry, Shortness of Breath, Hemoptysis, SOB with Excertion, Pleuritic Pain, Sputum, Wheezing Cardiovascular: negative: chest pain, palpitations, orthopnea, paroxysmal nocturnal dyspnea, edema, light headedness, other Gastrointestinal: negative: Nausea, Vomiting, Abdominal Pain, Diarrhea, Constipation, Melena, Hematochezia, Other Genitourinary: negative: Dysuria, Frequency, Incontinence, Hematuria, Retention , Other Musculoskeletal: negative: Neck Pain, Shoulder Pain, Arm Pain, Back Pain, Hand Pain, Leg Pain, Foot Pain, Other Skin: negative: Rash, Lesions, Aniceto, Bruising, Other - Medications/Allergies Allergies/Adverse Reactions: Allergies Allergy/AdvReac Type Severity Reaction Status Date / Time latex Allergy Severe Short of Verified 05/03/17 15:16 Breath celecoxib [From Celebrex] Allergy Short of Verified 05/03/17 15:16 Breath cyclobenzaprine Allergy Verified 05/03/17 15:16 [From Flexeril] dronedarone [From Multaq] Allergy Verified 05/03/17 15:16 hydromorphone [From Dilaudid] Allergy Verified 05/03/17 15:16 morphine Allergy Verified 05/03/17 15:16 nifedipine [From Procardia] Allergy Verified 05/03/17 15:16 Medications: Current Medications Acetaminophen (Tylenol) 650 mg PO Q4H PRN PRN Reason: Headache/Fever or Pain Last Admin: 05/03/17 20:06 Dose: 650 mg Acetaminophen/Codeine Phosphate (Tylenol #3) 1 tab PO Q6H PRN PRN Reason: Moderate to Severe Pain (6-10) Last Admin: 05/07/17 21:41 Dose: 1 tab Al Hydroxide/Mg Hydroxide (Maalox) 30 ml PO Q6H PRN PRN Reason: Heartburn or Indigestion Albuterol/Ipratropium (Duoneb) 3 ml NEB [id number] PRN PRN Reason: SOB &/or Wheezing Alprazolam (Xanax) 0.25 mg PO BIDPRN PRN PRN Reason: Anxiety Last Admin: 05/08/17 10:01 Dose: 0.25 mg Artificial Tears (Tears Naturale) 0 drop EA EYE PRN PRN PRN Reason: Dry Eyes Calcium Carbonate (Tums) 1,000 mg PO BID-[facility] Last Admin: 05/07/17 16:39 Dose: 1,000 mg Carvedilol (Coreg) 3.125 mg PO BID [facility] Last Admin: 05/07/17 21:41 Dose: 3.125 mg Cholecalciferol (Vitamin D3) 2,000 units PO DAILY [facility] Last Admin: 05/07/17 09:26 Dose: 2,000 units Digoxin (Lanoxin) 0.25 mg PO DAILY [facility] Last Admin: 05/07/17 09:26 Dose: 0.25 mg Famotidine (Pepcid) 20 mg PO BID [facility] Last Admin: 05/07/17 21:41 Dose: 20 mg Guaifenesin (Robitussin Sf) 200 mg PO Q4H PRN PRN Reason: Cough Hydralazine HCl (Apresoline) 5 mg SLOW IVP Q4H PRN PRN Reason: Systolic BP > 180 Piperacillin Sod/Tazobactam (Sod 4.5 gm/ Sodium Chloride) 100 mls @ 200 mls/hr IVPB 0200,0800,1400,2000 [facility] Last Admin: 05/08/17 08:59 Dose: 100 mls Meropenem 1 gm/ Sterile Water 20 mls @ 240 mls/hr SLOW IVP Q8HR [facility] Last Admin: 05/08/17 05:49 Dose: 20 mls Loperamide HCl (Imodium) 2 mg PO PRN PRN PRN Reason: Diarrhea/Loose Stools Last Admin: 05/05/17 20:33 Dose: 2 mg Loratadine (Claritin) 10 mg PO DAILYPRN PRN PRN Reason: Sinus Symptoms Magnesium Hydroxide (Milk Of Magnesium) 30 ml PO DAILYPRN PRN PRN Reason: Constipation Methocarbamol (Robaxin) 500 mg PO BID PRN PRN Reason: Muscle Spasm Mineral Oil/White Petrolatum (Eucerin Cream) 0 gm TOP BIDPRN PRN PRN Reason: Dry Skin Ondansetron HCl (Zofran Odt) 4 mg PO Q6H PRN PRN Reason: Nausea/Vomiting Ondansetron HCl (Zofran) 4 mg IVP Q6H PRN PRN Reason: Nausea/Vomiting Last Admin: 05/05/17 09:23 Dose: 4 mg Phenol (Chloraseptic [place] 180 Ml Bot) 0 ml PO PRN PRN PRN Reason: Sore Throat Rivaroxaban (Xarelto) 20 mg PO 0600 [facility] Last Admin: 05/08/17 05:48 Dose: Not Given Saccharomyces Boulardii (Florastor) 250 mg PO DAILY [facility] Last Admin: 05/07/17 09:26 Dose: 250 mg Senna (Senokot) 2 tab PO HSPRN PRN PRN Reason: Constipation Sertraline HCl (Zoloft) 25 mg PO DAILY [facility] Last Admin: 05/07/17 09:26 Dose: 25 mg Sodium Chloride ([place] Nasal [place] 0.65%) 0 ml EA NARE QIDPRN PRN PRN Reason: Nasal Congestion Sodium Chloride (Flush - Normal Saline) 10 ml IVF Q12HR [facility] Last Admin: 05/08/17 08:59 Dose: 10 ml Sodium Chloride (Flush - Normal Saline) 10 ml IVF PRN PRN PRN Reason: Saline Flush Last Admin: 05/08/17 05:49 Dose: 10 ml
[2017-05-08] MEDS ORDERED: Iopamidol 300 61% 50 ML VIAL FS ONE (11:49)
[2017-05-08] MEDS: Calcium Carbonate 500 MG ChewTAB PO SCH ×2 (12:45→16:14)
[2017-05-08] MEDS: Famotidine 20 MG TAB PO SCH ×2 (12:45→21:22)
[2017-05-08] MEDS: Carvedilol 3.125 MG TAB PO SCH ×2 (12:46→21:22)
[2017-05-08] MEDS: Saccharomyces boulardii 250 MG CAP PO SCH (12:46)
[2017-05-08] MEDS: Digoxin 0.25 MG TAB PO SCH (12:46)
--- NOTE | 2017-05-08 14:16 | SPC ---
RIGHT UPPER EXTREMITY PICC LINE ULTRASOUND AND FLUOROSCOPIC GUIDANCE: Intermittent fluoroscopy time: 0.1 minutes Dose: 1088 mGy*cm2 PROCEDURE: After informed consent had been obtained, the patient was placed on the interventional suite table in a supine position. The right arm was prepped and draped in a standard sterile fashion. Topical ane sthesia was achieved utilizing 1% Lidocaine and sodium bicarbonate. Under real-time sonography, the brachial vein of the right upper extremity was accessed with a small caliber needle with venous flash present at the needle hub. A guidewire was then advanced in to the needle, and under real-time fluo roscopy, the guidewire was advanced to the level of the inferior vena cava to confirm appropriate laverne ous placement. A small skin incision was made and the needle was removed. Over the guidewire, a sin gle-lumen PICC line was cut to 41 cm. The PICC line was advanced under real-time fluoroscopy over th e guidewire to the level of the cavoatrial junction. The guidewire and peelaway sheath were then rem mabel. PICC line flushed and aspirated appropriately and was secured to the right upper extremity. T here were no procedural complications. A small volume of contrast was instilled into the PICC line, which did reveal a focus of transient mild luminal narrowing at the level of the right axillary vein. The wire and PICC line did traverse the site of venous narrowing. IMPRESSION: Technically successful ultrasound and fluoroscopic-guided right upper extremity peripherally inserted central catheter line placement, as above. POS: [facility]
[2017-05-09] MEDS: Piperacillin/Tazobactam 4.5 GM in Sodium Chloride 0.9% 100 ML IVPB SCH ×3 (01:53→14:13)
[2017-05-09] MEDS: Rivaroxaban 10 MG TAB PO SCH (06:32)
[2017-05-09 08:01] VITALS: BP 142/71; TEMP 97.8
[2017-05-09] MEDS: Famotidine 20 MG TAB PO SCH (09:18)
[2017-05-09] MEDS: Carvedilol 3.125 MG TAB PO SCH (09:18)
[2017-05-09] MEDS: Saccharomyces boulardii 250 MG CAP PO SCH (09:18)
[2017-05-09] MEDS: Digoxin 0.25 MG TAB PO SCH (09:18)
[2017-05-09] MEDS: Calcium Carbonate 500 MG ChewTAB PO SCH (09:18)
--- NOTE | 2017-05-09 10:07 | PDOC.PN ---
- Subjective Encounter Start Date: 05/09/17 Encounter Start Time: 07:20 Patient seen and examined. No new complaints. No overnight events - Objective Resuscitation Status: Resuscitation Status FULL:Full Resuscitation MAR Reviewed: Yes Vital Signs & Weight: Vital Signs (12 hours) Temp Pulse Resp BP Pulse Ox 05/09/17 09:18 70 05/09/17 08:00 97.8 F 70 16 142/71 H 93 L 05/09/17 04:00 98.4 F 68 18 111/71 93 L 05/08/17 22:35 98.9 F 75 20 95 05/08/17 22:30 99.8 F H 75 20 115/74 95 Weight Weight 249 lb 2.663 oz I&O: 05/08/17 05/09/17 05/10/17 06:59 06:59 06:59 Intake Total 2140 1600 Output Total 2325 1850 Balance -185 -250 Result Diagrams: 05/07/17 07:48 05/07/17 07:48 Phys Exam - Physical Examination Constitutional: NAD HEENT: PERRLA, moist MMs, sclera anicteric Neck: no JVD, supple Respiratory: no wheezing, no rales, no rhonchi Cardiovascular: RRR, no significant murmur, no rub Gastrointestinal: soft, non-tender, no distention, positive bowel sounds Musculoskeletal: no edema, pulses present Neurological: non-focal, normal sensation Psychiatric: normal affect, A&O x 3 Skin: no rash, normal turgor Dx/Plan (1) Hypotension Status: Resolved (2) Sepsis Code(s): A41.9 - SEPSIS, UNSPECIFIED ORGANISM Status: Acute Qualifiers: (3) UTI (urinary tract infection) Status: Acute Qualifiers: Urinary tract infection type: acute pyelonephritis (4) Anxiety and depression Code(s): F41.8 - OTHER SPECIFIED ANXIETY DISORDERS Status: Chronic (5) Cardiomyopathy Code(s): I42.9 - CARDIOMYOPATHY, UNSPECIFIED Status: Chronic (6) Chronic anticoagulation 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(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.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 Status: Chronic (7) Diverticulosis of colon Code(s): K57.30 - DVRTCLOS OF LG INT W/O PERFORATION OR ABSCESS W/O BLEEDING Status: Chronic (8) HTN (hypertension) Code(s): I10 - ESSENTIAL (PRIMARY) HYPERTENSION Status: Chronic (9) Nephrolithiasis Status: Chronic (10) Obesity (BMI 30.0-34.9) Code(s): E66.9 - OBESITY, UNSPECIFIED Status: Chronic (11) Paroxysmal atrial fibrillation Code(s): I48.0 - PAROXYSMAL ATRIAL FIBRILLATION Status: Chronic (12) Systolic heart failure Code(s): I50.20 - UNSPECIFIED SYSTOLIC (CONGESTIVE) HEART FAILURE Status: Chronic Qualifiers: (13) Bacteremia due to Gram-negative bacteria Code(s): R78.81 - BACTEREMIA Status: Acute Comment: proteus mirabilis - Plan cont current plan of care, 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 Review of Systems - Review of Systems ENT: negative: Ear Pain, Ear Discharge, Nose Pain, Nose Discharge, Nose Congestion, Mouth Pain, Mouth Swelling, Throat Pain, Throat Swelling, Other Respiratory: negative: Cough, Dry, Shortness of Breath, Hemoptysis, SOB with Excertion, Pleuritic Pain, Sputum, Wheezing Cardiovascular: negative: chest pain, palpitations, orthopnea, paroxysmal nocturnal dyspnea, edema, light headedness, other Gastrointestinal: negative: Nausea, Vomiting, Abdominal Pain, Diarrhea, Constipation, Melena, Hematochezia, Other Genitourinary: negative: Dysuria, Frequency, Incontinence, Hematuria, Retention , Other Musculoskeletal: negative: Neck Pain, Shoulder Pain, Arm Pain, Back Pain, Hand Pain, Leg Pain, Foot Pain, Other Skin: negative: Rash, Lesions, Aniceto, Bruising, Other - Medications/Allergies Allergies/Adverse Reactions: Allergies Allergy/AdvReac Type Severity Reaction Status Date / Time latex Allergy Severe Short of Verified 05/03/17 15:16 Breath celecoxib [From Celebrex] Allergy Short of Verified 05/03/17 15:16 Breath cyclobenzaprine Allergy Verified 05/03/17 15:16 [From Flexeril] dronedarone [From Multaq] Allergy Verified 05/03/17 15:16 hydromorphone [From Dilaudid] Allergy Verified 05/03/17 15:16 morphine Allergy Verified 05/03/17 15:16 nifedipine [From Procardia] Allergy Verified 05/03/17 15:16 Medications: Current Medications Acetaminophen (Tylenol) 650 mg PO Q4H PRN PRN Reason: Headache/Fever or Pain Last Admin: 05/03/17 20:06 Dose: 650 mg Acetaminophen/Codeine Phosphate (Tylenol #3) 1 tab PO Q6H PRN PRN Reason: Moderate to Severe Pain (6-10) Last Admin: 05/07/17 21:41 Dose: 1 tab Al Hydroxide/Mg Hydroxide (Maalox) 30 ml PO Q6H PRN PRN Reason: Heartburn or Indigestion Albuterol/Ipratropium (Duoneb) 3 ml NEB [id number] PRN PRN Reason: SOB &/or Wheezing Alprazolam (Xanax) 0.25 mg PO BIDPRN PRN PRN Reason: Anxiety Last Admin: 05/08/17 10:01 Dose: 0.25 mg Artificial Tears (Tears Naturale) 0 drop EA EYE PRN PRN PRN Reason: Dry Eyes Calcium Carbonate (Tums) 1,000 mg PO BID-[facility] Last Admin: 05/09/17 09:18 Dose: 1,000 mg Carvedilol (Coreg) 3.125 mg PO BID [facility] Last Admin: 05/09/17 09:18 Dose: 3.125 mg Cholecalciferol (Vitamin D3) 2,000 units PO DAILY [facility] Last Admin: 05/09/17 09:18 Dose: 2,000 units Digoxin (Lanoxin) 0.25 mg PO DAILY [facility] Last Admin: 05/09/17 09:18 Dose: 0.25 mg Famotidine (Pepcid) 20 mg PO BID [facility] Last Admin: 05/09/17 09:18 Dose: 20 mg Guaifenesin (Robitussin Sf) 200 mg PO Q4H PRN PRN Reason: Cough Hydralazine HCl (Apresoline) 5 mg SLOW IVP Q4H PRN PRN Reason: Systolic BP > 180 Piperacillin Sod/Tazobactam (Sod 4.5 gm/ Sodium Chloride) 100 mls @ 200 mls/hr IVPB 0200,0800,1400,2000 [facility] OF [facility] Last Admin: 05/09/17 09:18 Dose: 100 mls Loperamide HCl (Imodium) 2 mg PO PRN PRN PRN Reason: Diarrhea/Loose Stools Last Admin: 05/05/17 20:33 Dose: 2 mg Loratadine (Claritin) 10 mg PO DAILYPRN PRN PRN Reason: Sinus Symptoms Magnesium Hydroxide (Milk Of Magnesium) 30 ml PO DAILYPRN PRN PRN Reason: Constipation Methocarbamol (Robaxin) 500 mg PO BID PRN PRN Reason: Muscle Spasm Mineral Oil/White Petrolatum (Eucerin Cream) 0 gm TOP BIDPRN PRN PRN Reason: Dry Skin Ondansetron HCl (Zofran Odt) 4 mg PO Q6H PRN PRN Reason: Nausea/Vomiting Ondansetron HCl (Zofran) 4 mg IVP Q6H PRN PRN Reason: Nausea/Vomiting Last Admin: 05/05/17 09:23 Dose: 4 mg Phenol (Chloraseptic [place] 180 Ml Bot) 0 ml PO PRN PRN PRN Reason: Sore Throat Rivaroxaban (Xarelto) 20 mg PO 0600 [facility] Last Admin: 05/09/17 06:32 Dose: 20 mg Saccharomyces Boulardii (Florastor) 250 mg PO DAILY [facility] Last Admin: 05/09/17 09:18 Dose: 250 mg Senna (Senokot) 2 tab PO HSPRN PRN PRN Reason: Constipation Sertraline HCl (Zoloft) 25 mg PO DAILY [facility] Last Admin: 05/09/17 09:18 Dose: 25 mg Sodium Chloride ([place] Nasal [place] 0.65%) 0 ml EA NARE QIDPRN PRN PRN Reason: Nasal Congestion Sodium Chloride (Flush - Normal Saline) 10 ml IVF Q12HR [facility] OF [facility] Last Admin: 05/09/17 09:19 Dose: 10 ml Sodium Chloride (Flush - Normal Saline) 10 ml IVF PRN PRN PRN Reason: Saline Flush Last Admin: 05/08/17 13:54 Dose: 10 ml
--- NOTE | 2017-05-09 11:41 | DIS ---
DATE OF ADMISSION: 05/03/2017 DATE OF DISCHARGE: 05/09/2017 PRIMARY CARE PHYSICIAN: Zuleyma Garzon M.D. DISCHARGE DISPOSITION: Assisted living facility. PRIMARY DISCHARGE DIAGNOSES: 1. Bacteremia due to Proteus mirabilis. 2. Urinary tract infection due to Proteus mirabilis. 3. Sepsis with hypotension. SECONDARY DISCHARGE DIAGNOSES: 1. Chronic systolic heart failure. 2. Nonischemic cardiomyopathy. 3. Paroxysmal atrial fibrillation. 4. Obesity with body mass index 35. 5. History of nephrolithiasis. 6. Hypertension. 7. Chronic diverticulosis of colon. 8. Chronic anticoagulation with Xarelto. 9. Anxiety and depression. PRIMARY PROCEDURE/OPERATION: PICC line. RADIOLOGICAL INVESTIGATION: Chest x-ray, abdomen and pelvis CT scan. SIGNIFICANT LABORATORY DATA: Hemoglobin 11.1, INR 2.8, creatinine 0.68. Urinalysis suggestive of UT I. Urine culture and blood culture positive for Proteus mirabilis. Repeat blood cultures remain neg ative, influenza negative. DISCHARGE MEDICATIONS: The patient will need IV meropenem 1 gram IV q.8 hourly till 06/17/2017. Pat ient will have weekly CBC, CMP, CRP. Continue following medications: Tylenol 500 mg p.o. q.6 hourly p.r.n., Tylenol #4 one tablet t.i.d. p.r.n., Xanax 0.5 mg p.o. daily p.r.n., Tums 1000 mg p.o. b.i.d., Coreg 3.125 mg p.o. b.i.d., cetiriz ine 10 mg p.o. daily, vitamin D3 2000 units p.o. daily, digoxin 250 mcg p.o. daily, Pepcid 20 mg p.o. b.i.d., Lasix 40 mg p.o. daily, probiotic 1 capsule p.o. daily, lisinopril 2.5 mg p.o. daily, Robaxi n 500 mg p.o. b.i.d. p.r.n., Xarelto 20 mg p.o. daily, Florastor 250 mg p.o. daily, selenium 200 mg p .o. daily, Zoloft 25 mg p.o. daily, Aldactone 25 mg p.o. daily. CONTRAINDICATIONS: None. CODE STATUS: FULL CODE. INPATIENT CONSULTANTS: Dr. Katz was consulted while in hospital. ALLERGIES: LATEX, CELECOXIB, FLEXERIL, MULTAQ, HYDROMORPHONE, MORPHINE, NIFEDIPINE. DISCHARGE PLAN: Post hospital, the patient will follow up with Dr. Katz as instructed. Alexander kirby follow up with primary care physician. HOSPITAL COURSE: The patient is a 61-year-old male with above-mentioned medical problem who was admi tted by me. Please see my HPI for further details. This patient has underlying history of recurrent UTI and nephrolithiasis. He recently underwent a stone removal by Dr. King as an outpatient basis. He was brought to emergency room because whenever he was off antibiotic therapy, he started again d eveloping fever and hypotension. He was having sepsis secondary to urinary tract infection and we cl inically diagnosed him with pyelonephritis. The patient was treated with broad-spectrum antibiotic t herapy. Initially vancomycin and Zosyn and subsequently we changed to meropenem. Initially, the pat ient was hypotensive and we gave him gentle IV fluids to prevent fluid overload. His blood pressure improved and he did not require any vasopressor. Initially we admitted him into IMCU, but upon stabi lization, we transferred him to telemetry floor and from there we transferred him to medical floor. Dr. Katz recommends that patient will need IV meropenem till 06/17/2017. At this time, Levaquin is sensitive, but Dr. Katz does not think that the Levaquin will take care of this patient's problem an d that is why we are arranging outpatient IV antibiotic therapy with correctional case manager. PICC line was sophie paolo and now only waiting for outpatient IV antibiotic therapy arrangements. If done, then this patie nt will be discharged home anytime from now onward.
[2017-05-09] MEDS: Acetaminophen/Codeine 30-300mg Tablet PO PRN (14:16)
== END 2017-05-09 16:13 | DRG 872 ==
LOC: ERS 11:42 → IMCU/EMU 13:50 → 2NO 05-05 19:37 → T4-B 05-08 22:29
PROVIDERS: ADMIT Internal Medicine; ATTEND Internal Medicine
PROC: 02HV33Z Insertion of Infusion Device into Superior Vena Cava, Percutaneous Approach (ICD-10-PCS; principal; 2017-05-08)
PROC: B5181ZA Fluoroscopy of Superior Vena Cava using Low Osmolar Contrast, Guidance (ICD-10-PCS; 2017-05-08)
DX: A41.89 Other specified sepsis (principal); I50.22 Chronic systolic (congestive) heart failure; I42.8 Other cardiomyopathies; I11.0 Hypertensive heart disease with heart failure; N10 Acute pyelonephritis; J45.20 Mild intermittent asthma, uncomplicated; Z95.810 Presence of automatic (implantable) cardiac defibrillator; Z79.01 Long term (current) use of anticoagulants; Z88.5 Allergy status to narcotic agent; Z88.8 Allergy status to other drugs, medicaments and biological substances; Z91.040 Latex allergy status; G89.29 Other chronic pain; M54.5 Low back pain; E55.9 Vitamin D deficiency, unspecified; B96.4 Proteus (mirabilis) (morganii) as the cause of diseases classified elsewhere; I48.0 Paroxysmal atrial fibrillation; E66.9 Obesity, unspecified; Z68.35 Body mass index [BMI] 35.0-35.9, adult; K57.30 Diverticulosis of large intestine without perforation or abscess without bleeding; E78.5 Hyperlipidemia, unspecified; F41.8 Other specified anxiety disorders
CPT/HCPCS: 36415; 36569; 71010; 74176; 80048; 80053; 80202; 81003; 81015; 82533; 83605; 85025; 85610; 87040; 87077; 87086; 87149; 87186; 93005; 94760; 96361; 96365; A4216; C1751; J2185; J2543; J3370; J7050

== ENCOUNTER 2018-03-20 22:59 | Observation (INO) | payer OTHER ==
[2018-03-20 23:37] LABS: #Eosinphils 0.3 thou/uL (0.0-0.7); #Lymphocytes 2.5 thou/uL (1.20-3.40); #Monocytes 1.3 thou/uL (0.11-0.59); #Neutrophils 9.7 thou/uL (1.40-6.50); %Basophils 0.3 % (0.0-1.0); %Lymphocytes 18.2 % (21.0-51.0); %Monocytes 9.7 % (0.0-10.0); %Neutrophils 69.9 % (42.0-75.0); Hemoglobin 14.3 g/dL (14.0-18.0); Mean Corpuscular HGB CONC 30.1 g/dL (32.0-36.0); Mean Corpuscular Hemoglobin 25.7 pg (27.0-31.0); Mean Corpuscular Volume 85.3 fL (78.0-98.0); Mean Platelet Volume 8.1 fL (7.4-10.4); Platelet Count 311 thou/uL (130-400); RBC Distribution Width 18.1 % (11.5-14.5); Red Blood Cell (RBC) Count 5.58 mill/uL (4.70-6.10); White Blood Cell (WBC) Count 13.8 thou/uL (4.8-10.8)
--- NOTE | 2018-03-20 23:45 | RAD ---
AP VIEW CHEST: 03/20/18 HISTORY: Dyspnea. AP view chest is obtained on 03/20/18. Comparison made to previous exam from 05/03/17. Apo view chest demonstrates a dual lead ICD in place. Cardiomegaly seen. Pulmonary vascular congestio n is seen. No definite evidence of effusions, or pneumonia seen. IMPRESSION: Cardiomegaly and pulmonary vascular congestion. POS: H
[2018-03-20 23:59] LABS: ALT (SGPT) 13 U/L (8-55); AST (SGOT) 14 U/L (5-34); Alkaline Phosphatase 72 U/L (40-150); Anion Gap 15 mmol/L (10-20); BUN (Urea Nitrogen) 26 mg/dL (8.4-25.7); Bilirubin, Total 0.9 mg/dL (0.2-1.2); Calc. Creatinine Clearance 0 mL/min (70-130); Calcium 9.8 mg/dL (7.8-10.44); Carbon Dioxide 28 mmol/L (23-31); Chloride 100 mmol/L (98-107); Estimated GFR-MDRD 51; Globulin 4.5 g/dL (2.4-3.5); Glucose 122 mg/dL (80-115); Potassium 4.5 mmol/L (3.5-5.1); Protein, Total 8.5 g/dL (5.8-8.1); Sodium 138 mmol/L (136-145)
[2018-03-21 00:04] LABS: CKMB 1.7 ng/mL (0-6.6); Troponin I 0.052 ng/mL (< 0.028)
[2018-03-21] MEDS ORDERED: Nitroglycerin 2% Ointment 1 INCH/1 GM Packet ONE (00:18)
[2018-03-21] MEDS ORDERED: Furosemide 40 MG/4 ML VIAL ONE (00:18)
[2018-03-21 01:06] LABS: Bilirubin Negative (Negative); Blood, Urine Large (Negative); Clarity Cloudy (Clear); Glucose, Urine (Dipstick) 100 mg/dL (Negative); Leukocyte Small (Negative); Nitrite Positive (Negative); Protein, Urine (Dipstick) > or equal to 300 mg/dL (Neg-Trace); Specific Gravity, Urine 1.025 (1.002-1.036); pH, Urine 6.5 (5.0-9.0)
[2018-03-21 01:09] LABS: RBC/HPF GREATER THAN 50-TNTC HPF (0-3); WBC/HPF None Seen HPF (0-3)
[2018-03-21 01:10] LABS: Bacteria/HPF None Seen HPF (None Seen); Crystals/HPF None Seen HPF (Negative); Hyaline Casts/LPF NONE SEEN LPF (0-3 Hyaline); Other Casts/LPF None Seen LPF (0-3 Hyaline); Renal Epithelial None Seen HPF (0-3); Squamous Epithelial None Seen HPF (0-3); Transitional Epithelial NONE SEEN HPF (0-3); Yeast-All Forms None Seen HPF (None Seen)
[2018-03-21 02:54] LABS: Troponin I 0.048 ng/mL (< 0.028)
[2018-03-21 06:21] LABS: Troponin I 0.039 ng/mL (< 0.028)
[2018-03-21] MEDS ORDERED: Eucerin (Mineral Oil/Petrolatum,White) 30 gm Jar TOP PRN (07:16)
[2018-03-21] MEDS ORDERED: hydrALAZINE 20 MG/ML VIAL SLOW IVP PRN (07:16)
[2018-03-21] MEDS ORDERED: Loratadine 10 MG TAB PO PRN (07:16)
[2018-03-21] MEDS ORDERED: ALPRAZolam 0.5 MG TAB PO PRN (07:16)
[2018-03-21] MEDS ORDERED: Cepastat Lozenges 1 LOZ PO PRN (07:16)
[2018-03-21] MEDS ORDERED: Nitroglycerin 0.4 MG TAB (25 Tab Bottle) SL PRN (07:16)
[2018-03-21] MEDS ORDERED: Diabetic Tussin 200 MG/10 ML UDCUP PO PRN (07:16)
[2018-03-21] MEDS ORDERED: Artificial Tears 18 DROP/0.9 ML EA EYE PRN (07:16)
[2018-03-21] MEDS ORDERED: Bisacodyl 10 MG SUPP PR PRN (07:16)
[2018-03-21] MEDS ORDERED: Senokot S 8.6-50 MG TAB PO PRN (07:16)
[2018-03-21] MEDS ORDERED: Acetaminophen 325 MG TAB PO PRN (07:16)
[2018-03-21] MEDS ORDERED: Methocarbamol 500 MG TAB PO PRN (07:16)
[2018-03-21] MEDS ORDERED: Sodium Chloride 0.65% Nasal 44 ML BOT EA NARE PRN (07:16)
[2018-03-21] MEDS ORDERED: Calcium Carbonate 500 MG ChewTAB PO PRN (07:16)
[2018-03-21] MEDS ORDERED: Labetalol HCl 100 MG/20 ML VIAL SLOW IVP PRN (07:16)
[2018-03-21] MEDS ORDERED: Zolpidem Tartrate 5 MG TAB PO PRN (07:16)
[2018-03-21] MEDS ORDERED: Bisacodyl 5 MG TAB PO PRN (07:16)
[2018-03-21] MEDS ORDERED: Loperamide HCl 2 MG CAP PO PRN (07:16)
[2018-03-21] MEDS ORDERED: Metoclopramide HCl 10 MG/2 ML VIAL IVP PRN (07:16)
[2018-03-21] MEDS ORDERED: HumaLOG 300 UNITS/3 ML VIAL SC PRN ×2 (07:17)
[2018-03-21] MEDS ORDERED: Dextrose 50% Abboject 50 ML SYRINGE SLOW IVP PRN (07:17)
[2018-03-21] MEDS ORDERED: Dextrose 5% in Water 1,000 ML IV PRN (07:17)
--- NOTE | 2018-03-21 10:45 | HP ---
PRIMARY CARE PHYSICIAN: Dr. Amor. REASON FOR ADMISSION: Acute on chronic systolic congestive heart failure exacerbation, urinary tract infection, hematuria. HISTORY OF PRESENT ILLNESS: A 62-year-old male who has underlying history of nonischemic cardiomyopa thy with chronic systolic heart failure based on last echo in 12/2016, EF is 10%-15%, who lives at as sisted living facility at [facility]. The patient has paroxysmal atrial fibrillation a nd he is taking Xarelto for chronic anticoagulation. The patient had 2 days ago gross hematuria that was recovering and today, patient reports that his urine is much clear. He did not have any dysuria , increased frequency or lower abdomen or back pain. The patient has recently increased Lasix 80 mg twice daily and that is why he has to go more frequently after Lasix, but he denies any unusual incre ase frequency, dysuria. The patient continued to take Xarelto even with hematuria and that started i mproving. For last 2 days, the patient was also experiencing increasing dyspnea and that is why he d ecided to come to the emergency room for evaluation. In the emergency room, his BNP was elevated. H is chest x-ray showed pulmonary vascular congestion. He was treated with Lasix, nitropatch and subse quently patient was admitted to telemetry floor for observation. He was on room air. When I saw at that time, patient was lying flat and he was on room air. He was not in respiratory distress. He di d not have any chest pain, palpitation, syncope, dizziness. He denies any increasing lower extremity edema, abdominal pain, abdominal distention, anorexia, weight loss. REVIEW OF SYSTEMS: The following complete review of systems was negative, unless otherwise mentioned in the HPI or below: Constitutional: Weight loss or gain, ability to conduct usual activities. Skin: Rash, itching. Eyes: Double vision, pain. ENT/Mouth: Nose bleeding, neck stiffness, pain, tenderness. Cardiovascular: Palpitations, dyspnea on exertion, orthopnea. Respiratory: Shortness of breath, wheezing, cough, hemoptysis, fever or night sweats. Gastrointestinal: Poor appetite, abdominal pain, heartburn, nausea, vomiting, constipation, or diarr hea. Genitourinary: Urgency, frequency, dysuria, nocturia. Musculoskeletal: Pain, swelling. Neurologic/Psychiatric: Anxiety, depression. Allergy/Immunologic: Skin rash, bleeding tendency. Please see my HPI for pertinent positive and negative. All other review of systems reviewed and nega tive except as mentioned in the HPI. EMERGENCY ROOM COURSE: Patient was given Lasix 40 mg IV and nitropatch was applied in the emergency room last night. PAST MEDICAL HISTORY: Nonischemic cardiomyopathy, chronic systolic heart failure with EF 10%-15%, mi ld intermittent asthma, history of osteomyelitis in the back, nephrolithiasis, history of recurrent u rinary tract infection with bacteremia in 02/2017, obesity with BMI 38, paroxysmal atrial fibrillatio n on chronic anticoagulation with Xarelto, diabetes type 2. PAST PSYCHIATRIC HISTORY: Anxiety and depression. PAST SURGICAL HISTORY: AICD placement, cholecystectomy, appendicectomy, cardiac catheterization, cir cumcision, PICC line placement, cystoscopy, ureteroscopy, ureteral stent placement. SOCIAL HISTORY: Patient is . Currently lives at [facility]. No history of tobacco, alcohol or illicit drug abuse. 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 He is able to function by himself and he is able to do all daily activities of routine life by himself. FAMILY HISTORY: Both parents from lung cancer. They were smoker. Both parents also had conges tive heart failure. CURRENT HOME MEDICATIONS: Tylenol 500 mg q.6 hours p.r.n., Xanax 0.5 mg daily p.r.n., cetirizine 10 mg daily, vitamin D3 2000 units p.o. daily, digoxin 250 mcg p.o. daily, Cardizem-CD 240 mg p.o. daily , Lasix 80 mg p.o. b.i.d., gabapentin 400 mg p.o. daily, glipizide 5 mg p.o. daily, Robaxin 500 mg p. o. b.i.d., Xarelto 20 mg p.o. daily, Zoloft 50 mg p.o. daily, Aldactone 25 mg p.o. daily. ALLERGIES: MULTAQ, MORPHINE, PROCARDIA, DILAUDID, CELEBREX, FLEXERIL, and LATEX. All this medicine he is not tolerating, real allergy not known. PHYSICAL EXAMINATION: VITAL SIGNS: On arrival, blood pressure 135/66, pulse 72, respiratory rate 18, temperature 99.2, sat uration 95% on 2 liter, weight 104.3 kilograms. GENERAL: Patient is currently alert, awake, no obvious acute distress. HEENT: Head: Normocephalic, atraumatic. Eyes: Pupils round, reactive to light. Extraocular muscl e intact. ENT: Oropharynx within normal limits. Moist mucous membranes, no oral lesion. No pharyn geal erythema. NECK: Mild JVD noted. LUNGS: Bibasilar coarse sounds with few rales noted at base. No wheezing, no accessory muscles of r espiration in use. CARDIAC: S1, S2 regular without any murmur. ABDOMEN: Obesity present. Bowel sounds present, nontender, nondistended. No organomegaly, no mass, no suprapubic tenderness. BACK: Unremarkable, no CVA tenderness. EXTREMITIES: Upper extremity, passive movement of all joints are normal. Lower extremity, no edema. Good distal pulsation. SKIN: No skin rash. HEMATOLOGICAL: No lymphadenopathy. PSYCHIATRIC: Normal affect. SIGNIFICANT LABORATORY DATA AND IMAGIN. Chest x-ray based on my review, cardiomegaly, pulmonary vascular congestion. EKG showing pacemak er rhythm. 2. CBC: WBC 13.8, hemoglobin 14.3, platelets 311. Sodium 138, potassium 4.5, chloride 100, carbon dioxide 28, BUN 26, creatinine 1.40, glucose 122, calcium 9.8. 3. LFT: AST 14, ALT 13, alkaline phosphatase 72, albumin 4.0. CK-MB 1.7, troponin I 0.052, then 0. 048 and than 0.039. BNP 983.3. Urinalysis showed microscopic hematuria with UTI. ASSESSMENT AND PLAN: 1. Acute kidney injury likely due to cardiorenal syndrome. We will continue to give him Lasix and w ill repeat [facility] tomorrow. We will monitor renal function. Avoid nephrotoxin agent, input output shreyas t. 2. Acute on chronic systolic congestive heart failure, stage C. The patient will be given Lasix 40 mg IV b.i.d. while in hospital. The patient is maintaining saturation normal on room air. We are ho ping that once we give him IV Lasix today and tomorrow, then patient will be able to be discharged ba to assisted living facility with increased overall dose of Lasix there. The patient will continue Toprol-XL 25 mg p.o. daily and lisinopril 2.5 mg p.o. daily along with Aldactone 25 mg p.o. daily. 3. Diabetes type 2. We will continue glipizide 5 mg p.o. daily and insulin as per sliding scale per protocol. Diabetic diet will be given. Fluid restriction 1500 mL per day for congestive heart fail ure. 4. Urinary tract infection with mild hematuria. We will send urine culture and start levofloxacin 5 00 mg IV daily. 5. Paroxysmal atrial fibrillation. We will continue digoxin 0.25 mg p.o. daily, Cardizem-CD 240 mg p.o. daily and chronic anticoagulation with Xarelto 25 mg p.o. daily. We are also adding Coreg 3.125 mg p.o. b.i.d. rather than Toprol-XL. 6. Anxiety and depression. Continue Xanax and Zoloft as per home dosage. 7. Morbid obesity with BMI 38. Dietary education given, weight loss education given. 8. History of nephrolithiasis, diverticulosis of colon, chronically elevated troponin. 9. Deep venous thrombosis prophylaxis not needed, because the patient is already on Xarelto therapy. 10. Gastrointestinal prophylaxis. Pepcid 20 mg p.o. b.i.d. 11. CODE STATUS: The patient is FULL CODE. Patient does not have any surrogate decision maker. Disposition plan based on clinical course, likely within 24 hours. Plan of care discussed with the p atient in detail.
[2018-03-21] MEDS: Digoxin 0.25 MG TAB PO SCH (10:54)
[2018-03-21] MEDS: Famotidine 20 MG TAB PO SCH ×2 (10:54→22:12)
[2018-03-21] MEDS: Gabapentin 400 MG CAP PO SCH (10:55)
[2018-03-21] MEDS: Spironolactone 25 MG TAB PO SCH (10:56)
[2018-03-21] MEDS: glipiZIDE 5 MG TAB PO SCH (10:56)
[2018-03-21] MEDS: Furosemide 40 MG/4 ML VIAL SLOW IVP SCH (14:30)
[2018-03-21] MEDS: Carvedilol 3.125 MG TAB PO SCH (22:12)
[2018-03-22] MEDS: Furosemide 40 MG/4 ML VIAL SLOW IVP SCH (05:50)
[2018-03-22 06:09] LABS: INR-International Normal Ratio 1.6; Prothrombin Time 19.1 SEC (12.0-14.7)
[2018-03-22 06:14] LABS: #Eosinphils 0.4 thou/uL (0.0-0.7); #Neutrophils 8.6 thou/uL (1.40-6.50); %Basophils 0.3 % (0.0-1.0); %Eosinophils 3.3 % (0.0-10.0); %Lymphocytes 16.9 % (21.0-51.0); %Monocytes 8.2 % (0.0-10.0); %Neutrophils 71.3 % (42.0-75.0); Hemoglobin 13.1 g/dL (14.0-18.0); Mean Corpuscular HGB CONC 30.3 g/dL (32.0-36.0); Mean Corpuscular Volume 85.9 fL (78.0-98.0); Mean Platelet Volume 7.8 fL (7.4-10.4); Platelet Count 286 thou/uL (130-400); RBC Distribution Width 17.8 % (11.5-14.5); Red Blood Cell (RBC) Count 5.06 mill/uL (4.70-6.10)
[2018-03-22 06:22] LABS: Anion Gap 12 mmol/L (10-20); BUN (Urea Nitrogen) 24 mg/dL (8.4-25.7); Calc. Creatinine Clearance 130 mL/min (70-130); Calcium 9.1 mg/dL (7.8-10.44); Carbon Dioxide 25 mmol/L (23-31); Chloride 102 mmol/L (98-107); Estimated GFR-MDRD 75; Glucose 107 mg/dL (80-115); Magnesium 1.9 mg/dL (1.6-2.6); Sodium 135 mmol/L (136-145); Uric Acid 9.5 mg/dL (3.5-7.2)
[2018-03-22 07:57] VITALS: TEMP 98.4
[2018-03-22] MEDS: Carvedilol 3.125 MG TAB PO SCH (08:29)
[2018-03-22] MEDS: Gabapentin 400 MG CAP PO SCH (08:30)
[2018-03-22] MEDS: Famotidine 20 MG TAB PO SCH (08:31)
[2018-03-22] MEDS: Digoxin 0.25 MG TAB PO SCH (08:32)
[2018-03-22] MEDS: Spironolactone 25 MG TAB PO SCH (08:32)
[2018-03-22] MEDS: glipiZIDE 5 MG TAB PO SCH (08:32)
[2018-03-22] MEDS ORDERED: Rivaroxaban 10 MG TAB PO SCH (09:00)
[2018-03-22] MEDS ORDERED: Lisinopril 2.5 MG TAB PO SCH (09:00)
--- NOTE | 2018-03-22 10:10 | DIS ---
DATE OF ADMISSION: 03/21/2018 DATE OF DISCHARGE: 03/22/2018 PRIMARY CARE PHYSICIAN: Zuleyma Garzon MD DISCHARGE DISPOSITION: Assisted living facility. PRIMARY DISCHARGE DIAGNOSES: 1. Acute kidney failure, cardiorenal, improved. 2. Acute on chronic systolic congestive heart failure, ACC stage C. 3. Urinary tract infection. 4. Hematuria, resolved. SECONDARY DISCHARGE DIAGNOSES: Paroxysmal atrial fibrillation, obesity with BMI 39, nephrolithiasis, hypertension, chronically elevated troponin, colonic diverticulosis, chronic anticoagulation, cardio myopathy, anxiety and depression, chronic systolic heart failure. PRIMARY PROCEDURE/OPERATION: None. RADIOLOGICAL INVESTIGATION: Chest x-ray showed pulmonary vascular congestion. SIGNIFICANT LABORATORY DATA: Hemoglobin 13.1, WBC 12.0, platelet 286. INR 1.6. Sodium 135, potassi um 4.0, BUN 24, creatinine 1.0, calcium 9.1, magnesium 1.9, uric acid 9.5. TSH 0.72. Urinalysis con sistent with urinary tract infection. DISCHARGE MEDICATIONS: Lasix 40 mg p.o. b.i.d. (dose increased), lisinopril 2.5 mg p.o. daily, Coreg 3.125 mg p.o. b.i.d., Pepcid 20 mg p.o. b.i.d., Levaquin 500 mg p.o. daily for 7 days, Xanax 0.5 mg p.o. daily p.r.n., cetirizine 10 mg daily, vitamin D3 of 2000 units p.o. daily, digoxin 250 mcg p.o. daily, Cardizem-CD 240 mg p.o. daily, gabapentin 400 mg p.o. daily, glipizide 5 mg p.o. daily, Robaxi n 500 mg p.o. b.i.d., Xarelto 20 mg p.o. daily, Zoloft 50 mg p.o. daily, Aldactone 25 mg p.o. daily. CONTRAINDICATIONS: None. CODE STATUS: FULL CODE. INPATIENT CONSULTANTS: None. ALLERGIES: CELECOXIB, FLEXERIL MULTAQ. DISCHARGE PLAN: Post hospital, the patient will follow up with primary care physician in 1 week. HOSPITAL COURSE: A 62-year-old male who was admitted by me. Please see my HPI for further detail. The patient had gross hematuria which was already clearing of which started 2 days ago and when we ch ecked urinalysis it was consistent with UTI and that is why he was given levofloxacin while in hospit al. Urine culture was obtained. He remained afebrile. He did not have any UTI symptoms and his hem aturia cleared even while on Xarelto. Mainly, he was admitted for congestive heart failure exacerbation. He has nonischemic cardiomyopathy . His chest x-ray showed pulmonary vascular congestion. We treated him with IV Lasix and the patien t became euvolemic and he was lying flat without any shortness of breath. During this admission, we provided patient education about heart failure. Fluid restriction, salt re striction and monitoring of weight and input output. At this point, the patient expressed understand ing about heart failure and he is feeling himself confident to go back to assisted living facility. During this admission, we started Coreg and lisinopril low dose which he was not on for his systolic heart failure that we started this admission and we increased Lasix to b.i.d. dose. The rest of medi cation was continued as per previous. PHYSICAL EXAMINATION: The patient is seen and examined at bedside today. VITAL SIGNS: Currently, temperature 98.4, pulse 75, respiratory rate 20, saturation 95% on room air, blood pressure 120/60. Weight 272 pounds. GENERAL: The patient is alert, oriented x3. LUNGS: Clear to auscultation without any rhonchi or rales. CARDIAC: S1, S2 regular without any murmur. ABDOMEN: Soft and benign without any tenderness. EXTREMITIES: No edema. NEUROLOGIC: Nonfocal examination. REVIEW OF SYSTEMS: Reviewed and negative. Patient is medically stable for discharge today.
[2018-03-22 15:11] VITALS: BP 117/55
--- NOTE | 2018-03-22 17:50 | EKG ---
Test Reason : Blood Pressure : / mmHG Vent. Rate : 070 BPM Atrial Rate : 070 BPM P-R Int : 000 ms QRS Dur : 148 ms QT Int : 412 ms P-R-T Axes : 072 -49 118 degrees QTc Int : 444 ms Atrial-paced rhythm Left axis deviation Left bundle branch block Abnormal ECG Confirmed by SHIRLEY TRINIDAD ([id number]), purchase request editor KAUR DANIELSON ([id number]) on 03/22/2018 5:49:14 PM Referred By: Confirmed By:SHIRLEY TRINIDAD
== END 2018-03-22 11:56 ==
LOC: ERS 22:59 → 2SW 03-21 01:49
PROVIDERS: ADMIT Internal Medicine; ATTEND Internal Medicine
DX: I11.0 Hypertensive heart disease with heart failure (principal); I50.23 Acute on chronic systolic (congestive) heart failure; N17.9 Acute kidney failure, unspecified; N39.0 Urinary tract infection, site not specified; I48.0 Paroxysmal atrial fibrillation; E66.9 Obesity, unspecified; N20.0 Calculus of kidney; I42.9 Cardiomyopathy, unspecified; Z68.39 Body mass index [BMI] 39.0-39.9, adult; Z79.01 Long term (current) use of anticoagulants; Z79.02 Long term (current) use of antithrombotics/antiplatelets; Z79.899 Other long term (current) drug therapy
CPT/HCPCS: 36415; 36416; 71045; 80048; 80053; 81003; 81015; 82553; 83735; 83880; 84443; 84484; 84550; 85025; 85610; 90471; 90732; 93005; 93798; 96365; 96366; 96374; 96375; 96376; G0009; G0378; J1940; J1956

== ENCOUNTER 2018-04-07 02:20 | Inpatient (IN) | payer OTHER ==
[2018-04-07] MEDS ORDERED: Furosemide 40 MG/4 ML VIAL ONE (06:04)
[2018-04-07 06:59] LABS: Troponin I 0.033 ng/mL (< 0.028)
[2018-04-07 08:07] VITALS: BMI 37.5
[2018-04-07 09:50] LABS: Troponin I 0.032 ng/mL (< 0.028)
[2018-04-07] MEDS ORDERED: Ondansetron PF 4 MG/2 ML Vial IVP PRN (09:54)
[2018-04-07] MEDS ORDERED: HYDROcodone/Acetaminophen 5/325 mg Tablet PO PRN ×2 (09:54)
[2018-04-07] MEDS ORDERED: Ondansetron ODT 4 MG TAB SL PRN (09:54)
[2018-04-07] MEDS ORDERED: Acetaminophen 325 MG TAB PO PRN ×2 (09:54→11:36)
[2018-04-07] MEDS ORDERED: Vancomycin HCl 1 GM in Premix Bag 1 BAG IVPB SCH (10:00)
--- NOTE | 2018-04-07 10:13 | ULT ---
VENOUS DOPPLER ULTRASOUND OF BILATERAL LOWER EXTREMITIES: INDICATIONS: Bilateral lower extremity edema. TECHNIQUE: Livingston-scale, color Doppler, and vascular duplex with spectral analysis was performed of the deep venou s structures of both lower extremities. The common femoral vein, superficial femoral vein, popliteal vein, posterior tibial vein, proximal greater saphenous, and proximal profunda veins were assessed bi laterally. FINDINGS: There is normal compressibility, flow, and augmentation seen within the deep venous structures of bot h lower extremities. IMPRESSION: No evidence of deep venous thrombosis within both lower extremities. POS: SHAWNA
[2018-04-07] MEDS ORDERED: Guaifenesin DM 100-10/5 ML UDCUP PO PRN (11:36)
[2018-04-07] MEDS ORDERED: Dextrose 50% Abboject 50 ML SYRINGE SLOW IVP PRN (11:36)
[2018-04-07] MEDS ORDERED: Dextrose 5% in Water 1,000 ML IV PRN (11:36)
[2018-04-07] MEDS ORDERED: HumaLOG 300 UNITS/3 ML VIAL SC PRN ×2 (11:36)
[2018-04-07] MEDS ORDERED: ALPRAZolam 0.5 MG TAB PO PRN (11:36)
[2018-04-07] MEDS ORDERED: Senokot S 8.6-50 MG TAB PO PRN (11:36)
[2018-04-07] MEDS ORDERED: Piperacillin/Tazobactam 3.375 GM in Sodium Chloride 0.9% 100 ML IVPB SCH (12:00)
[2018-04-07] MEDS: Furosemide 40 MG/4 ML VIAL SLOW IVP SCH (14:02)
[2018-04-07] MEDS: Cephalexin 250 MG CAP PO SCH ×3 (14:02→20:23)
--- NOTE | 2018-04-07 16:05 | CT ---
CT ABDOMEN AND PELVIS WITH AND WITHOUT IV CONTRAST: INDICATIONS: Abdominal pain, generalized, with history of nephrolithiasis. COMPARISON: Noncontrast CT of abdomen and pelvis dated 05/03/2017. TECHNIQUE: Multiple CT images were obtained of the abdomen and pelvis with and without IV contrast, at the reque st of the ordering physician. FINDINGS: There are small bilateral pleural effusions. The gallbladder is surgically absent. There is mild fa tty infiltration of the liver. The pancreas and adrenal glands are normal appearing. There is a small left renal cyst. There is a 7 mm stone seen within the left mid kidney. There is a 1 to 2 mm stone within the superior pole of the left kidney. There is a 5 mm stone within the infer ior pole of the right kidney. There is a 3 to 4 mm stone within the inferior pole of the right kidne y. No ureteral stone or hydronephrosis is demonstrated. There is mild calcification involving the abdominopelvic vasculature. There is scattered diverticula involving the colon without evidence of active diverticulitis. There is a mild amount of retained s tool. The small bowel is normal in caliber. No drainable fluid collection is evident. The bladder is unremarkable appearing. Chronic osseous changes are stable to the comparison examination dated 05/03/2017. Exuberant disk de generative disease surrounding L2-L3 is stable. IMPRESSION: 1. Slight interval worsening of the renal stone burden bilaterally when compared to the prior in 201 7. No definite ureteral calculus or hydronephrosis is demonstrated. 2. Left renal cyst. 3. Colonic diverticulosis. 4. Cholecystectomy. 5. Fatty liver. 6. Other chronic findings, as above. POS: SHAWNA
[2018-04-07] MEDS ORDERED: Ibuprofen 200 MG TAB PO PRN (16:38)
[2018-04-07] MEDS ORDERED: Iopamidol 370 76% 100 ML VIAL ONE (16:38)
[2018-04-07] MEDS ORDERED: Fleet Enema 133 ML BOT PR PRN (16:38)
[2018-04-07] MEDS: Rivaroxaban 10 MG TAB PO SCH (17:18)
[2018-04-07] MEDS: Docusate 100 MG CAP PO SCH (20:23)
[2018-04-07] MEDS: Carvedilol 3.125 MG TAB PO SCH ×2 (20:23→20:27)
[2018-04-07] MEDS: Famotidine 20 MG TAB PO SCH (20:24)
[2018-04-07] MEDS: Gabapentin 400 MG CAP PO SCH (20:25)
[2018-04-07] MEDS: HYDROcodone/Acetaminophen 5/325 mg Tablet PO PRN (21:56)
[2018-04-08 04:06] LABS: #Basophils 0.1 thou/uL (0.0-0.2); #Eosinphils 0.6 thou/uL (0.0-0.7); #Lymphocytes 2.2 thou/uL (1.20-3.40); #Monocytes 1.1 thou/uL (0.11-0.59); #Neutrophils 8.3 thou/uL (1.40-6.50); %Basophils 0.4 % (0.0-1.0); %Eosinophils 4.7 % (0.0-10.0); %Lymphocytes 18.2 % (21.0-51.0); %Monocytes 8.8 % (0.0-10.0); %Neutrophils 67.9 % (42.0-75.0); Hemoglobin 14.2 g/dL (14.0-18.0); Mean Corpuscular HGB CONC 31.9 g/dL (32.0-36.0); Mean Corpuscular Hemoglobin 26.3 pg (27.0-31.0); Mean Corpuscular Volume 82.5 fL (78.0-98.0); Mean Platelet Volume 8.3 fL (7.4-10.4); Platelet Count 265 thou/uL (130-400); RBC Distribution Width 18.1 % (11.5-14.5); Red Blood Cell (RBC) Count 5.39 mill/uL (4.70-6.10); White Blood Cell (WBC) Count 12.3 thou/uL (4.8-10.8)
[2018-04-08 04:27] LABS: Anion Gap 12 mmol/L (10-20); BUN (Urea Nitrogen) 23 mg/dL (8.4-25.7); Calc. Creatinine Clearance 119 mL/min (70-130); Calcium 9.5 mg/dL (7.8-10.44); Carbon Dioxide 28 mmol/L (23-31); Chloride 97 mmol/L (98-107); Estimated GFR-MDRD 72; Glucose 98 mg/dL (80-115); Magnesium 2.3 mg/dL (1.6-2.6); Potassium 4.3 mmol/L (3.5-5.1); Sodium 133 mmol/L (136-145)
[2018-04-08] MEDS: Furosemide 40 MG/4 ML VIAL SLOW IVP SCH ×2 (05:55→14:20)
[2018-04-08] MEDS: HYDROcodone/Acetaminophen 5/325 mg Tablet PO PRN (06:01)
--- NOTE | 2018-04-08 07:50 | HP ---
REASON FOR ADMISSION: CHF exacerbation with history of systolic dysfunction, stasis dermatitis, abdominal pain for evaluation. HISTORY OF PRESENTING ILLNESS: The patient gives history of having his feet and ankle redness from last 4 days and this had become worse. He also developed severe pain this morning and was unable to ambulate. He was unable to put his foot down due to severe pain. He lives at [facility]. The lower extremity pain and redness are coming down at present. The patient complains of a burning abdominal sensation all over his belly. He normally passes stool two times a week. He has some nauseating feeling. Last bowel movement was 3 days back. Has no complaints of chest pain or palpitation. Has mild shortness of breath on exertion. PAST MEDICAL AND SURGICAL HISTORY: Hypertension; history of CHF with systolic dysfunction with ejection fraction of around 10% to 15% and nonischemic cardiomyopathy; mild intermittent asthma; prior history of osteomyelitis in the back; history of nephrolithiasis with prior laser lithotripsy; history of recurrent UTI with bacteremia; obesity; paroxysmal AFib, on Xarelto; diabetes mellitus, type 2; anxiety; depression; AICD; cholecystectomy; appendectomy; prior cardiac cath; circumcision; prior PICC line placement; cystoscopy; ureteroscopy; and ureteral stent placement with lithotripsy in the past. PERSONAL HISTORY: Does not abuse alcohol or drugs. No history of smoking. FAMILY HISTORY: Mother at the age of 67 years. She has had history of lung cancer and was a smoker. Father of lung cancer as well and was a heavy smoker. He at the age of 88 years. He has 2 daughters. Code status is full. Power of ip attorney is Ms. Nelly Gamez, his daughter. CURRENT MEDICATIONS: 1. Spironolactone 25 mg p.o. daily. 2. Alprazolam 0.5 mg p.o. daily. 3. Digoxin 0.25 mg p.o. daily. 4. Lasix 40 mg p.o. twice daily. 5. Methocarbamol 500 mg p.r.n. 6. Sertraline 50 mg p.o. daily. 7. Gabapentin 400 mg p.o. at bedtime. 8. Cardizem CD 240 mg p.o. daily. 9. Xarelto 20 mg p.o. daily. 10. Glipizide 5 mg p.o. daily. 11. Zolpidem 10 mg p.o. at bedtime p.r.n. 12. Lisinopril 2.5 mg p.o. daily. 13. Pepcid 20 mg twice daily. 14. Coreg 3.125 mg p.o. twice daily. ALLERGIES: TO CELECOXIB, CYCLOBENZAPRINE, DILAUDID, MULTAQ, FLEXERIL, HYDROMORPHONE, LATEX, MORPHINE, NIFEDIPINE, AND PROCARDIA. REVIEW OF SYSTEMS: CONSTITUTIONAL: Negative for weight loss or gain, ability to conduct usual activities. SKIN: Negative for rash, itching. EYES: Negative for double vision, pain. ENT/MOUTH: Negative for nose bleeding, neck stiffness, pain, tenderness. CARDIOVASCULAR: Negative for palpitations, dyspnea on exertion, orthopnea. RESPIRATORY: Negative for shortness of breath, wheezing, cough, hemoptysis, fever or night sweats. GASTROINTESTINAL: Negative for poor appetite, abdominal pain, heartburn, nausea, vomiting, constipation, or diarrhea. GENITOURINARY: Negative for urgency, frequency, dysuria, nocturia. MUSCULOSKELETAL: Negative for pain, swelling. NEUROLOGIC/PSYCHIATRIC: Negative for anxiety, depression. ALLERGY/IMMUNOLOGIC: Negative for skin rash, bleeding tendency. PHYSICAL EXAMINATION: GENERAL: The patient is a 62-year-old male, who is currently in mild distress from abdominal pain. VITAL SIGNS: Blood pressure 106/50, pulse 66 per minute, respiratory rate 18 per minute, temperature 97.6 degrees Fahrenheit, saturating 94% on room air. NECK: Supple. No elevated JVD. HEENT: Eyes; extraocular muscles intact. Pupils reacting to light. Oral cavity, mucous membranes are moist. No exudates or congestion. CARDIOVASCULAR: S1, S2 heard. Regular rhythm. RESPIRATORY: Air entry 1+ bilateral. Scattered rales in the infrascapular area. ABDOMEN: Soft. Bowel sounds heard. No tenderness, rigidity, or guarding. EXTREMITIES: There is erythema on the forefoot. Mild edema. The tenderness he had in the foot and leg area has resolved at present. Peripheral pulses are 1+ bilateral. No ischemic ulcerations or gangrene. CENTRAL NERVOUS SYSTEM: No gross focal deficits noted. The patient is alert, awake, and oriented well. PSYCHIATRIC: The patient's mood is euthymic. No hallucinations or delusions. LABORATORY DATA: White count of 14, H and H of 14 and 46, platelet count 310, MCV is 81 with 70% neutrophils. PT/INR of 25 and 2.3, PTT 41. The troponin I is indeterminate peaking up to 0.03. BNP 742, CK-MB 1.7. Sodium 135, serum bicarb 25, BUN 25, creatinine 1.0, serum glucose 146, AST 39, ALT 16, alkaline phosphatase 71, albumin is 3.9. UA shows moderate blood, small leukocyte esterase, 11 to 20 rbc's, 21 to 50 wbc's, 3+ bacteria, 1+ amorphous phosphate. CLINICAL IMPRESSION AND PLAN: The patient will be admitted to Telemetry for acute on chronic congestive heart failure exacerbation, stasis dermatitis, severe abdominal pain for further evaluation. Please note, the patient has very low ejection fraction of 10% to 15%, and it is unclear if he has a mesenteric ischemia versus prior history of nephrolithiasis and lithotripsy to rule out recurrent stones. We will obtain a CT of the abdomen and pelvis with and without contrast. His renal function is stable at present. He will be on Lasix 40 mg IV q.12 hourly and will closely monitor his systolic blood pressure, which is hovering around 100. He will continue his aspirin, Coreg, glipizide, lisinopril, Xarelto, Zoloft, spironolactone as before. We will obtain an echo with 2D Doppler for left ventricular function. He will be on Keflex for stasis dermatitis. We will obtain arterial Doppler to rule out peripheral vascular disease. He has had a venous Doppler done, which shows no evidence of deep venous thrombosis. We will continue to closely monitor him on telemetry. Job ID: [id number]
[2018-04-08] MEDS: Lisinopril 2.5 MG TAB PO SCH (08:44)
[2018-04-08] MEDS: Docusate 100 MG CAP PO SCH ×2 (08:44→20:58)
[2018-04-08] MEDS: glipiZIDE 5 MG TAB PO SCH (08:45)
[2018-04-08] MEDS: Spironolactone 25 MG TAB PO SCH (08:45)
[2018-04-08] MEDS: Loratadine 10 MG TAB PO SCH (08:46)
[2018-04-08] MEDS: Famotidine 20 MG TAB PO SCH ×2 (08:47→20:58)
[2018-04-08] MEDS: Cephalexin 250 MG CAP PO SCH ×4 (08:47→20:58)
[2018-04-08] MEDS: Carvedilol 3.125 MG TAB PO SCH ×2 (08:48→20:57)
[2018-04-08] MEDS: Polyethylene Glycol 3350 17 GM Packet PO SCH (08:51)
--- NOTE | 2018-04-08 11:00 | PDOC.PN ---
- Subjective Encounter Start Date: 04/08/18 Encounter Start Time: 09:15 Subjective: no sob, feels better - Objective Resuscitation Status - Order Detail: 04/07/18 11:28 Resuscitation Status Routine Resuscitation Status: FULL: Full Resuscitation MAR Reviewed: Yes Vital Signs & Weight: Vital Signs (12 hours) Temp Pulse Resp BP Pulse Ox 04/08/18 08:44 89 04/08/18 07:54 97.9 F 89 16 115/59 L 92 L 04/08/18 03:55 97.9 F 78 16 127/60 93 L 04/07/18 23:29 98.8 F 70 14 103/55 L 95 Weight Weight 259 lb 8 oz I&O: 04/07/18 04/08/18 04/09/18 06:59 06:59 06:59 Output Total 800 Balance -800 Result Diagrams: 04/08/18 03:35 04/08/18 03:35 Additional Labs: Accuchecks 04/07/18 04/07/18 04/07/18 20:33 16:25 10:30 POC Glucose 141 H 119 H 171 H Phys Exam - Physical Examination HEENT: PERRLA, moist MMs Neck: no JVD, supple Respiratory: no wheezing, no rales Cardiovascular: RRR, no significant murmur Gastrointestinal: soft, non-tender, positive bowel sounds Musculoskeletal: no edema, pulses present mild erythema over dorsum of foot Neurological: non-focal, moves all 4 limbs Psychiatric: normal affect, A&O x 3 Dx/Plan (1) Stasis dermatitis Code(s): I87.2 - VENOUS INSUFFICIENCY (CHRONIC) (PERIPHERAL) Status: Acute Qualifiers: Laterality: bilateral Qualified Code(s): I87.2 - Venous insufficiency ( chronic) (peripheral) (2) Acute on chronic systolic ACC/AHA stage C congestive heart failure Code(s): I50.23 - ACUTE ON CHRONIC SYSTOLIC (CONGESTIVE) HEART FAILURE Status : Acute (3) Anxiety and depression Code(s): F41.8 - OTHER SPECIFIED ANXIETY DISORDERS Status: Chronic (4) Cardiomyopathy Code(s): I42.9 - CARDIOMYOPATHY, UNSPECIFIED Status: Chronic Qualifiers: Cardiomyopathy type: unspecified Qualified Code(s): I42.9 - Cardiomyopathy , unspecified (5) HTN (hypertension) Code(s): I10 - ESSENTIAL (PRIMARY) HYPERTENSION Status: Chronic Qualifiers: Hypertension type: essential hypertension Qualified Code(s): I10 - Essential (primary) hypertension (6) Nephrolithiasis Status: Chronic (7) Obesity (BMI 30-39.9) Code(s): E66.9 - OBESITY, UNSPECIFIED Status: Chronic (8) Paroxysmal atrial fibrillation Code(s): I48.0 - PAROXYSMAL ATRIAL FIBRILLATION Status: Chronic - Plan hemostable -: continue iv lasix and spironolactone -: dc plan in am -: on keflex, asp, coreg, lisinopril, xarelto -: gabapentin and narco prn for neuropathic pain * . Review of Systems - Medications/Allergies Allergies/Adverse Reactions: Allergies Allergy/AdvReac Type Severity Reaction Status Date / Time latex Allergy Severe Short of Verified 04/07/18 09:28 Breath celecoxib [From Celebrex] Allergy Rash Verified 04/07/18 09:28 cyclobenzaprine Allergy Verified 04/07/18 09:28 [From Flexeril] dronedarone [From Multaq] Allergy Verified 04/07/18 09:28 hydromorphone [From Dilaudid] Allergy Verified 04/07/18 09:28 morphine Allergy Verified 04/07/18 09:28 nifedipine [From Procardia] Allergy Verified 04/07/18 09:28 Medications: Current Medications Acetaminophen (Tylenol) 650 mg PO Q4H PRN PRN Reason: Headache/Fever/Mild Pain (1-3) Hydrocodone Bitart/Acetaminophen ([place] 5/325) 1 tab PO Q6H PRN PRN Reason: Moderate to Severe Pain (6-10) Last Admin: 04/08/18 06:01 Dose: 1 tab Alprazolam (Xanax) 0.5 mg PO DAILY PRN PRN Reason: Anxiety/Agitation Aspirin (Aspirin Chewable) 81 mg PO DAILY [facility] Last Admin: 04/08/18 08:46 Dose: 81 mg Carvedilol (Coreg) 3.125 mg PO BID [facility] Last Admin: 04/08/18 08:48 Dose: 3.125 mg Cephalexin (Keflex) 500 mg PO QID [facility] Last Admin: 04/08/18 08:47 Dose: 500 mg Dextrose/Water (Dextrose 50%) 25 gm SLOW IVP PRN PRN PRN Reason: Hypoglycemia Docusate Sodium (Colace) 100 mg PO BID [facility] Last Admin: 04/08/18 08:44 Dose: Not Given Famotidine (Pepcid) 20 mg PO BID [facility] Last Admin: 04/08/18 08:47 Dose: 20 mg Furosemide (Lasix) 40 mg SLOW IVP 0600,1400 [facility] Stop: 04/10/18 06:01 Last Admin: 04/08/18 05:55 Dose: 40 mg Gabapentin (Neurontin) 400 mg PO HS [facility] Last Admin: 04/07/18 20:25 Dose: 400 mg Glipizide (Glucotrol) 5 mg PO DAILY [facility] Last Admin: 04/08/18 08:45 Dose: 5 mg Glucagon (Glucagon) 1 mg IM PRN PRN PRN Reason: Hypoglycemia Guaifenesin/Dextromethorphan (Robitussin Dm) 15 ml PO Q4H PRN PRN Reason: Cough Dextrose/Water (D5w) 1,000 mls @ 0 mls/hr IV .Q0M PRN PRN Reason: Hypoglycemia Ibuprofen (Motrin) 400 mg PO TID PRN PRN Reason: Pain Insulin Human Lispro (Humalog) 0 units SC .MODERATE SLIDING SC PRN PRN Reason: Moderate Correctional Scale Insulin Human Lispro (Humalog) 0 units SC .BEDTIME SLIDING SC PRN PRN Reason: Bedtime Correctional Scale Lisinopril (Zestril) 2.5 mg PO DAILY [facility] Last Admin: 04/08/18 08:44 Dose: 2.5 mg Loratadine (Claritin) 10 mg PO DAILY [facility] Last Admin: 04/08/18 08:46 Dose: 10 mg Polyethylene Glycol (Miralax) 17 gm PO DAILY [facility] Last Admin: 04/08/18 08:51 Dose: Not Given Rivaroxaban (Xarelto) 20 mg PO 1800 [facility] Last Admin: 04/07/18 17:18 Dose: 20 mg Senna/Docusate Sodium (Senokot S) 2 tab PO BID PRN PRN Reason: Constipation Sertraline HCl (Zoloft) 50 mg PO DAILY [facility] Last Admin: 04/08/18 08:47 Dose: 50 mg Sodium Biphosphate/Sodium Phosphate (Fleet Enema) 133 ml NH ONE PRN PRN Reason: constipation Stop: 04/14/18 16:39 Spironolactone (Aldactone) 25 mg PO DAILY [facility] Last Admin: 04/08/18 08:45 Dose: 25 mg
[2018-04-08] MEDS ORDERED: GoLYTELY 4,000 ml Bottle PO SCH (17:00)
[2018-04-08] MEDS: Rivaroxaban 10 MG TAB PO SCH (17:43)
[2018-04-08] MEDS: Gabapentin 400 MG CAP PO SCH (20:57)
[2018-04-09] MEDS: Furosemide 40 MG/4 ML VIAL SLOW IVP SCH ×2 (06:35→15:06)
[2018-04-09] MEDS: Carvedilol 3.125 MG TAB PO SCH (08:38)
[2018-04-09] MEDS: Cephalexin 250 MG CAP PO SCH ×2 (08:38→12:26)
[2018-04-09] MEDS: Lisinopril 2.5 MG TAB PO SCH (08:39)
[2018-04-09] MEDS: glipiZIDE 5 MG TAB PO SCH (08:39)
[2018-04-09] MEDS: Docusate 100 MG CAP PO SCH (08:39)
[2018-04-09] MEDS: Famotidine 20 MG TAB PO SCH (08:39)
[2018-04-09] MEDS: Spironolactone 25 MG TAB PO SCH (08:40)
[2018-04-09] MEDS: Loratadine 10 MG TAB PO SCH (08:40)
[2018-04-09] MEDS: Polyethylene Glycol 3350 17 GM Packet PO SCH (08:43)
[2018-04-09 12:17] VITALS: BP 105/57; TEMP 98.3
[2018-04-09 12:32] LABS: Anion Gap 9 mmol/L (10-20); BUN (Urea Nitrogen) 26 mg/dL (8.4-25.7); Calc. Creatinine Clearance 123 mL/min (70-130); Calcium 9.9 mg/dL (7.8-10.44); Carbon Dioxide 30 mmol/L (23-31); Chloride 97 mmol/L (98-107); Estimated GFR-MDRD 76; Potassium 4.3 mmol/L (3.5-5.1); Sodium 132 mmol/L (136-145)
[2018-04-09 12:38] LABS: Critical Call Chemistry NUR.ERG; Glucose 56 mg/dL (80-115)
--- NOTE | 2018-04-09 15:21 | PDOC.PN ---
- Subjective Encounter Start Date: 04/09/18 Encounter Start Time: 08:00 Subjective: no sob or chest pain -: is amb in hallway - Objective Resuscitation Status - Order Detail: 04/07/18 11:28 Resuscitation Status Routine Resuscitation Status: FULL: Full Resuscitation MAR Reviewed: Yes Vital Signs & Weight: Vital Signs (12 hours) Temp Pulse Resp BP BP Pulse Ox 04/09/18 11:27 98.3 F 77 20 105/57 L 92 L 04/09/18 08:39 81 102/57 L 04/09/18 08:38 94 L 04/09/18 07:40 98.4 F 78 20 102/57 L 94 L 04/09/18 04:42 98.3 F 88 16 112/57 L 92 L Weight Weight 254 lb 14.4 oz I&O: 04/08/18 04/09/18 04/10/18 06:59 06:59 06:59 Output Total 800 Balance -800 Result Diagrams: 04/08/18 03:35 04/09/18 11:46 Additional Labs: Accuchecks 04/09/18 04/09/18 04/09/18 12:41 11:32 06:52 POC Glucose 125 H 69 L 100 04/08/18 04/08/18 20:46 16:57 POC Glucose 167 H 103 Phys Exam - Physical Examination HEENT: PERRLA, moist MMs Neck: no JVD, supple Respiratory: no wheezing, no rales Cardiovascular: RRR, no significant murmur Gastrointestinal: soft, non-tender, positive bowel sounds Musculoskeletal: no edema, pulses present Neurological: non-focal, moves all 4 limbs Psychiatric: normal affect, A&O x 3 Dx/Plan (1) Stasis dermatitis Code(s): I87.2 - VENOUS INSUFFICIENCY (CHRONIC) (PERIPHERAL) Status: Acute Qualifiers: Laterality: bilateral Qualified Code(s): I87.2 - Venous insufficiency ( chronic) (peripheral) (2) Acute on chronic systolic ACC/AHA stage C congestive heart failure Code(s): I50.23 - ACUTE ON CHRONIC SYSTOLIC (CONGESTIVE) HEART FAILURE Status : Acute (3) Anxiety and depression Code(s): F41.8 - OTHER SPECIFIED ANXIETY DISORDERS Status: Chronic (4) Cardiomyopathy Code(s): I42.9 - CARDIOMYOPATHY, UNSPECIFIED Status: Chronic Qualifiers: Cardiomyopathy type: unspecified Qualified Code(s): I42.9 - Cardiomyopathy , unspecified (5) HTN (hypertension) Code(s): I10 - ESSENTIAL (PRIMARY) HYPERTENSION Status: Chronic Qualifiers: Hypertension type: essential hypertension Qualified Code(s): I10 - Essential (primary) hypertension (6) Nephrolithiasis Status: Chronic (7) Obesity (BMI 30-39.9) Code(s): E66.9 - OBESITY, UNSPECIFIED Status: Chronic (8) Paroxysmal atrial fibrillation Code(s): I48.0 - PAROXYSMAL ATRIAL FIBRILLATION Status: Chronic - Plan hemostable -: dc pt to asst living facility -: renal function and electrolytes are stable * .
--- NOTE | 2018-04-09 17:17 | DIS ---
DATE OF ADMISSION: 04/07/2018 DATE OF DISCHARGE: 04/09/2018 DISCHARGE DISPOSITION: To [facility]. PRIMARY DISCHARGE DIAGNOSES: 1. [id number] congestive heart failure exacerbation with systolic dysfunction and ejection fraction of around 10% to 15%, [place] stage C. 2. Stasis dermatitis, both lower extremities, resolving. SECONDARY DISCHARGE DIAGNOSES: 1. Hypertension. 2. History of nonischemic cardiomyopathy. 3. Nephrolithiasis. 4. Obesity. 5. Paroxysmal atrial fibrillation, currently in sinus rhythm. 6. Anxiety. 7. Depression. PROCEDURES DONE DURING HOSPITALIZATION: Echo with 2D Doppler done showed EF of 10% to 15%, moderate mitral regurgitation, [id number] tricuspid regurgitation. Ultrasound venous Doppler of lower extremities done showed no evidence of DVT. CT of the abdomen and pelvis with and without contrast done showed slight interval worsening of renal stone burden bilaterally when compared to prior study. No definite ureteral calculus or hydronephrosis was seen. Colonic diverticulosis, prior cholecystectomy, fatty liver. Discharge BUN and creatinine are 26 and 0.9. BNP was 742. Troponin I was indeterminate, peaking up to 0.03. DISCHARGE MEDICATIONS: 1. Vitamin D3, 2000 units p.o. daily. 2. Digoxin 0.25 mg p.o. daily. 3. Cardizem CD 240 mg p.o. daily. 4. Gabapentin 400 mg p.o. at bedtime. 5. Glipizide 5 mg p.o. daily. 6. Robaxin p.r.n. 7. Xarelto 20 mg p.o. daily. 8. Sertraline 50 mg p.o. daily. 9. Spironolactone 25 mg p.o. daily. 10. Coreg 3.125 mg p.o. twice daily. 11. Lisinopril 2.5 mg p.o. daily. 12. Lasix 40 mg p.o. twice daily. 13. Keflex 500 mg p.o. 3 times daily for a total of 7 days. DISCHARGE PLAN: The patient to follow up with primary care physician in 1 week. ALLERGIES: THE PATIENT IS ALLERGIC TO CELECOXIB, CYCLOBENZAPRINE, MULTAQ, HYDROMORPHONE, MORPHINE, NIFEDIPINE, AND LATEX. BRIEF COURSE DURING HOSPITALIZATION: The patient initially was sent from his assisted living facility with complaints of shortness of breath and lower extremity redness, swelling, and pain on ambulation. He was essentially admitted for [id number] CHF exacerbation with systolic dysfunction and bilateral lower extremity stasis dermatitis. The patient was placed on Keflex for dermatitis, which is resolving. The patient also complained of abdominal pain on arrival and had a CT of the abdomen with and without contrast done, which did not reveal any acute etiology. His abdominal pain completely resolved in 24 hours. He was gently diuresed during his stay here and has responded well. Prior to discharge, he is ambulating in the hallway. He is eating well and has no orthopnea. He needs to have arterial Doppler and venous insufficiency studies for his lower extremities to rule out peripheral vascular disease versus venous stasis. He is hemodynamically stable and will be shortly discharged home. Please note, I have seen and examined the patient on the day of discharge. Job ID: [id number]
== END 2018-04-09 15:58 | DRG 299 ==
LOC: ERS 02:20 → 2SW 05:01 → OBSVTOIN 11:36
PROVIDERS: ADMIT Internal Medicine; ATTEND Internal Medicine
DX: I87.2 Venous insufficiency (chronic) (peripheral) (principal); I50.23 Acute on chronic systolic (congestive) heart failure; I42.9 Cardiomyopathy, unspecified; I11.0 Hypertensive heart disease with heart failure; I48.0 Paroxysmal atrial fibrillation; E11.9 Type 2 diabetes mellitus without complications; F41.9 Anxiety disorder, unspecified; F32.9 Major depressive disorder, single episode, unspecified; N20.0 Calculus of kidney; E66.9 Obesity, unspecified; Z68.36 Body mass index [BMI] 36.0-36.9, adult; Z88.5 Allergy status to narcotic agent; Z91.040 Latex allergy status; Z88.8 Allergy status to other drugs, medicaments and biological substances; Z79.01 Long term (current) use of anticoagulants; Z79.899 Other long term (current) drug therapy; Z95.810 Presence of automatic (implantable) cardiac defibrillator
CPT/HCPCS: 36415; 36416; 74178; 80048; 83735; 83880; 84443; 84484; 85025; 93306; 93970; 96374; J1940; J1956; J2543; J3370; J7050

== ENCOUNTER 2018-04-12 06:49 | Day surgery (SDC) | payer OTHER ==
--- NOTE | 2018-02-28 22:58 | HP ---
DATE OF ADMISSION: 03/01/2018 HISTORY OF PRESENT ILLNESS: Mr. Ashli Gamez is a 62-year-old male who comes for a colonoscopy for colon cancer screening. The patient has no specific GI symptoms. Bowel movements are regular. He does have chronic constipation over the years. The patient has no family history of colon cancer. The patient comes in for colonoscopy for colon cancer screening. ALLERGIES: CELEBREX, MORPHINE, LATEX, , FLEXERIL, MULTAQ and METFORMIN. SOCIAL HISTORY: The patient does not smoke or drink alcohol. MEDICAL ILLNESSES: 1. Hypertension. 2. Atrial fibrillation. 3. Depression and anxiety. 4. Osteomyelitis of the spine 2016, status post treatment. 5. Pacemaker insertion, AICD placement. 6. Possible history of pulmonary embolism. 7. Diabetes. 8. Hypertension. 9. Hyperlipidemia. 10. History of kidney stones. PHYSICAL EXAMINATION: VITAL SIGNS: Pulse is 70, blood pressure 140/80. HEENT: Conjunctivae clear. CARDIOVASCULAR: First and second heart sounds normal. LUNGS: Clear to auscultation. ABDOMEN: Soft to palpate. No organomegaly. No tenderness. No masses. EXTREMITIES: Reveal no edema. ADMITTING DIAGNOSIS: A 62-year-old male who comes in for colonoscopy for colon cancer screening. [facility]
[2018-04-11 13:58] VITALS: BMI 32.0
--- NOTE | 2018-04-12 05:50 | HP ---
SHORT-STAY HISTORY AND PHYSICAL HISTORY OF PRESENT ILLNESS: This is a 62-year-old male referred to me for a colonoscopy for colon cancer screening. The patient has nonspecific GI symptoms. He does have a history of constipation, which is chronic in nature. He has had mild hematochezia off and on when he is straining. He has some stool testing done for occult blood, which came back positive. He is undergoing colonoscopy because of the above reason. ALLERGIES: CELEBREX, MORPHINE, LATEX, CADUET, FLEXERIL, MULTAQ, METFORMIN. SOCIAL HISTORY: The patient does not smoke or drink alcohol. PAST MEDICAL HISTORY: 1. Hypertension. 2. Atrial fibrillation. 3. Depression, anxiety. 5. Status post pacemaker, AICD placement. 6. History of pulmonary embolism in the past. 7. Diabetes. 8. Hyperlipidemia. 9. Kidney stones. PHYSICAL EXAMINATION: VITAL SIGNS: Stable. Pulse is 70 and blood pressure 130/80. HEENT: Conjunctivae clear. NECK: Supple. No adenitis or thyromegaly noted. CARDIOVASCULAR: First and second heart sounds heard. LUNGS: Clear to auscultation. ABDOMEN: Soft. No organomegaly. No tenderness. No masses. ADMITTING DIAGNOSIS: A 62-year-old male with positive fecal occult blood. The patient comes in for colonoscopy. Job ID: [id number] MTDD
[2018-04-12] MEDS ORDERED: KETAMINE 100 MG/ML (5ML VIAL) ONE (08:28)
[2018-04-12] MEDS ORDERED: PROPOFOL 200 MG/20 ML VIAL ONE (13:18)
--- NOTE | 2018-04-12 19:03 | EKG ---
Test Reason : PREOP Blood Pressure : / mmHG Vent. Rate : 082 BPM Atrial Rate : 082 BPM P-R Int : 000 ms QRS Dur : 162 ms QT Int : 400 ms P-R-T Axes : 068 -50 114 degrees QTc Int : 467 ms Electronic atrial pacemaker Left axis deviation Left bundle branch block Abnormal ECG When compared with ECG of 20-MAR-2018 23:12, No significant change was found Confirmed by Trinidad RIVAS ([id number]) on 04/12/2018 7:03:32 PM Referred By: JAZMÍN Confirmed By:Trinidad RIVAS
--- NOTE | 2018-04-14 21:21 | OP ---
DATE OF PROCEDURE: 04/12/2018 OPERATIVE PROCEDURES: 1. Colonoscopy with polypectomy. 2. Colonoscopy with 10-Bhutanese heater probe therapy at polypectomy site. PREOPERATIVE DIAGNOSIS: Colon cancer screening, positive fecal immunochemical test. POSTOPERATIVE DIAGNOSES: 1. Sessile polyp and sigmoid polyp, status post snare cautery with good hemostasis. 2. Very large polyp, high sigmoid colon, descending colon, status post snare cautery. 3. Large sessile polyp, high sigmoid and descending colon, status post snare cautery. 4. Scattered diverticular disease, mild. DESCRIPTION OF PROCEDURE: The patient was placed on his left lateral position and was given sedation by Anesthesia Department. A rectal exam was done before the scope was advanced into the rectum. No lesions felt on rectal exam. Pentax video colonoscope was introduced into the rectum and advanced all the way to the cecum. The prep was very good. The mucosa appeared normal. In the appendiceal orifice , ileocecal valve, cecum, no pathology seen. In the ascending colon, no pathology seen. In the hepatic flexure, no pathology seen. The transverse colon showed occasional diverticula. The patient was found to have a very large sessile polyp in the high sigmoid, descending colon area. This was removed by polypectomy. Although cautery was nicely applied, he was found to have some bleeding after polypectomy. There was another big polyp over the high sigmoid descending colon area. The polyp probably was very large and was almost like a sessile polyp. This was again removed with snare cautery_. Again, the patient had some bleeding from polypectomy site. The patient also has small polyp. This was removed without difficulty and no bleeding was seen. After the polyps were removed_, the scope was advanced back into the transverse colon, carefully withdrawn. The polypectomy site was cauterized with a 10-Bhutanese probe with good hemostasis. This was again done in other polypectomy site. The colon was irrigated and washed out. I did not see any active bleeding anymore. The sigmoid polypectomy site appeared well cauterized.. DISCHARGE PLANNING: A 62-year-old male, who came for colonoscopy because of positive FIT and also for colon cancer screening. He underwent polypectomy x3. DISCHARGE RECOMMENDATIONS: 1. The patient was advised to call me if he develops abdominal pain, hematochezia. 2. Hold the Xarelto until 16 April. 3. He will come back to me in two weeks for followup. Job ID: [id number] MTDD
== END 2018-04-12 11:05 | disposition home or self-care (01) ==
LOC: SDC 06:49
PROVIDERS: ATTEND Internal Medicine Gastroenterology
DX: D12.5 Benign neoplasm of sigmoid colon (principal); D12.4 Benign neoplasm of descending colon; K57.30 Diverticulosis of large intestine without perforation or abscess without bleeding; I10 Essential (primary) hypertension; I48.91 Unspecified atrial fibrillation; F32.9 Major depressive disorder, single episode, unspecified; F41.9 Anxiety disorder, unspecified; E11.9 Type 2 diabetes mellitus without complications; E78.5 Hyperlipidemia, unspecified; Z91.040 Latex allergy status; Z88.5 Allergy status to narcotic agent; Z88.8 Allergy status to other drugs, medicaments and biological substances; Z88.6 Allergy status to analgesic agent; Z95.0 Presence of cardiac pacemaker; Z86.711 Personal history of pulmonary embolism; Z87.442 Personal history of urinary calculi; Z79.01 Long term (current) use of anticoagulants; Z79.51 Long term (current) use of inhaled steroids; Z79.84 Long term (current) use of oral hypoglycemic drugs; Z79.899 Other long term (current) drug therapy
CPT/HCPCS: 88305; 93005; 93010; J2704

== ENCOUNTER 2018-05-14 13:21 | Emergency (ER) | payer OTHER ==
[~2018-05-14 13:21] MED LIST: Iopamidol 370 76% 50 ML VIAL FS ONE
[2018-05-14 13:55] LABS: #Basophils 0.1 thou/uL (0.0-0.2); #Eosinphils 0.2 thou/uL (0.0-0.7); #Lymphocytes 1.8 thou/uL (1.20-3.40); #Monocytes 0.9 thou/uL (0.11-0.59); #Neutrophils 11.4 thou/uL (1.40-6.50); %Basophils 0.4 % (0.0-1.0); %Eosinophils 1.3 % (0.0-10.0); %Lymphocytes 12.5 % (21.0-51.0); %Monocytes 6.2 % (0.0-10.0); %Neutrophils 79.5 % (42.0-75.0); Hemoglobin 14.9 g/dL (14.0-18.0); Mean Corpuscular HGB CONC 32.3 g/dL (32.0-36.0); Mean Corpuscular Hemoglobin 26.9 pg (27.0-31.0); Mean Corpuscular Volume 83.5 fL (78.0-98.0); Mean Platelet Volume 8.2 fL (7.4-10.4); Platelet Count 278 thou/uL (130-400); RBC Distribution Width 18.7 % (11.5-14.5); Red Blood Cell (RBC) Count 5.53 mill/uL (4.70-6.10); White Blood Cell (WBC) Count 14.3 thou/uL (4.8-10.8)
[2018-05-14 14:01] LABS: INR-International Normal Ratio 1.2; PTT 33.7 SEC (22.9-36.1); Prothrombin Time 15.4 SEC (12.0-14.7)
[2018-05-14 14:15] LABS: ALT (SGPT) 14 U/L (8-55); AST (SGOT) 20 U/L (5-34); Albumin 3.8 g/dL (3.4-4.8); Alkaline Phosphatase 75 U/L (40-150); Anion Gap 15 mmol/L (10-20); BUN (Urea Nitrogen) 18 mg/dL (8.4-25.7); Bilirubin, Total 0.8 mg/dL (0.2-1.2); Calc. Creatinine Clearance 0 mL/min (70-130); Calcium 9.8 mg/dL (7.8-10.44); Carbon Dioxide 23 mmol/L (23-31); Chloride 100 mmol/L (98-107); Estimated GFR-MDRD 82; Globulin 4.4 g/dL (2.4-3.5); Glucose 132 mg/dL (80-115); Potassium 4.9 mmol/L (3.5-5.1); Protein, Total 8.2 g/dL (5.8-8.1); Sodium 133 mmol/L (136-145)
--- NOTE | 2018-05-14 14:16 | RAD ---
LEFT ELBOW FOUR VIEWS: History: Pain. Fall. Comparison: None. FINDINGS: The lateral radiograph is poorly positioned. There appears to be dorsal soft tissue edema of the elbo w. There are chronic enthesopathic changes of the common extensor tendon. Moderate degenerative olsen e in the medial compartment with osteophyte formation. There is also enthesopathic changes of the com mon flexor tendon. IMPRESSION: Chronic findings. No acute displaced fracture. POS: [facility]
--- NOTE | 2018-05-14 14:20 | RAD ---
THREE VIEWS LEFT KNEE: Date: 05-14-18 History: Trauma. Patient tripped and fell. Injury. FINDINGS: There is increased density seen within the region of the proximal tibial metadiaphysis. This is likel y secondary to prominence of the anterior tibial tuberosity. There is no evidence of a fracture or di slocation. Superior enthesophyte is noted. There is no joint space narrowing appreciated. No evidence of a joint effusion. IMPRESSION: 1. No acute osseous abnormality left knee. POS: [facility]
[2018-05-14] MEDS ORDERED: Fentanyl 100 MCG/2 ML VIAL ONE (15:42)
[2018-05-14] MEDS ORDERED: Ondansetron PF 4 MG/2 ML Vial ONE (15:42)
[2018-05-14] MEDS ORDERED: Adacel (T-DAP) 0.5 ML SYRINGE ONE (15:43)
--- NOTE | 2018-05-14 16:46 | CT ---
CT BRAIN WITHOUT CONTRAST: 05/14/18 HISTORY: Trauma. Hematoma. COMPARISON: None. FINDINGS: There is a large left forehead soft tissue contusion/hematoma as well as some subcutaneous emphysema. Left periorbital soft tissue contusion and emphysema is also present. The underlying calvarium is intact. No acute hemorrhage or infarct. No midline shift or mass effect. Old left lacunar infarct. IMPRESSION: Large left periorbital and forehead soft tissue contusion, laceration and hematoma. No acute posttrau matic intracranial sequela. The underlying calvarium is intact. POS: [facility]
--- NOTE | 2018-05-14 16:50 | CT ---
CT CERVICAL SPINE WITHOUT CONTRAST: 05/14/18 HISTORY: Trauma. Fall. COMPARISON: None. FINDINGS: The odontoid process is intact. The occipital condyles are intact. There are flowing anterior osteophytes of the cervical spine. 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 Lung apices are clear. The thyroid is enlarged with multiple calcifications. There is motion artifact through the T1 vertebral given the appearance of a fracture although this is not felt to be real. Severe facet arthrosis throughout the cervical spine. IMPRESSION: 1. Severe degenerative changes at the cervical spine without acute fracture or malalignment. Flavia ear lucency of the T1 vertebra likely artifactual due to motion. 2. Enlarged heterogeneous thyroid containing calcifications. Nonemergent followup ultrasound rec ommended. POS: [facility]
--- NOTE | 2018-05-14 16:53 | CT ---
CT CHEST WITH CONTRAST CT ABDOMEN WITH CONTRAST CT PELVIS WITH CONTRAST: HISTORY: Trauma. Fall. COMPARISON: CT abdomen and pelvis from 04/07/2018. FINDINGS: There are a few perifissure nodules, lymph nodes, along the minor fissure. No pneumothorax. Chronic -appearing left small effusion. Bridging anterior osteophytes throughout the thoracic spine. No acute fracture of the thoracic spine is appreciated. There are bridging anterior and posterior osteophytes at L2-3 with end plate sclero sis that may be sequelae of a prior injury. Severe degenerative disease of the intraspinous spaces of the lumbar spine. Clavicles are intact. Moderate degenerative change of both glenohumeral joints. There appear to be some old fractures of the right anterior 8th and 9th costochondral junctions. Lumbar spine transvers e processes are without fracture. Adrenal glands are unremarkable. The liver is enlarged. Multiple hypodensities are present of the kidneys. Nonobstructing renal calculi. Left interpolar renal hypodensity not definitely a cyst measuring greater than fluid attenuation. No hydronephrosis. No mesenteric contusion or hematoma. Aortoiliac contour is nonaneurysmal. No splenic, liver, or retroperitoneal injury. The aortoiliac contour is nonaneurysmal. IMPRESSION: 1. No definite traumatic acute abnormality in the chest, abdomen, or pelvis. 2. Severe degenerative changes of the lumbar spine. 3. Left renal hypodensity was interrogated on the CT of 04/07/2018 and was determined to be a cyst. 4. Enlarged heterogeneous thyroid-containing calcifications. Nonemergent ultrasound recommended. POS: [facility]
== END 2018-05-14 16:35 | disposition home or self-care (01) ==
LOC: ERS 13:21
DX: S00.12XA Contusion of left eyelid and periocular area, initial encounter (principal); S16.1XXA Strain of muscle, fascia and tendon at neck level, initial encounter; E04.1 Nontoxic single thyroid nodule; I48.91 Unspecified atrial fibrillation; E11.9 Type 2 diabetes mellitus without complications; E78.5 Hyperlipidemia, unspecified; I10 Essential (primary) hypertension; J44.9 Chronic obstructive pulmonary disease, unspecified; E66.9 Obesity, unspecified; F41.9 Anxiety disorder, unspecified; F32.9 Major depressive disorder, single episode, unspecified; Z79.899 Other long term (current) drug therapy; W01.198A Fall on same level from slipping, tripping and stumbling with subsequent striking against other object, initial encounter
CPT/HCPCS: 36415; 70450; 71260; 72125; 74177; 80053; 85025; 85610; 85730; 90471; 90715; 96374; 96375; J2405; J3010

== ENCOUNTER 2018-07-18 11:46 | Day surgery (SDC) | payer OTHER ==
[2018-07-18] MEDS ORDERED: Sodium Bicarbonate 2.5 MEQ/5 ML VIAL ONE (13:17)
[2018-07-18] MEDS ORDERED: Lidocaine 1% PF 5 ML VIAL ONE (13:17)
[2018-07-18 14:45] VITALS: BMI 37.9
[2018-07-18 14:52] VITALS: BP 128/54; TEMP 98.2
--- NOTE | 2018-07-18 15:24 | ULT ---
ULTRASOUND GUIDED RIGHT THYROID LOBE FNA: INDICATIONS: Dominant right thyroid nodule. TECHNIQUE: Informed consent was obtained, and the patient was escorted to the procedural suite and placed in the supine position. The right neck was then prepped and draped in a standard sterile fashion, and ultr asound imaging was used to localize the nodule of interest within the right thyroid lobe. Topical an esthesia was achieved with buffered 1% Lidocaine and, subsequently, four separate FNA sampling proced ures were performed under real-time sonography, with imaging stored for documentation. The specimens were provided to the product support representative of the pathology department and were deemed adequate for interpr etation. All devices were removed from the patient. The patient tolerated the procedure well and wa s discharged in stable condition. IMPRESSION: Technically successful ultrasound guided right thyroid nodule fine needle aspiration. Pathology resu lts are pending. POS: [facility]
== END 2018-07-18 14:30 | disposition home or self-care (01) ==
LOC: ULT 11:46
PROVIDERS: ATTEND Physician Assistant
PROC: 0G9H3ZX Drainage of Right Thyroid Gland Lobe, Percutaneous Approach, Diagnostic (ICD-10-PCS; principal; 2018-07-18)
DX: E04.1 Nontoxic single thyroid nodule (principal); I50.9 Heart failure, unspecified; H90.5 Unspecified sensorineural hearing loss; H93.13 Tinnitus, bilateral; H93.8X3 Other specified disorders of ear, bilateral; E11.9 Type 2 diabetes mellitus without complications; J44.9 Chronic obstructive pulmonary disease, unspecified; I48.91 Unspecified atrial fibrillation; E78.5 Hyperlipidemia, unspecified; F41.8 Other specified anxiety disorders; Z79.01 Long term (current) use of anticoagulants; Z79.84 Long term (current) use of oral hypoglycemic drugs; Z79.899 Other long term (current) drug therapy; Z88.5 Allergy status to narcotic agent; Z88.8 Allergy status to other drugs, medicaments and biological substances; Z95.810 Presence of automatic (implantable) cardiac defibrillator
CPT/HCPCS: 60100; 76942; 88173; J2001

== ENCOUNTER 2018-09-23 14:36 | Observation (INO) | payer MEDICARE, OTHER ==
--- NOTE | 2018-09-23 15:39 | RAD ---
PORTABLE CHEST 1 VIEW: DATE: 09/23/2018. TIME: 3:22 p.m. HISTORY: Dyspnea. FINDINGS/IMPRESSION: Comparison is made with the exam of 04/06/2018. The heart is enlarged but stable. The aorta is tortuous. Left-sided AICD remains in place. The milena gs are well expanded without lobar consolidation, pneumothoraces, bang pulmonary edema, or large eff usions. POS: [facility]
[2018-09-23 15:48] LABS: #Eosinphils 0.1 thou/uL (0.0-0.7); #Lymphocytes 0.8 thou/uL (1.20-3.40); #Monocytes 0.5 thou/uL (0.11-0.59); #Neutrophils 3.4 thou/uL (1.40-6.50); %Basophils 0.5 % (0.0-1.0); %Eosinophils 2.2 % (0.0-10.0); %Lymphocytes 15.7 % (21.0-51.0); %Monocytes 11.3 % (0.0-10.0); %Neutrophils 70.3 % (42.0-75.0); Hemoglobin 6.4 g/dL (14.0-18.0); Mean Corpuscular HGB CONC 31.3 g/dL (32.0-36.0); Mean Corpuscular Hemoglobin 27.7 pg (27.0-31.0); Mean Corpuscular Volume 88.5 fL (78.0-98.0); Mean Platelet Volume 7.3 fL (7.4-10.4); Platelet Count 119 thou/uL (130-400); White Blood Cell (WBC) Count 4.8 thou/uL (4.8-10.8)
[2018-09-23 16:05] LABS: Anisocytosis SLIGHT = 6-15 cells (100X) (0-5/hpf); MDiff Complete? YES; Ovalocytes SLIGHT = 2-5 cells (100X) (0-1/hpf); Platelet Morphology Comment Appears Decreased; Polychromasia SLIGHT = 2-3 cells (100X) (0-2/hpf)
[2018-09-23 16:16] LABS: Calc. Creatinine Clearance 0 mL/min (70-130)
[2018-09-23 16:57] LABS: INR-International Normal Ratio 2.8; PTT 41.5 SEC (22.9-36.1); Prothrombin Time 29.3 SEC (12.0-14.7)
[2018-09-23 17:05] LABS: #Basophils 0.1 thou/uL (0.0-0.2); #Eosinphils 0.2 thou/uL (0.0-0.7); #Lymphocytes 1.8 thou/uL (1.20-3.40); #Monocytes 1.2 thou/uL (0.11-0.59); #Neutrophils 7.4 thou/uL (1.40-6.50); %Basophils 0.7 % (0.0-1.0); %Lymphocytes 17.2 % (21.0-51.0); %Monocytes 11.3 % (0.0-10.0); %Neutrophils 68.8 % (42.0-75.0); Hemoglobin 13.2 g/dL (14.0-18.0); Mean Corpuscular HGB CONC 31.4 g/dL (32.0-36.0); Mean Corpuscular Hemoglobin 27.5 pg (27.0-31.0); Mean Corpuscular Volume 87.8 fL (78.0-98.0); Mean Platelet Volume 7.9 fL (7.4-10.4); Platelet Count 238 thou/uL (130-400); RBC Distribution Width 16.6 % (11.5-14.5); White Blood Cell (WBC) Count 10.7 thou/uL (4.8-10.8)
[2018-09-23 17:30] LABS: Chloride 100 mmol/L (98-107); Potassium 4.7 mmol/L (3.5-5.1); Sodium 135 mmol/L (136-145)
[2018-09-23 17:31] LABS: Anion Gap 15 mmol/L (10-20); BUN (Urea Nitrogen) 20 mg/dL (8.4-25.7); Carbon Dioxide 25 mmol/L (23-31)
[2018-09-23 17:32] LABS: Estimated GFR-MDRD 86
[2018-09-23 17:33] LABS: Calcium 8.9 mg/dL (7.8-10.44); Glucose 87 mg/dL (80-115)
[2018-09-23 17:34] LABS: Bilirubin, Total 1.2 mg/dL (0.2-1.2); Protein, Total 7.1 g/dL (5.8-8.1)
[2018-09-23 17:36] LABS: Albumin 3.7 g/dL (3.4-4.8); Globulin 3.4 g/dL (2.4-3.5)
[2018-09-23 17:37] LABS: Alkaline Phosphatase 69 U/L (40-150)
[2018-09-23 17:38] LABS: AST (SGOT) 12 U/L (5-34)
[2018-09-23 17:39] LABS: ALT (SGPT) 12 U/L (8-55)
[2018-09-23 17:43] LABS: Bilirubin Negative (Negative); Blood, Urine Negative (Negative); Clarity CLEAR (Clear); Glucose, Urine (Dipstick) Negative (Negative); Leukocyte Moderate (Negative); Nitrite Negative (Negative); Protein, Urine (Dipstick) Negative (Neg-Trace); Specific Gravity, Urine 1.014 (1.002-1.036)
[2018-09-23 17:48] LABS: Bacteria/HPF None Seen HPF (None Seen); Hyaline Casts/LPF 0-3 HYALINE CAST LPF (0-3 Hyaline); RBC/HPF 0-3 HPF (0-3); Squamous Epithelial 0-3 HPF (0-3)
[2018-09-23] MEDS ORDERED: Ondansetron PF 4 MG/2 ML Vial IVP PRN (18:40)
[2018-09-23] MEDS ORDERED: Acetaminophen 325 MG TAB PO PRN (18:40)
[2018-09-23] MEDS ORDERED: Ondansetron ODT 4 MG TAB SL PRN (18:40)
[2018-09-23 19:09] VITALS: BMI 41.4
[2018-09-23] MEDS ORDERED: Senokot S 8.6-50 MG TAB PO PRN (19:09)
[2018-09-23] MEDS ORDERED: Loratadine 10 MG TAB PO PRN (19:29)
[2018-09-23] MEDS ORDERED: Zolpidem Tartrate 5 MG TAB PO PRN (19:29)
[2018-09-23] MEDS ORDERED: Furosemide 40 MG/4 ML VIAL SLOW IVP SCH (19:45)
[2018-09-23] MEDS: Famotidine 20 MG TAB PO SCH (20:14)
[2018-09-23] MEDS: Gabapentin 300 MG CAP PO SCH (20:14)
[2018-09-23] MEDS: Fluticasone Propionate Nasal Spray 16 gm Bottle NASAL SCH (20:14)
[2018-09-23 20:15] LABS: Digoxin 0.74 ng/mL (0.8-2.0)
[2018-09-23 20:26] LABS: Troponin I 0.013 ng/mL (< 0.028)
[2018-09-23 23:25] LABS: Troponin I 0.021 ng/mL (< 0.028)
[2018-09-24] MEDS ORDERED: Dextrose 5% in Water 1,000 ML IV PRN (00:49)
[2018-09-24] MEDS ORDERED: Dextrose 50% Abboject 50 ML SYRINGE SLOW IVP PRN (00:49)
[2018-09-24] MEDS ORDERED: HumaLOG 300 UNITS/3 ML VIAL SC PRN (00:49)
--- NOTE | 2018-09-24 01:35 | HP ---
PRIMARY CARE PHYSICIAN: CHIEF COMPLAINT: Lower leg edema, increasing dyspnea on exertion. HISTORY OF PRESENT ILLNESS: Mr. Gamez is a 63-year-old man who reports to the emergency room today via EMS for three days of lower leg swelling, worsening shortness of breath with exertion and increased fatigue. Reports he has had similar symptoms in the past. Reports a history of PND. He did have some vomiting last week, which has resolved. Denies any fever or chills. Denies any medication changes. States that he takes his Lasix twice a day, but has not had it today. First dose, he reports that he urinated frequently; but the second pill, he reports much less urinary output. He does report increased fatigue, dyspnea, and exercise intolerance. When he was seen by EMS and initially picked him up, he was given 250 mL of fluid for some hypotension. Currently, his blood pressure was 97/53, which he reports is normal range for him with all the medications that he is on. PAST MEDICAL HISTORY: He does have a past medical history, which is pertinent for arrhythmias, atrial fibrillation, diabetes type 2, history of kidney stones, hyperlipidemia, high cholesterol, hypertension, chronic back pain, has had a history of osteomyelitis, obesity, COPD, has had a pulmonary emboli in the past. Does have a history of congestive heart failure with an EF of 10% to 15%. PAST SURGICAL HISTORY: He has had a pacemaker defibrillator placed. He has had an appendectomy and cholecystectomy. He did have a stent placed for a kidney stone. PSYCHIATRIC HISTORY: Anxiety and depression. SOCIAL HISTORY: He denies any alcohol use or drug use. He has no smoking history. KNOWN ALLERGIES: Celebrex, Dilaudid, Flexeril, latex, gloves, morphine, Multaq, and Procardia. HOME MEDICATIONS: 1. Tylenol 500 mg p.o. q.6 hours as needed. 2. Calcium 2 tabs p.o. daily. 3. Digoxin 250 mcg p.o. q.a.m. 4. Diltiazem 240 mg ER one tablet p.o. q.a.m. 5. Flonase 1 spray each naris daily. 6. Neurontin 600 mg p.o. at bedtime. 7. Glipizide 1 tab 5 mg p.o. q.a.m. 8. Allergy eye drops one drop q.i.d. as needed. 9. Claritin 10 mg p.o. daily. 10. Xarelto 20 mg p.o. daily. 11. Sertraline 50 mg p.o. at bedtime. 12. Aldactone 25 mg p.o. q.a.m. 13. Ambien 10 mg p.o. at bedtime p.r.n. 14. Lasix 40 mg p.o. b.i.d. REVIEW OF SYSTEMS: Increased fatigue, generalized weakness, dyspnea on exertion, lower leg edema, exercise intolerance, paroxysmal nocturnal dyspnea, cough, and shortness of breath. Does report a history of anxiety and depression. Other systems were reviewed and are negative unless mentioned in the HPI. PHYSICAL EXAMINATION: VITAL SIGNS: Blood pressure is 93/55, pulse is 60, respirations are 19, temp is 98.6. Pain is 0, pO2 sats 94% on 2 L. CONSTITUTIONAL: The patient is in no acute distress, nontoxic, appears pain free. HEENT: Head is atraumatic and normocephalic. Eyes; eyelids are normal to inspection. Pupils are equally round and reactive to light. ENT, mouth exam is normal. Mucous membranes are moist. NECK: Trachea is midline. Normal range of motion. RESPIRATORY: Chest movement is symmetrical. Breath sounds are clear. CARDIOVASCULAR: Normal heart sounds, S1, S2. Cap refill is 4 seconds. ABDOMEN: Nontender. There is some splenomegaly present. Distention present. Ascites present. Bowel sounds are heard. BACK: Normal range of motion. No tenderness. EXTREMITIES: Upper extremity, normal inspection, normal range of motion. Radial pulses are equal. Lower extremity, normal range of motion, normal inspection. 2+ edema bilaterally. Pedal pulses equal bilaterally. SKIN: Normal, dry. color. Areas of hyper and hypopigmentation is noted. PSYCHIATRIC: Normal affect. IMAGING: EKG in the ER shows beats per minute 60, normal sinus rhythm, conduction with an incomplete left bundle-branch block, axis is left. Does have an electronic atrial pacemaker. PERTINENT LABORATORY DATA: Digoxin 0.74. White blood cell count is 10.7, hemoglobin is 13.2, hematocrit is 42.2, and platelet count is 238. PT is 29.3, INR is 2.8, and APTT is 41.5. Sodium is 135, potassium is 4.7, chloride is 100, carbon dioxide is 25, gap is 15, BUN is 20, creatinine is 0.89, estimated GFR is 86, lactic acid is 1.4, and calcium 8.9. Liver enzymes are unremarkable. BNP is 287. Urines with urobilinogen 2.0, moderate leukocyte esterase, squamous negative, white blood cell count of 11 to 20. ASSESSMENT AND PLAN: 1. Fluid overload in the context of last echocardiogram, which showed an ejection fraction of 15% to 20%. The patient does have a pacemaker defibrillator. We will gently diurese. We will ask Cardiology for their input. The patient states that he sees Dr. Odell as an outpatient. We will continue home medications. 2. Chronic anticoagulation. We will continue Xarelto. 3. Diabetes. We will check glucose a.c. and at bedtime, order a sliding scale as needed and we will restart home medications. 4. Gastrointestinal prophylaxis will be started. Deep venous thrombosis prophylaxis is not needed based on the patient being on Xarelto. 5. It is worth noting that initially when ER collected lab values, hemoglobin was initially thought to be low, below 7, but it was rechecked within the hour and hemoglobin was within normal limits. We will recheck this in the morning. 6. Hospital course will depend on clinical findings. Job ID: [id number]
[2018-09-24 05:33] LABS: #Basophils 0.1 thou/uL (0.0-0.2); #Eosinphils 0.3 thou/uL (0.0-0.7); #Lymphocytes 1.7 thou/uL (1.20-3.40); #Neutrophils 6.3 thou/uL (1.40-6.50); %Basophils 0.6 % (0.0-1.0); %Eosinophils 2.7 % (0.0-10.0); %Lymphocytes 17.9 % (21.0-51.0); %Monocytes 10.5 % (0.0-10.0); %Neutrophils 68.3 % (42.0-75.0); Hemoglobin 12.8 g/dL (14.0-18.0); Mean Corpuscular HGB CONC 31.9 g/dL (32.0-36.0); Mean Corpuscular Hemoglobin 27.7 pg (27.0-31.0); Mean Platelet Volume 7.5 fL (7.4-10.4); Platelet Count 222 thou/uL (130-400); RBC Distribution Width 16.5 % (11.5-14.5); Red Blood Cell (RBC) Count 4.61 mill/uL (4.70-6.10); White Blood Cell (WBC) Count 9.2 thou/uL (4.8-10.8)
[2018-09-24] MEDS: Furosemide 40 MG/4 ML VIAL SLOW IVP SCH ×2 (05:49→15:00)
[2018-09-24 06:04] LABS: ALT (SGPT) 10 U/L (8-55); AST (SGOT) 11 U/L (5-34); Albumin 3.5 g/dL (3.4-4.8); Alkaline Phosphatase 64 U/L (40-150); Anion Gap 14 mmol/L (10-20); BUN (Urea Nitrogen) 20 mg/dL (8.4-25.7); Bilirubin, Total 0.9 mg/dL (0.2-1.2); Calc. Creatinine Clearance 155 mL/min (70-130); Calcium 8.9 mg/dL (7.8-10.44); Carbon Dioxide 23 mmol/L (23-31); Chloride 99 mmol/L (98-107); Estimated GFR-MDRD 87; Globulin 3.5 g/dL (2.4-3.5); Glucose 108 mg/dL (80-115); Sodium 132 mmol/L (136-145)
[2018-09-24] MEDS: Famotidine 20 MG TAB PO SCH ×2 (08:39→20:01)
[2018-09-24] MEDS: Rivaroxaban 10 MG TAB PO SCH (08:39)
[2018-09-24] MEDS: Spironolactone 25 MG TAB PO SCH (08:40)
[2018-09-24] MEDS: Digoxin 0.25 MG TAB PO SCH (08:40)
[2018-09-24 10:11] LABS: Hemoglobin 13.1 g/dL (14.0-18.0); Platelet Count 235 thou/uL (130-400)
[2018-09-24] MEDS: Fluticasone Propionate Nasal Spray 16 gm Bottle NASAL SCH ×2 (13:00→20:02)
--- NOTE | 2018-09-24 18:38 | CON ---
DATE OF CONSULTATION: 09/24/2018 REASON FOR CONSULTATION: Heart failure. HISTORY OF PRESENT ILLNESS: Mr. Gamez is a pleasant 63-year-old white gentleman, who comes to the hospital for shortness of breath and lower extremity swelling. He is very well known to myself. I saw him first in the office recently for establishment of care. He has a history of nonischemic cardiomyopathy, EF at 10% to 15%. He states that 3 days ago he had something to eat from the assisted living facility where he lives at and this was not good, had something in it that made him throw up for a whole day. Since then, he has been slowly getting more short winded and increased lower extremity edema despite the amount of Lasix he was using. Finally, today he decided to come in as his shortness of breath was much worse. He received 1 dose of IV Lasix and has noticed mild improvement. PAST MEDICAL HISTORY: 1. History of atrial fibrillation. 2. Type 2 diabetes. 3. Kidney stones. 4. Hyperlipidemia. 5. Hypertension. 6. Chronic back pain. 7. Osteomyelitis in the past. 8. Obesity. 9. COPD. 10. Pulmonary emboli in the past. 11. Nonischemic cardiomyopathy, EF at 10% to 15%. PAST SURGICAL HISTORY: 1. AICD in place. 2. Appendectomy. 3. Cholecystectomy. 4. Kidney stone, stent in his urethra. SOCIAL HISTORY: No alcohol, tobacco, or drugs. OUTPATIENT MEDICATIONS: Include: 1. Tylenol 500 mg p.r.n. 2. Calcium. 3. Digoxin 250 mcg a day. 4. Diltiazem 240 mg ER daily. 5. Flonase p.r.n. 6. Neurontin 600 mg at bedtime. 7. Glipizide. 8. Allergy eye drops. 9. Claritin. 10. Xarelto 10 mg daily. 11. Sertraline. 12. Aldactone 25 mg at bedtime. 13. Ambien 10 mg at bedtime. 14. Lasix 40 mg p.o. b.i.d. ALLERGIES: 1. CELEBREX. 2. DILAUDID. 3. FLEXERIL. 4. LATEX. 5. MORPHINE. 6. MULTAQ. 7. PROCARDIA. REVIEW OF SYSTEMS: A 12-point review of systems was done and was all negative unless stated in the history of present illness. PHYSICAL EXAMINATION: VITAL SIGNS: Temperature 98.5, pulse 74, respiratory rate 12, saturating 97% on room air, blood pressure . GENERAL: Awake, alert, and oriented x3, in no distress. HEENT: Normocephalic, atraumatic. NECK: Supple. LUNGS: Clear. CARDIOVASCULAR: S1 and S2. No S3 or S4. No murmurs. ABDOMEN: Soft. Positive bowel sounds. EXTREMITIES: 2+ edema. SKIN: Warm and dry. LABORATORY DATA: Laboratory work was reviewed. CBC with a white count of 9, hemoglobin of 12.8, hematocrit 40, platelet count of 222. Coags, INR of 2.8. Chemistries were unremarkable except for sodium of 132. BUN and creatinine were normal. Troponin was negative x1. BNP was 287. UA was unremarkable. Toxicology, digoxin level was low. Blood cultures were negative x2. Urine culture is negative so far. ASSESSMENT AND PLAN: 1. Acute on chronic systolic heart failure. 2. Food poisoning recently. 3. Dilated nonischemic cardiomyopathy, chronic. 4. Atrial fibrillation. 5. Chronic anticoagulation with Xarelto. PLAN: 1. We will give one more dose of IV Lasix today and then again tomorrow morning. Hopefully, if he looks better, he will be able to go home tomorrow. 2. Continue other medications for now. 3. When he was discharged, we will add a p.r.n. dose of Lasix as needed for swelling or for increased weight gain of 3 pounds in 1 or 2 days. Thank you for letting us to participate in the care of your patient. We will follow. Job ID: [id number]
--- NOTE | 2018-09-24 19:39 | PRG ---
DATE OF SERVICE: 09/24/2018 SUBJECTIVE: Mr. Gamez is a pleasant 63-year-old male with past medical history significant for severe dilated cardiomyopathy with last EF estimated at 10% to 15%, paroxysmal atrial fibrillation, and prior PE, who presented to the hospital with complaints of worsening shortness of breath and lower extremity edema. The patient has been admitted with acute systolic CHF exacerbation. He continues to report dyspnea on exertion that is not back to his baseline. He denies any chest pain. He denies any nausea or vomiting. OBJECTIVE: VITAL SIGNS: Blood pressure 116/63, pulse 74, O2 saturation is 97% on room air. The patient is afebrile. GENERAL: This is a moderately obese male, sitting up in bed, in no acute distress. HEENT: Head is atraumatic and normocephalic. Mucous membranes are moist. NECK: No obvious JVD. Trachea is midline. No carotid bruits. CV: S1 and S2. Regular rate and rhythm. No appreciable murmurs, rubs, or gallops. LUNGS: Regular respiratory rate and pattern, overall clear. ABDOMEN: Positive bowel sounds. Obese, nontender. EXTREMITIES: +2 edema bilaterally. NEUROLOGIC: Cranial nerves 2 through 12 grossly intact. The patient is nonfocal. LABORATORY DATA: Hemoglobin 13.1, hematocrit 41, white blood cell count 9.2. Sodium 132, potassium 4.0, chloride 99, BUN 20, creatinine 0.88, glucose 126. AST, ALT, and alkaline phosphatase all within normal limits. Troponin 0.013 and 0.021. ASSESSMENT: 1. Shortness of breath and edema secondary to acute systolic congestive heart failure exacerbation, still symptomatic. 2. Dilated cardiomyopathy with ejection fraction of 10% to 15%, status post [facility] ICD. 3. History of pulmonary embolism. 4. History of paroxysmal atrial fibrillation. 5. Type 2 diabetes mellitus. PLAN: At this time, we will continue IV diuresis. I have counseled the patient heavily on the importance of sodium and fluid restriction as well as daily weights. Dr. Odell, his primary engineering technical writer, has been consulted as well and appreciate very much all recommendations. If he continues to improve, we will hopefully discharge the patient in the next 24 hours. We will continue his Xarelto and other cardiac medications. Further recommendations based on hospital course. Job ID: [id number]
[2018-09-24] MEDS: Gabapentin 300 MG CAP PO SCH (20:01)
[2018-09-24] MEDS ORDERED: Acetaminophen 325 MG TAB PO PRN (20:52)
[2018-09-25 06:01] LABS: ALT (SGPT) 9 U/L (8-55); AST (SGOT) 12 U/L (5-34); Albumin 3.7 g/dL (3.4-4.8); Alkaline Phosphatase 65 U/L (40-150); Anion Gap 12 mmol/L (10-20); BUN (Urea Nitrogen) 22 mg/dL (8.4-25.7); Calc. Creatinine Clearance 160 mL/min (70-130); Calcium 9.3 mg/dL (7.8-10.44); Carbon Dioxide 26 mmol/L (23-31); Chloride 100 mmol/L (98-107); Estimated GFR-MDRD Greater than 90; Globulin 3.7 g/dL (2.4-3.5); Glucose 86 mg/dL (80-115); Potassium 3.7 mmol/L (3.5-5.1); Protein, Total 7.4 g/dL (5.8-8.1); Sodium 134 mmol/L (136-145)
[2018-09-25] MEDS: Furosemide 40 MG/4 ML VIAL SLOW IVP SCH ×2 (06:34→16:12)
[2018-09-25] MEDS: Digoxin 0.25 MG TAB PO SCH (07:59)
[2018-09-25] MEDS: Famotidine 20 MG TAB PO SCH ×2 (07:59→20:49)
[2018-09-25] MEDS: Rivaroxaban 10 MG TAB PO SCH (07:59)
[2018-09-25] MEDS: Spironolactone 25 MG TAB PO SCH (08:00)
[2018-09-25] MEDS: Fluticasone Propionate Nasal Spray 16 gm Bottle NASAL SCH ×2 (08:00→20:51)
--- NOTE | 2018-09-25 17:51 | PDOC.CTH ---
Cardiology Progress Note - Subjective He is doing better. - Objective Vital Signs Temp Pulse Resp BP BP Pulse Ox 09/25/18 15:51 97.8 F 60 12 113/59 L 95 09/25/18 11:27 98.4 F 60 18 97/46 L 94 L 09/25/18 07:59 74 09/25/18 07:11 98.1 F 71 16 112/55 L 94 L 09/25/18 06:40 107/51 L 09/25/18 06:05 78 99/49 L Weight 284 lb 11.2 oz 09/24/18 09/25/18 09/26/18 06:59 06:59 06:59 Intake Total 1800 1200 Output Total 600 1550 1600 Balance -600 250 -400 - Physical Examination General/Neuro: alert & oriented x3, NAD Neck: no JVD present Lungs: unlabored respirations Heart: RRR Abdomen: NT/ND Extremities: + edema B (2+) - Telemetry Telemetry Rhythm: NSR - Labs Result Diagrams: 09/24/18 10:02 09/25/18 04:36 Troponin/CKMB Troponin I 0.021 ng/mL (< 0.028) 09/23/18 22:43 - Assessment/Plan 1. Acute on chronic systolic heart failure. 2. Non ischemic CM. 3. Dilated CM EF at 10-15% PLAN: - May d/c home tomorrow after AM dose of IV lasix. - Switch then to home dose of PO lasix. - Will need to add a PRN dose of lasix 40 mg as needed for swelling or 3 pound weight gain on discharge paperwork. - Will sign off. please call with any questions. - Will see in office in 2 months.
[2018-09-25] MEDS ORDERED: cefTRIAXone\\ROCEPHIN 1 GM in Sodium Chloride 0.9% 100 ML IVPB SCH (18:00)
--- NOTE | 2018-09-25 19:08 | PRG ---
DATE OF SERVICE: 09/25/2018 SUBJECTIVE: Mr. Gamez is a 63-year-old male with past medical history significant for severely dilated left cardiomyopathy with EF 10% to 15%, paroxysmal atrial fibrillation, and prior PE, who presented to the hospital with complaints of worsening shortness of breath and lower extremity swelling. The patient has been admitted with acute CHF exacerbation. He continues to complain of dyspnea with exertion, which is not back to his baseline. He also complains of some diffuse abdominal pain, however, has not had any diarrhea or dysuria. His appetite remains good. He denies any chest pain. He denies any palpitations. OBJECTIVE: VITAL SIGNS: Blood pressure 113/59, pulse 60, O2 saturation is 95% on room air, and temperature is 97.8. GENERAL: The patient is a moderately obese, male, sitting up in a chair, in no acute distress. HEENT: Head is atraumatic and normocephalic. NECK: Trachea is midline. Neck is supple with no lymphadenopathy, no JVD noted. CV: S1 and S2. Regular rate and rhythm. No appreciable murmurs, rubs, or gallops. LUNGS: Regular respiratory rate and pattern, overall clear to auscultation bilaterally, I can appreciate no crackles at this time. ABDOMEN: Positive bowel sounds. Soft. No obvious tenderness noted. No masses. EXTREMITIES: +2 to 3 pitting edema bilaterally. NEUROLOGIC: Cranial nerves 2 through 12 are intact. No focal deficits noted. LABORATORY DATA: Sodium 134, potassium 3.7, BUN 22, creatinine 0.84. AST, ALT, and alkaline phosphatase ASSESSMENT: 1. Acute systolic congestive heart failure exacerbation, slowly improving. 2. Dilated cardiomyopathy with ejection fraction of 10% to 15%, status post [employer] ICD. 3. Urine culture positive for Corynebacterium urinary tract infection, sensitivities have been sent to [facility]. 4. History of PE. 5. History of paroxysmal atrial fibrillation. 6. Type 2 diabetes mellitus. PLAN: At this time, we will continue IV diuresis for another day. I have counseled the patient on the importance of weight maintenance, sodium and fluid restriction. Dr. Odell recommends one more dose of IV Lasix prior to discharge. We will start empiric antibiotic coverage for the patient's UTI with Rocephin, and await sensitivities. Continue beta prasanth and other cardiac regimen. The patient may benefit from afterload reduction with either lisinopril or Entresto if Cardiology deems appropriate. The patient states that he may have been on lisinopril in the past. The care of this patient has been discussed with Dr. Shook, who agrees with the above. Job ID: [id number]
[2018-09-25] MEDS: Gabapentin 300 MG CAP PO SCH (20:48)
[2018-09-25] MEDS: Simethicone Chewable 80 MG TAB PO PRN (20:49)
[2018-09-26 05:50] LABS: ALT (SGPT) 11 U/L (8-55); AST (SGOT) 13 U/L (5-34); Albumin 3.8 g/dL (3.4-4.8); Alkaline Phosphatase 66 U/L (40-150); Anion Gap 13 mmol/L (10-20); BUN (Urea Nitrogen) 24 mg/dL (8.4-25.7); Calc. Creatinine Clearance 155 mL/min (70-130); Calcium 9.4 mg/dL (7.8-10.44); Carbon Dioxide 26 mmol/L (23-31); Chloride 99 mmol/L (98-107); Estimated GFR-MDRD 88; Globulin 3.9 g/dL (2.4-3.5); Glucose 84 mg/dL (80-115); Potassium 3.9 mmol/L (3.5-5.1); Protein, Total 7.7 g/dL (5.8-8.1); Sodium 134 mmol/L (136-145)
[2018-09-26] MEDS: Furosemide 40 MG/4 ML VIAL SLOW IVP SCH ×2 (06:05→14:45)
[2018-09-26] MEDS: Simethicone Chewable 80 MG TAB PO PRN (08:34)
[2018-09-26] MEDS: Rivaroxaban 10 MG TAB PO SCH (09:45)
[2018-09-26] MEDS: Digoxin 0.25 MG TAB PO SCH (09:45)
[2018-09-26] MEDS: Famotidine 20 MG TAB PO SCH (09:45)
[2018-09-26] MEDS: Spironolactone 25 MG TAB PO SCH (09:45)
[2018-09-26] MEDS: Fluticasone Propionate Nasal Spray 16 gm Bottle NASAL SCH (09:45)
[2018-09-26 10:53] LABS: Hemoglobin 13.1 g/dL (14.0-18.0); Platelet Count 208 thou/uL (130-400)
--- NOTE | 2018-09-26 13:52 | RAD ---
RADIOGRAPH CHEST 1 VIEW RADIOGRAPH ABDOMEN 2 VIEWS: Date: 09/26/18 Time: 1:07 p.m. HISTORY: 63-year-old male with dyspnea, abdominal pain, and abdominal bloating. TECHNIQUE: Upright chest. Two upright images of abdomen. Patient unable to lie supine for other abdominal image. FINDINGS: Left subclavian AICD. Mild cardiomegaly. Mild pulmonary venous engorgement. No consolidation or bang pulmonary edema. Small right pleural effusion and possible small left pleural effusion. No pneumotho rax or consolidation. No differential air fluid levels. No evidence of gastric or small bowel dilation. IMPRESSION: 1. Nonobstructive bowel gas patter. 2. Cardiomegaly and mild congestive heart failure: pulmonary venous engorgement and small pleura l effusions. JN [] POS: [facility]
[2018-09-26 15:04] LABS: Ref Lab Test Ordered SUSEPTABILITY; Reference Lab Name LABCORP
[2018-09-26 16:02] VITALS: BP 111/55; TEMP 98.6
--- NOTE | 2018-09-27 04:13 | DIS ---
DATE OF ADMISSION: 09/23/2018 DATE OF DISCHARGE: 09/26/2018 CHIEF COMPLAINT: On admission, shortness of breath. DISCHARGE DIAGNOSES: 1. Acute on chronic systolic congestive heart failure exacerbation, resolved. 2. Severe dilated cardiomyopathy, ejection fraction 10% to 15%, status post implantable cardioverter-defibrillator. 3. Abdominal upset, secondary to gas and bloating, resolved with simethicone. 4. Question of urinary tract infection, culture positive for Corynebacterium species, sensitivities pending at the time of discharge. Possible contaminant, but we will go ahead and treat, given presence of leukocyte esterase and white blood cell. BRIEF HOSPITAL COURSE: The patient is a pleasant 63-year-old male, resident of a halfway in [place], with past medical history significant for dilated cardiomyopathy, status post ICD; history of PE; and paroxysmal atrial fibrillation, along with type 2 diabetes mellitus, who presented to the hospital with complaints of worsening shortness of breath and edema. The patient was admitted with acute CHF exacerbation. He did require several days of IV diuresis to get back to his baseline. Dr. Odell of Cardiology did consult. Repeat echocardiogram performed this hospitalization revealed a severely-depressed EF estimated at 10% to 15%. His UA was positive for leukocyte esterase and white blood cells and was cultured. Culture came back positive for Corynebacterium species. The patient was provided empiric antibiotic coverage with Rocephin. The patient did have some episodes of abdominal pain and bloating. Abdominal series showed diffuse gas in the bowel. Simethicone relieved his symptoms. The patient feels very well today. He feels like he is back to his baseline. He has no further abdominal pain. He has ambulated the halls without issue. He states his shortness of breath is much improved. CONDITION AT DISCHARGE: Stable. DISCHARGE DISPOSITION: [facility]. DISCHARGE MEDICATIONS: 1. Digoxin 250 mcg p.o. q.a.m. 2. Diltiazem 240 mg tablet daily. 3. Glipizide 5 mg tab q.a.m. 4. Loratadine 10 mg one tablet daily. 5. Xarelto 20 mg tablet daily. 6. Sertraline 50 mg tablet p.o. at bedtime. 7. Spironolactone 25 mg tablet daily. 8. Cefdinir 300 mg capsule one tablet p.o. q.12 for the next 5 days. 9. He will continue his regular dose of Lasix 40 mg tablet p.o. b.i.d., with an additional tab for increased swelling or weight gain. New medication will be simethicone 80 mg tablet p.o. p.r.n. DISCHARGE INSTRUCTIONS: The patient has been given extensive instructions on obtaining daily weights along with sodium and fluid restriction. He will continue his current medication regimen and follow up with his primary trace clerk, Dr. Odell. He will continue empiric antibiotic coverage for his UTI with Omnicef. The care of this patient has been discussed with Dr. John who agrees with the above. Job ID: [id number]
== END 2018-09-26 17:08 | disposition home or self-care (01) ==
LOC: ERS 14:36 → 2SW 16:49
PROVIDERS: ADMIT Internal Medicine; ATTEND Internal Medicine
DX: I11.0 Hypertensive heart disease with heart failure (principal); I50.22 Chronic systolic (congestive) heart failure; I42.0 Dilated cardiomyopathy; E87.70 Fluid overload, unspecified; R60.0 Localized edema; R06.00 Dyspnea, unspecified; R06.02 Shortness of breath; I48.0 Paroxysmal atrial fibrillation; E11.9 Type 2 diabetes mellitus without complications; E78.5 Hyperlipidemia, unspecified; E78.00 Pure hypercholesterolemia, unspecified; G89.29 Other chronic pain; M54.9 Dorsalgia, unspecified; M86.9 Osteomyelitis, unspecified; J44.9 Chronic obstructive pulmonary disease, unspecified; E66.9 Obesity, unspecified; F41.8 Other specified anxiety disorders; F32.9 Major depressive disorder, single episode, unspecified; Z68.41 Body mass index [BMI] 40.0-44.9, adult; Z79.01 Long term (current) use of anticoagulants; Z79.84 Long term (current) use of oral hypoglycemic drugs; Z79.899 Other long term (current) drug therapy; Z88.5 Allergy status to narcotic agent; Z88.8 Allergy status to other drugs, medicaments and biological substances; Z91.040 Latex allergy status; Z95.0 Presence of cardiac pacemaker
CPT/HCPCS: 71045; 74022; 80053 ×4; 80162; 82565 ×2; 82962 ×4; 83605; 83880; 84484 ×2; 85014 ×2; 85018 ×2; 85025 ×3; 85049 ×2; 85610; 85730; 86850 ×2; 86900; 86901; 87040; 87086; 93005; 93306; 96374; 96375; 96376 ×3; 97139 ×4; 99285; G0378 ×6; 36415; 36416; 81003; 81015; 96360; 96361; J0696; J1940; J3490

== ENCOUNTER 2019-02-07 10:27 | Emergency (ER) | payer MEDICARE ==
[2019-02-07 10:53] LABS: #Eosinphils 0.3 thou/uL (0.0-0.7); #Lymphocytes 2.1 thou/uL (1.20-3.40); #Monocytes 1.1 thou/uL (0.11-0.59); %Basophils 0.1 % (0.0-1.0); %Eosinophils 1.9 % (0.0-10.0); %Lymphocytes 15.7 % (21.0-51.0); %Neutrophils 74.3 % (42.0-75.0); Hemoglobin 13.8 g/dL (14.0-18.0); Mean Corpuscular HGB CONC 32.2 g/dL (32.0-36.0); Mean Corpuscular Volume 89.9 fL (78.0-98.0); Mean Platelet Volume 7.9 fL (7.4-10.4); Platelet Count 222 thou/uL (130-400); RBC Distribution Width 15.5 % (11.5-14.5); Red Blood Cell (RBC) Count 4.77 mill/uL (4.70-6.10); White Blood Cell (WBC) Count 13.5 thou/uL (4.8-10.8)
--- NOTE | 2019-02-07 11:07 | CT ---
CT Brain WO Con: 02/07/2019 10:37 AM CLINICAL HISTORY: Fall. COMPARISON: 05/14/2018 FINDINGS: Hemorrhage: None. Ventricular system: Mild ventricular prominence, slightly out of proportion to size of cerebral sulci .. Cerebral parenchyma: Microvascular ischemic disease. Superimposed lacunar infarction of the left lent iform nucleus, chronic. Midline shift: None. Mass: No mass effect. Calvarium: Normal. Visualized Paranasal sinuses: Clear. IMPRESSION: No acute intracranial hemorrhage or mass effect. Mild prominence of ventricular system, out of size proportion to cerebral sulci. Correlate clinically to exclude evidence of normal pressure hydrocephalus.
[2019-02-07 11:22] LABS: ALT (SGPT) 12 U/L (8-55); AST (SGOT) 11 U/L (5-34); Albumin 3.6 g/dL (3.4-4.8); Alkaline Phosphatase 63 U/L (40-110); Anion Gap 13 mmol/L (10-20); BUN (Urea Nitrogen) 24 mg/dL (8.4-25.7); Bilirubin, Total 0.8 mg/dL (0.2-1.2); Calc. Creatinine Clearance 0 mL/min (70-130); Calcium 8.7 mg/dL (7.8-10.44); Carbon Dioxide 22 mmol/L (23-31); Chloride 101 mmol/L (98-107); Estimated GFR-MDRD 88; Globulin 3.9 g/dL (2.4-3.5); Glucose 172 mg/dL (80-115); Potassium 4.5 mmol/L (3.5-5.1); Protein, Total 7.5 g/dL (5.8-8.1); Sodium 131 mmol/L (136-145)
[2019-02-07] MEDS ORDERED: HYDROmorphone 0.5 MG/0.5 ML SYRINGE ONE ×2 (11:30→11:31)
--- NOTE | 2019-02-07 11:32 | CT ---
CT CERVICAL SPINE WITHOUT CONTRAST; HISTORY: [facility] with [facility] trauma and neck pain. COMPARISON: 05/14/2018 TECHNIQUE: Multiple contiguous axial images were obtained in a CT of the cervical spine without contrast. FINDINGS: There are severe degenerative changes throughout the cervical spine. Multiple bridging osteophytes ar e consistent with DISH. The vertebral bodies demonstrate normal height without acute fracture or subl uxation. No prevertebral soft tissue swelling is seen. The posterior facets are well aligned. Normal alignment of the skull base with the cervical spine is seen. No significant change has occurred compared to the prior examination. IMPRESSION: Severe degenerative changes of the cervical spine without acute osseous abnormality. POS: [facility]
--- NOTE | 2019-02-07 11:42 | RAD ---
SINGLE VIEW CHEST: Date: 02/07/19 COMPARISON: 09/23/18. HISTORY: [facility] bed [facility] with chest trauma. FINDINGS: Single view of the chest shows an enlarged but stable cardiomediastinal silhouette. The pacemaker is unchanged in position. There is no evidence of consolidation, mass, or pleural effusion. Degenerative changes are seen in the spine. IMPRESSION: No evidence of acute cardiopulmonary disease. POS: [facility]
--- NOTE | 2019-02-07 11:45 | RAD ---
3 VIEWS LEFT SHOULDER: Date: 02/07/19 HISTORY: Fell out of bed with left arm pain. FINDINGS: 3 views of the left humerus show a mildly comminuted fracture of the left humeral neck. No dislocatio n of the humeral head is seen. IMPRESSION: Proximal left humeral fracture. POS: [facility]
--- NOTE | 2019-02-07 11:46 | RAD ---
2 VIEWS LEFT HUMERUS: Date: 02/07/19 HISTORY: Fell out of bed with right humerus pain/right arm pain. FINDINGS: 2 views of the left humerus show a mildly comminuted fracture of the left humeral neck. No dislocatio n of the humeral head is seen. IMPRESSION: Proximal left humerus fracture. POS: CET
[2019-02-07] MEDS ORDERED: Fentanyl 100 MCG/2 ML VIAL ONE (12:20)
[2019-02-07] MEDS ORDERED: Ketorolac Tromethamine 30 MG/ML VIAL ONE (13:49)
== END 2019-02-07 14:15 ==
LOC: ERS 10:27
DX: S42.202A Unspecified fracture of upper end of left humerus, initial encounter for closed fracture (principal); I49.9 Cardiac arrhythmia, unspecified; I48.91 Unspecified atrial fibrillation; E66.9 Obesity, unspecified; E11.9 Type 2 diabetes mellitus without complications; E78.5 Hyperlipidemia, unspecified; E78.00 Pure hypercholesterolemia, unspecified; I10 Essential (primary) hypertension; J44.9 Chronic obstructive pulmonary disease, unspecified; F41.9 Anxiety disorder, unspecified; F32.9 Major depressive disorder, single episode, unspecified; Z79.899 Other long term (current) drug therapy; W06.XXXA Fall from bed, initial encounter; Z86.711 Personal history of pulmonary embolism
CPT/HCPCS: 36415; 70450; 71045; 72125; 80053; 85025; 96374; 96375; J1170; J1885; J3010

== ENCOUNTER 2020-10-06 14:42 | Inpatient (IN) | payer MEDICARE ==
[2020-10-06 15:29] LABS: #Basophils 0.1 thou/uL (0.0-0.2); #Eosinphils 0.2 thou/uL (0.0-0.7); #Lymphocytes 1.7 thou/uL (1.20-3.40); #Monocytes 1.3 thou/uL (0.11-0.59); #Neutrophils 10.3 thou/uL (1.40-6.50); %Basophils 0.5 % (0.0-1.0); %Eosinophils 1.6 % (0.0-10.0); %Lymphocytes 12.3 % (21.0-51.0); %Monocytes 9.5 % (0.0-10.0); %Neutrophils 76.1 % (42.0-75.0); Hemoglobin 12.6 g/dL (14.0-18.0); Mean Corpuscular HGB CONC 31.6 g/dL (32.0-36.0); Mean Corpuscular Hemoglobin 25.2 pg (27.0-31.0); Mean Corpuscular Volume 79.8 fL (78.0-98.0); Mean Platelet Volume 8.9 fL (7.4-10.4); Platelet Count 264 thou/uL (130-400); RBC Distribution Width 18.6 % (11.5-14.5); White Blood Cell (WBC) Count 13.6 thou/uL (4.8-10.8)
[2020-10-06 16:01] LABS: ALT (SGPT) 9 U/L (8-55); AST (SGOT) 11 U/L (5-34); Albumin 3.8 g/dL (3.4-4.8); Alkaline Phosphatase 57 U/L (40-110); Anion Gap 17 mmol/L (10-20); BUN (Urea Nitrogen) 23 mg/dL (8.4-25.7); Calc. Creatinine Clearance 0 mL/min (70-130); Calcium 9.2 mg/dL (7.8-10.44); Carbon Dioxide 23 mmol/L (23-31); Chloride 99 mmol/L (98-107); Globulin 3.4 g/dL (2.4-3.5); Glucose 176 mg/dL (80-115); Lipase 33 U/L (8-78); Potassium 4.6 mmol/L (3.5-5.1); Protein, Total 7.2 g/dL (5.8-8.1); Sodium 134 mmol/L (136-145)
[2020-10-06 17:09] LABS: CK (CPK) 33 U/L (30-200)
[2020-10-06 17:20] LABS: Bilirubin Unable to Interpret (Negative); Blood, Urine Unable to Interpret (Negative); Clarity Cloudy (Clear); Glucose, Urine (Dipstick) Unable to Interpret mg/dL (Negative); Ketone, Urine Unable to Interpret mg/dL (Negative); Leukocyte Unable to Interpret (Negative); Nitrite Unable to Interpret (Negative); Protein, Urine (Dipstick) Unable to Interpret mg/dL (Neg-Trace); Specific Gravity, Urine 1.023 (1.002-1.036); Urobilinogen UNABLE TO INTERPRET mg/dL (Less than 2); pH, Urine 5.8 (5.0-9.0)
[2020-10-06 17:22] LABS: Bacteria/HPF 2+ HPF (None Seen); RBC/HPF 21-50 HPF (0-3); Squamous Epithelial None Seen HPF (0-3)
[2020-10-06] MEDS ORDERED: Furosemide 20 MG/2 ML VIAL ONE (17:41)
[2020-10-06 20:44] LABS: Troponin I 0.041 ng/mL (< 0.028)
[2020-10-06] MEDS ORDERED: Ondansetron PF 4 MG/2 ML Vial IVP PRN (21:13)
[2020-10-06] MEDS ORDERED: hydrALAZINE 20 MG/ML VIAL SLOW IVP PRN (21:15)
[2020-10-06 22:27] LABS: Troponin I 0.033 ng/mL (< 0.028)
[2020-10-07 00:03] VITALS: BMI 42.9
[2020-10-07 01:52] LABS: Troponin I 0.035 ng/mL (< 0.028)
[2020-10-07] MEDS: Acetaminophen 325 MG TAB PO PRN ×2 (04:33→12:16)
[2020-10-07 04:51] LABS: #Basophils 0.1 thou/uL (0.0-0.2); #Eosinphils 0.1 thou/uL (0.0-0.7); #Lymphocytes 1.8 thou/uL (1.20-3.40); #Monocytes 1.5 thou/uL (0.11-0.59); #Neutrophils 10.2 thou/uL (1.40-6.50); %Basophils 0.4 % (0.0-1.0); %Lymphocytes 13.5 % (21.0-51.0); %Monocytes 10.9 % (0.0-10.0); %Neutrophils 74.2 % (42.0-75.0); Hemoglobin 12.2 g/dL (14.0-18.0); Mean Corpuscular Hemoglobin 24.9 pg (27.0-31.0); Mean Corpuscular Volume 80.2 fL (78.0-98.0); Mean Platelet Volume 8.9 fL (7.4-10.4); Platelet Count 258 thou/uL (130-400); RBC Distribution Width 18.8 % (11.5-14.5); Red Blood Cell (RBC) Count 4.88 mill/uL (4.70-6.10); White Blood Cell (WBC) Count 13.7 thou/uL (4.8-10.8)
[2020-10-07 05:13] LABS: Anion Gap 12 mmol/L (10-20); BUN (Urea Nitrogen) 23 mg/dL (8.4-25.7); Calc. Creatinine Clearance 158 mL/min (70-130); Calcium 9.3 mg/dL (7.8-10.44); Carbon Dioxide 24 mmol/L (23-31); Chloride 101 mmol/L (98-107); Glucose 146 mg/dL (80-115); Potassium 4.1 mmol/L (3.5-5.1); Sodium 133 mmol/L (136-145)
[2020-10-07] MEDS ORDERED: Dextrose 50% Abboject 50 ML SYRINGE SLOW IVP PRN (07:36)
[2020-10-07] MEDS ORDERED: Dextrose 5% in Water 1,000 ML IV PRN (07:36)
[2020-10-07] MEDS ORDERED: HumaLOG 300 UNITS/3 ML VIAL SC PRN ×2 (07:36)
[2020-10-07] MEDS: Furosemide 40 MG/4 ML VIAL SLOW IVP SCH ×2 (08:31→19:59)
[2020-10-07] MEDS: cefTRIAXone\\ROCEPHIN 1 GM in Sodium Chloride 0.9% 100 ML IVPB SCH (10:34)
[2020-10-07] MEDS ORDERED: traMADol HCl 50 MG TAB PO PRN (14:13)
[2020-10-07] MEDS ORDERED: Fluticasone Propionate Nasal Spray 16 gm Bottle NASAL PRN (14:29)
[2020-10-07] MEDS ORDERED: Zolpidem Tartrate 5 MG TAB PO PRN (14:31)
[2020-10-07] MEDS: Carvedilol 3.125 MG TAB PO SCH (20:34)
[2020-10-08 04:37] LABS: #Basophils 0.1 thou/uL (0.0-0.2); #Eosinphils 0.2 thou/uL (0.0-0.7); #Lymphocytes 1.7 thou/uL (1.20-3.40); #Neutrophils 8.2 thou/uL (1.40-6.50); %Basophils 0.5 % (0.0-1.0); %Eosinophils 1.8 % (0.0-10.0); %Lymphocytes 15.4 % (21.0-51.0); %Monocytes 9.1 % (0.0-10.0); %Neutrophils 73.3 % (42.0-75.0); Hemoglobin 12.3 g/dL (14.0-18.0); Mean Corpuscular HGB CONC 31.3 g/dL (32.0-36.0); Mean Corpuscular Hemoglobin 25.2 pg (27.0-31.0); Mean Corpuscular Volume 80.6 fL (78.0-98.0); Mean Platelet Volume 8.7 fL (7.4-10.4); Platelet Count 276 thou/uL (130-400); RBC Distribution Width 18.8 % (11.5-14.5); White Blood Cell (WBC) Count 11.1 thou/uL (4.8-10.8)
[2020-10-08 05:06] LABS: Anion Gap 13 mmol/L (10-20); BUN (Urea Nitrogen) 20 mg/dL (8.4-25.7); Calc. Creatinine Clearance 153 mL/min (70-130); Calcium 9.5 mg/dL (7.8-10.44); Carbon Dioxide 28 mmol/L (23-31); Chloride 99 mmol/L (98-107); Glucose 108 mg/dL (80-115); Potassium 4.2 mmol/L (3.5-5.1); Sodium 136 mmol/L (136-145)
[2020-10-08] MEDS: Montelukast Sodium 10 mg Tablet PO SCH (06:13)
[2020-10-08] MEDS: Carvedilol 3.125 MG TAB PO SCH (06:50)
[2020-10-08] MEDS: cefTRIAXone\\ROCEPHIN 1 GM in Sodium Chloride 0.9% 100 ML IVPB SCH (08:23)
[2020-10-08] MEDS: Furosemide 40 MG/4 ML VIAL SLOW IVP SCH (08:23)
[2020-10-08] MEDS: Acetaminophen 325 MG TAB PO PRN (08:33)
[2020-10-08] MEDS ORDERED: Spironolactone 25 MG TAB PO SCH (09:00)
[2020-10-08] MEDS ORDERED: Digoxin 0.25 MG TAB PO SCH (09:00)
[2020-10-08] MEDS ORDERED: Rivaroxaban 10 MG TAB PO SCH (09:00)
[2020-10-08] MEDS ORDERED: Lisinopril 2.5 MG TAB PO SCH (09:00)
[2020-10-08] MEDS ORDERED: Calcium Carbonate + Vit D 250 MG TAB PO SCH (09:00)
[2020-10-08] MEDS ORDERED: Furosemide 40 MG/4 ML VIAL SLOW IVP SCH ×2 (10:00→21:00)
[2020-10-08 11:39] VITALS: BP 103/55; TEMP 98.1
[2020-10-09] MEDS ORDERED: Rivaroxaban 10 MG TAB PO SCH (09:00)
== END 2020-10-08 14:50 | disposition home or self-care (01) | DRG 292 ==
LOC: ERS 14:42 → 2NO 19:21
PROVIDERS: ADMIT Internal Medicine; ATTEND Internal Medicine
DX: I11.0 Hypertensive heart disease with heart failure (principal); N10 Acute pyelonephritis; Z68.41 Body mass index [BMI] 40.0-44.9, adult; Z20.822 Contact with and (suspected) exposure to COVID-19; I50.23 Acute on chronic systolic (congestive) heart failure; E78.5 Hyperlipidemia, unspecified; E78.00 Pure hypercholesterolemia, unspecified; G89.29 Other chronic pain; J44.9 Chronic obstructive pulmonary disease, unspecified; F41.9 Anxiety disorder, unspecified; F32.9 Major depressive disorder, single episode, unspecified; M54.9 Dorsalgia, unspecified; N20.0 Calculus of kidney; R31.0 Gross hematuria; R09.02 Hypoxemia; I48.0 Paroxysmal atrial fibrillation; E11.9 Type 2 diabetes mellitus without complications; E66.9 Obesity, unspecified; Z88.8 Allergy status to other drugs, medicaments and biological substances; Z91.040 Latex allergy status; Z88.5 Allergy status to narcotic agent; Z79.01 Long term (current) use of anticoagulants; Z79.899 Other long term (current) drug therapy; Z86.711 Personal history of pulmonary embolism; Z95.810 Presence of automatic (implantable) cardiac defibrillator; Z90.49 Acquired absence of other specified parts of digestive tract; Z87.442 Personal history of urinary calculi; Z79.84 Long term (current) use of oral hypoglycemic drugs
CPT/HCPCS: 36415; 36416; 71045; 74176; 80048; 80053; 81003; 81015; 82550; 83605; 83690; 83880; 84484; 85025; 87086; 93005; 93306; 96374; J0696; J1815; J1940; J3490

== ENCOUNTER 2021-01-06 12:22 | Inpatient (IN) | payer MEDICARE ==
[2021-01-06 14:04] LABS: #Basophils 0.1 thou/uL (0.0-0.2); #Eosinphils 0.2 thou/uL (0.0-0.7); #Lymphocytes 1.5 thou/uL (1.20-3.40); #Monocytes 1.1 thou/uL (0.11-0.59); #Neutrophils 7.4 thou/uL (1.40-6.50); %Basophils 0.7 % (0.0-1.0); %Eosinophils 1.6 % (0.0-10.0); %Lymphocytes 14.7 % (21.0-51.0); %Monocytes 10.7 % (0.0-10.0); %Neutrophils 72.3 % (42.0-75.0); Hemoglobin 12.5 g/dL (14.0-18.0); Mean Corpuscular HGB CONC 31.3 g/dL (32.0-36.0); Mean Corpuscular Hemoglobin 26.1 pg (27.0-31.0); Mean Corpuscular Volume 83.3 fL (78.0-98.0); Mean Platelet Volume 8.2 fL (7.4-10.4); Platelet Count 272 thou/uL (130-400); RBC Distribution Width 18.9 % (11.5-14.5); Red Blood Cell (RBC) Count 4.81 mill/uL (4.70-6.10); White Blood Cell (WBC) Count 10.2 thou/uL (4.8-10.8)
[2021-01-06] MEDS ORDERED: Acetaminophen 500 MG TAB ONE (14:08)
[2021-01-06] MEDS ORDERED: Acetaminophen 325 MG TAB ONE ×2 (14:12)
[2021-01-06] MEDS ORDERED: Furosemide 40 MG/4 ML VIAL ONE (14:17)
[2021-01-06 14:48] LABS: ALT (SGPT) 7 U/L (8-55); AST (SGOT) 13 U/L (5-34); Albumin 3.5 g/dL (3.4-4.8); Alkaline Phosphatase 62 U/L (40-110); Anion Gap 13 mmol/L (10-20); BUN (Urea Nitrogen) 21 mg/dL (8.4-25.7); Bilirubin, Total 1.4 mg/dL (0.2-1.2); Calc. Creatinine Clearance 0 mL/min (70-130); Calcium 9.1 mg/dL (7.8-10.44); Carbon Dioxide 28 mmol/L (23-31); Chloride 100 mmol/L (98-107); Glucose 107 mg/dL (80-115); Lipase 18 U/L (8-78); Potassium 4.8 mmol/L (3.5-5.1); Protein, Total 7.5 g/dL (5.8-8.1); Sodium 136 mmol/L (136-145)
[2021-01-06] MEDS ORDERED: Ondansetron PF 4 MG/2 ML Vial IVP PRN (16:26)
[2021-01-06] MEDS ORDERED: Artificial Tear Sol 15 ML BOT EA EYE PRN (16:32)
[2021-01-06] MEDS ORDERED: traMADol HCl 50 MG TAB PO PRN (16:35)
[2021-01-06] MEDS: Rivaroxaban 10 MG TAB PO SCH (22:17)
[2021-01-06] MEDS: DOBUTamine 500 mg/250 ml 250 ML IVPB SCH (22:19)
[2021-01-07 03:52] LABS: #Eosinphils 0.2 thou/uL (0.0-0.7); #Lymphocytes 1.5 thou/uL (1.20-3.40); #Monocytes 1.1 thou/uL (0.11-0.59); #Neutrophils 7.8 thou/uL (1.40-6.50); %Eosinophils 1.9 % (0.0-10.0); %Lymphocytes 13.9 % (21.0-51.0); %Monocytes 10.4 % (0.0-10.0); %Neutrophils 73.9 % (42.0-75.0); Hemoglobin 11.7 g/dL (14.0-18.0); Mean Corpuscular HGB CONC 32.5 g/dL (32.0-36.0); Mean Corpuscular Hemoglobin 26.8 pg (27.0-31.0); Mean Corpuscular Volume 82.3 fL (78.0-98.0); Mean Platelet Volume 8.6 fL (7.4-10.4); Platelet Count 259 thou/uL (130-400); RBC Distribution Width 18.9 % (11.5-14.5); Red Blood Cell (RBC) Count 4.36 mill/uL (4.70-6.10); White Blood Cell (WBC) Count 10.6 thou/uL (4.8-10.8)
[2021-01-07 04:14] LABS: Anion Gap 10 mmol/L (10-20); BUN (Urea Nitrogen) 21 mg/dL (8.4-25.7); Calc. Creatinine Clearance 126 mL/min (70-130); Carbon Dioxide 29 mmol/L (23-31); Chloride 101 mmol/L (98-107); Glucose 98 mg/dL (80-115); Sodium 136 mmol/L (136-145)
[2021-01-07] MEDS ORDERED: Furosemide 40 MG/4 ML VIAL SLOW IVP SCH ×2 (06:00)
[2021-01-07] MEDS: Acetaminophen 325 MG TAB PO PRN (07:16)
[2021-01-07] MEDS: Digoxin 0.25 MG TAB PO SCH (08:39)
[2021-01-07] MEDS: Lidocaine 5% Patch TD SCH (09:11)
[2021-01-07] MEDS: Furosemide 100 MG/10 ML VIAL SLOW IVP SCH (13:07)
[2021-01-07] MEDS ORDERED: Fentanyl 100 MCG/2 ML VIAL SLOW IVP SCH (13:15)
[2021-01-07] MEDS: DOBUTamine 500 mg/250 ml 250 ML IVPB SCH (13:37)
[2021-01-07 15:49] LABS: SARS-CoV-2 PCR by NAA Not Detected (NotDetected)
[2021-01-07] MEDS: Rivaroxaban 10 MG TAB PO SCH (17:34)
[2021-01-07] MEDS: Fluticasone Propionate Nasal Spray 16 gm Bottle NASAL SCH (22:03)
[2021-01-07] MEDS: Transdermal Patch Removal TOP SCH (22:04)
[2021-01-07] MEDS: Lactinex Tablet PO SCH (22:06)
[2021-01-07] MEDS: hydrOXYzine 25 MG TAB PO PRN (22:16)
[2021-01-08] MEDS: Melatonin 3 MG TAB PO PRN (02:17)
[2021-01-08] MEDS: Acetaminophen/Codeine 30-300mg Tablet PO PRN ×2 (02:18→21:39)
[2021-01-08 04:24] LABS: #Basophils 0.1 thou/uL (0.0-0.2); #Eosinphils 0.2 thou/uL (0.0-0.7); #Monocytes 1.2 thou/uL (0.11-0.59); #Neutrophils 7.4 thou/uL (1.40-6.50); %Basophils 0.5 % (0.0-1.0); %Eosinophils 1.6 % (0.0-10.0); %Lymphocytes 18.5 % (21.0-51.0); %Monocytes 11.1 % (0.0-10.0); %Neutrophils 68.3 % (42.0-75.0); Hemoglobin 11.2 g/dL (14.0-18.0); Mean Corpuscular HGB CONC 32.3 g/dL (32.0-36.0); Mean Corpuscular Hemoglobin 26.4 pg (27.0-31.0); Mean Corpuscular Volume 81.7 fL (78.0-98.0); Mean Platelet Volume 8.6 fL (7.4-10.4); Platelet Count 251 thou/uL (130-400); RBC Distribution Width 18.9 % (11.5-14.5); Red Blood Cell (RBC) Count 4.26 mill/uL (4.70-6.10); White Blood Cell (WBC) Count 10.9 thou/uL (4.8-10.8)
[2021-01-08 04:36] LABS: Anion Gap 12 mmol/L (10-20); BUN (Urea Nitrogen) 19 mg/dL (8.4-25.7); Calc. Creatinine Clearance 0 mL/min (70-130); Calcium 9.1 mg/dL (7.8-10.44); Carbon Dioxide 28 mmol/L (23-31); Chloride 100 mmol/L (98-107); Glucose 83 mg/dL (80-115); Potassium 3.8 mmol/L (3.5-5.1); Sodium 136 mmol/L (136-145)
[2021-01-08] MEDS: Furosemide 100 MG/10 ML VIAL SLOW IVP SCH ×2 (06:16→18:05)
[2021-01-08 06:22] VITALS: BMI 40.9
[2021-01-08] MEDS: Digoxin 0.25 MG TAB PO SCH (09:20)
[2021-01-08] MEDS: Lactinex Tablet PO SCH ×3 (09:20→21:39)
[2021-01-08] MEDS: Lidocaine 5% Patch TD SCH (09:21)
[2021-01-08] MEDS: DOBUTamine 500 mg/250 ml 250 ML IVPB SCH (15:01)
[2021-01-08] MEDS: Rivaroxaban 10 MG TAB PO SCH (18:21)
[2021-01-08] MEDS: Transdermal Patch Removal TOP SCH (21:39)
[2021-01-08] MEDS: Fluticasone Propionate Nasal Spray 16 gm Bottle NASAL SCH (21:39)
[2021-01-08 22:50] LABS: Troponin I 0.034 ng/mL (< 0.028)
[2021-01-09] MEDS: Melatonin 3 MG TAB PO PRN (00:31)
[2021-01-09 02:51] LABS: Troponin I 0.025 ng/mL (< 0.028)
[2021-01-09] MEDS: DOBUTamine 500 mg/250 ml 250 ML IVPB SCH (04:50)
[2021-01-09] MEDS: Acetaminophen/Codeine 30-300mg Tablet PO PRN (04:51)
[2021-01-09] MEDS ORDERED: Metolazone 5 MG TAB PO SCH (05:00)
[2021-01-09] MEDS: Furosemide 100 MG/10 ML VIAL SLOW IVP SCH (06:16)
[2021-01-09 07:34] LABS: #Eosinphils 0.3 thou/uL (0.0-0.7); #Lymphocytes 1.1 thou/uL (1.20-3.40); #Monocytes 1.2 thou/uL (0.11-0.59); #Neutrophils 7.2 thou/uL (1.40-6.50); %Basophils 0.3 % (0.0-1.0); %Eosinophils 2.9 % (0.0-10.0); %Lymphocytes 11.3 % (21.0-51.0); %Monocytes 11.8 % (0.0-10.0); %Neutrophils 73.8 % (42.0-75.0); Hemoglobin 11.4 g/dL (14.0-18.0); Mean Corpuscular HGB CONC 32.2 g/dL (32.0-36.0); Mean Corpuscular Hemoglobin 26.3 pg (27.0-31.0); Mean Corpuscular Volume 81.7 fL (78.0-98.0); Mean Platelet Volume 8.2 fL (7.4-10.4); Platelet Count 245 thou/uL (130-400); RBC Distribution Width 18.6 % (11.5-14.5); Red Blood Cell (RBC) Count 4.34 mill/uL (4.70-6.10); White Blood Cell (WBC) Count 9.8 thou/uL (4.8-10.8)
[2021-01-09 07:51] LABS: Anion Gap 14 mmol/L (10-20); BUN (Urea Nitrogen) 14 mg/dL (8.4-25.7); Calc. Creatinine Clearance 150 mL/min (70-130); Calcium 9.1 mg/dL (7.8-10.44); Carbon Dioxide 30 mmol/L (23-31); Chloride 96 mmol/L (98-107); Glucose 94 mg/dL (80-115); Potassium 3.7 mmol/L (3.5-5.1); Sodium 136 mmol/L (136-145)
[2021-01-09] MEDS: Lactinex Tablet PO SCH ×3 (08:32→21:36)
[2021-01-09] MEDS: Digoxin 0.25 MG TAB PO SCH (08:32)
[2021-01-09] MEDS: Lidocaine 5% Patch TD SCH (08:33)
[2021-01-09] MEDS ORDERED: Potassium Chloride 20 MEQ TAB PO SCH (13:00)
[2021-01-09] MEDS: Furosemide 20 MG TAB PO SCH (13:31)
[2021-01-09] MEDS: Potassium Chloride 10 MEQ in Premix Bag 1 BAG IVPB SCH ×2 (16:07→16:30)
[2021-01-09] MEDS: Rivaroxaban 10 MG TAB PO SCH (17:54)
[2021-01-09] MEDS ORDERED: DOBUTamine 500 mg/250 ml 250 ML IVPB SCH (19:00)
[2021-01-09] MEDS: Fluticasone Propionate Nasal Spray 16 gm Bottle NASAL SCH (21:36)
[2021-01-09] MEDS: Transdermal Patch Removal TOP SCH (21:37)
[2021-01-09] MEDS: hydrOXYzine 25 MG TAB PO PRN (21:43)
[2021-01-10 04:58] LABS: Anion Gap 13 mmol/L (10-20); BUN (Urea Nitrogen) 16 mg/dL (8.4-25.7); Calc. Creatinine Clearance 134 mL/min (70-130); Calcium 9.2 mg/dL (7.8-10.44); Carbon Dioxide 31 mmol/L (23-31); Chloride 95 mmol/L (98-107); Glucose 99 mg/dL (80-115); Potassium 4.2 mmol/L (3.5-5.1); Sodium 135 mmol/L (136-145)
[2021-01-10] MEDS ORDERED: Metolazone 5 MG TAB PO SCH (05:00)
[2021-01-10] MEDS: Acetaminophen 325 MG TAB PO PRN (05:58)
[2021-01-10] MEDS: Digoxin 0.25 MG TAB PO SCH (08:31)
[2021-01-10] MEDS: Lactinex Tablet PO SCH ×3 (08:31→20:25)
[2021-01-10] MEDS: Furosemide 20 MG TAB PO SCH ×2 (08:31→15:12)
[2021-01-10] MEDS: Lidocaine 5% Patch TD SCH (08:31)
[2021-01-10] MEDS: Rivaroxaban 10 MG TAB PO SCH (18:01)
[2021-01-10] MEDS: Fluticasone Propionate Nasal Spray 16 gm Bottle NASAL SCH (20:24)
[2021-01-10] MEDS: Acetaminophen/Codeine 30-300mg Tablet PO PRN (20:25)
[2021-01-10] MEDS: hydrOXYzine 25 MG TAB PO PRN (20:26)
[2021-01-10] MEDS: Transdermal Patch Removal TOP SCH (20:30)
[2021-01-11 04:58] LABS: Anion Gap 15 mmol/L (10-20); BUN (Urea Nitrogen) 21 mg/dL (8.4-25.7); Calc. Creatinine Clearance 106 mL/min (70-130); Carbon Dioxide 31 mmol/L (23-31); Chloride 93 mmol/L (98-107); Glucose 117 mg/dL (80-115); Potassium 3.8 mmol/L (3.5-5.1); Sodium 135 mmol/L (136-145)
[2021-01-11] MEDS: Acetaminophen 325 MG TAB PO PRN (08:54)
[2021-01-11] MEDS: Lactinex Tablet PO SCH ×3 (08:54→20:47)
[2021-01-11] MEDS: Digoxin 0.25 MG TAB PO SCH (08:54)
[2021-01-11] MEDS: Furosemide 20 MG TAB PO SCH ×2 (08:55→14:44)
[2021-01-11] MEDS: Lidocaine 5% Patch TD SCH (09:00)
[2021-01-11] MEDS: Rivaroxaban 10 MG TAB PO SCH (17:13)
[2021-01-11] MEDS: Fluticasone Propionate Nasal Spray 16 gm Bottle NASAL SCH (20:46)
[2021-01-11] MEDS: Acetaminophen/Codeine 30-300mg Tablet PO PRN (20:47)
[2021-01-11] MEDS: hydrOXYzine 25 MG TAB PO PRN (20:48)
[2021-01-11] MEDS: Transdermal Patch Removal TOP SCH (21:19)
[2021-01-12 05:11] LABS: Anion Gap 13 mmol/L (10-20); BUN (Urea Nitrogen) 21 mg/dL (8.4-25.7); Calc. Creatinine Clearance 123 mL/min (70-130); Calcium 9.2 mg/dL (7.8-10.44); Carbon Dioxide 33 mmol/L (23-31); Chloride 91 mmol/L (98-107); Glucose 84 mg/dL (80-115); Potassium 3.8 mmol/L (3.5-5.1); Sodium 133 mmol/L (136-145)
[2021-01-12] MEDS: Furosemide 20 MG TAB PO SCH ×2 (08:41→14:12)
[2021-01-12] MEDS: Lidocaine 5% Patch TD SCH (08:41)
[2021-01-12] MEDS: Digoxin 0.25 MG TAB PO SCH (08:41)
[2021-01-12] MEDS: Lactinex Tablet PO SCH ×3 (08:42→20:50)
[2021-01-12] MEDS: Rivaroxaban 10 MG TAB PO SCH (18:20)
[2021-01-12] MEDS: Melatonin 3 MG TAB PO PRN (20:48)
[2021-01-12] MEDS: Acetaminophen/Codeine 30-300mg Tablet PO PRN (20:49)
[2021-01-12] MEDS: Fluticasone Propionate Nasal Spray 16 gm Bottle NASAL SCH (20:50)
[2021-01-12] MEDS: Transdermal Patch Removal TOP SCH (20:54)
[2021-01-13] MEDS: Lactinex Tablet PO SCH (08:12)
[2021-01-13] MEDS: Furosemide 20 MG TAB PO SCH ×2 (08:12→15:27)
[2021-01-13] MEDS: Digoxin 0.25 MG TAB PO SCH (08:12)
[2021-01-13] MEDS: Lidocaine 5% Patch TD SCH (08:12)
[2021-01-13] MEDS: Acetaminophen/Codeine 30-300mg Tablet PO PRN (08:43)
[2021-01-13 11:43] VITALS: BP 97/46; TEMP 97.5
== END 2021-01-13 15:10 | DRG 292 ==
LOC: ERS 12:22 → 2NO 15:20
PROVIDERS: ADMIT Family Medicine; ATTEND Internal Medicine
DX: I11.0 Hypertensive heart disease with heart failure (principal); I50.23 Acute on chronic systolic (congestive) heart failure; Z20.822 Contact with and (suspected) exposure to COVID-19; I47.2 Ventricular tachycardia; Z68.41 Body mass index [BMI] 40.0-44.9, adult; F33.9 Major depressive disorder, recurrent, unspecified; E78.5 Hyperlipidemia, unspecified; F41.9 Anxiety disorder, unspecified; G89.29 Other chronic pain; M54.9 Dorsalgia, unspecified; E11.9 Type 2 diabetes mellitus without complications; K21.9 Gastro-esophageal reflux disease without esophagitis; D64.9 Anemia, unspecified; H04.123 Dry eye syndrome of bilateral lacrimal glands; G44.209 Tension-type headache, unspecified, not intractable; I48.0 Paroxysmal atrial fibrillation; I42.8 Other cardiomyopathies; J45.909 Unspecified asthma, uncomplicated; E66.01 Morbid (severe) obesity due to excess calories; F39 Unspecified mood [affective] disorder; I87.2 Venous insufficiency (chronic) (peripheral); Z88.8 Allergy status to other drugs, medicaments and biological substances; Z28.21 Immunization not carried out because of patient refusal; Z95.810 Presence of automatic (implantable) cardiac defibrillator; Z90.49 Acquired absence of other specified parts of digestive tract; Z79.01 Long term (current) use of anticoagulants; Z87.442 Personal history of urinary calculi; Z82.49 Family history of ischemic heart disease and other diseases of the circulatory system; Z88.5 Allergy status to narcotic agent; Z91.040 Latex allergy status
CPT/HCPCS: 36415; 71045; 80048; 80053; 83690; 83735; 83880; 84443; 84484; 85025; 93005; 93010; 93798; 96374; J1250; J1940; J3010; J3475; J3480; J3490; U0003; U0005

== ENCOUNTER 2021-09-28 10:17 | Inpatient (IN) | payer MEDICARE ==
[2021-09-28 11:05] LABS: #Eosinphils 0.2 thou/uL (0.0-0.7); #Lymphocytes 1.2 thou/uL (1.20-3.40); #Monocytes 0.9 thou/uL (0.11-0.59); #Neutrophils 6.6 thou/uL (1.40-6.50); %Basophils 0.4 % (0.0-1.0); %Eosinophils 2.2 % (0.0-10.0); %Lymphocytes 13.4 % (21.0-51.0); %Monocytes 9.5 % (0.0-10.0); %Neutrophils 74.5 % (42.0-75.0); Hemoglobin 11.9 g/dL (14.0-18.0); Mean Corpuscular HGB CONC 30.8 g/dL (32.0-36.0); Mean Corpuscular Hemoglobin 25.6 pg (27.0-31.0); Mean Platelet Volume 7.7 fL (7.4-10.4); Platelet Count 280 thou/uL (130-400); RBC Distribution Width 17.6 % (11.5-14.5); Red Blood Cell (RBC) Count 4.67 mill/uL (4.70-6.10); White Blood Cell (WBC) Count 8.9 thou/uL (4.8-10.8)
[2021-09-28 11:25] LABS: ALT (SGPT) 7 U/L (8-55); AST (SGOT) 14 U/L (5-34); Albumin 3.1 g/dL (3.4-4.8); Alkaline Phosphatase 56 U/L (40-110); Anion Gap 12 mmol/L (10-20); BUN (Urea Nitrogen) 19 mg/dL (8.4-25.7); Bilirubin, Total 1.2 mg/dL (0.2-1.2); Calc. Creatinine Clearance 0 mL/min (70-130); Calcium 8.3 mg/dL (7.8-10.44); Carbon Dioxide 24 mmol/L (23-31); Chloride 104 mmol/L (98-107); Glucose 147 mg/dL (80-115); Potassium 3.9 mmol/L (3.5-5.1); Protein, Total 6.1 g/dL (5.8-8.1); Sodium 136 mmol/L (136-145)
[2021-09-28] MEDS ORDERED: Furosemide 40 MG/4 ML VIAL ONE (11:25)
[2021-09-28] MEDS ORDERED: Bisacodyl 5 MG TAB PO PRN (13:00)
[2021-09-28] MEDS ORDERED: Senokot S 8.6-50 MG TAB PO PRN (13:00)
[2021-09-28] MEDS ORDERED: Dextrose 50% Abboject 50 ML SYRINGE SLOW IVP PRN (14:04)
[2021-09-28] MEDS ORDERED: Dextrose 5% in Water 1,000 ML IV PRN (14:04)
[2021-09-28] MEDS ORDERED: HumaLOG 300 UNITS/3 ML VIAL SC PRN ×2 (14:04)
[2021-09-28 14:19] LABS: Troponin I 0.024 ng/mL (< 0.028)
[2021-09-28 14:35] LABS: Magnesium 1.6 mg/dL (1.6-2.6)
[2021-09-28] MEDS: Furosemide 40 MG/4 ML VIAL SLOW IVP SCH (16:04)
[2021-09-28 16:14] VITALS: BMI 42.9
[2021-09-28 18:20] LABS: Troponin I 0.026 ng/mL (< 0.028)
[2021-09-28] MEDS ORDERED: Potassium Chloride 20 MEQ TAB PO SCH (20:00)
[2021-09-28] MEDS ORDERED: Magnesium Sulfate 3 GM in Sodium Chloride 0.9% 100 ML IVPB SCH (20:00)
[2021-09-28] MEDS ORDERED: Furosemide 40 MG TAB PO SCH (21:00)
[2021-09-28] MEDS: Carvedilol 3.125 MG TAB PO SCH (22:16)
[2021-09-28] MEDS: Fluticasone Propionate Nasal Spray 16 gm Bottle NASAL SCH (22:19)
[2021-09-28] MEDS: Acetaminophen 325 MG TAB PO PRN (23:22)
[2021-09-29 05:16] LABS: #Eosinphils 0.3 thou/uL (0.0-0.7); #Lymphocytes 2.1 thou/uL (1.20-3.40); #Neutrophils 6.6 thou/uL (1.40-6.50); %Basophils 0.4 % (0.0-1.0); %Eosinophils 2.8 % (0.0-10.0); %Monocytes 10.2 % (0.0-10.0); %Neutrophils 65.6 % (42.0-75.0); Hemoglobin 12.5 g/dL (14.0-18.0); Mean Corpuscular HGB CONC 29.4 g/dL (32.0-36.0); Mean Corpuscular Hemoglobin 24.7 pg (27.0-31.0); Mean Corpuscular Volume 83.9 fL (78.0-98.0); Mean Platelet Volume 7.6 fL (7.4-10.4); Platelet Count 292 thou/uL (130-400); RBC Distribution Width 17.8 % (11.5-14.5); Red Blood Cell (RBC) Count 5.05 mill/uL (4.70-6.10)
[2021-09-29 05:28] LABS: ALT (SGPT) Less than 7 U/L (8-55); AST (SGOT) 12 U/L (5-34); Albumin 3.2 g/dL (3.4-4.8); Alkaline Phosphatase 58 U/L (40-110); Anion Gap 12 mmol/L (10-20); BUN (Urea Nitrogen) 16 mg/dL (8.4-25.7); Bilirubin, Total 0.9 mg/dL (0.2-1.2); Calc. Creatinine Clearance 148 mL/min (70-130); Calcium 8.7 mg/dL (7.8-10.44); Carbon Dioxide 27 mmol/L (23-31); Chloride 102 mmol/L (98-107); Globulin 3.6 g/dL (2.4-3.5); Glucose 104 mg/dL (80-115); Potassium 4.6 mmol/L (3.5-5.1); Protein, Total 6.8 g/dL (5.8-8.1); Sodium 136 mmol/L (136-145)
[2021-09-29] MEDS: Furosemide 40 MG/4 ML VIAL SLOW IVP SCH ×2 (06:02→13:24)
[2021-09-29] MEDS: Spironolactone 25 MG TAB PO SCH (09:53)
[2021-09-29] MEDS: Rivaroxaban 10 MG TAB PO SCH (09:53)
[2021-09-29] MEDS: Digoxin 0.25 MG TAB PO SCH (09:53)
[2021-09-29] MEDS: Lisinopril 2.5 MG TAB PO SCH (09:53)
[2021-09-29] MEDS: Carvedilol 3.125 MG TAB PO SCH ×2 (09:53→19:48)
[2021-09-29 11:46] LABS: SARS-CoV-2 PCR by NAA Not Detected (NotDetected)
[2021-09-29] MEDS: Acetaminophen 325 MG TAB PO PRN (18:21)
[2021-09-29] MEDS ORDERED: Furosemide 40 MG/4 ML VIAL SLOW IVP SCH (18:45)
[2021-09-29] MEDS: Magnesium Oxide 400 MG TAB PO SCH (19:48)
[2021-09-29] MEDS: DOBUTamine 500 mg/250 ml 250 ML IVPB SCH (19:49)
[2021-09-29] MEDS: Fluticasone Propionate Nasal Spray 16 gm Bottle NASAL SCH (21:51)
[2021-09-30] MEDS: Acetaminophen 325 MG TAB PO PRN ×2 (04:32→18:26)
[2021-09-30 04:34] LABS: #Basophils 0.1 thou/uL (0.0-0.2); #Eosinphils 0.2 thou/uL (0.0-0.7); #Lymphocytes 1.5 thou/uL (1.20-3.40); #Neutrophils 6.1 thou/uL (1.40-6.50); %Basophils 0.6 % (0.0-1.0); %Eosinophils 2.6 % (0.0-10.0); %Lymphocytes 16.7 % (21.0-51.0); %Neutrophils 69.2 % (42.0-75.0); Hemoglobin 11.8 g/dL (14.0-18.0); Mean Corpuscular HGB CONC 30.3 g/dL (32.0-36.0); Mean Corpuscular Hemoglobin 25.1 pg (27.0-31.0); Mean Platelet Volume 7.7 fL (7.4-10.4); Platelet Count 248 thou/uL (130-400); RBC Distribution Width 17.7 % (11.5-14.5); Red Blood Cell (RBC) Count 4.69 mill/uL (4.70-6.10); White Blood Cell (WBC) Count 8.7 thou/uL (4.8-10.8)
[2021-09-30 04:54] LABS: Anion Gap 11 mmol/L (10-20); BUN (Urea Nitrogen) 19 mg/dL (8.4-25.7); Calc. Creatinine Clearance 153 mL/min (70-130); Calcium 8.5 mg/dL (7.8-10.44); Carbon Dioxide 29 mmol/L (23-31); Chloride 99 mmol/L (98-107); Glucose 94 mg/dL (80-115); Magnesium 1.6 mg/dL (1.6-2.6); Potassium 3.7 mmol/L (3.5-5.1); Sodium 135 mmol/L (136-145); Troponin I 0.032 ng/mL (< 0.028)
[2021-09-30] MEDS: Furosemide 40 MG/4 ML VIAL SLOW IVP SCH ×2 (06:15→14:14)
[2021-09-30] MEDS: DOBUTamine 500 mg/250 ml 250 ML IVPB SCH ×2 (09:17→23:08)
[2021-09-30] MEDS: Spironolactone 25 MG TAB PO SCH (09:21)
[2021-09-30] MEDS: Rivaroxaban 10 MG TAB PO SCH (09:21)
[2021-09-30] MEDS: Magnesium Oxide 400 MG TAB PO SCH ×2 (09:21→21:31)
[2021-09-30] MEDS: Digoxin 0.25 MG TAB PO SCH (09:21)
[2021-09-30] MEDS: Lisinopril 2.5 MG TAB PO SCH (09:21)
[2021-09-30] MEDS: Carvedilol 3.125 MG TAB PO SCH ×2 (09:22→21:31)
[2021-09-30] MEDS ORDERED: diphenhydrAMINE 25 MG CAP PO PRN (14:50)
[2021-09-30] MEDS: Fluticasone Propionate Nasal Spray 16 gm Bottle NASAL SCH (21:32)
[2021-09-30] MEDS: Ondansetron ODT 4 MG TAB PO PRN (23:32)
[2021-10-01] MEDS: Furosemide 40 MG/4 ML VIAL SLOW IVP SCH ×2 (06:00→13:09)
[2021-10-01] MEDS ORDERED: Electrolyte Replacement Protocol 1 EACH FS SCH (06:15)
[2021-10-01] MEDS: Magnesium 2 GM/50 ML(in water) 2 GM in Premix Bag 1 BAG IVPB SCH ×2 (09:41→09:49)
[2021-10-01] MEDS: Carvedilol 3.125 MG TAB PO SCH ×2 (09:42→20:58)
[2021-10-01] MEDS: Digoxin 0.25 MG TAB PO SCH (09:42)
[2021-10-01] MEDS: Magnesium Oxide 400 MG TAB PO SCH ×2 (09:42→20:58)
[2021-10-01] MEDS: Spironolactone 25 MG TAB PO SCH (09:43)
[2021-10-01] MEDS: Rivaroxaban 10 MG TAB PO SCH (09:43)
[2021-10-01] MEDS: Lisinopril 2.5 MG TAB PO SCH (09:43)
[2021-10-01] MEDS: DOBUTamine 500 mg/250 ml 250 ML IVPB SCH (13:08)
[2021-10-01] MEDS: Fluticasone Propionate Nasal Spray 16 gm Bottle NASAL SCH (20:58)
[2021-10-01] MEDS: diphenhydrAMINE 25 MG CAP PO PRN (21:56)
[2021-10-02] MEDS: DOBUTamine 500 mg/250 ml 250 ML IVPB SCH ×2 (03:27→22:15)
[2021-10-02] MEDS: Acetaminophen 325 MG TAB PO PRN ×2 (05:47→18:46)
[2021-10-02] MEDS: Furosemide 40 MG/4 ML VIAL SLOW IVP SCH ×2 (06:39→14:39)
[2021-10-02] MEDS: Digoxin 0.25 MG TAB PO SCH (08:38)
[2021-10-02] MEDS: Rivaroxaban 10 MG TAB PO SCH (08:39)
[2021-10-02] MEDS: Carvedilol 3.125 MG TAB PO SCH ×2 (08:39→20:38)
[2021-10-02] MEDS: Magnesium Oxide 400 MG TAB PO SCH ×2 (08:40→20:38)
[2021-10-02 16:44] LABS: Anion Gap 10 mmol/L (10-20); BUN (Urea Nitrogen) 16 mg/dL (8.4-25.7); Calc. Creatinine Clearance 121 mL/min (70-130); Calcium 9.1 mg/dL (7.8-10.44); Carbon Dioxide 34 mmol/L (23-31); Chloride 93 mmol/L (98-107); Glucose 87 mg/dL (80-115); Potassium 3.9 mmol/L (3.5-5.1); Sodium 133 mmol/L (136-145)
[2021-10-02] MEDS: Fluticasone Propionate Nasal Spray 16 gm Bottle NASAL SCH (20:37)
[2021-10-02] MEDS: diphenhydrAMINE 25 MG CAP PO PRN (20:38)
[2021-10-03 04:58] LABS: Hemoglobin 12.4 g/dL (14.0-18.0); Mean Corpuscular HGB CONC 31.7 g/dL (32.0-36.0); Mean Corpuscular Hemoglobin 26.2 pg (27.0-31.0); Mean Corpuscular Volume 82.7 fL (78.0-98.0); Mean Platelet Volume 8.1 fL (7.4-10.4); Platelet Count 235 thou/uL (130-400); RBC Distribution Width 17.8 % (11.5-14.5); Red Blood Cell (RBC) Count 4.75 mill/uL (4.70-6.10); White Blood Cell (WBC) Count 8.3 thou/uL (4.8-10.8)
[2021-10-03 05:18] LABS: Anion Gap 13 mmol/L (10-20); BUN (Urea Nitrogen) 15 mg/dL (8.4-25.7); Calc. Creatinine Clearance 129 mL/min (70-130); Calcium 8.9 mg/dL (7.8-10.44); Carbon Dioxide 30 mmol/L (23-31); Chloride 95 mmol/L (98-107); Glucose 99 mg/dL (80-115); Potassium 3.8 mmol/L (3.5-5.1); Sodium 134 mmol/L (136-145)
[2021-10-03] MEDS: Furosemide 40 MG/4 ML VIAL SLOW IVP SCH ×2 (06:52→15:16)
[2021-10-03] MEDS: Lisinopril 2.5 MG TAB PO SCH (09:49)
[2021-10-03] MEDS: Rivaroxaban 10 MG TAB PO SCH (09:50)
[2021-10-03] MEDS: Magnesium Oxide 400 MG TAB PO SCH ×3 (09:50→21:26)
[2021-10-03] MEDS: Spironolactone 25 MG TAB PO SCH (09:51)
[2021-10-03] MEDS: Carvedilol 3.125 MG TAB PO SCH ×2 (09:51→21:26)
[2021-10-03] MEDS: Digoxin 0.25 MG TAB PO SCH (09:52)
[2021-10-03] MEDS ORDERED: Potassium Chloride 20 MEQ TAB PO SCH (10:45)
[2021-10-03 11:48] LABS: Magnesium 1.8 mg/dL (1.6-2.6)
[2021-10-03] MEDS: DOBUTamine 500 mg/250 ml 250 ML IVPB SCH (12:04)
[2021-10-03] MEDS: Fluticasone Propionate Nasal Spray 16 gm Bottle NASAL SCH (21:26)
[2021-10-03] MEDS: diphenhydrAMINE 25 MG CAP PO PRN (21:26)
[2021-10-04 04:50] LABS: Anion Gap 11 mmol/L (10-20); BUN (Urea Nitrogen) 15 mg/dL (8.4-25.7); Calc. Creatinine Clearance 118 mL/min (70-130); Calcium 8.8 mg/dL (7.8-10.44); Carbon Dioxide 30 mmol/L (23-31); Chloride 97 mmol/L (98-107); Glucose 130 mg/dL (80-115); Magnesium 2.1 mg/dL (1.6-2.6); Sodium 134 mmol/L (136-145)
[2021-10-04] MEDS: Furosemide 40 MG/4 ML VIAL SLOW IVP SCH (06:01)
[2021-10-04] MEDS: Lisinopril 2.5 MG TAB PO SCH (09:32)
[2021-10-04] MEDS: Digoxin 0.25 MG TAB PO SCH (09:32)
[2021-10-04] MEDS: Magnesium Oxide 400 MG TAB PO SCH ×3 (09:33→20:26)
[2021-10-04] MEDS: Carvedilol 3.125 MG TAB PO SCH ×2 (09:33→20:27)
[2021-10-04] MEDS: Spironolactone 25 MG TAB PO SCH (09:33)
[2021-10-04] MEDS: Acetaminophen 325 MG TAB PO PRN (09:41)
[2021-10-04] MEDS: Furosemide 20 MG TAB PO SCH ×2 (09:41→14:29)
[2021-10-04] MEDS: Rivaroxaban 10 MG TAB PO SCH (10:18)
[2021-10-04] MEDS ORDERED: Hydrocortisone 1% Cream 30 GM TUBE TOP PRN (12:06)
[2021-10-04] MEDS: diphenhydrAMINE 25 MG CAP PO PRN (12:22)
[2021-10-04] MEDS: DOBUTamine 500 mg/250 ml 250 ML IVPB SCH (15:11)
[2021-10-04] MEDS: Fluticasone Propionate Nasal Spray 16 gm Bottle NASAL SCH (20:27)
[2021-10-04] MEDS ORDERED: Rivaroxaban 10 MG TAB PO SCH (21:00)
[2021-10-05 04:45] LABS: #Basophils 0.1 thou/uL (0.0-0.2); #Eosinphils 0.4 thou/uL (0.0-0.7); #Lymphocytes 1.5 thou/uL (1.20-3.40); #Monocytes 1.1 thou/uL (0.11-0.59); #Neutrophils 5.7 thou/uL (1.40-6.50); %Basophils 0.7 % (0.0-1.0); %Eosinophils 4.3 % (0.0-10.0); %Lymphocytes 17.1 % (21.0-51.0); %Monocytes 12.2 % (0.0-10.0); %Neutrophils 65.7 % (42.0-75.0); Hemoglobin 12.2 g/dL (14.0-18.0); Mean Corpuscular HGB CONC 30.2 g/dL (32.0-36.0); Mean Corpuscular Hemoglobin 25.2 pg (27.0-31.0); Mean Corpuscular Volume 83.4 fL (78.0-98.0); Mean Platelet Volume 8.2 fL (7.4-10.4); Platelet Count 244 thou/uL (130-400); RBC Distribution Width 17.6 % (11.5-14.5); Red Blood Cell (RBC) Count 4.85 mill/uL (4.70-6.10); White Blood Cell (WBC) Count 8.7 thou/uL (4.8-10.8)
[2021-10-05 05:20] LABS: ALT (SGPT) 8 U/L (8-55); AST (SGOT) 12 U/L (5-34); Albumin 3.3 g/dL (3.4-4.8); Alkaline Phosphatase 60 U/L (40-110); Anion Gap 11 mmol/L (10-20); BUN (Urea Nitrogen) 19 mg/dL (8.4-25.7); Bilirubin, Total 0.7 mg/dL (0.2-1.2); Calc. Creatinine Clearance 120 mL/min (70-130); Calcium 9.2 mg/dL (7.8-10.44); Carbon Dioxide 28 mmol/L (23-31); Chloride 98 mmol/L (98-107); Globulin 3.9 g/dL (2.4-3.5); Glucose 111 mg/dL (80-115); Potassium 4.2 mmol/L (3.5-5.1); Protein, Total 7.2 g/dL (5.8-8.1); Sodium 133 mmol/L (136-145)
[2021-10-05] MEDS: Digoxin 0.25 MG TAB PO SCH (10:19)
[2021-10-05] MEDS: Lisinopril 2.5 MG TAB PO SCH (10:19)
[2021-10-05] MEDS: Furosemide 20 MG TAB PO SCH ×2 (10:19→14:32)
[2021-10-05] MEDS: Carvedilol 3.125 MG TAB PO SCH ×2 (10:20→20:27)
[2021-10-05] MEDS: Spironolactone 25 MG TAB PO SCH (10:20)
[2021-10-05] MEDS: Magnesium Oxide 400 MG TAB PO SCH ×3 (10:20→20:27)
[2021-10-05] MEDS: Acetaminophen 325 MG TAB PO PRN (15:05)
[2021-10-05] MEDS: Ondansetron ODT 4 MG TAB PO PRN (15:06)
[2021-10-05] MEDS: Fluticasone Propionate Nasal Spray 16 gm Bottle NASAL SCH (20:28)
[2021-10-05 20:37] LABS: SARS-CoV-2 PCR by NAA Not Detected (NotDetected)
[2021-10-05] MEDS: diphenhydrAMINE 25 MG CAP PO PRN (23:05)
[2021-10-06 04:28] LABS: #Eosinphils 0.4 thou/uL (0.0-0.7); #Lymphocytes 1.7 thou/uL (1.20-3.40); #Monocytes 1.2 thou/uL (0.11-0.59); #Neutrophils 6.1 thou/uL (1.40-6.50); %Basophils 0.4 % (0.0-1.0); %Eosinophils 4.5 % (0.0-10.0); %Lymphocytes 18.3 % (21.0-51.0); %Monocytes 12.3 % (0.0-10.0); %Neutrophils 64.7 % (42.0-75.0); Hemoglobin 12.8 g/dL (14.0-18.0); Mean Corpuscular HGB CONC 30.6 g/dL (32.0-36.0); Mean Corpuscular Hemoglobin 25.4 pg (27.0-31.0); Mean Corpuscular Volume 82.9 fL (78.0-98.0); Mean Platelet Volume 8.1 fL (7.4-10.4); Platelet Count 258 thou/uL (130-400); Red Blood Cell (RBC) Count 5.05 mill/uL (4.70-6.10); White Blood Cell (WBC) Count 9.5 thou/uL (4.8-10.8)
[2021-10-06 04:48] LABS: ALT (SGPT) 10 U/L (8-55); AST (SGOT) 15 U/L (5-34); Albumin 3.4 g/dL (3.4-4.8); Alkaline Phosphatase 63 U/L (40-110); Anion Gap 13 mmol/L (10-20); BUN (Urea Nitrogen) 20 mg/dL (8.4-25.7); Bilirubin, Total 0.8 mg/dL (0.2-1.2); Calc. Creatinine Clearance 105 mL/min (70-130); Calcium 9.1 mg/dL (7.8-10.44); Carbon Dioxide 26 mmol/L (23-31); Chloride 99 mmol/L (98-107); Globulin 4.3 g/dL (2.4-3.5); Glucose 117 mg/dL (80-115); Potassium 4.5 mmol/L (3.5-5.1); Protein, Total 7.7 g/dL (5.8-8.1); Sodium 133 mmol/L (136-145)
[2021-10-06] MEDS ORDERED: Nitroglycerin 0.4 MG TAB (25 Tab Bottle) ONE (08:15)
[2021-10-06 10:03] LABS: Troponin I 0.038 ng/mL (< 0.028)
[2021-10-06] MEDS: Spironolactone 25 MG TAB PO SCH (10:09)
[2021-10-06] MEDS: Furosemide 20 MG TAB PO SCH (10:10)
[2021-10-06] MEDS: Magnesium Oxide 400 MG TAB PO SCH (10:10)
[2021-10-06] MEDS: Lisinopril 2.5 MG TAB PO SCH (10:10)
[2021-10-06] MEDS: Digoxin 0.25 MG TAB PO SCH (10:10)
[2021-10-06] MEDS: Acetaminophen 325 MG TAB PO PRN (10:10)
[2021-10-06] MEDS: Carvedilol 3.125 MG TAB PO SCH (10:10)
[2021-10-06 12:36] VITALS: BP 104/57; TEMP 98.2
[2021-10-06] MEDS ORDERED: Rivaroxaban 10 MG TAB PO SCH (21:00)
== END 2021-10-06 15:00 | DRG 291 ==
LOC: ERS 10:17 → 2NO 12:46 → OBSVTOIN 09-29 08:41
PROVIDERS: ADMIT Emergency Medicine; ATTEND Emergency Medicine
PROC: 3E033XZ Introduction of Vasopressor into Peripheral Vein, Percutaneous Approach (ICD-10-PCS; principal; 2021-09-29)
DX: I11.0 Hypertensive heart disease with heart failure (principal); I50.23 Acute on chronic systolic (congestive) heart failure; I47.2 Ventricular tachycardia; Z20.822 Contact with and (suspected) exposure to COVID-19; I48.0 Paroxysmal atrial fibrillation; E11.9 Type 2 diabetes mellitus without complications; E83.42 Hypomagnesemia; D63.8 Anemia in other chronic diseases classified elsewhere; E66.01 Morbid (severe) obesity due to excess calories; E78.5 Hyperlipidemia, unspecified; F41.9 Anxiety disorder, unspecified; F32.A Depression, unspecified; K21.9 Gastro-esophageal reflux disease without esophagitis; G89.29 Other chronic pain; M54.9 Dorsalgia, unspecified; I42.8 Other cardiomyopathies; R10.9 Unspecified abdominal pain; R25.2 Cramp and spasm; Z68.35 Body mass index [BMI] 35.0-35.9, adult; Z95.810 Presence of automatic (implantable) cardiac defibrillator; Z79.01 Long term (current) use of anticoagulants; Z88.1 Allergy status to other antibiotic agents; Z91.040 Latex allergy status; Z88.5 Allergy status to narcotic agent; Z88.8 Allergy status to other drugs, medicaments and biological substances; Z91.018 Allergy to other foods; Z91.09 Other allergy status, other than to drugs and biological substances; Z79.899 Other long term (current) drug therapy; Z79.51 Long term (current) use of inhaled steroids; Z90.49 Acquired absence of other specified parts of digestive tract; Z87.442 Personal history of urinary calculi; Z98.890 Other specified postprocedural states
CPT/HCPCS: 36415; 36416; 71045; 80048; 80053; 83735; 83880; 84484; 85025; 85027; 93005; 93010; 96374; 96375; 96376; 97139; G0378; J1250; J1940; J3475; J3490; Q0162; U0003; U0005

== ENCOUNTER 2021-12-24 12:46 | Emergency (ER) | payer MEDICARE ==
[2021-12-24] MEDS ORDERED: Cefepime 2 GM VIAL ONE (15:00)
[2021-12-24] MEDS ORDERED: VANCOMYCIN 2 GRAM/500 ML BAG 2 GM in Premix Bag 1 BAG IVPB SCH (15:15)
[2021-12-24] MEDS ORDERED: Acetaminophen/Codeine 30-300mg Tablet ONE (15:20)
== END 2021-12-24 19:19 | disposition home or self-care (01) ==
LOC: ERS 12:46
DX: N49.2 Inflammatory disorders of scrotum (principal); I48.91 Unspecified atrial fibrillation; E11.9 Type 2 diabetes mellitus without complications; E78.5 Hyperlipidemia, unspecified; I10 Essential (primary) hypertension; Z79.899 Other long term (current) drug therapy; Z79.01 Long term (current) use of anticoagulants
CPT/HCPCS: 76870; 93976; 96365; 96366; 96375; 99283; J3370; J0692

== ENCOUNTER 2022-01-06 09:42 | Emergency (ER) | payer MEDICARE ==
[2022-01-06 11:22] LABS: Bilirubin Negative (Negative); Blood, Urine 1+ (Negative); Clarity Clear (Clear); Glucose, Urine (Dipstick) Normal (Negative); Ketone, Urine Negative (Negative); Leukocyte 500 Leu/uL (Negative); Nitrite Negative (Negative); Protein, Urine (Dipstick) Negative (Neg-Trace); Specific Gravity, Urine 1.009 (1.002-1.036); Urobilinogen Normal mg/dL (Less than 2); WBC/HPF 21-50 HPF (0-3)
[2022-01-06 11:22] LABS: Hemoglobin 11.5 g/dL (14.0-18.0); Mean Corpuscular Hemoglobin 23.4 pg (27.0-31.0); Mean Corpuscular Volume 78.2 fL (78.0-98.0); Mean Platelet Volume 8.7 fL (7.4-10.4); Platelet Count 363 thou/uL (130-400); RBC Distribution Width 18.6 % (11.5-14.5); Red Blood Cell (RBC) Count 4.92 mill/uL (4.70-6.10); White Blood Cell (WBC) Count 14.9 thou/uL (4.8-10.8)
[2022-01-06 11:23] LABS: #Basophils 0.1 thou/uL (0.0-0.2); #Eosinphils 0.3 thou/uL (0.0-0.7); #Lymphocytes 2.2 thou/uL (1.20-3.40); #Monocytes 1.4 thou/uL (0.11-0.59); #Neutrophils 10.9 thou/uL (1.40-6.50); %Basophils 0.4 % (0.0-1.0); %Eosinophils 1.8 % (0.0-10.0); %Lymphocytes 14.9 % (21.0-51.0); %Monocytes 9.6 % (0.0-10.0); %Neutrophils 73.3 % (42.0-75.0)
[2022-01-06 11:29] LABS: Bacteria/HPF 1+ HPF (None Seen)
[2022-01-06 11:42] LABS: ALT (SGPT) 12 U/L (8-55); AST (SGOT) 15 U/L (5-34); Albumin 3.2 g/dL (3.4-4.8); Alkaline Phosphatase 70 U/L (40-110); Anion Gap 13 mmol/L (10-20); BUN (Urea Nitrogen) 21 mg/dL (8.4-25.7); Bilirubin, Total 0.8 mg/dL (0.2-1.2); Calc. Creatinine Clearance 0 mL/min (70-130); Calcium 8.6 mg/dL (7.8-10.44); Carbon Dioxide 26 mmol/L (23-31); Chloride 98 mmol/L (98-107); Estimated GFR 96; Globulin 3.5 g/dL (2.4-3.5); Glucose 103 mg/dL (80-115); Potassium 4.4 mmol/L (3.5-5.1); Protein, Total 6.7 g/dL (5.8-8.1); Sodium 133 mmol/L (136-145)
[2022-01-06 11:47] LABS: MDiff Complete? YES; Microcytosis SLIGHT = 6-15 cells (100X) (0-5/hpf); Polychromasia SLIGHT = 2-3 cells (100X) (0-2/hpf)
[2022-01-06 12:02] LABS: CKMB 2.4 ng/mL (0-6.6)
== END 2022-01-06 12:13 | disposition home or self-care (01) ==
LOC: ERS 09:42
DX: R05.9 Cough, unspecified (principal); E11.9 Type 2 diabetes mellitus without complications; E78.5 Hyperlipidemia, unspecified; I10 Essential (primary) hypertension; Z79.899 Other long term (current) drug therapy
CPT/HCPCS: 36415; 71045; 80053; 81003; 81015; 82553; 83605; 83880; 84484; 85025; 87040; 93005

== ENCOUNTER 2022-01-13 23:15 | Inpatient (IN) | payer MEDICARE ==
[2022-01-14 01:32] VITALS: BMI 40.4
[2022-01-14] MEDS ORDERED: Ondansetron PF 4 MG/2 ML Vial IVP PRN (05:48)
[2022-01-14] MEDS ORDERED: HumaLOG 300 UNITS/3 ML VIAL SC PRN ×2 (06:01)
[2022-01-14] MEDS ORDERED: Dextrose 50% Abboject 50 ML SYRINGE SLOW IVP PRN (06:01)
[2022-01-14] MEDS ORDERED: Dextrose 5% in Water 1,000 ML IV PRN (06:01)
[2022-01-14] MEDS: Furosemide 40 MG/4 ML VIAL SLOW IVP SCH ×2 (06:35→14:24)
[2022-01-14] MEDS: Acetaminophen 325 MG TAB PO PRN ×2 (06:35→11:57)
[2022-01-14 06:39] LABS: Anion Gap 14 mmol/L (10-20); BUN (Urea Nitrogen) 20 mg/dL (8.4-25.7); Calc. Creatinine Clearance 160 mL/min (70-130); Calcium 8.5 mg/dL (7.8-10.44); Carbon Dioxide 27 mmol/L (23-31); Chloride 100 mmol/L (98-107); Digoxin 1.38 ng/mL (0.8-2.0); Estimated GFR 96; Glucose 96 mg/dL (80-115); Magnesium 1.6 mg/dL (1.6-2.6); Potassium 4.2 mmol/L (3.5-5.1); Sodium 137 mmol/L (136-145)
[2022-01-14 06:58] LABS: Troponin I 0.036 ng/mL (< 0.028)
[2022-01-14 07:30] LABS: #Eosinphils 0.3 thou/uL (0.0-0.7); #Lymphocytes 1.8 thou/uL (1.20-3.40); #Monocytes 1.3 thou/uL (0.11-0.59); #Neutrophils 7.3 thou/uL (1.40-6.50); %Basophils 0.3 % (0.0-1.0); %Eosinophils 2.9 % (0.0-10.0); %Monocytes 11.9 % (0.0-10.0); Hemoglobin 11.5 g/dL (14.0-18.0); Mean Corpuscular HGB CONC 30.6 g/dL (32.0-36.0); Mean Corpuscular Hemoglobin 23.8 pg (27.0-31.0); Mean Corpuscular Volume 77.8 fL (78.0-98.0); Mean Platelet Volume 8.6 fL (7.4-10.4); Platelet Count 305 thou/uL (130-400); RBC Distribution Width 18.3 % (11.5-14.5); Red Blood Cell (RBC) Count 4.83 mill/uL (4.70-6.10); White Blood Cell (WBC) Count 10.7 thou/uL (4.8-10.8)
[2022-01-14] MEDS: Non-Formulary Item 1 EACH (Rivaroxaban [Xarelto] 20 MG Tablet) PO SCH (10:28)
[2022-01-15] MEDS: Acetaminophen 325 MG TAB PO PRN ×2 (01:34→16:56)
[2022-01-15 04:41] LABS: #Eosinphils 0.3 thou/uL (0.0-0.7); #Lymphocytes 1.9 thou/uL (1.20-3.40); #Monocytes 1.3 thou/uL (0.11-0.59); #Neutrophils 7.9 thou/uL (1.40-6.50); %Basophils 0.4 % (0.0-1.0); %Eosinophils 2.7 % (0.0-10.0); %Lymphocytes 16.4 % (21.0-51.0); %Monocytes 11.2 % (0.0-10.0); %Neutrophils 69.4 % (42.0-75.0); Hemoglobin 10.9 g/dL (14.0-18.0); Mean Corpuscular HGB CONC 30.1 g/dL (32.0-36.0); Mean Corpuscular Hemoglobin 23.5 pg (27.0-31.0); Mean Corpuscular Volume 78.3 fL (78.0-98.0); Mean Platelet Volume 8.7 fL (7.4-10.4); Platelet Count 306 thou/uL (130-400); RBC Distribution Width 18.4 % (11.5-14.5); Red Blood Cell (RBC) Count 4.63 mill/uL (4.70-6.10); White Blood Cell (WBC) Count 11.3 thou/uL (4.8-10.8)
[2022-01-15 05:03] LABS: Anion Gap 12 mmol/L (10-20); BUN (Urea Nitrogen) 23 mg/dL (8.4-25.7); Calc. Creatinine Clearance 148 mL/min (70-130); Calcium 8.6 mg/dL (7.8-10.44); Carbon Dioxide 29 mmol/L (23-31); Chloride 98 mmol/L (98-107); Estimated GFR 94; Glucose 113 mg/dL (80-115); Magnesium 1.7 mg/dL (1.6-2.6); Potassium 4.2 mmol/L (3.5-5.1); Sodium 135 mmol/L (136-145)
[2022-01-15] MEDS: Furosemide 40 MG/4 ML VIAL SLOW IVP SCH ×2 (06:30→13:52)
[2022-01-15] MEDS ORDERED: Rivaroxaban 10 MG TAB PO SCH (09:15)
[2022-01-15] MEDS: Non-Formulary Item 1 EACH (Rivaroxaban [Xarelto] 20 MG Tablet) PO SCH (10:32)
[2022-01-15] MEDS ORDERED: Cholecalciferol 1,000 UNITS (25 MCG) TAB PO SCH (16:00)
[2022-01-15] MEDS ORDERED: Calcium Carbonate 600 MG TAB PO SCH (16:00)
[2022-01-16 04:54] LABS: #Eosinphils 0.3 thou/uL (0.0-0.7); #Lymphocytes 1.7 thou/uL (1.20-3.40); #Monocytes 1.2 thou/uL (0.11-0.59); #Neutrophils 7.1 thou/uL (1.40-6.50); %Basophils 0.2 % (0.0-1.0); %Eosinophils 2.9 % (0.0-10.0); %Lymphocytes 16.4 % (21.0-51.0); %Monocytes 11.8 % (0.0-10.0); %Neutrophils 68.7 % (42.0-75.0); Hemoglobin 10.9 g/dL (14.0-18.0); Mean Corpuscular HGB CONC 30.2 g/dL (32.0-36.0); Mean Corpuscular Hemoglobin 23.7 pg (27.0-31.0); Mean Corpuscular Volume 78.5 fL (78.0-98.0); Mean Platelet Volume 8.7 fL (7.4-10.4); Platelet Count 284 thou/uL (130-400); RBC Distribution Width 18.4 % (11.5-14.5); Red Blood Cell (RBC) Count 4.59 mill/uL (4.70-6.10); White Blood Cell (WBC) Count 10.3 thou/uL (4.8-10.8)
[2022-01-16] MEDS: Furosemide 40 MG/4 ML VIAL SLOW IVP SCH ×2 (05:04→14:11)
[2022-01-16 05:13] LABS: Anion Gap 14 mmol/L (10-20); BUN (Urea Nitrogen) 21 mg/dL (8.4-25.7); Calc. Creatinine Clearance 161 mL/min (70-130); Calcium 8.8 mg/dL (7.8-10.44); Carbon Dioxide 30 mmol/L (23-31); Chloride 97 mmol/L (98-107); Estimated GFR 97; Glucose 108 mg/dL (80-115); Magnesium 1.7 mg/dL (1.6-2.6); Sodium 137 mmol/L (136-145)
[2022-01-16] MEDS: Acetaminophen 325 MG TAB PO PRN (06:52)
[2022-01-16] MEDS ORDERED: Non-Formulary Item 1 EACH (Sertraline Hcl [Sertraline Hcl] 50 MG Tablet) PO SCH (09:00)
[2022-01-16] MEDS ORDERED: Calcium Carbonate 600 MG TAB PO SCH ×2 (09:00)
[2022-01-16] MEDS ORDERED: Non-Formulary Item 1 EACH (Cholecalciferol (Vitamin D3) [Vitamin D3] 125 MCG Tablet) PO SCH (09:00)
[2022-01-16] MEDS: Lisinopril 2.5 MG TAB PO SCH (09:18)
[2022-01-16] MEDS: Digoxin 0.25 MG TAB PO SCH (09:18)
[2022-01-16] MEDS: Calcium Carbonate 600 MG TAB PO SCH (09:18)
[2022-01-16] MEDS: Cholecalciferol 1,000 UNITS (25 MCG) TAB PO SCH (09:19)
[2022-01-16] MEDS: Rivaroxaban 10 MG TAB PO SCH (09:20)
[2022-01-16] MEDS: Spironolactone 25 MG TAB PO SCH (09:21)
[2022-01-16] MEDS ORDERED: traZODone HCl 50 MG TAB PO PRN (12:22)
[2022-01-16] MEDS: Acetaminophen 500 MG TAB PO PRN (21:14)
[2022-01-17] MEDS: Acetaminophen 500 MG TAB PO PRN ×3 (03:19→20:54)
[2022-01-17] MEDS: Furosemide 40 MG/4 ML VIAL SLOW IVP SCH ×2 (05:22→14:17)
[2022-01-17] MEDS: Furosemide 100 MG/10 ML VIAL SLOW IVP SCH (09:10)
[2022-01-17] MEDS: Calcium Carbonate 600 MG TAB PO SCH (09:10)
[2022-01-17] MEDS: Lisinopril 2.5 MG TAB PO SCH (09:10)
[2022-01-17] MEDS: Digoxin 0.25 MG TAB PO SCH (09:10)
[2022-01-17] MEDS: Spironolactone 25 MG TAB PO SCH (09:11)
[2022-01-17 10:01] LABS: Anion Gap 15 mmol/L (10-20); BUN (Urea Nitrogen) 24 mg/dL (8.4-25.7); Calc. Creatinine Clearance 150 mL/min (70-130); Calcium 8.9 mg/dL (7.8-10.44); Carbon Dioxide 30 mmol/L (23-31); Chloride 95 mmol/L (98-107); Estimated GFR 95; Glucose 118 mg/dL (80-115); Magnesium 1.6 mg/dL (1.6-2.6); Potassium 3.7 mmol/L (3.5-5.1); Sodium 136 mmol/L (136-145)
[2022-01-17 10:04] LABS: #Eosinphils 0.2 thou/uL (0.0-0.7); #Lymphocytes 1.4 thou/uL (1.20-3.40); #Monocytes 0.9 thou/uL (0.11-0.59); #Neutrophils 5.8 thou/uL (1.40-6.50); %Basophils 0.6 % (0.0-1.0); %Eosinophils 2.8 % (0.0-10.0); %Lymphocytes 17.2 % (21.0-51.0); %Monocytes 10.3 % (0.0-10.0); %Neutrophils 69.2 % (42.0-75.0); Hemoglobin 10.9 g/dL (14.0-18.0); Mean Corpuscular HGB CONC 28.6 g/dL (32.0-36.0); Mean Corpuscular Hemoglobin 22.4 pg (27.0-31.0); Mean Corpuscular Volume 78.1 fL (78.0-98.0); Mean Platelet Volume 8.8 fL (7.4-10.4); Platelet Count 277 thou/uL (130-400); RBC Distribution Width 18.6 % (11.5-14.5); Red Blood Cell (RBC) Count 4.89 mill/uL (4.70-6.10); White Blood Cell (WBC) Count 8.4 thou/uL (4.8-10.8)
[2022-01-17 10:34] LABS: Hypochromia SLIGHT = 6-15 cells (100X) (0-5/hpf); MDiff Complete? YES; Microcytosis SLIGHT = 6-15 cells (100X) (0-5/hpf); Platelet Morphology Comment Appears Adequate; Polychromasia SLIGHT = 2-3 cells (100X) (0-2/hpf)
[2022-01-17] MEDS ORDERED: Lorazepam 1 MG TAB PO PRN (10:56)
[2022-01-17] MEDS: Rivaroxaban 10 MG TAB PO SCH ×2 (11:10→18:42)
[2022-01-17] MEDS: Cholecalciferol 1,000 UNITS (25 MCG) TAB PO SCH (11:44)
[2022-01-17 12:45] LABS: SARS-CoV-2 PCR NAA for Saliva Not Detected (NotDetected)
[2022-01-17] MEDS: Amitriptyline HCl 25 MG TAB PO SCH (20:49)
[2022-01-18] MEDS ORDERED: Gabapentin 100 MG CAP PO SCH ×2 (00:32→21:00)
[2022-01-18 04:56] LABS: #Basophils 0.1 thou/uL (0.0-0.2); #Eosinphils 0.3 thou/uL (0.0-0.7); #Lymphocytes 1.6 thou/uL (1.20-3.40); #Monocytes 1.1 thou/uL (0.11-0.59); #Neutrophils 6.9 thou/uL (1.40-6.50); %Basophils 0.6 % (0.0-1.0); %Lymphocytes 16.4 % (21.0-51.0); %Monocytes 10.8 % (0.0-10.0); %Neutrophils 69.2 % (42.0-75.0); Hemoglobin 11.1 g/dL (14.0-18.0); Mean Corpuscular HGB CONC 30.8 g/dL (32.0-36.0); Mean Corpuscular Hemoglobin 23.8 pg (27.0-31.0); Mean Corpuscular Volume 77.5 fL (78.0-98.0); Mean Platelet Volume 8.7 fL (7.4-10.4); Platelet Count 266 thou/uL (130-400); RBC Distribution Width 18.5 % (11.5-14.5); Red Blood Cell (RBC) Count 4.65 mill/uL (4.70-6.10); White Blood Cell (WBC) Count 9.9 thou/uL (4.8-10.8)
[2022-01-18 05:19] LABS: Anion Gap 11 mmol/L (10-20); BUN (Urea Nitrogen) 21 mg/dL (8.4-25.7); Calc. Creatinine Clearance 162 mL/min (70-130); Calcium 8.6 mg/dL (7.8-10.44); Carbon Dioxide 32 mmol/L (23-31); Chloride 94 mmol/L (98-107); Estimated GFR 98; Glucose 95 mg/dL (80-115); Potassium 3.7 mmol/L (3.5-5.1); Sodium 133 mmol/L (136-145)
[2022-01-18] MEDS: Cholecalciferol 1,000 UNITS (25 MCG) TAB PO SCH (08:18)
[2022-01-18] MEDS: Lisinopril 2.5 MG TAB PO SCH (08:18)
[2022-01-18] MEDS: Calcium Carbonate 600 MG TAB PO SCH (08:19)
[2022-01-18] MEDS: Spironolactone 25 MG TAB PO SCH (08:19)
[2022-01-18] MEDS: Digoxin 0.25 MG TAB PO SCH (08:19)
[2022-01-18] MEDS: Furosemide 100 MG/10 ML VIAL SLOW IVP SCH (08:20)
[2022-01-18] MEDS: Furosemide 40 MG/4 ML VIAL SLOW IVP SCH (13:13)
[2022-01-18] MEDS: Rivaroxaban 10 MG TAB PO SCH (18:07)
[2022-01-18] MEDS: Amitriptyline HCl 25 MG TAB PO SCH (21:22)
[2022-01-19 04:45] LABS: #Eosinphils 0.3 thou/uL (0.0-0.7); #Lymphocytes 1.6 thou/uL (1.20-3.40); #Neutrophils 6.5 thou/uL (1.40-6.50); %Basophils 0.4 % (0.0-1.0); %Eosinophils 2.9 % (0.0-10.0); %Lymphocytes 16.8 % (21.0-51.0); %Neutrophils 68.8 % (42.0-75.0); Hemoglobin 10.9 g/dL (14.0-18.0); Mean Corpuscular HGB CONC 30.6 g/dL (32.0-36.0); Mean Corpuscular Hemoglobin 23.8 pg (27.0-31.0); Mean Corpuscular Volume 77.8 fL (78.0-98.0); Mean Platelet Volume 8.4 fL (7.4-10.4); Platelet Count 275 thou/uL (130-400); RBC Distribution Width 18.1 % (11.5-14.5); Red Blood Cell (RBC) Count 4.59 mill/uL (4.70-6.10); White Blood Cell (WBC) Count 9.4 thou/uL (4.8-10.8)
[2022-01-19 05:12] LABS: Anion Gap 11 mmol/L (10-20); BUN (Urea Nitrogen) 19 mg/dL (8.4-25.7); Calc. Creatinine Clearance 147 mL/min (70-130); Calcium 8.7 mg/dL (7.8-10.44); Carbon Dioxide 33 mmol/L (23-31); Chloride 95 mmol/L (98-107); Estimated GFR 95; Glucose 113 mg/dL (80-115); Potassium 3.9 mmol/L (3.5-5.1); Sodium 135 mmol/L (136-145)
[2022-01-19] MEDS: Furosemide 100 MG/10 ML VIAL SLOW IVP SCH ×2 (06:34→13:47)
[2022-01-19] MEDS: Digoxin 0.25 MG TAB PO SCH (08:34)
[2022-01-19] MEDS: Cholecalciferol 1,000 UNITS (25 MCG) TAB PO SCH (08:34)
[2022-01-19] MEDS: Lisinopril 2.5 MG TAB PO SCH (08:35)
[2022-01-19] MEDS: Calcium Carbonate 600 MG TAB PO SCH (08:36)
[2022-01-19] MEDS: Spironolactone 25 MG TAB PO SCH (08:36)
[2022-01-19 12:25] VITALS: BP 117/56; TEMP 97.8
== END 2022-01-19 16:07 | disposition home or self-care (01) | DRG 291 ==
LOC: 2NO 01-14 00:02
PROVIDERS: ADMIT Family Medicine; ATTEND Family Medicine
DX: I11.0 Hypertensive heart disease with heart failure (principal); I50.43 Acute on chronic combined systolic (congestive) and diastolic (congestive) heart failure; J96.01 Acute respiratory failure with hypoxia; E78.5 Hyperlipidemia, unspecified; I48.91 Unspecified atrial fibrillation; I48.0 Paroxysmal atrial fibrillation; F41.9 Anxiety disorder, unspecified; R74.8 Abnormal levels of other serum enzymes; G47.00 Insomnia, unspecified; R51.9 Headache, unspecified; F32.A Depression, unspecified; Z79.899 Other long term (current) drug therapy; Z88.8 Allergy status to other drugs, medicaments and biological substances; Z91.040 Latex allergy status; Z88.5 Allergy status to narcotic agent; Z91.014 Allergy to mammalian meats; Z79.01 Long term (current) use of anticoagulants; Z79.51 Long term (current) use of inhaled steroids; Z95.810 Presence of automatic (implantable) cardiac defibrillator; Z90.49 Acquired absence of other specified parts of digestive tract; Z95.5 Presence of coronary angioplasty implant and graft; Z87.442 Personal history of urinary calculi; Z82.49 Family history of ischemic heart disease and other diseases of the circulatory system; Z91.19 Patient's noncompliance with other medical treatment and regimen
CPT/HCPCS: 36415; 36416; 71046; 80048; 80162; 83735; 84484; 85025; J1940; U0003; U0005

== ENCOUNTER 2022-05-04 10:47 | Emergency (ER) | payer MEDICARE ==
[2022-05-04 11:54] LABS: #Eosinphils 0.2 thou/uL (0.0-0.7); #Lymphocytes 1.6 thou/uL (1.20-3.40); #Monocytes 1.4 thou/uL (0.11-0.59); #Neutrophils 7.8 thou/uL (1.40-6.50); %Basophils 0.2 % (0.0-1.0); %Eosinophils 1.9 % (0.0-10.0); %Lymphocytes 14.5 % (21.0-51.0); %Monocytes 12.5 % (0.0-10.0); %Neutrophils 70.9 % (42.0-75.0); Hemoglobin 9.8 g/dL (14.0-18.0); Mean Corpuscular HGB CONC 29.6 g/dL (32.0-36.0); Mean Corpuscular Hemoglobin 21.9 pg (27.0-31.0); Mean Corpuscular Volume 74.1 fl (78.0-98.0); Mean Platelet Volume 9.6 fL (7.4-10.4); Platelet Count 340 10x3/uL (130-400); RBC Distribution Width 19.6 % (11.5-14.5); Red Blood Cell (RBC) Count 4.47 mill/uL (4.70-6.10)
[2022-05-04 12:13] LABS: Hypochromia SLIGHT = 6-15 cells (100X) (0-5/hpf); MDiff Complete? YES; Microcytosis SLIGHT = 6-15 cells (100X) (0-5/hpf); Ovalocytes SLIGHT = 2-5 cells (100X) (0-1/hpf); Platelet Morphology Comment Appears Adequate; Polychromasia SLIGHT = 2-3 cells (100X) (0-2/hpf)
[2022-05-04 12:14] LABS: ALT (SGPT) 7 U/L (8-55); AST (SGOT) 13 U/L (5-34); Albumin 2.8 g/dL (3.4-4.8); Alkaline Phosphatase 55 U/L (40-110); Anion Gap 11 mmol/L (10-20); BUN (Urea Nitrogen) 24 mg/dL (8.4-25.7); Bilirubin, Total 0.6 mg/dL (0.2-1.2); Calc. Creatinine Clearance 0 mL/min (70-130); Calcium 8.3 mg/dL (7.8-10.44); Carbon Dioxide 28 mmol/L (23-31); Chloride 100 mmol/L (98-107); Estimated GFR 84; Globulin 3.5 g/dL (2.4-3.5); Glucose 132 mg/dL (80-115); Potassium 4.5 mmol/L (3.5-5.1); Protein, Total 6.3 g/dL (5.8-8.1); Sodium 134 mmol/L (136-145)
[2022-05-04] MEDS ORDERED: Furosemide 40 MG/4 ML VIAL ONE (13:24)
== END 2022-05-04 15:30 ==
LOC: ERS 10:47
DX: I11.0 Hypertensive heart disease with heart failure (principal); I50.9 Heart failure, unspecified; E11.9 Type 2 diabetes mellitus without complications; E78.5 Hyperlipidemia, unspecified; K21.9 Gastro-esophageal reflux disease without esophagitis; Z79.899 Other long term (current) drug therapy
CPT/HCPCS: 71045; 80053; 83880; 84484; 85025; 93005; 96374; J1940

== ENCOUNTER 2022-05-16 14:25 | Inpatient (IN) | payer MEDICARE ==
[2022-05-16 15:45] LABS: #Eosinphils 0.2 thou/uL (0.0-0.7); #Lymphocytes 1.6 thou/uL (1.20-3.40); #Monocytes 1.4 thou/uL (0.11-0.59); #Neutrophils 7.9 thou/uL (1.40-6.50); %Basophils 0.1 % (0.0-1.0); %Eosinophils 1.9 % (0.0-10.0); %Monocytes 12.8 % (0.0-10.0); %Neutrophils 71.2 % (42.0-75.0); Hemoglobin 9.5 g/dL (14.0-18.0); Mean Corpuscular HGB CONC 28.7 g/dL (32.0-36.0); Mean Corpuscular Hemoglobin 20.9 pg (27.0-31.0); Mean Corpuscular Volume 72.9 fl (78.0-98.0); Mean Platelet Volume 9.1 fL (7.4-10.4); Platelet Count 383 10x3/uL (130-400); RBC Distribution Width 19.3 % (11.5-14.5); Red Blood Cell (RBC) Count 4.54 mill/uL (4.70-6.10); White Blood Cell (WBC) Count 11.1 10x3/uL (4.8-10.8)
[2022-05-16] MEDS ORDERED: Furosemide 40 MG/4 ML VIAL ONE (16:02)
[2022-05-16 16:07] LABS: ALT (SGPT) 9 U/L (8-55); AST (SGOT) 13 U/L (5-34); Albumin 2.9 g/dL (3.4-4.8); Alkaline Phosphatase 65 U/L (40-110); Anion Gap 13 mmol/L (10-20); BUN (Urea Nitrogen) 22 mg/dL (8.4-25.7); Bilirubin, Total 0.5 mg/dL (0.2-1.2); Calc. Creatinine Clearance 0 mL/min (70-130); Calcium 8.2 mg/dL (7.8-10.44); Carbon Dioxide 29 mmol/L (23-31); Chloride 97 mmol/L (98-107); Estimated GFR 92; Globulin 3.3 g/dL (2.4-3.5); Glucose 132 mg/dL (80-115); Potassium 4.6 mmol/L (3.5-5.1); Protein, Total 6.2 g/dL (5.8-8.1); Sodium 134 mmol/L (136-145)
[2022-05-16 16:27] LABS: CKMB 2.5 ng/mL (0-6.6)
[2022-05-16] MEDS ORDERED: Acetaminophen 500 MG TAB PO PRN (18:03)
[2022-05-16] MEDS ORDERED: HumaLOG 300 UNITS/3 ML VIAL SC PRN (18:12)
[2022-05-16] MEDS ORDERED: Dextrose 50% Abboject 50 ML SYRINGE SLOW IVP PRN (18:12)
[2022-05-16] MEDS ORDERED: Dextrose 5% in Water 1,000 ML IV PRN (18:12)
[2022-05-16] MEDS ORDERED: Acetaminophen 500 MG TAB PO SCH (21:00)
[2022-05-16] MEDS ORDERED: Ondansetron PF 4 MG/2 ML Vial ONE (21:52)
[2022-05-16] MEDS ORDERED: Acetaminophen 500 MG TAB ONE ×2 (22:13)
[2022-05-16] MEDS: Amitriptyline HCl 25 MG TAB PO SCH (22:23)
[2022-05-17] MEDS ORDERED: Furosemide 40 MG/4 ML VIAL ONE ×2 (06:43)
[2022-05-17] MEDS: Rivaroxaban 10 MG TAB PO SCH (06:51)
[2022-05-17] MEDS: Furosemide 100 MG/10 ML VIAL SLOW IVP SCH ×2 (06:51→15:07)
[2022-05-17 08:07] LABS: Hemoglobin 9.8 g/dL (14.0-18.0); Mean Corpuscular HGB CONC 28.6 g/dL (32.0-36.0); Mean Corpuscular Hemoglobin 20.5 pg (27.0-31.0); Mean Corpuscular Volume 71.7 fl (78.0-98.0); Mean Platelet Volume 9.3 fL (7.4-10.4); Platelet Count 414 10x3/uL (130-400); RBC Distribution Width 19.3 % (11.5-14.5); Red Blood Cell (RBC) Count 4.76 mill/uL (4.70-6.10); White Blood Cell (WBC) Count 10.6 10x3/uL (4.8-10.8)
[2022-05-17 08:09] LABS: #Eosinphils 0.3 thou/uL (0.0-0.7); #Monocytes 1.4 thou/uL (0.11-0.59); %Basophils 0.3 % (0.0-1.0); %Eosinophils 2.5 % (0.0-10.0); %Lymphocytes 18.3 % (21.0-51.0); %Monocytes 13.3 % (0.0-10.0); %Neutrophils 65.6 % (42.0-75.0)
[2022-05-17 08:20] LABS: Anion Gap 11 mmol/L (10-20); BUN (Urea Nitrogen) 20 mg/dL (8.4-25.7); Calc. Creatinine Clearance 0 mL/min (70-130); Calcium 8.1 mg/dL (7.8-10.44); Carbon Dioxide 30 mmol/L (23-31); Chloride 96 mmol/L (98-107); Estimated GFR 87; Glucose 113 mg/dL (80-115); Magnesium 2.1 mg/dL (1.6-2.6); Phosphorus 4.1 mg/dL (2.3-4.7); Potassium 4.1 mmol/L (3.5-5.1); Sodium 133 mmol/L (136-145)
[2022-05-17 09:06] LABS: Hypochromia MODERATE=16-30 cells (100X) (0-5/hpf); MDiff Complete? YES; Microcytosis MODERATE=15-30 cells (100X) (0-5/hpf); Platelet Morphology Comment Appears Increased; Polychromasia SLIGHT = 2-3 cells (100X) (0-2/hpf)
[2022-05-17] MEDS ORDERED: Digoxin 0.25 MG TAB ONE (09:20)
[2022-05-17] MEDS ORDERED: Cholecalciferol 1,000 UNITS (25 MCG) TAB ONE (09:20)
[2022-05-17] MEDS: Cholecalciferol 1,000 UNITS (25 MCG) TAB PO SCH (09:29)
[2022-05-17] MEDS: Lisinopril 2.5 MG TAB PO SCH (09:29)
[2022-05-17] MEDS: Sertraline 100 MG TAB PO SCH (09:29)
[2022-05-17] MEDS: Spironolactone 25 MG TAB PO SCH (09:29)
[2022-05-17] MEDS: Digoxin 0.125 MG TAB PO SCH (09:29)
[2022-05-17 10:51] VITALS: BMI 43.9
[2022-05-17] MEDS: Fluticasone Propionate Nasal Spray 16 gm Bottle NASAL SCH (15:06)
[2022-05-17] MEDS: Amitriptyline HCl 25 MG TAB PO SCH (20:58)
[2022-05-18] MEDS: GUAIFENESIN SF SOLN 200 MG/10 ML UDCUP PO PRN (02:46)
[2022-05-18 03:32] LABS: Bilirubin Negative (Negative); Blood, Urine Negative (Negative); Clarity Clear (Clear); Glucose, Urine (Dipstick) Normal (Negative); Ketone, Urine Negative (Negative); Leukocyte Negative Leu/uL (Negative); Nitrite Negative (Negative); Protein, Urine (Dipstick) Negative (Neg-Trace); Specific Gravity, Urine 1.013 (1.002-1.036); Urobilinogen Normal mg/dL (Less than 2)
[2022-05-18] MEDS: Rivaroxaban 10 MG TAB PO SCH (06:12)
[2022-05-18] MEDS: Furosemide 100 MG/10 ML VIAL SLOW IVP SCH ×2 (06:12→13:34)
[2022-05-18] MEDS: Cholecalciferol 1,000 UNITS (25 MCG) TAB PO SCH (08:49)
[2022-05-18] MEDS: Sertraline 100 MG TAB PO SCH (08:49)
[2022-05-18] MEDS: Spironolactone 25 MG TAB PO SCH (08:49)
[2022-05-18] MEDS: Lisinopril 2.5 MG TAB PO SCH (08:58)
[2022-05-18] MEDS: Fluticasone Propionate Nasal Spray 16 gm Bottle NASAL SCH (08:59)
[2022-05-18] MEDS: Digoxin 0.125 MG TAB PO SCH (08:59)
[2022-05-18] MEDS ORDERED: Carvedilol 6.25 MG TAB PO SCH (10:30)
[2022-05-18] MEDS: Carvedilol 3.125 MG TAB PO SCH (18:01)
[2022-05-18] MEDS: Amitriptyline HCl 25 MG TAB PO SCH (22:57)
[2022-05-19] MEDS ORDERED: diphenhydrAMINE 25 MG CAP PO SCH (00:15)
[2022-05-19 04:51] LABS: #Basophils 0.1 thou/uL (0.0-0.2); #Eosinphils 0.2 thou/uL (0.0-0.7); #Lymphocytes 1.4 thou/uL (1.20-3.40); #Monocytes 1.2 thou/uL (0.11-0.59); #Neutrophils 7.3 thou/uL (1.40-6.50); %Basophils 0.5 % (0.0-1.0); %Eosinophils 2.4 % (0.0-10.0); %Lymphocytes 13.6 % (21.0-51.0); %Monocytes 12.1 % (0.0-10.0); %Neutrophils 71.5 % (42.0-75.0); Hemoglobin 9.1 g/dL (14.0-18.0); Mean Corpuscular HGB CONC 29.3 g/dL (32.0-36.0); Mean Corpuscular Hemoglobin 21.1 pg (27.0-31.0); Mean Corpuscular Volume 71.8 fl (78.0-98.0); Mean Platelet Volume 9.1 fL (7.4-10.4); Platelet Count 372 10x3/uL (130-400); RBC Distribution Width 19.3 % (11.5-14.5); Red Blood Cell (RBC) Count 4.32 mill/uL (4.70-6.10); White Blood Cell (WBC) Count 10.2 10x3/uL (4.8-10.8)
[2022-05-19 04:53] LABS: Anion Gap 10 mmol/L (10-20); BUN (Urea Nitrogen) 30 mg/dL (8.4-25.7); Calc. Creatinine Clearance 131 mL/min (70-130); Calcium 8.4 mg/dL (7.8-10.44); Carbon Dioxide 30 mmol/L (23-31); Chloride 94 mmol/L (98-107); Estimated GFR 77; Glucose 115 mg/dL (80-115); Sodium 129 mmol/L (136-145)
[2022-05-19] MEDS: Rivaroxaban 10 MG TAB PO SCH (06:16)
[2022-05-19] MEDS: Furosemide 100 MG/10 ML VIAL SLOW IVP SCH ×2 (06:16→13:17)
[2022-05-19] MEDS: Digoxin 0.125 MG TAB PO SCH (09:01)
[2022-05-19] MEDS: Fluticasone Propionate Nasal Spray 16 gm Bottle NASAL SCH (09:02)
[2022-05-19] MEDS: Lisinopril 2.5 MG TAB PO SCH (09:02)
[2022-05-19] MEDS: Spironolactone 25 MG TAB PO SCH (09:03)
[2022-05-19] MEDS: Cholecalciferol 1,000 UNITS (25 MCG) TAB PO SCH (09:03)
[2022-05-19] MEDS: Carvedilol 3.125 MG TAB PO SCH ×2 (09:03→16:40)
[2022-05-19] MEDS: Sertraline 100 MG TAB PO SCH (09:06)
[2022-05-19] MEDS: Amitriptyline HCl 25 MG TAB PO SCH (21:27)
[2022-05-20 04:54] LABS: Anion Gap 13 mmol/L (10-20); BUN (Urea Nitrogen) 35 mg/dL (8.4-25.7); Calc. Creatinine Clearance 123 mL/min (70-130); Calcium 8.8 mg/dL (7.8-10.44); Carbon Dioxide 30 mmol/L (23-31); Chloride 93 mmol/L (98-107); Estimated GFR 72; Glucose 114 mg/dL (80-115); Potassium 5.3 mmol/L (3.5-5.1); Sodium 131 mmol/L (136-145)
[2022-05-20 05:10] LABS: #Eosinphils 0.3 thou/uL (0.0-0.7); #Lymphocytes 1.4 thou/uL (1.20-3.40); #Monocytes 1.3 thou/uL (0.11-0.59); #Neutrophils 6.6 thou/uL (1.40-6.50); %Basophils 0.2 % (0.0-1.0); %Eosinophils 2.7 % (0.0-10.0); %Lymphocytes 14.9 % (21.0-51.0); %Monocytes 13.1 % (0.0-10.0); %Neutrophils 69.1 % (42.0-75.0); Anisocytosis SLIGHT = 6-15 cells (100X) (0-5/hpf); Hemoglobin 9.7 g/dL (14.0-18.0); Hypochromia SLIGHT = 6-15 cells (100X) (0-5/hpf); MDiff Complete? YES; Mean Corpuscular HGB CONC 29.5 g/dL (32.0-36.0); Mean Corpuscular Hemoglobin 21.3 pg (27.0-31.0); Mean Corpuscular Volume 72.4 fl (78.0-98.0); Mean Platelet Volume 9.3 fL (7.4-10.4); Microcytosis SLIGHT = 6-15 cells (100X) (0-5/hpf); Platelet Count 367 10x3/uL (130-400); RBC Distribution Width 19.4 % (11.5-14.5); Red Blood Cell (RBC) Count 4.52 mill/uL (4.70-6.10); White Blood Cell (WBC) Count 9.6 10x3/uL (4.8-10.8)
[2022-05-20] MEDS: Rivaroxaban 10 MG TAB PO SCH (06:30)
[2022-05-20] MEDS: Furosemide 100 MG/10 ML VIAL SLOW IVP SCH ×2 (06:30→16:24)
[2022-05-20] MEDS: Digoxin 0.125 MG TAB PO SCH (10:47)
[2022-05-20] MEDS: Sertraline 100 MG TAB PO SCH (10:48)
[2022-05-20] MEDS: Lisinopril 2.5 MG TAB PO SCH (10:48)
[2022-05-20] MEDS: Cholecalciferol 1,000 UNITS (25 MCG) TAB PO SCH (10:50)
[2022-05-20] MEDS: Spironolactone 25 MG TAB PO SCH (11:03)
[2022-05-20] MEDS: Carvedilol 3.125 MG TAB PO SCH ×2 (11:03→16:23)
[2022-05-20] MEDS: Fluticasone Propionate Nasal Spray 16 gm Bottle NASAL SCH (11:04)
[2022-05-20] MEDS: GUAIFENESIN SF SOLN 200 MG/10 ML UDCUP PO PRN (16:31)
[2022-05-20] MEDS: Amitriptyline HCl 25 MG TAB PO SCH (21:19)
[2022-05-21 04:45] LABS: #Eosinphils 0.3 thou/uL (0.0-0.7); #Lymphocytes 1.5 thou/uL (1.20-3.40); #Monocytes 1.3 thou/uL (0.11-0.59); #Neutrophils 6.6 thou/uL (1.40-6.50); %Basophils 0.2 % (0.0-1.0); %Eosinophils 2.9 % (0.0-10.0); %Lymphocytes 15.7 % (21.0-51.0); %Monocytes 13.3 % (0.0-10.0); Hemoglobin 9.2 g/dL (14.0-18.0); Mean Corpuscular HGB CONC 30.3 g/dL (32.0-36.0); Mean Corpuscular Hemoglobin 21.6 pg (27.0-31.0); Mean Corpuscular Volume 71.2 fl (78.0-98.0); Mean Platelet Volume 9.3 fL (7.4-10.4); Platelet Count 344 10x3/uL (130-400); RBC Distribution Width 19.2 % (11.5-14.5); Red Blood Cell (RBC) Count 4.25 mill/uL (4.70-6.10); White Blood Cell (WBC) Count 9.8 10x3/uL (4.8-10.8)
[2022-05-21 04:55] LABS: Anion Gap 12 mmol/L (10-20); BUN (Urea Nitrogen) 40 mg/dL (8.4-25.7); Calc. Creatinine Clearance 122 mL/min (70-130); Calcium 8.7 mg/dL (7.8-10.44); Carbon Dioxide 32 mmol/L (23-31); Chloride 92 mmol/L (98-107); Estimated GFR 73; Glucose 106 mg/dL (80-115); Sodium 131 mmol/L (136-145)
[2022-05-21] MEDS: Furosemide 100 MG/10 ML VIAL SLOW IVP SCH ×2 (05:49→14:53)
[2022-05-21] MEDS: Rivaroxaban 10 MG TAB PO SCH (05:49)
[2022-05-21 09:06] LABS: Bacteria/HPF None Seen HPF (None Seen); Bilirubin Negative (Negative); Blood, Urine Negative (Negative); CAUTI Indications for Culture Dysuria,urgency,freq; Clarity Clear (Clear); Glucose, Urine (Dipstick) Normal (Negative); Ketone, Urine Negative (Negative); Leukocyte 75 Leu/uL (Negative); Nitrite Negative (Negative); Protein, Urine (Dipstick) Negative (Neg-Trace); RBC/HPF 0-3 HPF (0-3); Squamous Epithelial 0-3 HPF (0-3); Urobilinogen Normal mg/dL (Less than 2); WBC/HPF 0-3 HPF (0-3)
[2022-05-21 09:08] LABS: Urine Culture Reflex No No
[2022-05-21] MEDS: Lisinopril 2.5 MG TAB PO SCH (09:34)
[2022-05-21] MEDS: Sertraline 100 MG TAB PO SCH (09:35)
[2022-05-21] MEDS: Digoxin 0.125 MG TAB PO SCH (09:35)
[2022-05-21] MEDS: Carvedilol 3.125 MG TAB PO SCH ×2 (09:36→18:03)
[2022-05-21] MEDS: Spironolactone 25 MG TAB PO SCH (09:36)
[2022-05-21] MEDS: Cholecalciferol 1,000 UNITS (25 MCG) TAB PO SCH (09:36)
[2022-05-21] MEDS: Fluticasone Propionate Nasal Spray 16 gm Bottle NASAL SCH (09:37)
[2022-05-21] MEDS: GUAIFENESIN SF SOLN 200 MG/10 ML UDCUP PO PRN (18:03)
[2022-05-21] MEDS: Amitriptyline HCl 25 MG TAB PO SCH (21:40)
[2022-05-22 04:33] LABS: #Basophils 0.1 thou/uL (0.0-0.2); #Eosinphils 0.3 thou/uL (0.0-0.7); #Lymphocytes 1.7 thou/uL (1.20-3.40); #Monocytes 1.4 thou/uL (0.11-0.59); %Basophils 0.6 % (0.0-1.0); %Eosinophils 2.8 % (0.0-10.0); %Lymphocytes 15.9 % (21.0-51.0); %Monocytes 13.4 % (0.0-10.0); %Neutrophils 67.2 % (42.0-75.0); Hemoglobin 9.4 g/dL (14.0-18.0); Mean Corpuscular HGB CONC 29.6 g/dL (32.0-36.0); Mean Corpuscular Hemoglobin 21.7 pg (27.0-31.0); Mean Corpuscular Volume 73.2 fl (78.0-98.0); Mean Platelet Volume 8.9 fL (7.4-10.4); Platelet Count 332 10x3/uL (130-400); RBC Distribution Width 19.4 % (11.5-14.5); Red Blood Cell (RBC) Count 4.33 mill/uL (4.70-6.10); White Blood Cell (WBC) Count 10.4 10x3/uL (4.8-10.8)
[2022-05-22 05:03] LABS: Anion Gap 12 mmol/L (10-20); BUN (Urea Nitrogen) 41 mg/dL (8.4-25.7); Calc. Creatinine Clearance 112 mL/min (70-130); Carbon Dioxide 32 mmol/L (23-31); Chloride 93 mmol/L (98-107); Estimated GFR 65; Glucose 99 mg/dL (80-115); Potassium 5.1 mmol/L (3.5-5.1); Sodium 132 mmol/L (136-145)
[2022-05-22] MEDS: Furosemide 100 MG/10 ML VIAL SLOW IVP SCH ×2 (05:29→15:03)
[2022-05-22] MEDS: Rivaroxaban 10 MG TAB PO SCH (05:29)
[2022-05-22] MEDS: Digoxin 0.125 MG TAB PO SCH (09:15)
[2022-05-22] MEDS: Spironolactone 25 MG TAB PO SCH (09:15)
[2022-05-22] MEDS: Sertraline 100 MG TAB PO SCH (09:16)
[2022-05-22] MEDS: Carvedilol 3.125 MG TAB PO SCH ×2 (09:16→18:33)
[2022-05-22] MEDS: Fluticasone Propionate Nasal Spray 16 gm Bottle NASAL SCH (09:16)
[2022-05-22] MEDS: Cholecalciferol 1,000 UNITS (25 MCG) TAB PO SCH (09:16)
[2022-05-22] MEDS: Lisinopril 2.5 MG TAB PO SCH (09:16)
[2022-05-22 17:39] LABS: Troponin I 0.034 ng/mL (< 0.028)
[2022-05-22 18:36] LABS: Analyzer IN Cardio OR; Base Excess (BEa) 11.6 mEq/L (-2.0 to +3.0); CO2 Tension 47.1 mmHg (35.0-45.0); Calcium, Ionized (arterial) 1.07 mmol/L (1.12-1.30); Carboxyhemoglobin (COHb) 1.5 gm% (0.0-3.0); Hemoglobin (Hb) 9.6 g/dL (14.0-18.0); O2 Tension (PaO2), arterial 67.9 mmHg (> 80.0); Potassium - ABG Lab 4.97 mmol/L (3.70-5.30)
[2022-05-22 18:39] LABS: ALV-art Gradient 72.865 mmHg (0-20); Puncture Site RBA
[2022-05-22] MEDS: Benzonatate 100 MG CAP PO PRN (21:28)
[2022-05-22] MEDS: Amitriptyline HCl 25 MG TAB PO SCH (21:28)
[2022-05-23 03:29] VITALS: TEMP 97.9
[2022-05-23] MEDS: Benzonatate 100 MG CAP PO PRN (04:36)
[2022-05-23 05:05] LABS: #Basophils 0.1 thou/uL (0.0-0.2); #Eosinphils 0.2 thou/uL (0.0-0.7); #Lymphocytes 1.5 thou/uL (1.20-3.40); #Monocytes 1.1 thou/uL (0.11-0.59); #Neutrophils 6.8 thou/uL (1.40-6.50); %Basophils 0.6 % (0.0-1.0); %Eosinophils 2.5 % (0.0-10.0); %Lymphocytes 15.1 % (21.0-51.0); %Monocytes 11.6 % (0.0-10.0); %Neutrophils 70.2 % (42.0-75.0); Hemoglobin 9.2 g/dL (14.0-18.0); Mean Corpuscular HGB CONC 29.9 g/dL (32.0-36.0); Mean Corpuscular Hemoglobin 21.4 pg (27.0-31.0); Mean Corpuscular Volume 71.4 fl (78.0-98.0); Mean Platelet Volume 9.7 fL (7.4-10.4); Platelet Count 333 10x3/uL (130-400); RBC Distribution Width 19.5 % (11.5-14.5); White Blood Cell (WBC) Count 9.7 10x3/uL (4.8-10.8)
[2022-05-23 05:17] LABS: Anion Gap 12 mmol/L (10-20); BUN (Urea Nitrogen) 36 mg/dL (8.4-25.7); Calc. Creatinine Clearance 127 mL/min (70-130); Calcium 8.7 mg/dL (7.8-10.44); Carbon Dioxide 34 mmol/L (23-31); Chloride 91 mmol/L (98-107); Estimated GFR 77; Glucose 107 mg/dL (80-115); Potassium 4.9 mmol/L (3.5-5.1); Sodium 132 mmol/L (136-145)
[2022-05-23] MEDS: Furosemide 100 MG/10 ML VIAL SLOW IVP SCH (06:25)
[2022-05-23] MEDS: Rivaroxaban 10 MG TAB PO SCH (06:25)
[2022-05-23] MEDS ORDERED: Calcium Carbonate 600 MG TAB PO SCH (09:00)
[2022-05-23 09:05] VITALS: BP 123/56
[2022-05-23] MEDS: Carvedilol 3.125 MG TAB PO SCH (09:08)
[2022-05-23] MEDS: Spironolactone 25 MG TAB PO SCH (09:08)
[2022-05-23] MEDS: Fluticasone Propionate Nasal Spray 16 gm Bottle NASAL SCH (09:09)
[2022-05-23] MEDS: Digoxin 0.125 MG TAB PO SCH (09:09)
[2022-05-23] MEDS: Cholecalciferol 1,000 UNITS (25 MCG) TAB PO SCH (09:09)
[2022-05-23] MEDS: Sertraline 100 MG TAB PO SCH (09:09)
[2022-05-23] MEDS: Lisinopril 2.5 MG TAB PO SCH (09:09)
== END 2022-05-23 13:55 | disposition home or self-care (01) | DRG 291 ==
LOC: SUATTDRO 14:25 → ERS 14:25 → ERHOLD 18:35 → 2NO 05-17 09:54 → OBSVTOIN 05-18 09:54
PROVIDERS: ADMIT Hospitalist; ATTEND Hospitalist
DX: I11.0 Hypertensive heart disease with heart failure (principal); I50.43 Acute on chronic combined systolic (congestive) and diastolic (congestive) heart failure; J96.01 Acute respiratory failure with hypoxia; E87.1 Hypo-osmolality and hyponatremia; Z68.41 Body mass index [BMI] 40.0-44.9, adult; E11.9 Type 2 diabetes mellitus without complications; I48.0 Paroxysmal atrial fibrillation; E78.5 Hyperlipidemia, unspecified; G89.29 Other chronic pain; M54.9 Dorsalgia, unspecified; F41.9 Anxiety disorder, unspecified; I42.9 Cardiomyopathy, unspecified; D64.9 Anemia, unspecified; E66.01 Morbid (severe) obesity due to excess calories; Z88.1 Allergy status to other antibiotic agents; Z91.040 Latex allergy status; Z88.5 Allergy status to narcotic agent; Z88.8 Allergy status to other drugs, medicaments and biological substances; Z91.018 Allergy to other foods; Z79.899 Other long term (current) drug therapy; Z79.01 Long term (current) use of anticoagulants; Z79.51 Long term (current) use of inhaled steroids; Z90.49 Acquired absence of other specified parts of digestive tract; Z95.810 Presence of automatic (implantable) cardiac defibrillator; Z87.442 Personal history of urinary calculi
CPT/HCPCS: 36415; 36416; 36600; 70450; 71045; 74176; 80048; 80053; 81001; 81003; 82553; 82805; 83605; 83735; 83880; 84100; 84484; 85025; 86140; 93005; 93306; 96374; 96375; 96376; G0378; J1940; J2405

== ENCOUNTER 2022-07-31 13:45 | Inpatient (IN) | payer MEDICARE, MEDICAID ==
[~2022-07-31 13:45] MED LIST changes: -Iopamidol 370 76% 50 ML VIAL FS ONE; +Iopamidol-370 76% 500 ML MDV (1 ML CHARGE) ONE
[2022-07-31 16:17] LABS: Acetaminophen Less than 10.0 mcg/mL (10.0-30.0); Alcohol Less than 10 mg/dL (Less than 10); Lipase 24 U/L (8-78); Salicylate Less than 8.0 mg/dL (15.0-30.0)
[2022-07-31 16:18] LABS: ALT (SGPT) 13 U/L (8-55); AST (SGOT) 20 U/L (5-34); Alkaline Phosphatase 97 U/L (40-110); Anion Gap 16 mmol/L (10-20); BUN (Urea Nitrogen) 21 mg/dL (8.4-25.7); Bilirubin, Total 1.3 mg/dL (0.2-1.2); CK (CPK) 69 U/L (30-200); Calc. Creatinine Clearance 0 mL/min (70-130); Calcium 8.9 mg/dL (7.8-10.44); Carbon Dioxide 24 mmol/L (23-31); Chloride 100 mmol/L (98-107); Estimated GFR 91; Globulin 4.1 g/dL (2.4-3.5); Glucose 93 mg/dL (80-115); Potassium 4.7 mmol/L (3.5-5.1); Protein, Total 7.1 g/dL (5.8-8.1); Sodium 135 mmol/L (136-145)
[2022-07-31 16:25] LABS: #Eosinphils 0.2 thou/uL (0.0-0.7); #Lymphocytes 1.6 thou/uL (1.20-3.40); #Monocytes 1.5 thou/uL (0.11-0.59); #Neutrophils 8.3 thou/uL (1.40-6.50); %Basophils 0.4 % (0.0-1.0); %Eosinophils 1.8 % (0.0-10.0); %Lymphocytes 13.7 % (21.0-51.0); %Neutrophils 71.2 % (42.0-75.0); Anisocytosis MODERATE=16-30 cells (100X) (0-5/hpf); Burr Cells SLIGHT = 2-5 cells (100X) (0-1/hpf); Hemoglobin 10.1 g/dL (14.0-18.0); Hypochromia SLIGHT = 6-15 cells (100X) (0-5/hpf); MDiff Complete? YES; Mean Corpuscular HGB CONC 28.1 g/dL (32.0-36.0); Mean Corpuscular Hemoglobin 20.1 pg (27.0-31.0); Mean Corpuscular Volume 71.3 fl (78.0-98.0); Microcytosis SLIGHT = 6-15 cells (100X) (0-5/hpf); Ovalocytes SLIGHT = 2-5 cells (100X) (0-1/hpf); Platelet Count 427 10x3/uL (130-400); Platelet Morphology Comment Appears Increased; Polychromasia SLIGHT = 2-3 cells (100X) (0-2/hpf); RBC Distribution Width 20.4 % (11.5-14.5); Red Blood Cell (RBC) Count 5.06 mill/uL (4.70-6.10); Target Cells SLIGHT = 2-5 cells (100X) (0-1/hpf); White Blood Cell (WBC) Count 11.6 10x3/uL (4.8-10.8)
[2022-07-31 16:39] LABS: CKMB 4.4 ng/mL (0-6.6)
[2022-07-31 18:05] LABS: Bacteria/HPF None Seen HPF (None Seen); Bilirubin Negative (Negative); Blood, Urine 1+ (Negative); Clarity Clear (Clear); Glucose, Urine (Dipstick) Normal (Negative); Ketone, Urine Negative (Negative); Leukocyte 75 Leu/uL (Negative); Nitrite Negative (Negative); Protein, Urine (Dipstick) 20 mg/dL (Neg-Trace); Specific Gravity, Urine 1.022 (1.002-1.036); Squamous Epithelial 0-3 HPF (0-3); pH, Urine 5.5 (5.0-9.0)
[2022-07-31 18:14] LABS: Amphetamine Not Detected (NotDetected); Barbiturates Screen Not Detected (NotDetected); Benzodiazepine Screen Not Detected (NotDetected); Cocaine Metabolite Screen Not Detected (NotDetected); Methadone Not Detected (NotDetected); Methamphetamine Not Detected (NotDetected); Opiate Screen Not Detected (NotDetected); Oxycodone Screen Not Detected (NotDetected); Phencyclidine (PCP) Not Detected (NotDetected); THC/Cannabinoid Screen Not Detected (NotDetected); Tricyclic Screen Detected (NotDetected)
[2022-07-31] MEDS ORDERED: Furosemide 40 MG/4 ML VIAL ONE (20:21)
[2022-07-31] MEDS ORDERED: cefTRIAXone (ROCEPHIN) 1 GM VIAL ONE (20:21)
[2022-07-31] MEDS ORDERED: HumaLOG 300 UNITS/3 ML VIAL SC PRN (21:03)
[2022-07-31] MEDS ORDERED: Insulin Regular 300 UNITS/3 ML VIAL SC PRN (21:03)
[2022-07-31] MEDS ORDERED: Dextrose 50% Abboject 50 ML SYRINGE SLOW IVP PRN (21:03)
[2022-07-31] MEDS ORDERED: Dextrose 5% in Water 1,000 ML IV PRN (21:03)
[2022-07-31] MEDS ORDERED: Ondansetron ODT 4 MG TAB SL PRN (23:00)
[2022-07-31] MEDS ORDERED: Ondansetron PF 4 MG/2 ML Vial IVP PRN (23:00)
[2022-07-31] MEDS ORDERED: Acetaminophen 325 MG TAB PO PRN (23:00)
[2022-08-01] MEDS ORDERED: Polyethylene Glycol 3350 17 GM Packet PO SCH (01:15)
[2022-08-01] MEDS ORDERED: Acetaminophen 500 MG TAB PO PRN (01:34)
[2022-08-01] MEDS ORDERED: Benzonatate 100 MG CAP PO PRN (01:46)
[2022-08-01 04:27] VITALS: BMI 38.6
[2022-08-01 04:34] LABS: #Eosinphils 0.2 thou/uL (0.0-0.7); #Lymphocytes 0.8 thou/uL (1.20-3.40); #Monocytes 1.1 thou/uL (0.11-0.59); #Neutrophils 7.1 thou/uL (1.40-6.50); %Basophils 0.3 % (0.0-1.0); %Eosinophils 2.2 % (0.0-10.0); %Lymphocytes 8.7 % (21.0-51.0); %Monocytes 12.2 % (0.0-10.0); %Neutrophils 76.7 % (42.0-75.0); Hemoglobin 9.3 g/dL (14.0-18.0); Mean Corpuscular HGB CONC 29.2 g/dL (32.0-36.0); Mean Corpuscular Hemoglobin 20.4 pg (27.0-31.0); Mean Corpuscular Volume 69.8 fl (78.0-98.0); Platelet Count 369 10x3/uL (130-400); RBC Distribution Width 20.7 % (11.5-14.5); Red Blood Cell (RBC) Count 4.54 mill/uL (4.70-6.10); White Blood Cell (WBC) Count 9.2 10x3/uL (4.8-10.8)
[2022-08-01 05:10] LABS: Anion Gap 12 mmol/L (10-20); BUN (Urea Nitrogen) 22 mg/dL (8.4-25.7); Calc. Creatinine Clearance 139 mL/min (70-130); Calcium 8.4 mg/dL (7.8-10.44); Carbon Dioxide 26 mmol/L (23-31); Chloride 100 mmol/L (98-107); Estimated GFR 94; Glucose 90 mg/dL (80-115); Potassium 4.1 mmol/L (3.5-5.1); Sodium 134 mmol/L (136-145)
[2022-08-01 05:25] LABS: Hemoglobin A1c 5.8 % (4.0-6.0)
[2022-08-01 06:09] LABS: SARS-CoV-2 NAA Rapid Test Not Detected (NotDetected)
[2022-08-01] MEDS ORDERED: FLU VACC QS2022-23(65YR UP)/PF 240 MCG/0.7 ML SYRINGE IM ONE (09:00)
[2022-08-01] MEDS ORDERED: Spironolactone 25 MG TAB PO SCH (09:00)
[2022-08-01] MEDS: Lisinopril 2.5 MG TAB PO SCH (10:16)
[2022-08-01] MEDS: Calcium Carbonate 600 MG TAB PO SCH (10:16)
[2022-08-01] MEDS: Sertraline 100 MG TAB PO SCH (10:16)
[2022-08-01] MEDS: Digoxin 0.25 MG TAB PO SCH (10:16)
[2022-08-01 10:17] LABS: Cardiac Risk 5.4 (Less than 4.5)
[2022-08-01] MEDS: Furosemide 80 MG TAB PO SCH ×2 (10:17→19:55)
[2022-08-01] MEDS: Polyethylene Glycol 3350 17 GM Packet PO SCH (10:17)
[2022-08-01] MEDS: Carvedilol 3.125 MG TAB PO SCH ×2 (10:17→19:56)
[2022-08-01] MEDS ORDERED: Furosemide 40 MG/4 ML VIAL SLOW IVP SCH ×2 (12:00→12:15)
[2022-08-01] MEDS ORDERED: Amitriptyline HCl 25 MG TAB PO SCH (21:00)
[2022-08-02 05:20] LABS: Hemoglobin 9.1 g/dL (14.0-18.0); Mean Corpuscular HGB CONC 28.5 g/dL (32.0-36.0); Mean Corpuscular Hemoglobin 19.7 pg (27.0-31.0); Mean Corpuscular Volume 68.9 fl (78.0-98.0); Mean Platelet Volume 11.3 fL (7.4-10.4); Platelet Count 348 10x3/uL (130-400); RBC Distribution Width 20.4 % (11.5-14.5); Red Blood Cell (RBC) Count 4.61 mill/uL (4.70-6.10); White Blood Cell (WBC) Count 9.3 10x3/uL (4.8-10.8)
[2022-08-02 05:38] LABS: Anion Gap 12 mmol/L (10-20); BUN (Urea Nitrogen) 23 mg/dL (8.4-25.7); Calc. Creatinine Clearance 130 mL/min (70-130); Calcium 8.4 mg/dL (7.8-10.44); Carbon Dioxide 27 mmol/L (23-31); Chloride 100 mmol/L (98-107); Estimated GFR 88; Glucose 83 mg/dL (80-115); Potassium 4.1 mmol/L (3.5-5.1); Sodium 135 mmol/L (136-145)
[2022-08-02 06:13] LABS: Anisocytosis SLIGHT = 6-15 cells (100X) (0-5/hpf); Eosinophils 7 % (0-10); Hypochromia MODERATE=16-30 cells (100X) (0-5/hpf); Lymphocytes 11 % (21-51); MDiff Complete? YES; Monocytes 20 % (0-10); Myelocyte 2 % (0-0); Neutrophil 60 % (42-75); Ovalocytes SLIGHT = 2-5 cells (100X) (0-1/hpf); Platelet Morphology Comment Appears Adequate; Polychromasia SLIGHT = 2-3 cells (100X) (0-2/hpf)
[2022-08-02] MEDS: Calcium Carbonate 600 MG TAB PO SCH (08:22)
[2022-08-02] MEDS: Lisinopril 2.5 MG TAB PO SCH (08:46)
[2022-08-02] MEDS: Carvedilol 3.125 MG TAB PO SCH (08:46)
[2022-08-02] MEDS: Sertraline 100 MG TAB PO SCH (08:46)
[2022-08-02] MEDS: Furosemide 80 MG TAB PO SCH (08:46)
[2022-08-02] MEDS: Polyethylene Glycol 3350 17 GM Packet PO SCH (08:57)
[2022-08-02] MEDS: Digoxin 0.25 MG TAB PO SCH (08:57)
[2022-08-02] MEDS ORDERED: Spironolactone 25 MG TAB PO SCH (09:00)
[2022-08-02] MEDS ORDERED: Rivaroxaban 10 MG TAB PO SCH (09:00)
[2022-08-02] MEDS ORDERED: Tamsulosin HCl 0.4 MG CAP PO SCH (09:00)
[2022-08-02 15:20] VITALS: BP 112/62; TEMP 97.8
== END 2022-08-02 16:32 | DRG 291 ==
LOC: ERS 13:45 → 2NO 20:32
PROVIDERS: ADMIT Family Medicine; ATTEND Family Medicine
DX: I50.23 Acute on chronic systolic (congestive) heart failure (principal); J96.01 Acute respiratory failure with hypoxia; L89.893 Pressure ulcer of other site, stage 3; I42.9 Cardiomyopathy, unspecified; E78.5 Hyperlipidemia, unspecified; E11.9 Type 2 diabetes mellitus without complications; I48.91 Unspecified atrial fibrillation; K21.9 Gastro-esophageal reflux disease without esophagitis; F03.90 Unspecified dementia, unspecified severity, without behavioral disturbance, psychotic disturbance, mood disturbance, and anxiety; Z88.5 Allergy status to narcotic agent; Z91.040 Latex allergy status; Z88.8 Allergy status to other drugs, medicaments and biological substances; Z79.01 Long term (current) use of anticoagulants; Z95.810 Presence of automatic (implantable) cardiac defibrillator; Z90.49 Acquired absence of other specified parts of digestive tract
CPT/HCPCS: 36415; 36416; 70450; 71045; 71275; 74177; 80048; 80053; 80061; 80162; 80306; 80307; 81003; 81015; 82140; 82550; 82553; 83036; 83690; 83880; 84443; 84484; 85025; 85379; 87086; 93005; 97139; J0696; J1940; Q9967

== ENCOUNTER 2022-09-06 12:14 | Emergency (ER) | payer MEDICARE, OTHER ==
[~2022-09-06 12:14] MED LIST changes: +Iopamidol 370 76% 100 ML VIAL ONE; -Iopamidol-370 76% 500 ML MDV (1 ML CHARGE) ONE
[2022-09-06] MEDS ORDERED: HYDROcodone/Acetaminophen 5/325 mg Tablet ONE (13:25)
== END 2022-09-06 15:20 ==
LOC: ERS 12:14
DX: S00.81XA Abrasion of other part of head, initial encounter (principal); S80.01XA Contusion of right knee, initial encounter; W18.30XA Fall on same level, unspecified, initial encounter
CPT/HCPCS: 70450; 72125; 72170; 93005; Q9967

== ENCOUNTER 2022-11-23 14:32 | Inpatient (IN) | payer MEDICARE, MEDICAID ==
[2022-11-23] MEDS ORDERED: Cefepime 2 GM VIAL ONE (15:24)
[2022-11-23 15:26] LABS: #Basophils 0.1 thou/uL (0.0-0.2); #Eosinphils 0.1 thou/uL (0.0-0.7); #Monocytes 1.3 thou/uL (0.11-0.59); %Basophils 0.5 % (0.0-1.0); %Eosinophils 0.5 % (0.0-10.0); %Lymphocytes 16.5 % (21.0-51.0); %Neutrophils 71.9 % (42.0-75.0); Hemoglobin 10.9 g/dL (14.0-18.0); Mean Corpuscular HGB CONC 31.1 g/dL (32.0-36.0); Mean Corpuscular Volume 67.3 fl (78.0-98.0); Mean Platelet Volume 9.3 fL (7.4-10.4); Platelet Count 369 10x3/uL (130-400); RBC Distribution Width 26.8 % (11.5-14.5); White Blood Cell (WBC) Count 12.5 10x3/uL (4.8-10.8)
[2022-11-23 15:51] LABS: ALT (SGPT) 12 U/L (8-55); AST (SGOT) 25 U/L (5-34); Albumin 2.5 g/dL (3.4-4.8); Alkaline Phosphatase 84 U/L (40-110); Anion Gap 16 mmol/L (10-20); BUN (Urea Nitrogen) 50 mg/dL (8.4-25.7); Bilirubin, Total 1.1 mg/dL (0.2-1.2); Calc. Creatinine Clearance 0 mL/min (70-130); Calcium 8.6 mg/dL (7.8-10.44); Carbon Dioxide 23 mmol/L (23-31); Chloride 104 mmol/L (98-107); Estimated GFR 23; Globulin 4.1 g/dL (2.4-3.5); Glucose 71 mg/dL (80-115); Potassium 5.1 mmol/L (3.5-5.1); Protein, Total 6.6 g/dL (5.8-8.1); Sodium 138 mmol/L (136-145)
[2022-11-23 15:54] LABS: Anisocytosis MODERATE=16-30 cells HPF (0-5); Burr Cells MODERATE= 6-15 cells HPF (0-1); CellaVision Operator ID LAB.MJL; Elliptocytes SLIGHT = 2-5 cells HPF (0-1); Hypochromia SLIGHT = 6-15 cells HPF (0-5); Microcytosis SLIGHT = 6-15 cells HPF (0-5); Ovalocytes SLIGHT = 2-5 cells HPF (0-1); Platelet Adequacy Comment Platelets Normal; Poikilocytosis MODERATE=16-30 cells HPF (0-5); Polychromasia SLIGHT = 2-3 cells HPF (0-2); Target Cells SLIGHT = 2-5 cells HPF (0-1)
[2022-11-23 15:56] LABS: Bacteria/HPF 3+ HPF (None Seen); Bilirubin 1+ (Negative); Blood, Urine 3+ (Negative); CAUTI Indications for Culture Alt mental st,lethar; Clarity Extra Turbid (Clear); Glucose, Urine (Dipstick) Normal (Negative); Ketone, Urine Negative (Negative); Leukocyte 500 Leu/uL (Negative); Nitrite Negative (Negative); Protein, Urine (Dipstick) 300 mg/dL (Neg-Trace); Specific Gravity, Urine 1.014 (1.002-1.036); Urobilinogen 3 mg/dL (Less than 2)
[2022-11-23 16:03] LABS: WBC/HPF 21-50 HPF (0-3)
[2022-11-23 16:04] LABS: Urine Culture Reflex Yes Yes
[2022-11-23 16:11] LABS: CKMB 4.3 ng/mL (0-6.6)
[2022-11-23] MEDS ORDERED: Vancomycin 1 GM/200 ML (FROZEN) BAG ONE (16:26)
[2022-11-23 16:57] LABS: Actual Bicarbonate (HCO3a) 23.1 mEq/L (22-28); Analyzer IN Cardio ER; Base Excess (BEa) -0.4 mEq/L (-2.0 to +3.0); CO2 Tension 34.1 mmHg (35.0-45.0); Calcium, Ionized (arterial) 1.03 mmol/L (1.12-1.30); Carboxyhemoglobin (COHb) 0.7 gm% (0.0-3.0); Hematocrit-ABG 33 % (42.0-52.0); Hemoglobin (Hb) 11.3 g/dL (14.0-18.0); O2 Tension (PaO2), arterial 93.4 mmHg (> 80.0); Potassium - ABG Lab 4.57 mmol/L (3.70-5.30); pH, Arterial 7.449 (7.35-7.45)
[2022-11-23 17:01] LABS: ALV-art Gradient 92.135 mmHg (0-20); Puncture Site RRA
[2022-11-23] MEDS ORDERED: NOREPINEPHRINE 8 MG/250 ML-D5W 250 ML ONE (18:12)
[2022-11-23] MEDS ORDERED: Glucagon 1 MG/ML KIT IM PRN (19:38)
[2022-11-23] MEDS ORDERED: Lactated Ringer's 1,000 ML IV SCH (19:45)
[2022-11-23] MEDS ORDERED: Albumin 25% 25 GM/100 ML BOT IVPB SCH (19:45)
[2022-11-23 20:27] LABS: Hemoglobin A1c 5.2 % (4.0-6.0)
[2022-11-23 20:49] LABS: INR-International Normal Ratio 1.9; PTT 36.1 sec (22.9-36.1); Prothrombin Time 22.5 sec (12.0-14.7)
[2022-11-23 20:53] LABS: Digoxin 3.79 ng/mL (0.8-2.0)
[2022-11-23] MEDS ORDERED: VANCOMYCIN FS SCH (21:00)
[2022-11-23] MEDS ORDERED: Vancomycin 1 GM in Premix Bag 1 BAG IVPB SCH (21:00)
[2022-11-23] MEDS ORDERED: Furosemide 100 MG/10 ML VIAL SLOW IVP SCH (23:00)
[2022-11-23] MEDS: DOBUTamine 500 mg/250 ml 250 ML IVPB SCH (23:20)
[2022-11-23] MEDS ORDERED: Sterile Water 10 ML VIAL FS PRN (23:45)
[2022-11-23] MEDS ORDERED: OLANZapine 10 MG VIAL IM SCH (23:59)
[2022-11-24 00:02] LABS: Magnesium 2.1 mg/dL (1.6-2.6)
[2022-11-24 00:06] LABS: Troponin I 0.088 ng/mL (< 0.028)
[2022-11-24] MEDS: NOREPINEPHRINE 8 MG/250 ML-D5W 250 ML IVPB PRN ×3 (01:41→19:34)
[2022-11-24] MEDS ORDERED: Albumin 25% 25 GM/100 ML BOT IVPB SCH (02:00)
[2022-11-24 02:08] LABS: #Monocytes 1.2 thou/uL (0.11-0.59); #Neutrophils 12.9 thou/uL (1.40-6.50); %Basophils 0.3 % (0.0-1.0); %Eosinophils 0.1 % (0.0-10.0); %Lymphocytes 8.5 % (21.0-51.0); %Monocytes 7.5 % (0.0-10.0); %Neutrophils 82.9 % (42.0-75.0); Hemoglobin 10.4 g/dL (14.0-18.0); Mean Corpuscular HGB CONC 30.3 g/dL (32.0-36.0); Mean Corpuscular Hemoglobin 20.9 pg (27.0-31.0); Mean Corpuscular Volume 68.9 fl (78.0-98.0); Mean Platelet Volume 9.2 fL (7.4-10.4); Platelet Count 384 10x3/uL (130-400); RBC Distribution Width 27.2 % (11.5-14.5); Red Blood Cell (RBC) Count 4.98 mill/uL (4.70-6.10); White Blood Cell (WBC) Count 15.6 10x3/uL (4.8-10.8)
[2022-11-24 02:29] LABS: Anion Gap 20 mmol/L (10-20); BUN (Urea Nitrogen) 52 mg/dL (8.4-25.7); Calc. Creatinine Clearance 29 mL/min (70-130); Calcium 8.1 mg/dL (7.8-10.44); Carbon Dioxide 20 mmol/L (23-31); Chloride 105 mmol/L (98-107); Estimated GFR 21; Glucose 94 mg/dL (80-115); Potassium 5.7 mmol/L (3.5-5.1); Sodium 139 mmol/L (136-145)
[2022-11-24 02:41] LABS: Phosphorus 7.1 mg/dL (2.3-4.7)
[2022-11-24 02:45] LABS: ALT (SGPT) 11 U/L (8-55); AST (SGOT) 28 U/L (5-34); Albumin 2.7 g/dL (3.4-4.8); Alkaline Phosphatase 80 U/L (40-110); Anion Gap 20 mmol/L (10-20); BUN (Urea Nitrogen) 52 mg/dL (8.4-25.7); Bilirubin, Total 1.3 mg/dL (0.2-1.2); Calc. Creatinine Clearance 29 mL/min (70-130); Calcium 8.3 mg/dL (7.8-10.44); Carbon Dioxide 19 mmol/L (23-31); Chloride 106 mmol/L (98-107); Estimated GFR 21; Globulin 3.7 g/dL (2.4-3.5); Glucose 92 mg/dL (80-115); Potassium 5.5 mmol/L (3.5-5.1); Protein, Total 6.4 g/dL (5.8-8.1); Sodium 139 mmol/L (136-145)
[2022-11-24 07:22] LABS: Anion Gap 17 mmol/L (10-20); BUN (Urea Nitrogen) 53 mg/dL (8.4-25.7); Calc. Creatinine Clearance 28 mL/min (70-130); Calcium 8.2 mg/dL (7.8-10.44); Carbon Dioxide 21 mmol/L (23-31); Chloride 105 mmol/L (98-107); Estimated GFR 20; Glucose 83 mg/dL (80-115); Sodium 138 mmol/L (136-145)
[2022-11-24] MEDS: Pantoprazole 40 MG VIAL IVP SCH (09:59)
[2022-11-24] MEDS ORDERED: Lactated Ringer's 500 ML IV SCH ×2 (10:45→12:15)
[2022-11-24] MEDS: Albumin 25% 25 GM/100 ML BOT IVPB SCH ×2 (11:41→18:45)
[2022-11-24] MEDS: Cefepime 1 GM in Sodium Chloride 0.9% 100 ML IVPB SCH (15:02)
[2022-11-24 15:52] LABS: Anion Gap 16 mmol/L (10-20); BUN (Urea Nitrogen) 56 mg/dL (8.4-25.7); Calc. Creatinine Clearance 28 mL/min (70-130); Calcium 8.3 mg/dL (7.8-10.44); Carbon Dioxide 24 mmol/L (23-31); Chloride 105 mmol/L (98-107); Estimated GFR 20; Glucose 94 mg/dL (80-115); Potassium 4.8 mmol/L (3.5-5.1); Sodium 140 mmol/L (136-145)
[2022-11-24] MEDS: DOBUTamine 500 mg/250 ml 250 ML IVPB SCH (19:34)
[2022-11-24 21:15] LABS: Vancomycin, Random 15.6 ug/mL (See Comment)
[2022-11-24] MEDS ORDERED: Vancomycin HCl 500 MG in Sodium Chloride 0.9% 250 ML 250 ML IVPB SCH (21:45)
[2022-11-24] MEDS ORDERED: Vancomycin HCl 500 MG in Sodium Chloride 0.9% 100 ML IVPB SCH (22:00)
[2022-11-25] MEDS: Albumin 25% 25 GM/100 ML BOT IVPB SCH ×3 (00:30→11:38)
[2022-11-25] MEDS: DOBUTamine 500 mg/250 ml 250 ML IVPB SCH (00:34)
[2022-11-25] MEDS ORDERED: Acetaminophen 650 MG Suppository PR PRN (02:53)
[2022-11-25] MEDS ORDERED: Acetaminophen 325 MG TAB PO PRN (02:53)
[2022-11-25] MEDS: NOREPINEPHRINE 8 MG/250 ML-D5W 250 ML IVPB PRN ×2 (03:25→12:27)
[2022-11-25] MEDS ORDERED: fentaNYL 50 mcg/mL 1 mL Vial SLOW IVP SCH (03:45)
[2022-11-25 05:07] LABS: #Basophils 0.1 thou/uL (0.0-0.2); #Eosinphils 0.1 thou/uL (0.0-0.7); #Monocytes 1.3 thou/uL (0.11-0.59); #Neutrophils 10.6 thou/uL (1.40-6.50); %Basophils 0.8 % (0.0-1.0); %Eosinophils 0.7 % (0.0-10.0); %Lymphocytes 15.3 % (21.0-51.0); %Neutrophils 73.6 % (42.0-75.0); Hemoglobin 10.3 g/dL (14.0-18.0); Mean Corpuscular HGB CONC 30.3 g/dL (32.0-36.0); Mean Corpuscular Hemoglobin 21.1 pg (27.0-31.0); Mean Corpuscular Volume 69.8 fl (78.0-98.0); Mean Platelet Volume 9.6 fL (7.4-10.4); Platelet Count 309 10x3/uL (130-400); RBC Distribution Width 27.6 % (11.5-14.5); Red Blood Cell (RBC) Count 4.87 mill/uL (4.70-6.10); White Blood Cell (WBC) Count 14.4 10x3/uL (4.8-10.8)
[2022-11-25 05:08] VITALS: BMI 28.8
[2022-11-25 05:32] LABS: ALT (SGPT) 15 U/L (8-55); AST (SGOT) 26 U/L (5-34); Albumin 3.4 g/dL (3.4-4.8); Alkaline Phosphatase 70 U/L (40-110); Anion Gap 18 mmol/L (10-20); BUN (Urea Nitrogen) 58 mg/dL (8.4-25.7); Bilirubin, Total 1.4 mg/dL (0.2-1.2); Calc. Creatinine Clearance 28 mL/min (70-130); Calcium 8.5 mg/dL (7.8-10.44); Carbon Dioxide 22 mmol/L (23-31); Chloride 106 mmol/L (98-107); Estimated GFR 20; Globulin 3.3 g/dL (2.4-3.5); Glucose 90 mg/dL (80-115); Potassium 4.6 mmol/L (3.5-5.1); Protein, Total 6.7 g/dL (5.8-8.1); Sodium 141 mmol/L (136-145)
[2022-11-25 05:35] LABS: Digoxin 3.76 ng/mL (0.8-2.0)
[2022-11-25] MEDS: Pantoprazole 40 MG VIAL IVP SCH (08:44)
[2022-11-25] MEDS: Cefepime 1 GM in Sodium Chloride 0.9% 100 ML IVPB SCH (15:15)
[2022-11-25 21:38] LABS: Vancomycin, Random 14.7 ug/mL (See Comment)
[2022-11-25] MEDS ORDERED: Vancomycin HCl 750 MG in Sodium Chloride 0.9% 250 ML 250 ML IVPB SCH (22:00)
[2022-11-25] MEDS: Dextrose 5% in Water 1,000 ML IV PRN (22:23)
[2022-11-25] MEDS: Dextrose 50% Abboject 50 ML SYRINGE SLOW IVP PRN (22:37)
[2022-11-26] MEDS: Dextrose 50% Abboject 50 ML SYRINGE SLOW IVP PRN (00:28)
[2022-11-26] MEDS ORDERED: Dextrose 50% Abboject 50 ML SYRINGE SLOW IVP SCH (01:30)
[2022-11-26] MEDS: Dextrose 5% in Water 1,000 ML IV PRN (04:04)
[2022-11-26 04:58] LABS: #Basophils 0.1 thou/uL (0.0-0.2); #Eosinphils 0.2 thou/uL (0.0-0.7); #Neutrophils 8.6 thou/uL (1.40-6.50); %Basophils 0.4 % (0.0-1.0); %Eosinophils 1.8 % (0.0-10.0); %Monocytes 8.4 % (0.0-10.0); %Neutrophils 74.9 % (42.0-75.0); Hemoglobin 9.6 g/dL (14.0-18.0); Mean Corpuscular HGB CONC 30.5 g/dL (32.0-36.0); Mean Corpuscular Hemoglobin 21.3 pg (27.0-31.0); Mean Platelet Volume 9.3 fL (7.4-10.4); Platelet Count 265 10x3/uL (130-400); RBC Distribution Width 27.2 % (11.5-14.5); Red Blood Cell (RBC) Count 4.51 mill/uL (4.70-6.10); White Blood Cell (WBC) Count 11.5 10x3/uL (4.8-10.8)
[2022-11-26 05:03] LABS: Mean Corpuscular Volume 69.8 fl (78.0-98.0)
[2022-11-26 05:18] LABS: ALT (SGPT) 13 U/L (8-55); AST (SGOT) 19 U/L (5-34); Albumin 3.1 g/dL (3.4-4.8); Alkaline Phosphatase 59 U/L (40-110); Anion Gap 15 mmol/L (10-20); BUN (Urea Nitrogen) 59 mg/dL (8.4-25.7); Bilirubin, Total 1.5 mg/dL (0.2-1.2); Calc. Creatinine Clearance 31 mL/min (70-130); Calcium 8.3 mg/dL (7.8-10.44); Carbon Dioxide 24 mmol/L (23-31); Chloride 108 mmol/L (98-107); Estimated GFR 22; Globulin 2.9 g/dL (2.4-3.5); Glucose 73 mg/dL (80-115); Potassium 4.1 mmol/L (3.5-5.1); Sodium 143 mmol/L (136-145)
[2022-11-26] MEDS: Dextrose 10% in Water 1,000 ML IV SCH (06:46)
[2022-11-26] MEDS: Pantoprazole 40 MG VIAL IVP SCH (08:48)
[2022-11-26] MEDS ORDERED: Lactated Ringer's 500 ML IV SCH (10:45)
[2022-11-26] MEDS: Cefepime 1 GM in Sodium Chloride 0.9% 100 ML IVPB SCH (14:27)
[2022-11-26] MEDS: NOREPINEPHRINE 8 MG/250 ML-D5W 250 ML IVPB PRN (19:18)
[2022-11-27] MEDS: Dextrose 10% in Water 1,000 ML IV SCH ×2 (01:10→20:28)
[2022-11-27 04:32] LABS: #Basophils 0.1 thou/uL (0.0-0.2); #Eosinphils 0.4 thou/uL (0.0-0.7); #Neutrophils 5.9 thou/uL (1.40-6.50); %Basophils 0.5 % (0.0-1.0); %Lymphocytes 21.6 % (21.0-51.0); %Monocytes 10.4 % (0.0-10.0); Hemoglobin 10.2 g/dL (14.0-18.0); Mean Corpuscular HGB CONC 30.6 g/dL (32.0-36.0); Mean Corpuscular Hemoglobin 21.2 pg (27.0-31.0); Mean Corpuscular Volume 69.2 fl (78.0-98.0); Mean Platelet Volume 9.1 fL (7.4-10.4); Platelet Count 279 10x3/uL (130-400); Red Blood Cell (RBC) Count 4.81 mill/uL (4.70-6.10); White Blood Cell (WBC) Count 9.4 10x3/uL (4.8-10.8)
[2022-11-27 04:37] LABS: RBC Distribution Width 27.4 % (11.5-14.5)
[2022-11-27 04:55] LABS: ALT (SGPT) 16 U/L (8-55); AST (SGOT) 16 U/L (5-34); Albumin 3.2 g/dL (3.4-4.8); Alkaline Phosphatase 63 U/L (40-110); Anion Gap 13 mmol/L (10-20); BUN (Urea Nitrogen) 59 mg/dL (8.4-25.7); Bilirubin, Total 1.2 mg/dL (0.2-1.2); Calc. Creatinine Clearance 34 mL/min (70-130); Calcium 8.4 mg/dL (7.8-10.44); Carbon Dioxide 25 mmol/L (23-31); Chloride 108 mmol/L (98-107); Estimated GFR 25; Globulin 3.1 g/dL (2.4-3.5); Glucose 94 mg/dL (80-115); Potassium 3.9 mmol/L (3.5-5.1); Protein, Total 6.3 g/dL (5.8-8.1); Sodium 142 mmol/L (136-145)
[2022-11-27] MEDS: Pantoprazole 40 MG VIAL IVP SCH (09:01)
[2022-11-27] MEDS: Rivaroxaban 15 MG TAB PO SCH (09:01)
[2022-11-27] MEDS ORDERED: Melatonin 3 MG TAB PO PRN (09:38)
[2022-11-27] MEDS ORDERED: Lactated Ringer's 1,000 ML IV SCH ×2 (09:45→10:00)
[2022-11-27] MEDS: Lactated Ringer's 1,000 ML IV SCH (10:34)
[2022-11-27 13:01] VITALS: BP 105/60
[2022-11-27] MEDS: Cefepime 1 GM in Sodium Chloride 0.9% 100 ML IVPB SCH (15:05)
[2022-11-28] MEDS: Lactated Ringer's 1,000 ML IV SCH (02:55)
[2022-11-28 03:56] LABS: #Eosinphils 0.3 thou/uL (0.0-0.7); #Monocytes 0.9 thou/uL (0.11-0.59); #Neutrophils 4.9 thou/uL (1.40-6.50); %Basophils 0.5 % (0.0-1.0); %Eosinophils 3.9 % (0.0-10.0); %Lymphocytes 21.9 % (21.0-51.0); %Monocytes 10.8 % (0.0-10.0); %Neutrophils 62.3 % (42.0-75.0); Hemoglobin 9.5 g/dL (14.0-18.0); Mean Corpuscular HGB CONC 30.6 g/dL (32.0-36.0); Mean Corpuscular Hemoglobin 21.2 pg (27.0-31.0); Mean Corpuscular Volume 69.2 fl (78.0-98.0); Mean Platelet Volume 9.4 fL (7.4-10.4); Platelet Count 233 10x3/uL (130-400); RBC Distribution Width 27.8 % (11.5-14.5); Red Blood Cell (RBC) Count 4.48 mill/uL (4.70-6.10); White Blood Cell (WBC) Count 7.9 10x3/uL (4.8-10.8)
[2022-11-28 04:21] LABS: ALT (SGPT) 13 U/L (8-55); AST (SGOT) 16 U/L (5-34); Albumin 2.9 g/dL (3.4-4.8); Alkaline Phosphatase 61 U/L (40-110); Anion Gap 4 mmol/L (10-20); BUN (Urea Nitrogen) 56 mg/dL (8.4-25.7); Bilirubin, Total 1.4 mg/dL (0.2-1.2); Calc. Creatinine Clearance 42 mL/min (70-130); Calcium 8.3 mg/dL (7.8-10.44); Carbon Dioxide 26 mmol/L (23-31); Chloride 114 mmol/L (98-107); Estimated GFR 33; Glucose 82 mg/dL (80-115); Potassium 3.9 mmol/L (3.5-5.1); Protein, Total 5.9 g/dL (5.8-8.1); Sodium 140 mmol/L (136-145)
[2022-11-28 07:05] VITALS: TEMP 99
[2022-11-28] MEDS ORDERED: Cosyntropin 250 MCG VIAL SLOW IVP SCH (08:00)
[2022-11-28] MEDS: Rivaroxaban 15 MG TAB PO SCH (08:09)
[2022-11-28] MEDS: Pantoprazole 40 MG VIAL IVP SCH (08:09)
[2022-11-28] MEDS ORDERED: Cefepime 1 GM in Sodium Chloride 0.9% 100 ML IVPB SCH (09:00)
== END 2022-11-28 14:39 | disposition hospice, inpatient (51) | DRG 698 ==
LOC: ERS 14:32 → CCU 17:51
PROVIDERS: ADMIT Student in an Organized Health Care Education/Training Program; ATTEND Student in an Organized Health Care Education/Training Program
PROC: 4A033R1 Measurement of Arterial Saturation, Peripheral, Percutaneous Approach (ICD-10-PCS; principal; 2022-11-23)
PROC: 3E03329 Introduction of Other Anti-infective into Peripheral Vein, Percutaneous Approach (ICD-10-PCS; 2022-11-23)
PROC: 3E033XZ Introduction of Vasopressor into Peripheral Vein, Percutaneous Approach (ICD-10-PCS; 2022-11-23)
PROC: 30233J1 Transfusion of Nonautologous Serum Albumin into Peripheral Vein, Percutaneous Approach (ICD-10-PCS; 2022-11-23)
DX: T83.510A Infection and inflammatory reaction due to cystostomy catheter, initial encounter (principal); A41.9 Sepsis, unspecified organism; G93.41 Metabolic encephalopathy; J96.01 Acute respiratory failure with hypoxia; R65.21 Severe sepsis with septic shock; I50.23 Acute on chronic systolic (congestive) heart failure; I21.4 Non-ST elevation (NSTEMI) myocardial infarction; N17.0 Acute kidney failure with tubular necrosis; N39.0 Urinary tract infection, site not specified; N18.4 Chronic kidney disease, stage 4 (severe); I13.0 Hypertensive heart and chronic kidney disease with heart failure and stage 1 through stage 4 chronic kidney disease, or unspecified chronic kidney disease; M86.8X8 Other osteomyelitis, other site; Z51.5 Encounter for palliative care; Z66 Do not resuscitate; K21.9 Gastro-esophageal reflux disease without esophagitis; E78.5 Hyperlipidemia, unspecified; E11.22 Type 2 diabetes mellitus with diabetic chronic kidney disease; E88.09 Other disorders of plasma-protein metabolism, not elsewhere classified; D63.1 Anemia in chronic kidney disease; E87.5 Hyperkalemia; T46.0X5A Adverse effect of cardiac-stimulant glycosides and drugs of similar action, initial encounter; I48.0 Paroxysmal atrial fibrillation; E11.69 Type 2 diabetes mellitus with other specified complication; E11.649 Type 2 diabetes mellitus with hypoglycemia without coma; Z86.711 Personal history of pulmonary embolism; Z90.49 Acquired absence of other specified parts of digestive tract; Z95.810 Presence of automatic (implantable) cardiac defibrillator; Z82.49 Family history of ischemic heart disease and other diseases of the circulatory system; Z88.8 Allergy status to other drugs, medicaments and biological substances; Z88.5 Allergy status to narcotic agent; Z79.899 Other long term (current) drug therapy; Y84.6 Urinary catheterization as the cause of abnormal reaction of the patient, or of later complication, without mention of misadventure at the time of the procedure
CPT/HCPCS: 36415; 36416; 36556; 36600; 70450; 71045; 74018; 74176; 76770; 80053; 80162; 80202; 80400; 81001; 82533; 82550; 82553; 82805; 83036; 83605; 83690; 83735; 83880; 84100; 84145; 84443; 84484; 85025; 85610; 85652; 85730; 86140; 87040; 87070; 87077; 87086; 87186; 87205; 93005; 93306; 96361; 96365; 96376; 97139; C9113; J0692; J0834; J1162; J1250; J1940; J3010; J3370; J3370-JW; J3490; J7050; J7070; J7120; J7999; P9047